=== PATIENT | male | born 1970 | race Caucasian/White ===

== ENCOUNTER 2018-03-06 18:11 | Inpatient (IN) ==
[2018-03-06 19:30] LABS: Basophils % 0.3 %; Eosinophils # 0.1 K/mcL (0.0-0.6); Eosinophils % 1.9 %; Hematocrit 37.8 % (37.5-50.1); Hemoglobin 12.9 g/dL (12.9-16.9); Immature Granulocytes % 0.3 % (0-4); Lymphocytes # 1.7 K/mcL (0.6-4.6); Lymphocytes % 29.1 %; Mean Corpuscular HGB Conc 34.1 g/dL (31.6-35.5); Mean Corpuscular Hemoglobin 28.8 pg (28.0-33.3); Mean Corpuscular Volume 84.4 fL (83.0-100.0); Mean Platelet Volume 11.9 fL (9.4-12.4); Monocytes # 0.4 K/mcL (0.0-1.3); Monocytes % 6.3 %; Neutrophils # 3.7 K/mcL (1.6-8.9); Platelet Count 202 K/mcL (140-400); Red Blood Count 4.48 M/mcL (4.19-5.50); Red Cell Distribution Width 12.4 % (11.5-14.5); Segmented Neutrophils % 62.1 %
[2018-03-06 19:44] LABS: BUN/Creatinine Ratio 24 (6-26); Blood Urea Nitrogen 33 mg/dL (6-20); Calcium 9.4 mg/dL (8.6-10.3); Carbon Dioxide 29 mEq/L (23-29); Chloride 104 mEq/L (98-107); Glucose 194 mg/dL (70-105); Osmolality,Calculated 301 (280-300); Potassium 4.6 mEq/L (3.5-5.1); Sodium 139 mEq/L (136-145); eGFR For African Americans > 60 (> 60); eGFR For Non-African Americans 55 (> 60)
[2018-03-06 19:47] LABS: Troponin I < 0.03 ng/mL (< 0.04)
[2018-03-06 20:01] LABS: Thyroid Stimulating Hormone 1.021 mcIU/mL (0.340-5.600)
[2018-03-06] MEDS ORDERED: 0.9 % Sodium Chloride 1,000 ML IVC ONE (20:05)
--- NOTE | 2018-03-06 20:10 | Emergency Department Note ---
Disposition Clinical Impression: Syncope and collapse Disposition: Admitted As Inpatient Condition: Fair General Adult HPI - General Chief complaint: ED Head Injury Stated complaint: fall w/head injury/+LOC Time Seen by Provider: 03/06/18 18:17 Source: patient Limitations: no limitations Nursing Notes Reviewed: Yes Vital Signs Reviewed: Yes - History of Present Illness HPI Narrative: 48-year-old male is emergency department with chief complaint of syncopal episode. Patient was mowing the lawn outside and went into the garage. He states that he bent over and passed out. Does not remember what happened afterwards. Patient denies any lightheadedness, vertigo. Patient states that he was not having any chest pain, pressure tightness, palpitations. Patient reporting neck pain. Patient states that he is up-to-date on tetanus. Patient having had pain. Pain Scale: 5 - Related Data Allergies Allergy/AdvReac Type Severity Reaction Status Date / Time No Known Allergies Allergy Verified 03/06/18 18:34 All systems ED: reviewed and negative except as stated. Review of Systems: As Per HPI Constitutional: Denies: fever Cardiovascular: Reports: syncope. Denies: chest pain, palpitations Respiratory: Denies: cough, dyspnea, sputum production Gastrointestinal: Denies: abdominal pain, nausea, vomiting Genitourinary: Denies: urgency, dysuria, frequency Musculoskeletal: Reports: neck pain. Denies: back pain Integumentary: Reports: abrasion (On forehead and the right lateral ankle) Neurological: Reports: paresthesias (Consistent with baseline). Denies: weakness, numbness Past Medical History - Past Medical History Medical history: Reports: coronary artery disease, CVA, diabetes, hyperlipidemia , hypertension, myocardial infarction, syncope, other Psychiatric history: Reports: depression, PTSD - Social History Smoking Status: Current some day smoker Smokeless Tobacco Status: No Alcohol use: Reports: none Drug use: Reports: none Physical Exam - General Limitations: no limitations General appearance: alert, in no apparent distress - Head Head exam: other (Mild abrasion on the forehead) - Eye Eye exam: Present: PERRL, EOMI. Absent: scleral icterus, miosis - ENT ENT exam: normal exam, normal oropharynx - Neck Neck exam: Present: trachea midline, tenderness (Of the posterior cervical spine ) - Chest Chest inspection: Present: normal inspection, symmetric chest wall rise - Respiratory Respiratory exam: Present: normal lung sounds bilaterally. Absent: respiratory distress, accessory muscle use - Cardiovascular Cardiovascular exam: Present: normal rhythm, tachycardia - Abdominal Exam Abdominal exam: Present: soft, Non-Tender. Absent: distention, guarding, rebound, rigidity - Extremities Exam Extremities exam: Present: other (The abrasion on the right lateral malleolus, neurovascular intact) - Expanded Upper Extremity Exam Hand exam: Present: normal inspection, other (Neurovascular intact, pain on gripping). Absent: tenderness, swelling Course Vital Signs Temperature 97.7 F 03/06/18 18:13 Pulse Rate 104 03/06/18 18:13 Respiratory Rate 20 03/06/18 18:13 O2 Sat by Pulse Oximetry 96 03/06/18 18:13 Temperature 97.7 F 03/06/18 18:23 Pulse Rate 102 03/06/18 21:00 Respiratory Rate 19 03/06/18 21:00 Blood Pressure 109/81 03/06/18 21:00 O2 Sat by Pulse Oximetry 96 03/06/18 21:00 Oxygen Delivery Oxygen Delivery Room Air Medical Decision Making - [facility] Narrative Medical decision making narrative: 48-year-old male presents to the emergency department with concern for syncopal episode as well as head trauma. Electrocardiogram did not reveal any evidence of ischemia, wolg parkinson white, Brugada syndrome, hypertrophic cardiomyopathy , prolonged QT syndrome. CT scan of the head and neck does not reveal any abnormality. Chest x-ray was normal as well. Patient had a syncopal episode on the way to the CT scanner. A repeat electrocardiogram was obtained and this did not reveal any changes. Creatinine was mildly elevated at 1.37. We do not have a baseline creatinine for the patient. This is addressed with a liter of normal saline. After patient was admitted to the hospitalist, he began complaining of right hand pain as well as right ankle pain that he had not complained of before. We have obtained plain films of this. Upper lotions or neurovascular intact. Patient is up-to-date on tetanus shot. Patient and are at bedside with discussion of all lab values as well as imaging. They agreed with plan for admission. Patient was given Tylenol for pain here in the emergency department. Cervical Spine CT 03/06/18 18:34 IMPRESSION: No acute abnormality of the cervical spine. D/ / Zheng Bansal MD / Zheng Bansal MD Interpreting Provider: Zheng Bansal MD Chest X-Ray 03/06/18 18:34 IMPRESSION: No acute abnormality. D/ / Jose Odell MD / Jose Odell MD Interpreting Provider: Jose Odell MD Head CT 03/06/18 18:34 IMPRESSION: No acute intracranial abnormality. D/ / Allen Odell MD / Allen Odell MD Interpreting Provider: Allen Odell MD Ankle X-Ray 03/06/18 20:28 IMPRESSION: No radiographic evidence of fracture or dislocation identified. D/ / Lyndon Rahman MD / Lyndon Rahman MD Interpreting Provider: Lyndon Rahman MD Hand X-Ray 03/06/18 20:28 IMPRESSION: No acute osseous abnormality. D/ / Marquez Morrow MD / Marquez Morrow MD Interpreting Provider: Marquez Morrow MD - Lab Data Result diagrams: 03/06/18 19:11 03/06/18 19:11 Lab Results 03/06/18 03/06/18 03/06/18 Range/Units 19:11 19:11 19:11 WBC 5.9 (4.3-11.1) K/mcL RBC 4.48 (4.19-5.50) M/mcL Hgb 12.9 (12.9-16.9) g/dL Hct 37.8 (37.5-50.1) % MCV 84.4 (83.0-100.0) fL MCH 28.8 (28.0-33.3) pg MCHC 34.1 (31.6-35.5) g/dL RDW 12.4 (11.5-14.5) % Plt Count 202 (140-400) K/mcL MPV 11.9 (9.4-12.4) fL Immature Gran % 0.3 (0-4) % Seg Neutrophils % 62.1 % Lymphocytes % 29.1 % Monocytes % 6.3 % Eosinophils % 1.9 % Basophils % 0.3 % Neutrophils # 3.7 (1.6-8.9) K/mcL Lymphocytes # 1.7 (0.6-4.6) K/mcL Monocytes # 0.4 (0.0-1.3) K/mcL Eosinophils # 0.1 (0.0-0.6) K/mcL Basophils # 0.0 (0.0-0.2) K/mcL PT (9.4-12.1) Seconds INR APTT (26.0-36.0) Seconds Sodium 139 (136-145) mEq/L Potassium 4.6 (3.5-5.1) mEq/L Chloride 104 (98-107) mEq/L Carbon Dioxide 29 (23-29) mEq/L BUN 33 H (6-20) mg/dL Creatinine 1.37 H (0.70-1.30) mg/dL Est GFR ( Amer) > 60 (> 60) Est GFR (Non-Af Amer) 55 L (> 60) BUN/Creatinine Ratio 24 (6-26) Glucose 194 H (70-105) mg/dL Calculated Osmolality 301 H (280-300) Calcium 9.4 (8.6-10.3) mg/dL Troponin I < 0.03 (< 0.04) ng/mL TSH 1.021 (0.340-5.600) mcIU/mL 03/06/18 Range/Units 19:45 WBC (4.3-11.1) K/mcL RBC (4.19-5.50) M/mcL Hgb (12.9-16.9) g/dL Hct (37.5-50.1) % MCV (83.0-100.0) fL MCH (28.0-33.3) pg MCHC (31.6-35.5) g/dL RDW (11.5-14.5) % Plt Count (140-400) K/mcL MPV (9.4-12.4) fL Immature Gran % (0-4) % Seg Neutrophils % % Lymphocytes % % Monocytes % % Eosinophils % % Basophils % % Neutrophils # (1.6-8.9) K/mcL Lymphocytes # (0.6-4.6) K/mcL Monocytes # (0.0-1.3) K/mcL Eosinophils # (0.0-0.6) K/mcL Basophils # (0.0-0.2) K/mcL PT 10.4 (9.4-12.1) Seconds INR 1.0 APTT 31.1 (26.0-36.0) Seconds Sodium (136-145) mEq/L Potassium (3.5-5.1) mEq/L Chloride (98-107) mEq/L Carbon Dioxide (23-29) mEq/L BUN (6-20) mg/dL Creatinine (0.70-1.30) mg/dL Est GFR ( Amer) (> 60) Est GFR (Non-Af Amer) (> 60) BUN/Creatinine Ratio (6-26) Glucose (70-105) mg/dL Calculated Osmolality (280-300) Calcium (8.6-10.3) mg/dL Troponin I (< 0.04) ng/mL TSH (0.340-5.600) mcIU/mL - EKG Data EKG #1 EKG attestation: Yes I reviewed and interpreted this EKG. EKG results narrative: 18:44 EKG #1 Ventricular rate 96 bpm,. 158 ms, QRS duration 92 ms, QT 332 ms, QTC 386, left axis deviation. Sinus rhythm with a ventricular rate of 96 bpm. There is no evidence of any ST segment changes concerning for ischemia. There is no evidence of Naya- Parkinson-White syndrome, Brugada syndrome, hypertrophic cardiomyopathy, QT prolongation EKG #2 18:44 No changes from previous EKG. Specifically, no evidence of hypertrophic cardiomyopathy, with Parkinson White syndrome, Brugada syndrome, QT prolongation
[2018-03-06 20:13] LABS: Prothrombin Time 10.4 Seconds (9.4-12.1)
[2018-03-06 20:16] LABS: Activated Partial Thrombo Time 31.1 Seconds (26.0-36.0)
[2018-03-06] MEDS ORDERED: Naloxone 0.4 MG/ML INJ IVP PRN (21:33)
--- NOTE | 2018-03-06 21:40 | Internal Med History&Physical ---
Date of Encounter: 03/06/18 Time of Encounter: 21:38 Internal Medicine - H&P: HPI Chief complaint: Syncope Admitted From: Emergency Dept Plans for Post Hospital Care: Home History of present illness: Mr. Fernandes is a 48 year old male patient with a history of prior CVA, orthostatic hypotension, diabetes, hypertension, hyperlipidemia, coronary artery disease who was brought to the ER after experiencing a bout of syncope while he was working in his garage. He had previously been mowing his lawn and then had been working in his garbage and was lifting something when he had blank spots in his visual chun and felt dizzy and the next thing he remembers is waking up on the ground. Nobody witnessed this event. Patient reports that his been having syncopal episodes for several months now and has been worked up at the [facility] and diagnosed with orthostatic hypotension. He was recommended to wear compression stockings which she has not been wearing them. His reports that his blood pressure is always very high. He denies any focal weakness or numbness. No nausea or vomiting. No chest pain or palpitations at this time. He had another episode of syncope/ passing out while he was getting into the CT scanner. His states that he tends to have dizziness and lightheadedness every time he stands up and starts to walk. He has been advised to take his time but he almost always moves quickly. He reports that he has had extensive workup including heart monitoring and MRI of the brain and multiple CT scans. Past Med Surg Social Fam HX - Past Medical History Medical history: coronary artery disease, CVA, diabetes, hyperlipidemia, hypertension, myocardial infarction, syncope, other Additional medical history: neuropathy, enlarged prostate, tremors Psychiatric history: depression, PTSD - Social History Smoking Status: Current some day smoker Smokeless Tobacco Status: No Alcohol use: none Drug use: none - Additional Family History Additional family history: Reviewed and found to be noncontributory at this time Internal Medicine - H&P: Meds 3 Allergy/AdvReac Type Severity Reaction Status Date / Time No Known Allergies Allergy Verified 03/06/18 18:34 All Systems PM: A 10-system review of systems was performed and is negative for pertinent findings except as documented above in the HPI. - Constitutional Constitutional: no chills, no fever(s), no night sweats - EENT Eyes: no change in vision, no discharge, no pain, no photophobia Ears: no ear discharge, no ear pain, no tinnitus Nose, mouth and throat: no dysphagia, no nasal discharge, no neck pain, no sore throat - Cardiovascular Cardiovascular ROS IM: no chest pain, no diaphoresis, no dyspnea, no lightheadedness, no palpitations, no syncope - Respiratory Respiratory: no cough, no dyspnea, no wheezing, no excessive phlegm production - Gastrointestinal Gastrointestinal: no abdominal pain, no diarrhea, no hematemesis, no hematochezia, no melena, no nausea, no vomiting - Musculoskeletal Musculoskeletal ROS IM: no numbness, no tingling - Integumentary Integumentary IM: no rash, no unusual bruising - Neurological Neurological ROS: weakness (Residual mild right-sided weakness from prior CVA), no confusion, no convulsions, no focal weakness, no numbness, no tingling, no tremor(s) - Hematologic/Lymphatic Hematologic/Lymphatic: no easy bruising - Constitutional Vitals: Temp Pulse Resp BP Pulse Ox 97.7 F 102 19 109/81 96 03/06/18 18:23 03/06/18 21:00 03/06/18 21:00 03/06/18 21:00 03/06/18 21:00 General appearance: Present: cooperative, A&O X 3, pleasant, answers questions appropriately - Neck Neck exam general surgery: Present: supple, trachea midline. Absent: lymphadenopathy - Respiratory Respiratory exam: Present: CTAB. Absent: accessory muscle use, rales, rhonchi, wheezes - Cardiovascular Cardiovascular exam: Present: RRR, +S1, +S2. Absent: diastolic murmur, gallop, rubs, systolic murmur - GI/Abdominal GI/Abdominal exam: Present: normal bowel sounds, soft, no peritoneal signs. Absent: distended, tenderness - Extremities Exam Extremities exam: Present: warm, radial pulses palpable and symmetrical. Absent : calf tenderness, cyanotic, pedal edema - Neurological Exam Neurological exam: Present: alert, CN II-XII intact, oriented X3. Absent: facial droop, speech deficit Additional comments: Strength in right lower extremity 4+ /5. Normal in all other extremities - Skin Skin exam: Present: dry, intact Internal Med - H&P Results - Labs CBC & Chem 7: 03/06/18 19:11 03/06/18 19:11 - EKG Data -: EKG Interpreted by Myself EKG shows normal: sinus rhythm - Impressions Impressions Cervical Spine CT 03/06/18 18:34 IMPRESSION: No acute abnormality of the cervical spine. D/ / Zheng Bansal MD / Zheng Bansal MD Interpreting Provider: Zheng Bansal MD Chest X-Ray 03/06/18 18:34 IMPRESSION: No acute abnormality. D/ / Jose Odell MD / Jose Odell MD Interpreting Provider: Jose Odell MD Head CT 03/06/18 18:34 IMPRESSION: No acute intracranial abnormality. D/ / Allen Odell MD / Allen Odell MD Interpreting Provider: Allen Odell MD Ankle X-Ray 03/06/18 20:28 IMPRESSION: No radiographic evidence of fracture or dislocation identified. D/ / Lyndon Rahman MD / Lyndon Rahman MD Interpreting Provider: Lyndon Rahman MD Hand X-Ray 03/06/18 20:28 IMPRESSION: No acute osseous abnormality. D/ / Marquez Morrow MD / Marquez Morrow MD Interpreting Provider: Marquez Morrow MD - Assessment and plan (1) Syncope and collapse Current Visit: Yes Status: Acute Assessment and plan: Most likely Orthostatic syncope. Patient with a history of orthostatic hypotension. He experienced syncope while he was standing. Will monitor blood pressure. Check orthostatic blood pressure. Give IV fluids. Given that he is already had extensive workup for this, will hold off on any further workup and obtain records [facility]. Consider tilt table test as patient reports that this has not been done. (2) Diabetes mellitus, type 2 Current Visit: Yes Status: Chronic Assessment and plan: Monitor blood sugars. Place patient on sliding scale insulin and diabetic diet. Qualifiers: Diabetes mellitus half-way insulin use: unspecified half-way insulin use status Diabetes mellitus complication status: with hyperglycemia Qualified Code(s): E11.65 - Type 2 diabetes mellitus with hyperglycemia (3) Essential hypertension Current Visit: Yes Status: Chronic Assessment and plan: Currently well controlled. We will monitor blood pressure and resume home medications if persistently elevated. (4) History of CVA (cerebrovascular accident) Current Visit: Yes Status: Chronic Assessment and plan: With mild residual right-sided weakness. Continue home medications. Fall precautions. - Time Spent With Patient Total time spent is greater than 50% in coordination of care (as documented) at patient's floor/unit and/or counseling patient:
[2018-03-07] MEDS ORDERED: Dextrose Gel 15 GM/37.5 ML TUBE PO PRN ×2 (00:08)
[2018-03-07] MEDS ORDERED: *HR* Dextrose 50 % in Water (Syg) 50 ML SYRINGE IVP PRN (00:08)
[2018-03-07] MEDS ORDERED: D5% in Water 1,000 ML IVC PRN (00:08)
--- NOTE | 2018-03-07 00:13 | Emergency Department Note ---
Disposition Clinical Impression: Syncope and collapse Disposition: Admitted As Inpatient Condition: Fair Referrals: Jarek Perez MD [Family Provider] - [facility] [Primary Care Provider] - General Adult HPI - General Chief complaint: ED Head Injury Stated complaint: fall w/head injury/+LOC Time Seen by Provider: 03/06/18 18:17 Source: patient Limitations: no limitations Nursing Notes Reviewed: Yes Vital Signs Reviewed: Yes - History of Present Illness Pain Scale: 5 - Related Data Home Medications Medication Instructions Recorded Confirmed Adult Aspirin 325 mg PO DAILY 03/06/18 03/06/18 Hydrochlorothiazide 25 mg PO QAM 03/06/18 03/06/18 Hytrin 0.4 mg PO DAILY 03/06/18 03/06/18 Lantus 88 units SQ BID 03/06/18 03/06/18 Losartan 75 mg PO DAILY 03/06/18 03/06/18 Lyrica 200 mg PO TID 03/06/18 03/06/18 Melatonin 3 mg PO HS 03/06/18 03/06/18 Novolog 0 units SQ ACHS 03/06/18 Oxycodone HCl/Acetaminophen mg PO Q6HR PRN 03/06/18 TraZODone 50 mg PO HS 03/06/18 03/06/18 Wellbutrin 150 mg PO LILY 03/06/18 03/06/18 Allergies Allergy/AdvReac Type Severity Reaction Status Date / Time No Known Allergies Allergy Verified 03/06/18 18:34 Constitutional: Denies: fever Cardiovascular: Reports: syncope. Denies: chest pain, palpitations Respiratory: Denies: cough, dyspnea, sputum production Gastrointestinal: Denies: abdominal pain, nausea, vomiting Genitourinary: Denies: urgency, dysuria, frequency Musculoskeletal: Reports: neck pain. Denies: back pain Integumentary: Reports: abrasion (On forehead and the right lateral ankle) Neurological: Reports: paresthesias (Consistent with baseline). Denies: weakness, numbness Past Medical History - Past Medical History Medical history: Reports: coronary artery disease, CVA, diabetes, hyperlipidemia , hypertension, myocardial infarction, syncope, other Surgical history: Reports: tonsilectomy Psychiatric history: Reports: depression, PTSD - Social History Smoking Status: Current some day smoker Smokeless Tobacco Status: No Alcohol use: Reports: none Drug use: Reports: none Physical Exam - General Limitations: no limitations General appearance: alert, in no apparent distress Course Vital Signs Temperature 97.7 F 03/06/18 18:13 Pulse Rate 104 03/06/18 18:13 Respiratory Rate 20 03/06/18 18:13 O2 Sat by Pulse Oximetry 96 03/06/18 18:13 Temperature 97.6 F 03/06/18 23:28 Pulse Rate 92 03/06/18 23:28 Respiratory Rate 19 03/06/18 23:28 Blood Pressure 149/86 03/06/18 23:28 O2 Sat by Pulse Oximetry 95 03/06/18 23:28 Oxygen Delivery Oxygen Delivery Room Air Medical Decision Making - Lab Data Result diagrams: 03/06/18 19:11 03/06/18 19:11 Lab Results 03/06/18 03/06/18 03/06/18 Range/Units 19:11 19:11 19:11 WBC 5.9 (4.3-11.1) K/mcL RBC 4.48 (4.19-5.50) M/mcL Hgb 12.9 (12.9-16.9) g/dL Hct 37.8 (37.5-50.1) % MCV 84.4 (83.0-100.0) fL MCH 28.8 (28.0-33.3) pg MCHC 34.1 (31.6-35.5) g/dL RDW 12.4 (11.5-14.5) % Plt Count 202 (140-400) K/mcL MPV 11.9 (9.4-12.4) fL Immature Gran % 0.3 (0-4) % Seg Neutrophils % 62.1 % Lymphocytes % 29.1 % Monocytes % 6.3 % Eosinophils % 1.9 % Basophils % 0.3 % Neutrophils # 3.7 (1.6-8.9) K/mcL Lymphocytes # 1.7 (0.6-4.6) K/mcL Monocytes # 0.4 (0.0-1.3) K/mcL Eosinophils # 0.1 (0.0-0.6) K/mcL Basophils # 0.0 (0.0-0.2) K/mcL PT (9.4-12.1) Seconds INR APTT (26.0-36.0) Seconds Sodium 139 (136-145) mEq/L Potassium 4.6 (3.5-5.1) mEq/L Chloride 104 (98-107) mEq/L Carbon Dioxide 29 (23-29) mEq/L BUN 33 H (6-20) mg/dL Creatinine 1.37 H (0.70-1.30) mg/dL Est GFR ( Amer) > 60 (> 60) Est GFR (Non-Af Amer) 55 L (> 60) BUN/Creatinine Ratio 24 (6-26) Glucose 194 H (70-105) mg/dL Calculated Osmolality 301 H (280-300) Calcium 9.4 (8.6-10.3) mg/dL Troponin I < 0.03 (< 0.04) ng/mL TSH 1.021 (0.340-5.600) mcIU/mL 03/06/18 Range/Units 19:45 WBC (4.3-11.1) K/mcL RBC (4.19-5.50) M/mcL Hgb (12.9-16.9) g/dL Hct (37.5-50.1) % MCV (83.0-100.0) fL MCH (28.0-33.3) pg MCHC (31.6-35.5) g/dL RDW (11.5-14.5) % Plt Count (140-400) K/mcL MPV (9.4-12.4) fL Immature Gran % (0-4) % Seg Neutrophils % % Lymphocytes % % Monocytes % % Eosinophils % % Basophils % % Neutrophils # (1.6-8.9) K/mcL Lymphocytes # (0.6-4.6) K/mcL Monocytes # (0.0-1.3) K/mcL Eosinophils # (0.0-0.6) K/mcL Basophils # (0.0-0.2) K/mcL PT 10.4 (9.4-12.1) Seconds INR 1.0 APTT 31.1 (26.0-36.0) Seconds Sodium (136-145) mEq/L Potassium (3.5-5.1) mEq/L Chloride (98-107) mEq/L Carbon Dioxide (23-29) mEq/L BUN (6-20) mg/dL Creatinine (0.70-1.30) mg/dL Est GFR ( Amer) (> 60) Est GFR (Non-Af Amer) (> 60) BUN/Creatinine Ratio (6-26) Glucose (70-105) mg/dL Calculated Osmolality (280-300) Calcium (8.6-10.3) mg/dL Troponin I (< 0.04) ng/mL TSH (0.340-5.600) mcIU/mL Attestation Statement - Attestation Attestation: I, Maxim Cunningham, examined this patient and my medical decision-making was reviewed with the MELLOWING MACHINE OPERATOR/PA/Advanced Practice Nurse/Resident Physician. I agree with the documented findings, disposition and treatment plan as described except to the extent set forth below. 48-year-old male presents emergency Department after a syncopal episode. Patient states he was picking things up in his garage when he suddenly felt lightheaded and fell to the ground. He denied associated chest pain or shortness of breath. This has occurred to the patient in the past. He denied recent nausea, vomiting, diarrhea. Patient has a small laceration to the superior right parietal area however this will not require suturing. During the evaluation the patient syncopized in the CT scan area. Laboratory evaluation largely within normal limits. CT of the head and neck negative for acute fracture or intracranial hemorrhage. EKG did not show evidence of STEMI or other dysrhythmia. Patient will be admitted to the hospital for further care and evaluation.
[2018-03-07] MEDS ORDERED: 0.9 % Sodium Chloride 1,000 ML IVC SCH (00:15)
[2018-03-07] MEDS: *HR* HYDROcodone/Acet 5/325 mg TABLET PO PRN ×3 (00:47→15:43)
[2018-03-07] MEDS ORDERED: traZODone 50 MG TABLET PO STA (00:58)
[2018-03-07] MEDS: Insulin LISPRO 300 UNITS/3 ML VIAL SQ SCH ×5 (01:16→21:02)
--- NOTE | 2018-03-07 03:19 | Event Note ---
Date of Encounter: 03/07/18 Time of Encounter: 03:18 Rapid response called as patient fell on the floor after getting up from the toilet after he had a bowel movement. Witnessed. He did hit his head. He is now being put back in bed. He is able to answer questions but he seems to be repeating himself and somewhat confused. Will get CT scan of the head. Fall precautions. Continue IV fluids. Will place patient on bedrest only.
[2018-03-07] MEDS: *HR* Heparin 5,000 UNIT/ML VIAL SQ SCH ×2 (05:36→18:17)
[2018-03-07 06:01] LABS: Basophils % 0.2 %; Eosinophils # 0.1 K/mcL (0.0-0.6); Eosinophils % 2.2 %; Hematocrit 33.5 % (37.5-50.1); Immature Granulocytes % 0.2 % (0-4); Lymphocytes # 2.6 K/mcL (0.6-4.6); Lymphocytes % 55.3 %; Mean Corpuscular HGB Conc 33.4 g/dL (31.6-35.5); Mean Corpuscular Hemoglobin 28.7 pg (28.0-33.3); Mean Corpuscular Volume 85.9 fL (83.0-100.0); Mean Platelet Volume 12.1 fL (9.4-12.4); Monocytes # 0.3 K/mcL (0.0-1.3); Monocytes % 6.7 %; Neutrophils # 1.6 K/mcL (1.6-8.9); Platelet Count 176 K/mcL (140-400); Red Cell Distribution Width 12.6 % (11.5-14.5); Segmented Neutrophils % 35.4 %
[2018-03-07 06:03] LABS: Hemoglobin 11.2 g/dL (12.9-16.9)
[2018-03-07 06:21] LABS: BUN/Creatinine Ratio 27 (6-26); Blood Urea Nitrogen 38 mg/dL (6-20); Calcium 8.5 mg/dL (8.6-10.3); Carbon Dioxide 28 mEq/L (23-29); Chloride 107 mEq/L (98-107); Glucose 141 mg/dL (70-105); Osmolality,Calculated 301 (280-300); Potassium 4.2 mEq/L (3.5-5.1); Sodium 140 mEq/L (136-145); eGFR For African Americans > 60 (> 60); eGFR For Non-African Americans 53 (> 60)
[2018-03-07] MEDS: BuPROPion XL (24 HR) 150 MG TABLET PO SCH (08:09)
[2018-03-07] MEDS: Pregabalin 50 MG CAPSULE PO SCH ×3 (08:09→20:59)
[2018-03-07] MEDS: Aspirin 325 MG TABLET PO SCH (08:09)
--- NOTE | 2018-03-07 13:48 | Internal Med Progress Note ---
Date of Encounter: 03/07/18 Time of Encounter: 13:43 - Assessment and plan (1) Syncope and collapse Current Visit: Yes Status: Acute Assessment and plan: recurrent. Patient reported being hospitalized at the [facility] for the last 5 months for same symptom with no cause found. BP consistent with orthostatic hypotension however it sounds like recent work-up may be neurally-mediated reflex syncope per patient re[port. Details unknown at this time as [facility]. Continue IV fluids, monitor blood pressure. Fall precautions. Patient is only up out of bed with assistance. Request outside [facility] records (2) Diabetes mellitus, type 2 Current Visit: Yes Status: Chronic Assessment and plan: per hx. Cont home lantus at reduced dose as diet is likely more restricted. SSI. Monitor blood sugars and titrate PRN Qualifiers: Diabetes mellitus medical terminologist insulin use: unspecified longterm insulin use status Diabetes mellitus complication status: with hyperglycemia Qualified Code(s): E11.65 - Type 2 diabetes mellitus with hyperglycemia (3) Essential hypertension Current Visit: Yes Status: Chronic Assessment and plan: per hx. BP variable. Holding home BP medication with orthotic hypotension and syncope. Add PRN hydralazine (4) History of CVA (cerebrovascular accident) Current Visit: Yes Status: Chronic Assessment and plan: With mild residual right-sided weakness. Continue home medications. Fall precautions. (5) ALESSANDRO (acute kidney injury) Current Visit: Yes Status: Acute Assessment and plan: Cr 1.4; baseline unknown but no known history of kidney disease. Previous creatinine 1.3. Continue IV fluids. Avoid nephrotoxic agents as possible. Monitor repeat renal function. (6) DVT prophylaxis Current Visit: Yes Status: Acute Assessment and plan: heparin - Time Spent With Patient Total time spent is greater than 50% in coordination of care (as documented) at patient's floor/unit and/or counseling patient: - Subjective Interval history: Seen and examined at bedside. Patient is new to me, information obtained from chart review and patient report. Says he feels okay, still having some lightheaded and dizziness with activity and movement of head. Says he has a slight headache from fall overnight. He tells me he has been hospitalized at the [facility] for last 5 months for same symptoms and because has not been found. He says he supposed to have a tilt table test at some point. He tells me he was receiving discharge home from the [facility] and was advised to symptoms recurred that he should be evaluated at [facility]. He is quite preoccupied with his diabetic diet and is difficult to keep focused on exam. - Constitutional Vitals: Temp Pulse Resp BP Pulse Ox 98.6 F 95 16 182/75 96 03/07/18 11:17 03/07/18 11:17 03/07/18 11:17 03/07/18 11:17 03/07/18 11:17 General appearance: Present: cooperative, A&O X 3, pleasant, answers questions appropriately - Head Head exam: Present: atraumatic, normocephalic - Eye Eye exam: Present: PERRL, conjuntiva pink, sclera anicteric Pupils: Present: PERRL - Neck Neck exam general surgery: Present: supple, trachea midline. Absent: lymphadenopathy - Respiratory Respiratory exam: Present: CTAB. Absent: accessory muscle use, rales, rhonchi, wheezes - Cardiovascular Cardiovascular exam: Present: RRR, +S1, +S2. Absent: diastolic murmur, gallop, rubs, systolic murmur - GI/Abdominal GI/Abdominal exam: Present: normal bowel sounds, soft, no peritoneal signs. Absent: distended, tenderness - Extremities Exam Extremities exam: Present: warm, radial pulses palpable and symmetrical. Absent : calf tenderness, cyanotic, pedal edema - Neurological Exam Neurological exam: Present: CN II-XII intact, oriented X3, no focal deficits. Absent: pronater drift, facial droop, speech deficit - Skin Skin exam: Present: dry, intact Internal Medicine: Result - Labs CBC & Chem 7: 03/07/18 05:18 03/07/18 05:18 Labs: Short CBC 03/07/18 Range/Units 05:18 WBC 4.6 (4.3-11.1) K/mcL Hgb 11.2 L D (12.9-16.9) g/dL Hct 33.5 L (37.5-50.1) % Plt Count 176 (140-400) K/mcL Neutrophils # 1.6 (1.6-8.9) K/mcL BMP 03/07/18 05:18 Sodium 140 Potassium 4.2 Chloride 107 Carbon Dioxide 28 BUN 38 H Creatinine 1.42 H Glucose 141 H Calcium 8.5 L - ABG Interpretation ABG results: PT/INR, D-dimer PT 10.4 Seconds (9.4-12.1) 03/06/18 19:45 - Impressions Impressions Head CT 03/07/18 03:15 IMPRESSION: No acute intracranial abnormality. D/ / Eleazar Saba MD / Eleazar Saba MD Interpreting Provider: Eleazar Saba MD Consult Discharge Plan - Plan Referrals: Jarek Perez MD [Family Provider] - [facility] Care Provider[facility] -
[2018-03-07] MEDS: 0.9 % Sodium Chloride 1,000 ML IVC SCH (15:43)
[2018-03-07] MEDS: Melatonin 3 MG TABLET PO SCH (20:59)
[2018-03-07] MEDS: traZODone 50 MG TABLET PO SCH (20:59)
[2018-03-07] MEDS: Insulin DETEMIR 100 UNIT/ML X5UNITS SQ SCH (21:00)
[2018-03-07] MEDS ORDERED: Insulin LISPRO 300 UNITS/3 ML VIAL SQ SCH (21:00)
[2018-03-08] MEDS: *HR* HYDROcodone/Acet 5/325 mg TABLET PO PRN ×3 (03:54→23:56)
[2018-03-08] MEDS: *HR* Heparin 5,000 UNIT/ML VIAL SQ SCH ×2 (03:55→18:02)
[2018-03-08] MEDS: 0.9 % Sodium Chloride 1,000 ML IVC SCH ×2 (05:16→20:27)
[2018-03-08 05:54] LABS: Hematocrit 33.7 % (37.5-50.1); Hemoglobin 11.3 g/dL (12.9-16.9); Mean Corpuscular HGB Conc 33.5 g/dL (31.6-35.5); Mean Corpuscular Hemoglobin 28.1 pg (28.0-33.3); Mean Corpuscular Volume 83.8 fL (83.0-100.0); Mean Platelet Volume 11.5 fL (9.4-12.4); Platelet Count 171 K/mcL (140-400); Red Blood Count 4.02 M/mcL (4.19-5.50); Red Cell Distribution Width 12.3 % (11.5-14.5)
[2018-03-08 06:03] LABS: BUN/Creatinine Ratio 30 (6-26); Blood Urea Nitrogen 30 mg/dL (6-20); Calcium 8.7 mg/dL (8.6-10.3); Carbon Dioxide 27 mEq/L (23-29); Chloride 106 mEq/L (98-107); Glucose 219 mg/dL (70-105); Osmolality,Calculated 299 (280-300); Potassium 4.3 mEq/L (3.5-5.1); Sodium 138 mEq/L (136-145); eGFR For African Americans > 60 (> 60); eGFR For Non-African Americans > 60 (> 60)
[2018-03-08] MEDS: Pregabalin 50 MG CAPSULE PO SCH ×3 (08:43→20:30)
[2018-03-08] MEDS: BuPROPion XL (24 HR) 150 MG TABLET PO SCH (08:43)
[2018-03-08] MEDS: Insulin DETEMIR 100 UNIT/ML X5UNITS SQ SCH ×2 (08:43→20:32)
[2018-03-08] MEDS: Aspirin 325 MG TABLET PO SCH (08:43)
[2018-03-08] MEDS: Insulin LISPRO 300 UNITS/3 ML VIAL SQ SCH ×4 (08:44→20:33)
--- NOTE | 2018-03-08 15:36 | Internal Med Progress Note ---
Date of Encounter: 03/08/18 Time of Encounter: 15:36 - Assessment and plan (1) Syncope and collapse Current Visit: Yes Status: Acute Assessment and plan: recurrent. Patient reported being hospitalized at the [facility] for the last 5 months for same symptom with no cause found. BP consistent with orthostatic hypotension however it sounds like recent work-up may be neurally-mediated reflex syncope per patient re[port. Details unknown at this time as unable to access [facility] records. Continue IV fluids, monitor blood pressure. Fall precautions. Patient is only up out of bed with assistance. Possible transfer to [place] 03/09 (2) Diabetes mellitus, type 2 Current Visit: Yes Status: Chronic Assessment and plan: per hx. Cont home lantus at reduced dose as diet is likely more restricted. SSI. Monitor blood sugars and titrate PRN Qualifiers: Diabetes mellitus fdc insulin use: unspecified fdc insulin use status Diabetes mellitus complication status: with hyperglycemia Qualified Code(s): E11.65 - Type 2 diabetes mellitus with hyperglycemia (3) Essential hypertension Current Visit: Yes Status: Chronic Assessment and plan: per hx. BP variable. Holding home BP medication with orthotic hypotension and syncope. Add PRN hydralazine (4) History of CVA (cerebrovascular accident) Current Visit: Yes Status: Chronic Assessment and plan: With mild residual right-sided weakness. Continue home medications. Fall precautions. (5) ALESSANDRO (acute kidney injury) Current Visit: Yes Status: Acute Assessment and plan: Cr 1.4; baseline unknown but no known history of kidney disease. Previous creatinine 1.3. Continue IV fluids. Avoid nephrotoxic agents as possible. Monitor repeat renal function. (6) DVT prophylaxis Current Visit: Yes Status: Acute Assessment and plan: heparin - Time Spent With Patient Total time spent is greater than 50% in coordination of care (as documented) at patient's floor/unit and/or counseling patient: - Subjective Interval history: Seen and examined at bedside. Sitting up in chair. Says he had an uneventful night, still having lightheadedness/dizziness that is worse with activity. He is still wanting transferred to [facility] - Constitutional Vitals: Temp Pulse Resp BP Pulse Ox 98.3 F 87 14 133/86 97 03/08/18 11:53 03/08/18 11:53 03/08/18 11:53 03/08/18 11:53 03/08/18 11:53 General appearance: Present: cooperative, A&O X 3, pleasant, answers questions appropriately - Head Head exam: Present: atraumatic, normocephalic - Eye Eye exam: Present: PERRL, conjuntiva pink, sclera anicteric Pupils: Present: PERRL - Neck Neck exam general surgery: Present: supple, trachea midline. Absent: lymphadenopathy - Respiratory Respiratory exam: Present: CTAB. Absent: accessory muscle use, rales, rhonchi, wheezes - Cardiovascular Cardiovascular exam: Present: RRR, +S1, +S2. Absent: diastolic murmur, gallop, rubs, systolic murmur - GI/Abdominal GI/Abdominal exam: Present: normal bowel sounds, soft, no peritoneal signs. Absent: distended, tenderness - Extremities Exam Extremities exam: Present: warm, radial pulses palpable and symmetrical. Absent : calf tenderness, cyanotic, pedal edema - Neurological Exam Neurological exam: Present: CN II-XII intact, oriented X3, no focal deficits. Absent: pronater drift, facial droop, speech deficit - Skin Skin exam: Present: dry, intact Internal Medicine: Result - Labs CBC & Chem 7: 03/08/18 05:14 03/08/18 05:14 Labs: Short CBC 03/08/18 Range/Units 05:14 WBC 4.2 L (4.3-11.1) K/mcL Hgb 11.3 L (12.9-16.9) g/dL Hct 33.7 L (37.5-50.1) % Plt Count 171 (140-400) K/mcL BMP 03/08/18 05:14 Sodium 138 Potassium 4.3 Chloride 106 Carbon Dioxide 27 BUN 30 H Creatinine 1.00 Glucose 219 H Calcium 8.7 - ABG Interpretation ABG results: PT/INR, D-dimer PT 10.4 Seconds (9.4-12.1) 03/06/18 19:45 Consult Discharge Plan - Plan Referrals: Jarek Perez MD [Family Provider] - [facility] Care Provider[facility] -
[2018-03-08] MEDS: Melatonin 3 MG TABLET PO SCH (20:32)
[2018-03-08] MEDS: traZODone 50 MG TABLET PO SCH (20:32)
[2018-03-09] MEDS ORDERED: Nitroglycerin 0.4 MG TAB.SUBL SL ONE (02:26)
[2018-03-09] MEDS ORDERED: Nitroglycerin 0.4 MG TAB.SUBL SL PRN (02:35)
[2018-03-09 05:03] LABS: Hematocrit 33.6 % (37.5-50.1); Hemoglobin 11.1 g/dL (12.9-16.9); Mean Corpuscular Hemoglobin 27.8 pg (28.0-33.3); Mean Corpuscular Volume 84.2 fL (83.0-100.0); Mean Platelet Volume 11.6 fL (9.4-12.4); Platelet Count 170 K/mcL (140-400); Red Blood Count 3.99 M/mcL (4.19-5.50); Red Cell Distribution Width 12.3 % (11.5-14.5)
[2018-03-09 05:24] LABS: BUN/Creatinine Ratio 25 (6-26); Blood Urea Nitrogen 28 mg/dL (6-20); Calcium 8.7 mg/dL (8.6-10.3); Carbon Dioxide 26 mEq/L (23-29); Chloride 107 mEq/L (98-107); Glucose 220 mg/dL (70-105); Osmolality,Calculated 298 (280-300); Potassium 4.3 mEq/L (3.5-5.1); Sodium 138 mEq/L (136-145); eGFR For African Americans > 60 (> 60); eGFR For Non-African Americans > 60 (> 60)
[2018-03-09] MEDS: *HR* Heparin 5,000 UNIT/ML VIAL SQ SCH ×2 (05:56→19:08)
[2018-03-09] MEDS: BuPROPion XL (24 HR) 150 MG TABLET PO SCH (08:33)
[2018-03-09] MEDS: Pregabalin 50 MG CAPSULE PO SCH ×3 (08:33→22:01)
[2018-03-09] MEDS: Aspirin 325 MG TABLET PO SCH (08:33)
[2018-03-09] MEDS: Insulin LISPRO 300 UNITS/3 ML VIAL SQ SCH ×4 (08:33→21:42)
[2018-03-09] MEDS: Insulin DETEMIR 100 UNIT/ML X5UNITS SQ SCH ×2 (08:38→22:02)
[2018-03-09] MEDS: 0.9 % Sodium Chloride 1,000 ML IVC SCH ×2 (10:35→22:17)
[2018-03-09] MEDS: *HR* HYDROcodone/Acet 5/325 mg TABLET PO PRN (14:37)
--- NOTE | 2018-03-09 16:30 | Internal Med Progress Note ---
Date of Encounter: 03/09/18 Time of Encounter: 16:30 - Assessment and plan (1) Syncope and collapse Current Visit: Yes Status: Acute Assessment and plan: recurrent. Patient reported being hospitalized at the [facility] for the last 5 months for same symptom with no cause found. BP consistent with orthostatic hypotension however it sounds like recent work-up may be neurally-mediated reflex syncope per patient re[port. Details unknown at this time as unable to access [facility] records. Continue IV fluids, monitor blood pressure. Fall precautions. Patient is only up out of bed with assistance. PT/OT recommending SNF at discharge. Patient does not want to go to [facility]. Waiting to hear from the [facility] as to whether or not patient will be accepted to [facility] (2) Diabetes mellitus, type 2 Current Visit: Yes Status: Chronic Assessment and plan: per hx. Cont home lantus at reduced dose as diet is likely more restricted. SSI. Monitor blood sugars and titrate PRN. Blood sugars elevated on 03/09 review. Increase home long-acting insulin to 60 units twice a day Qualifiers: Diabetes mellitus nursing home insulin use: unspecified nursing home insulin use status Diabetes mellitus complication status: with hyperglycemia Qualified Code(s): E11.65 - Type 2 diabetes mellitus with hyperglycemia (3) Essential hypertension Current Visit: Yes Status: Chronic Assessment and plan: per hx. BP variable. Holding home BP medication with orthotic hypotension and syncope. Add PRN hydralazine (4) History of CVA (cerebrovascular accident) Current Visit: Yes Status: Chronic Assessment and plan: With mild residual right-sided weakness. Continue home medications. Fall precautions. (5) ALESSANDRO (acute kidney injury) Current Visit: Yes Status: Acute Assessment and plan: Cr 1.4; baseline unknown but no known history of kidney disease. Previous creatinine 1.3. Continue IV fluids. Avoid nephrotoxic agents as possible. Monitor repeat renal function. (6) DVT prophylaxis Current Visit: Yes Status: Acute Assessment and plan: heparin - Time Spent With Patient Total time spent is greater than 50% in coordination of care (as documented) at patient's floor/unit and/or counseling patient: - Subjective Interval history: Seen and examined at bedside. Laying in bed. Appears comfortable. Denies lightheadedness or dizziness. He is still requesting to be transferred to the [facility] - Constitutional Vitals: Temp Pulse Resp BP Pulse Ox 97.8 F 91 15 157/90 95 03/09/18 15:47 03/09/18 15:47 03/09/18 15:47 03/09/18 15:47 03/09/18 15:47 General appearance: Present: cooperative, A&O X 3, pleasant, answers questions appropriately - Head Head exam: Present: atraumatic, normocephalic - Eye Eye exam: Present: PERRL, conjuntiva pink, sclera anicteric Pupils: Present: PERRL - Neck Neck exam general surgery: Present: supple, trachea midline. Absent: lymphadenopathy - Respiratory Respiratory exam: Present: CTAB. Absent: accessory muscle use, rales, rhonchi, wheezes - Cardiovascular Cardiovascular exam: Present: RRR, +S1, +S2. Absent: diastolic murmur, gallop, rubs, systolic murmur - GI/Abdominal GI/Abdominal exam: Present: normal bowel sounds, soft, no peritoneal signs. Absent: distended, tenderness - Extremities Exam Extremities exam: Present: warm, radial pulses palpable and symmetrical. Absent : calf tenderness, cyanotic, pedal edema - Neurological Exam Neurological exam: Present: CN II-XII intact, oriented X3, no focal deficits. Absent: pronater drift, facial droop, speech deficit - Skin Skin exam: Present: dry, intact Internal Medicine: Result - Labs CBC & Chem 7: 03/09/18 04:21 03/09/18 04:21 Labs: Short CBC 03/09/18 Range/Units 04:21 WBC 5.4 (4.3-11.1) K/mcL Hgb 11.1 L (12.9-16.9) g/dL Hct 33.6 L (37.5-50.1) % Plt Count 170 (140-400) K/mcL BMP 03/09/18 04:21 Sodium 138 Potassium 4.3 Chloride 107 Carbon Dioxide 26 BUN 28 H Creatinine 1.11 Glucose 220 H Calcium 8.7 - ABG Interpretation ABG results: PT/INR, D-dimer PT 10.4 Seconds (9.4-12.1) 03/06/18 19:45 Consult Discharge Plan - Plan Referrals: Jarek Perez MD [Family Provider] - [facility] Care Provider[facility] -
--- NOTE | 2018-03-09 16:46 | Electrocardiograph Report ---
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
--- NOTE | 2018-03-09 16:47 | Electrocardiograph Report ---
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
[2018-03-09] MEDS ORDERED: Acetaminophen 325 MG TABLET PO PRN (17:35)
[2018-03-09] MEDS ORDERED: Prochlorperazine 10 MG/2 ML VIAL IVP PRN (18:41)
[2018-03-09] MEDS ORDERED: Ketorolac 30 MG/ML VIAL IVP ONE (18:44)
[2018-03-09] MEDS: traZODone 50 MG TABLET PO SCH (22:02)
[2018-03-09] MEDS: Melatonin 3 MG TABLET PO SCH (22:02)
[2018-03-10] MEDS: *HR* Heparin 5,000 UNIT/ML VIAL SQ SCH ×2 (05:54→16:52)
[2018-03-10 07:26] LABS: Hematocrit 32.1 % (37.5-50.1); Hemoglobin 10.7 g/dL (12.9-16.9); Mean Corpuscular HGB Conc 33.3 g/dL (31.6-35.5); Mean Corpuscular Hemoglobin 27.9 pg (28.0-33.3); Mean Corpuscular Volume 83.8 fL (83.0-100.0); Mean Platelet Volume 11.9 fL (9.4-12.4); Platelet Count 189 K/mcL (140-400); Red Blood Count 3.83 M/mcL (4.19-5.50); Red Cell Distribution Width 12.7 % (11.5-14.5)
[2018-03-10 07:48] LABS: BUN/Creatinine Ratio 33 (6-26); Blood Urea Nitrogen 34 mg/dL (6-20); Calcium 8.6 mg/dL (8.6-10.3); Carbon Dioxide 24 mEq/L (23-29); Chloride 111 mEq/L (98-107); Glucose 156 mg/dL (70-105); Osmolality,Calculated 305 (280-300); Potassium 4.1 mEq/L (3.5-5.1); Sodium 142 mEq/L (136-145); eGFR For African Americans > 60 (> 60); eGFR For Non-African Americans > 60 (> 60)
[2018-03-10] MEDS: Pregabalin 50 MG CAPSULE PO SCH ×3 (08:53→21:55)
[2018-03-10] MEDS: Insulin DETEMIR 100 UNIT/ML X5UNITS SQ SCH ×2 (08:53→21:55)
[2018-03-10] MEDS: Aspirin 325 MG TABLET PO SCH (08:53)
[2018-03-10] MEDS: Insulin LISPRO 300 UNITS/3 ML VIAL SQ SCH ×4 (08:53→22:02)
[2018-03-10] MEDS: BuPROPion XL (24 HR) 150 MG TABLET PO SCH (08:54)
[2018-03-10] MEDS: *HR* HYDROcodone/Acet 5/325 mg TABLET PO PRN (08:57)
--- NOTE | 2018-03-10 16:07 | Internal Med Progress Note ---
Date of Encounter: 03/10/18 Time of Encounter: 16:09 - Assessment and plan (1) Syncope and collapse Current Visit: Yes Status: Acute Assessment and plan: recurrent. Patient reported being hospitalized at the [facility] for the last 5 months for same symptom with no cause found. BP consistent with orthostatic hypotension however it sounds like recent work-up may be neurally-mediated reflex syncope per patient report. Symptoms improved with IV fluids, supportive care. Fall precautions. Patient is only up out of bed with assistance. PT/OT recommending SNF at discharge. Patient was evaluated by the [facility] and he has been accepted to [facility]. Waiting on bed availability. (2) Diabetes mellitus, type 2 Current Visit: Yes Status: Chronic Assessment and plan: per hx. Cont home lantus at reduced dose as diet is likely more restricted. SSI. Monitor blood sugars and titrate PRN. Blood sugars controlled on 03/10 review Qualifiers: Diabetes mellitus retirement insulin use: unspecified retirement insulin use status Diabetes mellitus complication status: with hyperglycemia Qualified Code(s): E11.65 - Type 2 diabetes mellitus with hyperglycemia (3) Essential hypertension Current Visit: Yes Status: Chronic Assessment and plan: per hx. BP variable. Holding home BP medication with orthotic hypotension and syncope. Add PRN hydralazine (4) History of CVA (cerebrovascular accident) Current Visit: Yes Status: Chronic Assessment and plan: With mild residual right-sided weakness. Continue home medications. Fall precautions. (5) ALESSANDRO (acute kidney injury) Current Visit: Yes Status: Acute Assessment and plan: Cr 1.4; baseline unknown but no known history of kidney disease. Previous creatinine 1.3. Continue IV fluids. Avoid nephrotoxic agents as possible. Monitor repeat renal function. (6) DVT prophylaxis Current Visit: Yes Status: Acute Assessment and plan: heparin - Time Spent With Patient Total time spent is greater than 50% in coordination of care (as documented) at patient's floor/unit and/or counseling patient: - Subjective Interval history: Seen and examined at bedside. Sitting up in chair eating lunch. Says he feels better, slept well last night. No nightmares. Denies lightheadedness or dizziness. - Constitutional Vitals: Temp Pulse Resp BP Pulse Ox 98.0 F 90 14 171/98 98 03/10/18 11:24 03/10/18 11:24 03/10/18 11:24 03/10/18 11:24 03/10/18 11:24 General appearance: Present: cooperative, A&O X 3, pleasant, answers questions appropriately - Head Head exam: Present: atraumatic, normocephalic - Eye Eye exam: Present: PERRL, conjuntiva pink, sclera anicteric Pupils: Present: PERRL - Neck Neck exam general surgery: Present: supple, trachea midline. Absent: lymphadenopathy - Respiratory Respiratory exam: Present: CTAB. Absent: accessory muscle use, rales, rhonchi, wheezes - Cardiovascular Cardiovascular exam: Present: RRR, +S1, +S2. Absent: diastolic murmur, gallop, rubs, systolic murmur - GI/Abdominal GI/Abdominal exam: Present: normal bowel sounds, soft, no peritoneal signs. Absent: distended, tenderness - Extremities Exam Extremities exam: Present: warm, radial pulses palpable and symmetrical. Absent : calf tenderness, cyanotic, pedal edema - Neurological Exam Neurological exam: Present: CN II-XII intact, oriented X3, no focal deficits. Absent: pronater drift, facial droop, speech deficit - Skin Skin exam: Present: dry, intact Internal Medicine: Result - Labs CBC & Chem 7: 03/10/18 06:02 03/10/18 06:02 Labs: Short CBC 03/10/18 Range/Units 06:02 WBC 5.2 (4.3-11.1) K/mcL Hgb 10.7 L (12.9-16.9) g/dL Hct 32.1 L (37.5-50.1) % Plt Count 189 (140-400) K/mcL BMP 03/10/18 06:02 Sodium 142 Potassium 4.1 Chloride 111 H Carbon Dioxide 24 BUN 34 H Creatinine 1.04 Glucose 156 H Calcium 8.6 - ABG Interpretation ABG results: PT/INR, D-dimer PT 10.4 Seconds (9.4-12.1) 03/06/18 19:45 - VTE Documentation of Mechanical Device: Graduated compression elastic hosiery Consult Discharge Plan - Plan Referrals: Jarek Perez MD [Family Provider] - 03/17/18 1:15 pm [facility] Care Provider[facility] -
[2018-03-10] MEDS: traZODone 50 MG TABLET PO SCH (21:55)
[2018-03-10] MEDS: Melatonin 3 MG TABLET PO SCH (21:55)
[2018-03-10] MEDS: 0.9 % Sodium Chloride 1,000 ML IVC SCH (22:32)
[2018-03-11] MEDS: *HR* HYDROcodone/Acet 5/325 mg TABLET PO PRN ×3 (00:36→17:12)
[2018-03-11 05:25] LABS: Hematocrit 31.8 % (37.5-50.1); Hemoglobin 10.5 g/dL (12.9-16.9); Mean Corpuscular Hemoglobin 27.6 pg (28.0-33.3); Mean Corpuscular Volume 83.7 fL (83.0-100.0); Mean Platelet Volume 11.3 fL (9.4-12.4); Platelet Count 184 K/mcL (140-400); Red Cell Distribution Width 12.7 % (11.5-14.5)
[2018-03-11 05:37] LABS: BUN/Creatinine Ratio 29 (6-26); Blood Urea Nitrogen 29 mg/dL (6-20); Calcium 8.7 mg/dL (8.6-10.3); Carbon Dioxide 26 mEq/L (23-29); Chloride 110 mEq/L (98-107); Glucose 152 mg/dL (70-105); Osmolality,Calculated 303 (280-300); Potassium 4.1 mEq/L (3.5-5.1); Sodium 142 mEq/L (136-145); eGFR For African Americans > 60 (> 60); eGFR For Non-African Americans > 60 (> 60)
[2018-03-11] MEDS: *HR* Heparin 5,000 UNIT/ML VIAL SQ SCH ×2 (06:34→17:12)
[2018-03-11] MEDS: hydroCHLOROthiazide 25 MG TABLET PO SCH (08:36)
[2018-03-11] MEDS: Pregabalin 50 MG CAPSULE PO SCH ×3 (08:37→20:28)
[2018-03-11] MEDS: Aspirin 325 MG TABLET PO SCH (08:37)
[2018-03-11] MEDS: BuPROPion XL (24 HR) 150 MG TABLET PO SCH (08:37)
[2018-03-11] MEDS: Insulin DETEMIR 100 UNIT/ML X5UNITS SQ SCH ×2 (08:38→20:28)
[2018-03-11] MEDS: Insulin LISPRO 300 UNITS/3 ML VIAL SQ SCH ×4 (08:43→21:12)
--- NOTE | 2018-03-11 09:52 | Event Note ---
Date of Encounter: 03/11/18 Time of Encounter: 09:47 Called to patient's room, per nursing staff after patient sustained a witnessed fall. According to staff patient was ambulating back to bed after shower, and then suddenly collasped. He was assisted to floor. He did have LOC for a ew seconds. He is arousable at this time however he states that he wants to sleep. No loss of B/B. No seizure activity noted. BP elevated >200 systolic, 100 diastolic- given 5 of hydralazine. Glucose [address] ordered. Neuro exam, patient atouses to tactile stimuli, oriented x3 has difficulty follow ing commands and falls asleep during assessment. He was off the monitor dt shower so no cardiac event recorded. Ordered EKG denies any CP or any other pain at this time .
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
--- NOTE | 2018-03-11 19:03 | Internal Med Progress Note ---
Date of Encounter: 03/11/18 Time of Encounter: 12:00 - Assessment and plan (1) Syncope and collapse Current Visit: Yes Status: Acute Assessment and plan: Patient was seen by neurology after experiencing another syncopal episode today. CT of head was negative he does have a history of stroke in the past. Carotid Dopplers have been ordered because he is unable to undergo a CTA of head and neck. MRI will be ordered and a tilt table test will be completed per neurology's recommendations. Patient is requesting to go to the [facility] for workup as well. However no beds are available at this time we will continue with fall precautions PT OT recommending significant discharge Unable to find echo results will order an echo (2) Diabetes mellitus, type 2 Current Visit: Yes Status: Chronic Assessment and plan: per hx. Cont home lantus at reduced dose as diet is likely more restricted. SSI. Monitor blood sugars and titrate PRN. 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 BP variable. Patient's blood pressure elevated continue with losartan and hydrochlorothiazide. Hydralazine as needed (4) History of CVA (cerebrovascular accident) Current Visit: Yes Status: Chronic Assessment and plan: With mild residual right-sided weakness. Continue home medications. Fall precautions. (5) DVT prophylaxis Current Visit: Yes Status: Acute Assessment and plan: heparin (6) ALESSANDRO (acute kidney injury) Current Visit: Yes Status: Acute Assessment and plan: Creatinine 0.99 today baseline unknown but no known history of kidney disease. Previous creatinine 1.3. Continue IV fluids. Avoid nephrotoxic agents as possible. Monitor repeat renal function. - Time Spent With Patient Total time spent is greater than 50% in coordination of care (as documented) at patient's floor/unit and/or counseling patient: - Subjective Interval history: Patient was seen and examined at bedside. He did have an episode of syncope this morning as he was going to the shower to his bed. He did have a few seconds of LOC. He appears to be back to baseline he is alert and appropriate following simple commands however he states he feels tired. Neurology has been consulted and appreciate the recommendations - Constitutional Vitals: Temp Pulse Resp BP Pulse Ox 97.7 F 100 19 154/75 98 03/11/18 16:00 03/11/18 16:00 03/11/18 16:00 03/11/18 16:00 03/11/18 16:00 General appearance: Present: cooperative, A&O X 3, pleasant, answers questions appropriately - Head Head exam: Present: atraumatic, normocephalic - Eye Eye exam: Present: PERRL, conjuntiva pink, sclera anicteric Pupils: Present: PERRL - Neck Neck exam general surgery: Present: supple, trachea midline. Absent: lymphadenopathy - Respiratory Respiratory exam: Present: CTAB. Absent: accessory muscle use, rales, rhonchi, wheezes - Cardiovascular Cardiovascular exam: Present: RRR, +S1, +S2. Absent: diastolic murmur, gallop, rubs, systolic murmur - GI/Abdominal GI/Abdominal exam: Present: normal bowel sounds, soft, no peritoneal signs. Absent: distended, tenderness - Extremities Exam Extremities exam: Present: warm, radial pulses palpable and symmetrical. Absent : calf tenderness, cyanotic, pedal edema Additional comments: Weakness to right upper and lower extremity which is old - Neurological Exam Neurological exam: Present: CN II-XII intact, oriented X3, no focal deficits. Absent: pronater drift, facial droop, speech deficit - Skin Skin exam: Present: dry, intact Internal Medicine: Result - Labs CBC & Chem 7: 03/11/18 04:59 03/11/18 04:59 Labs: Short CBC 03/11/18 Range/Units 04:59 WBC 4.9 (4.3-11.1) K/mcL Hgb 10.5 L (12.9-16.9) g/dL Hct 31.8 L (37.5-50.1) % Plt Count 184 (140-400) K/mcL BMP 03/11/18 04:59 Sodium 142 Potassium 4.1 Chloride 110 H Carbon Dioxide 26 BUN 29 H Creatinine 0.99 Glucose 152 H Calcium 8.7 - ABG Interpretation ABG results: PT/INR, D-dimer PT 10.4 Seconds (9.4-12.1) 03/06/18 19:45 - Impressions Impressions Head CT 03/11/18 09:33 IMPRESSION: No acute intracranial abnormality. D/ / 03/11/2018 10:42:52 Kimberly Henderson MD / Paige Sepulveda Interpreting Provider: Kimberly Henderson MD - VTE Documentation of Mechanical Device: Graduated compression elastic hosiery Consult Discharge Plan - Plan Referrals: Jarek Perez MD [Family Provider] - 03/17/18 1:15 pm [facility]PC[facility] [Primary Care Provider] -
[2018-03-11] MEDS: *HR* OxyCODONE Immed Rel 5 MG TABLET PO PRN (20:27)
[2018-03-11] MEDS: Melatonin 3 MG TABLET PO SCH (20:27)
[2018-03-11] MEDS: traZODone 50 MG TABLET PO SCH (20:27)
[2018-03-12 06:20] LABS: Basophils % 0.4 %; Eosinophils # 0.1 K/mcL (0.0-0.6); Eosinophils % 2.5 %; Immature Granulocytes % 0.4 % (0-4); Lymphocytes # 2.3 K/mcL (0.6-4.6); Lymphocytes % 44.2 %; Mean Corpuscular HGB Conc 33.3 g/dL (31.6-35.5); Mean Corpuscular Hemoglobin 28.1 pg (28.0-33.3); Mean Corpuscular Volume 84.4 fL (83.0-100.0); Mean Platelet Volume 11.4 fL (9.4-12.4); Monocytes # 0.3 K/mcL (0.0-1.3); Neutrophils # 2.4 K/mcL (1.6-8.9); Platelet Count 208 K/mcL (140-400); Red Blood Count 3.91 M/mcL (4.19-5.50); Segmented Neutrophils % 46.5 %
[2018-03-12] MEDS: *HR* Heparin 5,000 UNIT/ML VIAL SQ SCH ×2 (06:20→16:56)
[2018-03-12 06:44] LABS: BUN/Creatinine Ratio 26 (6-26); Blood Urea Nitrogen 24 mg/dL (6-20); Carbon Dioxide 28 mEq/L (23-29); Chloride 107 mEq/L (98-107); Glucose 118 mg/dL (70-105); Osmolality,Calculated 297 (280-300); Potassium 3.8 mEq/L (3.5-5.1); Sodium 141 mEq/L (136-145); eGFR For African Americans > 60 (> 60); eGFR For Non-African Americans > 60 (> 60)
[2018-03-12 07:36] LABS: Bilirubin,Urine Negative (Negative); Blood,Urine Negative (Negative); Clarity,Urine Clear (Clear); Color,Urine Yellow (Yellow); Glucose,Urine (UA) Normal (Normal); Ketones,Urine Negative (Negative); Leukocyte Esterase,Urine Negative (Negative); Nitrite,Urine Negative (Negative); Protein,Urine Negative (Neg-Trace); Specific Gravity,Urine 1.019 (1.010-1.025); Urobilinogen,Urine Normal (Normal)
[2018-03-12] MEDS: Insulin LISPRO 300 UNITS/3 ML VIAL SQ SCH ×4 (08:11→21:05)
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
[2018-03-12] MEDS: Aspirin 325 MG TABLET PO SCH (08:57)
[2018-03-12] MEDS: Pregabalin 50 MG CAPSULE PO SCH ×3 (08:57→21:15)
[2018-03-12] MEDS: hydroCHLOROthiazide 25 MG TABLET PO SCH (08:57)
[2018-03-12] MEDS: BuPROPion XL (24 HR) 150 MG TABLET PO SCH (08:57)
[2018-03-12] MEDS: Insulin DETEMIR 100 UNIT/ML X5UNITS SQ SCH ×2 (08:58→21:15)
[2018-03-12] MEDS: *HR* OxyCODONE Immed Rel 5 MG TABLET PO PRN ×2 (11:26→17:44)
--- NOTE | 2018-03-12 11:31 | Internal Med Progress Note ---
Date of Encounter: 03/12/18 Time of Encounter: 11:29 - Assessment and plan (1) Syncope and collapse Current Visit: Yes Status: Acute Assessment and plan: MRI scan with no acute abnormality Carotid duplex with minimal plaque bilaterally Echocardiogram with EF of 60-65% Normal LV chamber size, wall thickness and function. Normal left ventricular diastolic function. Normal right ventricular structure and function. Borderline mild pulmonary hypertension. No evidence of a PFO with agitated saline contrast. No significant valvular dysfunction. Tilt table test still pending Patient was seen by neurology who is doubtful that these episodes are seizure activities-possible orthostasis-neurology feels most likely autonomic neuropathy vasovagal syncope as possible. Neurology also suspect there may be a functional component to this because he does have PTSD. Patient is requesting to go to the [facility] for further workup as well still waiting on the bed (2) Diabetes mellitus, type 2 Current Visit: Yes Status: Chronic Assessment and plan: Cont home lantus at reduced dose as diet is likely more restricted. SSI. Monitor blood sugars and titrate PRN. 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 Patient's blood pressure elevated continue with losartan and hydrochlorothiazide. Hydralazine as needed (4) History of CVA (cerebrovascular accident) Current Visit: Yes Status: Chronic Assessment and plan: With mild residual right-sided weakness. Continue home medications. Fall precautions. (5) DVT prophylaxis Current Visit: Yes Status: Acute Assessment and plan: heparin (6) ALESSANDRO (acute kidney injury) Current Visit: Yes Status: Resolved Assessment and plan: This has resolved Creatinine 0.94 today baseline unknown but no known history of kidney disease. Previous creatinine 1.3. Continue IV fluids. Avoid nephrotoxic agents as possible. Monitor repeat renal function. - Time Spent With Patient Total time spent is greater than 50% in coordination of care (as documented) at patient's floor/unit and/or counseling patient: - Subjective Interval history: Patient was seen and examined at bedside. Patient has returned from testing he has repeatedly asked when he came go home. Explained that he is going to the [place] in [place] available at this time. Continued workup with neurology awaiting the recommendations did explain this to the patient to verbalized understanding. - Constitutional Vitals: Temp Pulse Resp BP Pulse Ox 97.7 F 86 18 175/104 97 03/12/18 11:25 03/12/18 11:25 03/12/18 06:48 03/12/18 11:25 03/12/18 11:25 General appearance: Present: cooperative, A&O X 3, pleasant, answers questions appropriately - Head Head exam: Present: atraumatic, normocephalic - Eye Eye exam: Present: PERRL, conjuntiva pink, sclera anicteric Pupils: Present: PERRL - Neck Neck exam general surgery: Present: supple, trachea midline. Absent: lymphadenopathy - Respiratory Respiratory exam: Present: CTAB. Absent: accessory muscle use, rales, rhonchi, wheezes - Cardiovascular Cardiovascular exam: Present: RRR, +S1, +S2. Absent: diastolic murmur, gallop, rubs, systolic murmur - GI/Abdominal GI/Abdominal exam: Present: normal bowel sounds, soft, no peritoneal signs. Absent: distended, tenderness - Extremities Exam Extremities exam: Present: warm, radial pulses palpable and symmetrical. Absent : calf tenderness, cyanotic, pedal edema - Neurological Exam Neurological exam: Present: CN II-XII intact, oriented X3, no focal deficits. Absent: pronater drift, facial droop, speech deficit - Skin Skin exam: Present: dry, intact Internal Medicine: Result - Labs CBC & Chem 7: 03/12/18 05:19 03/12/18 05:19 Labs: Short CBC 03/12/18 Range/Units 05:19 WBC 5.1 (4.3-11.1) K/mcL Hgb 11.0 L (12.9-16.9) g/dL Hct 33.0 L (37.5-50.1) % Plt Count 208 (140-400) K/mcL Neutrophils # 2.4 (1.6-8.9) K/mcL BMP 03/12/18 05:19 Sodium 141 Potassium 3.8 Chloride 107 Carbon Dioxide 28 BUN 24 H Creatinine 0.94 Glucose 118 H Calcium 9.0 Urine 03/12/18 Range/Units 06:25 Urine Color Yellow (Yellow) Urine Clarity Clear (Clear) Urine pH 6.0 (5.0-8.0) pH Units Ur Specific [place] 1.019 (1.010-1.025) Urine Protein Negative (Neg-Trace) mg/dL Urine Glucose (UA) Normal (Normal) mg/dL - ABG Interpretation ABG results: PT/INR, D-dimer PT 10.4 Seconds (9.4-12.1) 03/06/18 19:45 - Impressions Impressions Head CT 03/11/18 09:33 IMPRESSION: No acute intracranial abnormality. D/ / 03/11/2018 10:42:52 Kimberly Henderson MD / Paige Sepulveda Interpreting Provider: Kimberly Henderson MD Brain MRI 03/12/18 08:48 IMPRESSION: No acute brain parenchymal abnormality. D/ / 03/12/2018 10:58:27 Kimberly Henderson MD / [facility] Interpreting Provider: Kimberly Henderson MD - VTE Documentation of Mechanical Device: Graduated compression elastic hosiery Consult Discharge Plan - Plan Referrals: Jarek Perez MD [Family Provider] - 03/17/18 1:15 pm [facility] [Primary Care Provider] -
--- NOTE | 2018-03-12 15:07 | Neurology Progress Note ---
Date of Encounter: 03/12/18 Time of Encounter: 08:40 Assessment and Plan (1) Syncope and collapse Current Visit: Yes Status: Acute Subjective Interval history: The chart was reviewed, the patient was seen and examined. He had an uneventful night. This morning he is easily aroused to voice. He is immediately alert and oriented. He has no new complaints. No further episodes of loss of consciousness have been reported. His workup at this time however still pending. Objective - Constitutional Vitals: Temp Pulse Resp BP Pulse Ox 97.6 F 96 17 162/91 95 03/12/18 14:56 03/12/18 14:56 03/12/18 14:56 03/12/18 14:56 03/12/18 14:56 - Neurological Exam Motor Examination: Present: grossly full strength in all extremities (His normal strength bulk and tone of the left upper and left lower extremities. He has global weakness of the right upper and right lower extremities however he has normal bulk and tone of the left upper and left lower extremities. There are no involuntary movements or atrophy Are identified.) Sensation intact: Present: other (He does have some element of a distal sensory gradient however he does feel some general hypoesthesia of the right lower extremity. Sensation of both upper extremities is normal.) Reflex and gait examination: other (Deep tendon reflexes are diminished of the upper extremities and absent at the patellar and Achilles. No Esau Tromner or Babinski signs are present.) Mental Status Examination: Present: awake, alert, oriented to person, oriented to place, oriented to time, follows commands appropriately, answers questions appropriately Cranial nerve examination: Present: PERRL, EOMI, visual chun intact, corneal reflexes brisk symmetrically, sensory to face intact, mastication intact, no facial asymmetry is present, no dysarthria, hearing is intact symmetrically, soft palate elevates bilaterally upon phonation, gag reflex intact, flexes SCM and trapezius muscles symmetrically with full power, tongue protrudes midline, no atrophy or facial fasiculations present Cerebellar examination: Present: no dysmetria, no truncal ataxia - VTE Documentation of Mechanical Device: Graduated compression elastic hosiery Results - Laboratory Findings CBC and BMP: 03/12/18 05:19 03/12/18 05:19 Abnormal lab findings: Abnormal lab results RBC 3.91 M/mcL (4.19-5.50) L 03/12/18 05:19 Hgb 11.0 g/dL (12.9-16.9) L 03/12/18 05:19 Hct 33.0 % (37.5-50.1) L 03/12/18 05:19 BUN 24 mg/dL (6-20) H 03/12/18 05:19 Glucose 118 mg/dL (70-105) H 03/12/18 05:19 POC Glucose 122 mg/dL (70-99) H 03/11/18 20:40 Consult Discharge Plan - Plan Referrals: Jarek Perez MD [Family Provider] - 03/17/18 1:15 pm [facility]PCP [Primary Care Provider] -
--- NOTE | 2018-03-12 17:17 | Electrocardiograph Report ---
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
[2018-03-12] MEDS: Melatonin 3 MG TABLET PO SCH (21:15)
[2018-03-12] MEDS: traZODone 50 MG TABLET PO SCH (21:15)
[2018-03-12] MEDS: *HR* HYDROcodone/Acet 5/325 mg TABLET PO PRN (23:32)
[2018-03-13] MEDS: *HR* Heparin 5,000 UNIT/ML VIAL SQ SCH (05:41)
[2018-03-13 07:07] VITALS: BP 152/86
[2018-03-13] MEDS: Insulin LISPRO 300 UNITS/3 ML VIAL SQ SCH (07:38)
[2018-03-13] MEDS: hydroCHLOROthiazide 25 MG TABLET PO SCH (09:28)
[2018-03-13] MEDS: Aspirin 325 MG TABLET PO SCH (09:29)
[2018-03-13] MEDS: Pregabalin 50 MG CAPSULE PO SCH (09:29)
[2018-03-13] MEDS: Insulin DETEMIR 100 UNIT/ML X5UNITS SQ SCH (09:29)
[2018-03-13] MEDS: BuPROPion XL (24 HR) 150 MG TABLET PO SCH (09:29)
--- NOTE | 2018-03-13 11:47 | Discharge Summary ---
- NOTES TO OUTPATIENT PROVIDER Notes to Outpatient Provider: Patient had been experiencing syncopal episodes was admitted to the [facility] he did have continued syncopal episodes during this admission. He was seen by neurology and was undergoing neurological workup including MRI echo carotid Dopplers awaiting tilt table test. 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 Fernandes is a 48 year old male past medical history of prior CVA orthostatic hypertension diabetes hypertension hyperlipidemia coronary disease patient to be after expense bowel syncope while working in his garage. This has been ongoing for several months and [facility] had [facility] with orthostatic hypotension. He was recommended for compression stocking however he was not wearing them. Patient's blood pressure was very high on presentation. HEENT experienced a syncopal episode throughout hospital admission. He underwent CT of head which was negative for any acute intracranial abnormalities. Patient was waiting to be transferred to the [facility] for further neurological testing. During this admission he continued to have syncopal episodes I did have our neurology Department see the patient to did order MRI echo carotid Dopplers and tilt table test. Awaiting results of the test however the patient requesting to leave. Patient's blood pressure has been very labile during this admission at high times very high and then would drop. Advised patient to stay and continue workup and possibly [facility]. Patient insisting on leaving. I informed the patient's of the risk of leaving including possible if he were to fall and strike his head. Patient verbalized understanding and requesting to leave states she will [facility] up with [facility] from [facility]. Patient is signing out AGAINST MEDICAL ADVICE - Time Spent with Patient Total time spent providing and/or coordinating discharge services: - Discharge Medications Home Medications: Aspirin [Ecotrin] 325 mg PO DAILY 03/08/18 [History] Atorvastatin Calcium [Lipitor] 20 mg PO HS 03/08/18 [History] BuPROPion SR (12 HR) [Wellbutrin SR] 150 mg PO DAILY 03/08/18 [History] Cholecalciferol (D-3) [Vitamin D] 4,000 unit PO DAILY 03/08/18 [History] HYDROcodone/Acet 5/325 mg [[place] 5-325 mg] 1 tab PO Q6H PRN 03/08/18 [History] Insulin ASPART [NovoLOG] 4 - 14 unit SQ TIDWM 03/08/18 [History] Insulin Glargine,Hum.rec.anlog [Lantus Solostar] 88 unit SQ BID 03/08/18 [ History] Losartan [Cozaar] 75 mg PO DAILY 03/08/18 [History] Melatonin [Melatin] 3 mg PO HS 03/08/18 [History] PARoxetine HCl [Paroxetine HCl] 20 mg PO DAILY 03/08/18 [History] Polyethylene Glycol 3350 [MiraLAX] 17 gm PO MOWEFR 03/08/18 [History] Pregabalin [Lyrica] 200 mg PO TID 03/08/18 [History] Tamsulosin [Flomax] 0.4 mg PO DAILY 03/08/18 [History] Testosterone [Androgel] 2 appl TD DAILY 03/08/18 [History] hydroCHLOROthiazide [Hydrochlorothiazide] 25 mg PO DAILY 03/08/18 [History] traZODone [TraZODone] 25 - 50 mg PO HS 03/08/18 [History] Allergies/Adverse Reactions: 3 Allergy/AdvReac Type Severity Reaction Status Date / Time No Known Allergies Allergy Verified 03/08/18 18:07 Date of admission: 03/09/18 13:56 Primary care physician: [facility]CP [facility] Consults: 03/11/18 11:50 Consult to Neurology [CONS] Routine Consulting Provider: Neu[facility] Reason for Consult: syncope Time Notified: 11:51 Call Completed: Yes Discharging clinician: Pilar Fairbanks - Constitutional Vitals: Temp Pulse Resp BP Pulse Ox 97.7 F 82 18 152/86 98 03/13/18 07:06 03/13/18 07:06 03/13/18 07:06 03/13/18 07:06 03/13/18 07:06 General appearance: Present: cooperative, A&O X 3, pleasant, answers questions appropriately - Head Head exam: Present: atraumatic, normocephalic - Eye Eye exam: Present: PERRL, conjuntiva pink, sclera anicteric Pupils: Present: PERRL - Neck Neck exam general surgery: Present: supple, trachea midline. Absent: lymphadenopathy - Respiratory Respiratory exam: Present: CTAB. Absent: accessory muscle use, rales, rhonchi, wheezes - Cardiovascular Cardiovascular exam: Present: RRR, +S1, +S2. Absent: diastolic murmur, gallop, rubs, systolic murmur - GI/Abdominal GI/Abdominal exam: Present: normal bowel sounds, soft, no peritoneal signs. Absent: distended, tenderness - Extremities Exam Extremities exam: Present: warm, radial pulses palpable and symmetrical. Absent : calf tenderness, cyanotic, pedal edema - Neurological Exam Neurological exam: Present: CN II-XII intact, oriented X3, no focal deficits. Absent: pronater drift, facial droop, speech deficit - Skin Skin exam: Present: dry, intact - Patient Status Disposition: Left Against Medical Advice Condition: Fair - Discharge Instructions Follow Up With: Jarek Perez MD [Family Provider] - 03/17/18 1:15 pm [facility],PCP [Primary Care Provider] - - VTE Documentation of Mechanical Device: Graduated compression elastic hosiery
== END 2018-03-13 10:15 | disposition left against medical advice (07) | DRG 312 ==
LOC: EMEROO 18:11 → 3BNU 18:11
PROVIDERS: ADMIT Internal Medicine; ATTEND Internal Medicine

== ENCOUNTER 2018-08-07 18:02 | Inpatient (IN) ==
[2018-08-07] MEDS ORDERED: 0.9 % Sodium Chloride 1,000 ML IVC ONE ×2 (18:11→19:50)
--- NOTE | 2018-08-07 18:19 | Emergency Department Note ---
Disposition Clinical Impression: Pneumonia, Dehydration, Altered mental status Disposition: Admitted As Inpatient Condition: Fair Referrals: [facility],PCP [Non-Partnered Physician] - Time of Disposition: 22:12 General Adult HPI - General Time Seen by Provider: 08/07/18 18:11 - Related Data Home Medications Medication Instructions Recorded Confirmed Aspirin [Ecotrin] 325 mg PO DAILY 03/08/18 03/08/18 Atorvastatin Calcium [Lipitor] 20 mg PO HS 03/08/18 03/08/18 BuPROPion SR (12 HR) [Wellbutrin 150 mg PO DAILY 03/08/18 03/08/18 SR] Cholecalciferol (D-3) [Vitamin D] 4,000 unit PO DAILY 03/08/18 03/08/18 HYDROcodone/Acet 5/325 mg [[place] 1 tab PO Q6H PRN 03/08/18 03/08/18 5-325 mg] Insulin ASPART [NovoLOG] 4 - 14 unit SQ TIDWM 03/08/18 03/08/18 Insulin Glargine,Hum.rec.anlog 88 unit SQ BID 03/08/18 03/08/18 [Lantus Solostar] Losartan [Cozaar] 75 mg PO DAILY 03/08/18 03/08/18 Melatonin [Melatin] 3 mg PO HS 03/08/18 03/08/18 PARoxetine HCl [Paroxetine HCl] 20 mg PO DAILY 03/08/18 03/08/18 Polyethylene Glycol 3350 [MiraLAX] 17 gm PO MOWEFR 03/08/18 03/08/18 Pregabalin [Lyrica] 200 mg PO TID 03/08/18 03/08/18 Tamsulosin [Flomax] 0.4 mg PO DAILY 03/08/18 03/08/18 Testosterone [Androgel] 2 appl TD DAILY 03/08/18 03/08/18 hydroCHLOROthiazide 25 mg PO DAILY 03/08/18 03/08/18 [Hydrochlorothiazide] traZODone [TraZODone] 25 - 50 mg PO HS 03/08/18 03/08/18 Allergies Allergy/AdvReac Type Severity Reaction Status Date / Time No Known Allergies Allergy Verified 03/08/18 18:07 Past Medical History - Past Medical History Medical history: Reports: coronary artery disease, CVA, diabetes, hyperl ipidemia, hypertension, myocardial infarction, syncope, other Surgical history: Reports: tonsilectomy Psychiatric history: Reports: depression, PTSD - Social History Smoking Status: Current some day smoker Smokeless Tobacco Status: No Alcohol use: Reports: none Drug use: Reports: none Course Vital Signs Temperature 98.0 F 08/07/18 18:14 Pulse Rate 69 08/07/18 18:14 Respiratory Rate 18 08/07/18 18:14 Blood Pressure 97/75 08/07/18 18:14 O2 Sat by Pulse Oximetry 99 08/07/18 18:14 Temperature 98.0 F 08/07/18 18:14 Pulse Rate 71 08/07/18 19:25 Respiratory Rate 18 08/07/18 19:25 Blood Pressure 109/79 08/07/18 19:25 O2 Sat by Pulse Oximetry 95 08/07/18 19:25 Oxygen Delivery Oxygen Delivery Room Air Medical Decision Making - Lab Data Result diagrams: 08/07/18 18:11 08/07/18 18:11 Lab Results 08/07/18 08/07/18 08/07/18 Range/Units 18:11 18:11 18:11 WBC 9.5 (4.3-11.1) K/mcL RBC 4.19 (4.19-5.50) M/mcL Hgb 11.9 L (12.9-16.9) g/dL Hct 37.6 (37.5-50.1) % MCV 89.7 (83.0-100.0) fL MCH 28.4 (28.0-33.3) pg MCHC 31.6 (31.6-35.5) g/dL RDW 13.0 (11.5-14.5) % Plt Count 223 (140-400) K/mcL MPV 11.0 (9.4-12.4) fL Immature Gran % 0.4 (0-4) % Seg Neutrophils % 73.3 % Lymphocytes % 20.0 % Monocytes % 5.4 % Eosinophils % 0.7 % Basophils % 0.2 % Neutrophils # 6.9 (1.6-8.9) K/mcL Lymphocytes # 1.9 (0.6-4.6) K/mcL Monocytes # 0.5 (0.0-1.3) K/mcL Eosinophils # 0.1 (0.0-0.6) K/mcL Basophils # 0.0 (0.0-0.2) K/mcL PT 11.6 (9.4-12.1) Seconds INR 1.0 APTT 30.3 (26.0-36.0) Seconds Carboxyhemoglobin (0-5) % Sodium 136 (136-145) mEq/L Potassium 4.4 (3.5-5.1) mEq/L Chloride 100 (98-107) mEq/L Carbon Dioxide 29 (23-29) mEq/L BUN 18 (6-20) mg/dL Creatinine 1.30 (0.70-1.30) mg/dL Est GFR ( Amer) > 60 (> 60) Est GFR (Non-Af Amer) 59 L (> 60) BUN/Creatinine Ratio 14 (6-26) Glucose 252 H (70-105) mg/dL Calculated Osmolality 292 (280-300) Lactic Acid (0.5-2.2) mmol/L Calcium 8.4 L (8.6-10.3) mg/dL Total Bilirubin 0.5 (0.3-1.0) mg/dL Direct Bilirubin 0.1 (0.0-0.2) mg/dL Indirect Bilirubin 0.4 (0.0-1.2) mg/dL AST 34 (13-39) Units/L ALT 67 H (7-52) Units/L Alkaline Phosphatase 113 H (34-104) Units/L Ammonia (16-53) mcmol/L Creatine Kinase 344 H (30-223) Units/L Troponin I < 0.03 (< 0.04) ng/mL B-Natriuretic Peptide (Less than 100) pg/mL Serum Total Protein 6.0 L (6.4-8.9) g/dL Albumin 3.4 L (3.5-5.7) g/dL Globulin 2.6 (2.4-3.5) g/dL Albumin/Globulin Ratio 1.3 (1.1-2.2) TSH 0.855 (0.340-5.600) mcIU/mL Urine Color (Yellow) Urine Clarity (Clear) Urine pH (5.0-8.0) pH Units Ur Specific [place] (1.010-1.025) Urine Protein (Neg-Trace) mg/dL Urine Glucose (UA) (Normal) mg/dL Urine Ketones (Negative) mg/dL Urine Blood (Negative) Urine Nitrite (Negative) Urine Bilirubin (Negative) Urine Urobilinogen (Normal) mg/dL Ur Leukocyte Esterase (Negative) Urine Microscopic RBC (0-3) per hpf Urine Microscopic WBC (0-3) per hpf Ur Squamous Epith Cells (None-Few) per lpf Urine Bacteria (None-Few) per hpf Hyaline Casts (None-Few) per lpf Ur Culture Indicated? (NO) Stl C. diff Tox B Gene (Negative) Salicylates (15.0-30.0) mg/dL Urine Opiates Screen (Rsmchy=130) ng/mL Acetaminophen (10-20) mcg/mL Ur Barbiturates Screen (Fllmhi=821) ng/mL Ur Phencyclidine Scrn (Cutoff=25) ng/mL Ur Amphetamines Screen (Zncbci=4947) ng/mL U Benzodiazepines Scrn (Efbpti=479) ng/mL Urine Cocaine Screen (Cutoff= 300) ng/mL U Marijuana (THC) Screen (Cutoff = 50) ng/mL Ur Drug Screen Interp Ethyl Alcohol < 10 (Less than 10) mg/dL 08/07/18 08/07/18 08/07/18 Range/Units 18:12 18:42 18:42 WBC (4.3-11.1) K/mcL RBC (4.19-5.50) M/mcL Hgb (12.9-16.9) g/dL Hct (37.5-50.1) % MCV (83.0-100.0) fL MCH (28.0-33.3) pg MCHC (31.6-35.5) g/dL RDW (11.5-14.5) % Plt Count (140-400) K/mcL MPV (9.4-12.4) fL Immature Gran % (0-4) % Seg Neutrophils % % Lymphocytes % % Monocytes % % Eosinophils % % Basophils % % Neutrophils # (1.6-8.9) K/mcL Lymphocytes # (0.6-4.6) K/mcL Monocytes # (0.0-1.3) K/mcL Eosinophils # (0.0-0.6) K/mcL Basophils # (0.0-0.2) K/mcL PT (9.4-12.1) Seconds INR APTT (26.0-36.0) Seconds Carboxyhemoglobin 3.0 (0-5) % Sodium (136-145) mEq/L Potassium (3.5-5.1) mEq/L Chloride (98-107) mEq/L Carbon Dioxide (23-29) mEq/L BUN (6-20) mg/dL Creatinine (0.70-1.30) mg/dL Est GFR ( Amer) (> 60) Est GFR (Non-Af Amer) (> 60) BUN/Creatinine Ratio (6-26) Glucose (70-105) mg/dL Calculated Osmolality (280-300) Lactic Acid (0.5-2.2) mmol/L Calcium (8.6-10.3) mg/dL Total Bilirubin (0.3-1.0) mg/dL Direct Bilirubin (0.0-0.2) mg/dL Indirect Bilirubin (0.0-1.2) mg/dL AST (13-39) Units/L ALT (7-52) Units/L Alkaline Phosphatase (34-104) Units/L Ammonia 36 (16-53) mcmol/L Creatine Kinase (30-223) Units/L Troponin I (< 0.04) ng/mL B-Natriuretic Peptide (Less than 100) pg/mL Serum Total Protein (6.4-8.9) g/dL Albumin (3.5-5.7) g/dL Globulin (2.4-3.5) g/dL Albumin/Globulin Ratio (1.1-2.2) TSH (0.340-5.600) mcIU/mL Urine Color (Yellow) Urine Clarity (Clear) Urine pH (5.0-8.0) pH Units Ur Specific [place] (1.010-1.025) Urine Protein (Neg-Trace) mg/dL Urine Glucose (UA) (Normal) mg/dL Urine Ketones (Negative) mg/dL Urine Blood (Negative) Urine Nitrite (Negative) Urine Bilirubin (Negative) Urine Urobilinogen (Normal) mg/dL Ur Leukocyte Esterase (Negative) Urine Microscopic RBC (0-3) per hpf Urine Microscopic WBC (0-3) per hpf Ur Squamous Epith Cells (None-Few) per lpf Urine Bacteria (None-Few) per hpf Hyaline Casts (None-Few) per lpf Ur Culture Indicated? (NO) Stl C. diff Tox B Gene (Negative) Salicylates < 2.5 L (15.0-30.0) mg/dL Urine Opiates Screen (Zvzoqi=084) ng/mL Acetaminophen < 10 L (10-20) mcg/mL Ur Barbiturates Screen (Zcuhwo=684) ng/mL Ur Phencyclidine Scrn (Cutoff=25) ng/mL Ur Amphetamines Screen (Pmnvzu=0305) ng/mL U Benzodiazepines Scrn (Nitiik=659) ng/mL Urine Cocaine Screen (Cutoff= 300) ng/mL U Marijuana (THC) Screen (Cutoff = 50) ng/mL Ur Drug Screen Interp Ethyl Alcohol (Less than 10) mg/dL 08/07/18 08/07/18 08/07/18 Range/Units 18:42 18:42 19:00 WBC (4.3-11.1) K/mcL RBC (4.19-5.50) M/mcL Hgb (12.9-16.9) g/dL Hct (37.5-50.1) % MCV (83.0-100.0) fL MCH (28.0-33.3) pg MCHC (31.6-35.5) g/dL RDW (11.5-14.5) % Plt Count (140-400) K/mcL MPV (9.4-12.4) fL Immature Gran % (0-4) % Seg Neutrophils % % Lymphocytes % % Monocytes % % Eosinophils % % Basophils % % Neutrophils # (1.6-8.9) K/mcL Lymphocytes # (0.6-4.6) K/mcL Monocytes # (0.0-1.3) K/mcL Eosinophils # (0.0-0.6) K/mcL Basophils # (0.0-0.2) K/mcL PT (9.4-12.1) Seconds INR APTT (26.0-36.0) Seconds Carboxyhemoglobin (0-5) % Sodium (136-145) mEq/L Potassium (3.5-5.1) mEq/L Chloride (98-107) mEq/L Carbon Dioxide (23-29) mEq/L BUN (6-20) mg/dL Creatinine (0.70-1.30) mg/dL Est GFR ( Amer) (> 60) Est GFR (Non-Af Amer) (> 60) BUN/Creatinine Ratio (6-26) Glucose (70-105) mg/dL Calculated Osmolality (280-300) Lactic Acid 1.3 (0.5-2.2) mmol/L Calcium (8.6-10.3) mg/dL Total Bilirubin (0.3-1.0) mg/dL Direct Bilirubin (0.0-0.2) mg/dL Indirect Bilirubin (0.0-1.2) mg/dL AST (13-39) Units/L ALT (7-52) Units/L Alkaline Phosphatase (34-104) Units/L Ammonia (16-53) mcmol/L Creatine Kinase (30-223) Units/L Troponin I (< 0.04) ng/mL B-Natriuretic Peptide 38 (Less than 100) pg/mL Serum Total Protein (6.4-8.9) g/dL Albumin (3.5-5.7) g/dL Globulin (2.4-3.5) g/dL Albumin/Globulin Ratio (1.1-2.2) TSH (0.340-5.600) mcIU/mL Urine Color Yellow (Yellow) Urine Clarity Clear (Clear) Urine pH 6.5 (5.0-8.0) pH Units Ur Specific [place] 1.011 (1.010-1.025) Urine Protein Trace (Neg-Trace) mg/dL Urine Glucose (UA) 500 H (Normal) mg/dL Urine Ketones Negative (Negative) mg/dL Urine Blood Negative (Negative) Urine Nitrite Negative (Negative) Urine Bilirubin Negative (Negative) Urine Urobilinogen Normal (Normal) mg/dL Ur Leukocyte Esterase Negative (Negative) Urine Microscopic RBC 0-3 (0-3) per hpf Urine Microscopic WBC 0-3 (0-3) per hpf Ur Squamous Epith Cells Moderate H (None-Few) per lpf Urine Bacteria None Seen (None-Few) per hpf Hyaline Casts None Seen (None-Few) per lpf Ur Culture Indicated? NO (NO) Stl C. diff Tox B Gene (Negative) Salicylates (15.0-30.0) mg/dL Urine Opiates Screen (Syjlmw=875) ng/mL Acetaminophen (10-20) mcg/mL Ur Barbiturates Screen (Lkvgrr=116) ng/mL Ur Phencyclidine Scrn (Cutoff=25) ng/mL Ur Amphetamines Screen (Udbcqh=0346) ng/mL U Benzodiazepines Scrn (Nlgnhp=634) ng/mL Urine Cocaine Screen (Cutoff= 300) ng/mL U Marijuana (THC) Screen (Cutoff = 50) ng/mL Ur Drug Screen Interp Ethyl Alcohol (Less than 10) mg/dL 08/07/18 08/07/18 Range/Units 19:00 Unknown WBC (4.3-11.1) K/mcL RBC (4.19-5.50) M/mcL Hgb (12.9-16.9) g/dL Hct (37.5-50.1) % MCV (83.0-100.0) fL MCH (28.0-33.3) pg MCHC (31.6-35.5) g/dL RDW (11.5-14.5) % Plt Count (140-400) K/mcL MPV (9.4-12.4) fL Immature Gran % (0-4) % Seg Neutrophils % % Lymphocytes % % Monocytes % % Eosinophils % % Basophils % % Neutrophils # (1.6-8.9) K/mcL Lymphocytes # (0.6-4.6) K/mcL Monocytes # (0.0-1.3) K/mcL Eosinophils # (0.0-0.6) K/mcL Basophils # (0.0-0.2) K/mcL PT (9.4-12.1) Seconds INR APTT (26.0-36.0) Seconds Carboxyhemoglobin (0-5) % Sodium (136-145) mEq/L Potassium (3.5-5.1) mEq/L Chloride (98-107) mEq/L Carbon Dioxide (23-29) mEq/L BUN (6-20) mg/dL Creatinine (0.70-1.30) mg/dL Est GFR ( Amer) (> 60) Est GFR (Non-Af Amer) (> 60) BUN/Creatinine Ratio (6-26) Glucose (70-105) mg/dL Calculated Osmolality (280-300) Lactic Acid (0.5-2.2) mmol/L Calcium (8.6-10.3) mg/dL Total Bilirubin (0.3-1.0) mg/dL Direct Bilirubin (0.0-0.2) mg/dL Indirect Bilirubin (0.0-1.2) mg/dL AST (13-39) Units/L ALT (7-52) Units/L Alkaline Phosphatase (34-104) Units/L Ammonia (16-53) mcmol/L Creatine Kinase (30-223) Units/L Troponin I (< 0.04) ng/mL B-Natriuretic Peptide (Less than 100) pg/mL Serum Total Protein (6.4-8.9) g/dL Albumin (3.5-5.7) g/dL Globulin (2.4-3.5) g/dL Albumin/Globulin Ratio (1.1-2.2) TSH (0.340-5.600) mcIU/mL Urine Color (Yellow) Urine Clarity (Clear) Urine pH (5.0-8.0) pH Units Ur Specific [place] (1.010-1.025) Urine Protein (Neg-Trace) mg/dL Urine Glucose (UA) (Normal) mg/dL Urine Ketones (Negative) mg/dL Urine Blood (Negative) Urine Nitrite (Negative) Urine Bilirubin (Negative) Urine Urobilinogen (Normal) mg/dL Ur Leukocyte Esterase (Negative) Urine Microscopic RBC (0-3) per hpf Urine Microscopic WBC (0-3) per hpf Ur Squamous Epith Cells (None-Few) per lpf Urine Bacteria (None-Few) per hpf Hyaline Casts (None-Few) per lpf Ur Culture Indicated? (NO) Stl C. diff Tox B Gene Negative (Negative) Salicylates (15.0-30.0) mg/dL Urine Opiates Screen Positive H (Pgkrdk=954) ng/mL Acetaminophen (10-20) mcg/mL Ur Barbiturates Screen Negative (Yrfkwu=373) ng/mL Ur Phencyclidine Scrn Negative (Cutoff=25) ng/mL Ur Amphetamines Screen Negative (Lvystw=3212) ng/mL U Benzodiazepines Scrn Negative (Aygdjb=820) ng/mL Urine Cocaine Screen Negative (Cutoff= 300) ng/mL U Marijuana (THC) Screen Negative (Cutoff = 50) ng/mL Ur Drug Screen Interp See Below Ethyl Alcohol (Less than 10) mg/dL Attestation Statement - Attestation Attestation: I, Smooth Acuña DO, examined this patient [id number] and my medical decision-making was reviewed with Dr. Mauricio Mistry, Resident Physician. I agree with the documented findings, disposition and treatment plan as described except to the extent set forth below. Please see my progress notes for details. 48-year-old male presents to the emergency room for evaluation of altered mentation and a fall. Patient is been altered for approximately 2-3 days. Family presented with him. EMS transported the patient to the emergency room for evaluation. Vital signs and transit were stable. Accu-Chek was unavailable. No other acute issues noted during transport. The rhythm strip that was collected showed alterations in electrical conduction but no consistent findings that warranted intervention. On arrival here the patient is alert and intermittently answers questions 100% correctly. Patient knows that the [facility] urgent care is closed at this time but does not have the ability to tell us his birthday. Currently, the patient is denying chest pain, shortness of breath, headache, vision changes, nausea vomiting or diarrhea. No fevers no chills. Patient did have c-collar stabilization applied with adhesive tape. Padded dressings. C-collar will be placed here. Head is visible atraumatic. Pupils are equal round reactive extraocular muscles are intact. Oropharynx is patent trachea is midline. No signs of facial asymmetry or neurologic deficits at this time. Cranial nerves III through XII appear to be grossly intact. Motor function is symmetrical and appropriate in the upper and lower extremities. Patient will follow commands appropriately but subjectively attempts to inappropriately falls or [place] the evaluation. He answers questions appropriately at times and then appears to purposely decided not to answer questions at different points. Patient does not have any active signs of a stroke in the symptoms of been present for greater than 48 hours. Metabolic, chemical or traumatic related etiology of most concerning at this point. CT imaging the head and cervical spine along with chest x-ray EKG CBC chemistry drug screening panels acetaminophen and salicylates were this time. Urinalysis will also be collected. Troponin will be utilized as well. Disposition to be determined once full workup treatment course are completed. is here in the emergency room and does not have any acute concerns with the description of the patient's presentation but did allow for EMS to transport him up to the emergency room for evaluation. Disposition pending the treatment. See detailed documentation of the physical exam, medical intervention, medical decision- making and disposition in the resident physician's note. 1935 Patient does have an elevated CPK of greater than 300. Patient also has positive opiates on drug screen. He is prescribed Lorcet according to [place] automated prescription reporting system review. This could be confounding the patient's presentation as well as somnolence at this time. We will provide fluid resuscitation here 2 L of fluid and then discuss admission for continuation and observation. Patient does have history of TIAs which is concerning based on the presentation the falls and the presenting symptoms at this time. Disposition to be determined. 2200 Patient was discussed with the hospitals. No other recommendations or concerns noted at this time. She will be admitted for continuation of care. Patient will be observed here in the emergency room until admission process is completed
--- NOTE | 2018-08-07 18:46 | Emergency Department Note ---
Disposition Clinical Impression: Dehydration Pneumonia Qualifiers: Pneumonia type: due to unspecified organism Laterality: unspecified laterality Lung location: unspecified part of lung Qualified Code(s): J18.9 - Pneumonia, unspecified organism Altered mental status Qualifiers: Altered mental status type: unspecified Qualified Code(s): R41.82 - Altered mental status, unspecified Disposition: Admitted As Inpatient Condition: Fair Time of Disposition: 21:39 General Adult HPI - General Time Seen by Provider: 08/07/18 18:11 Source: patient, family, EMS Mode of arrival: EMS Limitations: altered mental status Nursing Notes Reviewed: Yes Vital Signs Reviewed: Yes - History of Present Illness HPI Narrative: Patient is a 48-year-old male with a past medical history of diabetes, CVA, syncope, and tremors presents to the emergency Department by squad for evaluation of altered mental status. According to the squad over the past 2 days the patient has been having increasing confusion unable to state how old he is or what year it is. Granted patient's she states that the patient was fine 3 days ago she was seen by his PCP 2 days ago and diagnosed with a sinusitis infection and started on azithromycin. The patient had a collapse last night in which she was walking through his home and his states that he became weak and fell down to the ground but was able to catch himself see did not have any traumatic injury. She states that she was able to help him up from the ground and he was able to continue walking. She states that the patient has been in bed more often than usual and has not been hydrating well. States he has also had a cough in which it sounds like he is congested. - Related Data Home Medications Medication Instructions Recorded Confirmed Aspirin [Ecotrin] 325 mg PO DAILY 03/08/18 03/08/18 Atorvastatin Calcium [Lipitor] 20 mg PO HS 03/08/18 03/08/18 BuPROPion SR (12 HR) [Wellbutrin 150 mg PO DAILY 03/08/18 03/08/18 SR] Cholecalciferol (D-3) [Vitamin D] 4,000 unit PO DAILY 03/08/18 03/08/18 HYDROcodone/Acet 5/325 mg [[place] 1 tab PO Q6H PRN 03/08/18 03/08/18 5-325 mg] Insulin ASPART [NovoLOG] 4 - 14 unit SQ TIDWM 03/08/18 03/08/18 Insulin Glargine,Hum.rec.anlog 88 unit SQ BID 03/08/18 03/08/18 [Lantus Solostar] Losartan [Cozaar] 75 mg PO DAILY 03/08/18 03/08/18 Melatonin [Melatin] 3 mg PO HS 03/08/18 03/08/18 PARoxetine HCl [Paroxetine HCl] 20 mg PO DAILY 03/08/18 03/08/18 Polyethylene Glycol 3350 [MiraLAX] 17 gm PO MOWEFR 03/08/18 03/08/18 Pregabalin [Lyrica] 200 mg PO TID 03/08/18 03/08/18 Tamsulosin [Flomax] 0.4 mg PO DAILY 03/08/18 03/08/18 Testosterone [Androgel] 2 appl TD DAILY 03/08/18 03/08/18 hydroCHLOROthiazide 25 mg PO DAILY 03/08/18 03/08/18 [Hydrochlorothiazide] traZODone [TraZODone] 25 - 50 mg PO HS 03/08/18 03/08/18 Allergies Allergy/AdvReac Type Severity Reaction Status Date / Time No Known Allergies Allergy Verified 03/08/18 18:07 Limitations: ROS unobtainable due to patients medical condition Constitutional: Denies: fever, chills Cardiovascular: Denies: chest pain, palpitations Respiratory: Reports: cough. Denies: dyspnea, wheezes Gastrointestinal: Denies: abdominal pain, nausea, vomiting Genitourinary: Denies: urgency, dysuria Musculoskeletal: Denies: back pain Integumentary: Denies: rash Past Medical History - Past Medical History Attestation: Yes The following information was validated with the patient. Medical history: Reports: coronary artery disease, CVA, diabetes, hyperlipidemia, hypertension, myocardial infarction, syncope, other Surgical history: Reports: tonsilectomy Psychiatric history: Reports: depression, PTSD - Social History Smoking Status: Current some day smoker Smokeless Tobacco Status: No Alcohol use: Reports: none Drug use: Reports: none Physical Exam - General Limitations: altered mental status General appearance: alert, in no apparent distress - Head Head exam: atraumatic, normocephalic, normal inspection - Eye Eye exam: Present: normal appearance, PERRL, miosis - ENT ENT exam: mucous membranes dry - Neck Neck exam: Present: normal inspection, full ROM, trachea midline. Absent: tenderness - Chest Chest inspection: Present: normal inspection, symmetric chest wall rise. Absent: tenderness - Respiratory Respiratory exam: Present: other (Rhonchi in the bases.). Absent: respiratory distress, wheezes, stridor - Cardiovascular Cardiovascular exam: Present: regular rate, normal rhythm, normal heart sounds, +S1, +S2 - Abdominal Exam Abdominal exam: Present: soft, Non-Tender, normal bowel sounds - Extremities Exam Extremities exam: Present: normal inspection, full ROM, normal capillary refill. Absent: tenderness - Back Exam Back exam: Present: normal inspection, full ROM. Absent: tenderness - Neurological Exam Neurological exam: Present: alert, oriented X3, CN II-XII intact. Absent: motor sensory deficit - Expanded Neurological Exam Patient oriented to: Present: person. Absent: place, time Speech: Present: fluid speech Cranial nerves: EOM function (II, III, IV, ): Normal, facial sensation (V): Normal, facial palsy (VII): Normal, gag reflex (IX): Normal, spinal accessory function (XI): Normal, tongue deviation (XII): Normal Cerebellar function: finger to nose: Normal, heel to [place]: Normal Cerebellar function: normal gait Motor strength - LUE: 5/5 Motor strength - RUE: 5/5 Motor strength - LLE: 5/5 Motor strength - RLE: 5/5 Sensory exam upper extremity: light touch: Normal Sensory exam lower extremity: light touch: Normal DTR: bicep (L): 2+, bicep (R): 2+, patellar (L): 2+, patellar (R): 2+ Coma Scale Eye Opening: Spontaneous Coma Scale Motor Response: Obeys Commands Coma Scale Verbal Response: Confused Coma Scale Total: 14 - Psychiatric Psychiatric exam: Present: normal mood, flat affect - Skin Skin exam: Present: warm, dry, intact, normal color Course Course Narrative: Plans times about the patient for his altered mental status to undergo a CT of his head to evaluate for bleed, CT of his C-spine given his altered and had a fall to rule out a cervical fracture. Patient also undergo evaluation for potential source of infection causing his altered mental status as well as dehydration. He received basic labs, chest x-ray as well as urinalysis. According to the patient's records she does have a history of syncope which is been worked up by neurologist at [facility] according to patient's family is also been worked up at the [facility] for his tremors and they do not have a diagnosis at this time. states his tremors are normal. States she is mainly concerned about his confusion states that he is usually able to take care of himself and typically driving a car. States that the patient was treated in the past 2 days with azithromycin for sinusitis infection that he has been having a cough just concerned that he may be dehydrated and possibly have pneumonia. She states it is just recently discharged from alf after being admitted for workup for his strokelike symptoms. - Reevaluation(s) Reevaluation #1: Patient's lab C did give her an elevated CK in the 300s, he did receive 2 L bolus of normal saline. His symptoms have remarkably improved with the normal saline infusion is no longer confused is able to answer my questions appropriately. Given his chest x-ray which was concerning for pulmonary edema versus pneumonia BNP was ordered and that was negative and the patient has no history of heart failure or being on a diuretic medication. Given his recent alf admission and recent symptoms of cough with mucus present patient will be treated empirically for hospital associated pneumonia. He will come in the hospital for further management of his pneumonia and altered mental status. Time: 21:41 Vital Signs Temperature 98.0 F 08/07/18 18:14 Pulse Rate 69 08/07/18 18:14 Respiratory Rate 18 08/07/18 18:14 Blood Pressure 97/75 08/07/18 18:14 O2 Sat by Pulse Oximetry 99 08/07/18 18:14 Temperature 98.0 F 08/07/18 18:14 Pulse Rate 71 08/07/18 19:25 Respiratory Rate 18 08/07/18 19:25 Blood Pressure 109/79 08/07/18 19:25 O2 Sat by Pulse Oximetry 95 08/07/18 19:25 Oxygen Delivery Oxygen Delivery Room Air Medical Decision Making - Medical Records Medical records reviewed: Yes I reviewed the patient's medical records. - Lab Data Lab results reviewed: Yes I reviewed the patient's lab results. Result diagrams: 08/07/18 18:11 08/07/18 18:11 Lab Results 1108/07/18 08/07/18 Range/Units 18:11 18:11 18:11 WBC 9.5 (4.3-11.1) K/mcL RBC 4.19 (4.19-5.50) M/mcL Hgb 11.9 L (12.9-16.9) g/dL Hct 37.6 (37.5-50.1) % MCV 89.7 (83.0-100.0) fL MCH 28.4 (28.0-33.3) pg MCHC 31.6 (31.6-35.5) g/dL RDW 13.0 (11.5-14.5) % Plt Count 223 (140-400) K/mcL MPV 11.0 (9.4-12.4) fL Immature Gran % 0.4 (0-4) % Seg Neutrophils % 73.3 % Lymphocytes % 20.0 % Monocytes % 5.4 % Eosinophils % 0.7 % Basophils % 0.2 % Neutrophils # 6.9 (1.6-8.9) K/mcL Lymphocytes # 1.9 (0.6-4.6) K/mcL Monocytes # 0.5 (0.0-1.3) K/mcL Eosinophils # 0.1 (0.0-0.6) K/mcL Basophils # 0.0 (0.0-0.2) K/mcL PT 11.6 (9.4-12.1) Seconds INR 1.0 APTT 30.3 (26.0-36.0) Seconds Carboxyhemoglobin (0-5) % Sodium 136 (136-145) mEq/L Potassium 4.4 (3.5-5.1) mEq/L Chloride 100 (98-107) mEq/L Carbon Dioxide 29 (23-29) mEq/L BUN 18 (6-20) mg/dL Creatinine 1.30 (0.70-1.30) mg/dL Est GFR ( Amer) > 60 (> 60) Est GFR (Non-Af Amer) 59 L (> 60) BUN/Creatinine Ratio 14 (6-26) Glucose 252 H (70-105) mg/dL Calculated Osmolality 292 (280-300) Lactic Acid (0.5-2.2) mmol/L Calcium 8.4 L (8.6-10.3) mg/dL Total Bilirubin 0.5 (0.3-1.0) mg/dL Direct Bilirubin 0.1 (0.0-0.2) mg/dL Indirect Bilirubin 0.4 (0.0-1.2) mg/dL AST 34 (13-39) Units/L ALT 67 H (7-52) Units/L Alkaline Phosphatase 113 H (34-104) Units/L Ammonia (16-53) mcmol/L Creatine Kinase 344 H (30-223) Units/L Troponin I < 0.03 (< 0.04) ng/mL B-Natriuretic Peptide (Less than 100) pg/mL Serum Total Protein 6.0 L (6.4-8.9) g/dL Albumin 3.4 L (3.5-5.7) g/dL Globulin 2.6 (2.4-3.5) g/dL Albumin/Globulin Ratio 1.3 (1.1-2.2) TSH 0.855 (0.340-5.600) mcIU/mL Urine Color (Yellow) Urine Clarity (Clear) Urine pH (5.0-8.0) pH Units Ur Specific [place] (1.010-1.025) Urine Protein (Neg-Trace) mg/dL Urine Glucose (UA) (Normal) mg/dL Urine Ketones (Negative) mg/dL Urine Blood (Negative) Urine Nitrite (Negative) Urine Bilirubin (Negative) Urine Urobilinogen (Normal) mg/dL Ur Leukocyte Esterase (Negative) Urine Microscopic RBC (0-3) per hpf Urine Microscopic WBC (0-3) per hpf Ur Squamous Epith Cells (None-Few) per lpf Urine Bacteria (None-Few) per hpf Hyaline Casts (None-Few) per lpf Ur Culture Indicated? (NO) Stl C. diff Tox B Gene (Negative) Salicylates (15.0-30.0) mg/dL Urine Opiates Screen (Bciqab=236) ng/mL Acetaminophen (10-20) mcg/mL Ur Barbiturates Screen (Rnhwul=472) ng/mL Ur Phencyclidine Scrn (Cutoff=25) ng/mL Ur Amphetamines Screen (Xqlitu=7817) ng/mL U Benzodiazepines Scrn (Bwrmct=977) ng/mL Urine Cocaine Screen (Cutoff= 300) ng/mL U Marijuana (THC) Screen (Cutoff = 50) ng/mL Ur Drug Screen Interp Ethyl Alcohol < 10 (Less than 10) mg/dL 08/07/18 08/07/18 08/07/18 Range/Units 18:12 18:42 18:42 WBC (4.3-11.1) K/mcL RBC (4.19-5.50) M/mcL Hgb (12.9-16.9) g/dL Hct (37.5-50.1) % MCV (83.0-100.0) fL MCH (28.0-33.3) pg MCHC (31.6-35.5) g/dL RDW (11.5-14.5) % Plt Count (140-400) K/mcL MPV (9.4-12.4) fL Immature Gran % (0-4) % Seg Neutrophils % % Lymphocytes % % Monocytes % % Eosinophils % % Basophils % % Neutrophils # (1.6-8.9) K/mcL Lymphocytes # (0.6-4.6) K/mcL Monocytes # (0.0-1.3) K/mcL Eosinophils # (0.0-0.6) K/mcL Basophils # (0.0-0.2) K/mcL PT (9.4-12.1) Seconds INR APTT (26.0-36.0) Seconds Carboxyhemoglobin 3.0 (0-5) % Sodium (136-145) mEq/L Potassium (3.5-5.1) mEq/L Chloride (98-107) mEq/L Carbon Dioxide (23-29) mEq/L BUN (6-20) mg/dL Creatinine (0.70-1.30) mg/dL Est GFR ( Amer) (> 60) Est GFR (Non-Af Amer) (> 60) BUN/Creatinine Ratio (6-26) Glucose (70-105) mg/dL Calculated Osmolality (280-300) Lactic Acid (0.5-2.2) mmol/L Calcium (8.6-10.3) mg/dL Total Bilirubin (0.3-1.0) mg/dL Direct Bilirubin (0.0-0.2) mg/dL Indirect Bilirubin (0.0-1.2) mg/dL AST (13-39) Units/L ALT (7-52) Units/L Alkaline Phosphatase (34-104) Units/L Ammonia 36 (16-53) mcmol/L Creatine Kinase (30-223) Units/L Troponin I (< 0.04) ng/mL B-Natriuretic Peptide (Less than 100) pg/mL Serum Total Protein (6.4-8.9) g/dL Albumin (3.5-5.7) g/dL Globulin (2.4-3.5) g/dL Albumin/Globulin Ratio (1.1-2.2) TSH (0.340-5.600) mcIU/mL Urine Color (Yellow) Urine Clarity (Clear) Urine pH (5.0-8.0) pH Units Ur Specific [place] (1.010-1.025) Urine Protein (Neg-Trace) mg/dL Urine Glucose (UA) (Normal) mg/dL Urine Ketones (Negative) mg/dL Urine Blood (Negative) Urine Nitrite (Negative) Urine Bilirubin (Negative) Urine Urobilinogen (Normal) mg/dL Ur Leukocyte Esterase (Negative) Urine Microscopic RBC (0-3) per hpf Urine Microscopic WBC (0-3) per hpf Ur Squamous Epith Cells (None-Few) per lpf Urine Bacteria (None-Few) per hpf Hyaline Casts (None-Few) per lpf Ur Culture Indicated? (NO) Stl C. diff Tox B Gene (Negative) Salicylates < 2.5 L (15.0-30.0) mg/dL Urine Opiates Screen (Pvlgaa=905) ng/mL Acetaminophen < 10 L (10-20) mcg/mL Ur Barbiturates Screen (Poneup=275) ng/mL Ur Phencyclidine Scrn (Cutoff=25) ng/mL Ur Amphetamines Screen (Zlngjo=2385) ng/mL U Benzodiazepines Scrn (Lkgyth=227) ng/mL Urine Cocaine Screen (Cutoff= 300) ng/mL U Marijuana (THC) Screen (Cutoff = 50) ng/mL Ur Drug Screen Interp Ethyl Alcohol (Less than 10) mg/dL 08/07/18 08/07/18 08/07/18 Range/Units 18:42 18:42 19:00 WBC (4.3-11.1) K/mcL RBC (4.19-5.50) M/mcL Hgb (12.9-16.9) g/dL Hct (37.5-50.1) % MCV (83.0-100.0) fL MCH (28.0-33.3) pg MCHC (31.6-35.5) g/dL RDW (11.5-14.5) % Plt Count (140-400) K/mcL MPV (9.4-12.4) fL Immature Gran % (0-4) % Seg Neutrophils % % Lymphocytes % % Monocytes % % Eosinophils % % Basophils % % Neutrophils # (1.6-8.9) K/mcL Lymphocytes # (0.6-4.6) K/mcL Monocytes # (0.0-1.3) K/mcL Eosinophils # (0.0-0.6) K/mcL Basophils # (0.0-0.2) K/mcL PT (9.4-12.1) Seconds INR APTT (26.0-36.0) Seconds Carboxyhemoglobin (0-5) % Sodium (136-145) mEq/L Potassium (3.5-5.1) mEq/L Chloride (98-107) mEq/L Carbon Dioxide (23-29) mEq/L BUN (6-20) mg/dL Creatinine (0.70-1.30) mg/dL Est GFR ( Amer) (> 60) Est GFR (Non-Af Amer) (> 60) BUN/Creatinine Ratio (6-26) Glucose (70-105) mg/dL Calculated Osmolality (280-300) Lactic Acid 1.3 (0.5-2.2) mmol/L Calcium (8.6-10.3) mg/dL Total Bilirubin (0.3-1.0) mg/dL Direct Bilirubin (0.0-0.2) mg/dL Indirect Bilirubin (0.0-1.2) mg/dL AST (13-39) Units/L ALT (7-52) Units/L Alkaline Phosphatase (34-104) Units/L Ammonia (16-53) mcmol/L Creatine Kinase (30-223) Units/L Troponin I (< 0.04) ng/mL B-Natriuretic Peptide 38 (Less than 100) pg/mL Serum Total Protein (6.4-8.9) g/dL Albumin (3.5-5.7) g/dL Globulin (2.4-3.5) g/dL Albumin/Globulin Ratio (1.1-2.2) TSH (0.340-5.600) mcIU/mL Urine Color Yellow (Yellow) Urine Clarity Clear (Clear) Urine pH 6.5 (5.0-8.0) pH Units Ur Specific [place] 1.011 (1.010-1.025) Urine Protein Trace (Neg-Trace) mg/dL Urine Glucose (UA) 500 H (Normal) mg/dL Urine Ketones Negative (Negative) mg/dL Urine Blood Negative (Negative) Urine Nitrite Negative (Negative) Urine Bilirubin Negative (Negative) Urine Urobilinogen Normal (Normal) mg/dL Ur Leukocyte Esterase Negative (Negative) Urine Microscopic RBC 0-3 (0-3) per hpf Urine Microscopic WBC 0-3 (0-3) per hpf Ur Squamous Epith Cells Moderate H (None-Few) per lpf Urine Bacteria None Seen (None-Few) per hpf Hyaline Casts None Seen (None-Few) per lpf Ur Culture Indicated? NO (NO) Stl C. diff Tox B Gene (Negative) Salicylates (15.0-30.0) mg/dL Urine Opiates Screen (Ewslbf=828) ng/mL Acetaminophen (10-20) mcg/mL Ur Barbiturates Screen (Ouvrfy=790) ng/mL Ur Phencyclidine Scrn (Cutoff=25) ng/mL Ur Amphetamines Screen (Svhfuu=1971) ng/mL U Benzodiazepines Scrn (Ryayuj=815) ng/mL Urine Cocaine Screen (Cutoff= 300) ng/mL U Marijuana (THC) Screen (Cutoff = 50) ng/mL Ur Drug Screen Interp Ethyl Alcohol (Less than 10) mg/dL 08/07/18 08/07/18 Range/Units 19:00 Unknown WBC (4.3-11.1) K/mcL RBC (4.19-5.50) M/mcL Hgb (12.9-16.9) g/dL Hct (37.5-50.1) % MCV (83.0-100.0) fL MCH (28.0-33.3) pg MCHC (31.6-35.5) g/dL RDW (11.5-14.5) % Plt Count (140-400) K/mcL MPV (9.4-12.4) fL Immature Gran % (0-4) % Seg Neutrophils % % Lymphocytes % % Monocytes % % Eosinophils % % Basophils % % Neutrophils # (1.6-8.9) K/mcL Lymphocytes # (0.6-4.6) K/mcL Monocytes # (0.0-1.3) K/mcL Eosinophils # (0.0-0.6) K/mcL Basophils # (0.0-0.2) K/mcL PT (9.4-12.1) Seconds INR APTT (26.0-36.0) Seconds Carboxyhemoglobin (0-5) % Sodium (136-145) mEq/L Potassium (3.5-5.1) mEq/L Chloride (98-107) mEq/L Carbon Dioxide (23-29) mEq/L BUN (6-20) mg/dL Creatinine (0.70-1.30) mg/dL Est GFR ( Amer) (> 60) Est GFR (Non-Af Amer) (> 60) BUN/Creatinine Ratio (6-26) Glucose (70-105) mg/dL Calculated Osmolality (280-300) Lactic Acid (0.5-2.2) mmol/L Calcium (8.6-10.3) mg/dL Total Bilirubin (0.3-1.0) mg/dL Direct Bilirubin (0.0-0.2) mg/dL Indirect Bilirubin (0.0-1.2) mg/dL AST (13-39) Units/L ALT (7-52) Units/L Alkaline Phosphatase (34-104) Units/L Ammonia (16-53) mcmol/L Creatine Kinase (30-223) Units/L Troponin I (< 0.04) ng/mL B-Natriuretic Peptide (Less than 100) pg/mL Serum Total Protein (6.4-8.9) g/dL Albumin (3.5-5.7) g/dL Globulin (2.4-3.5) g/dL Albumin/Globulin Ratio (1.1-2.2) TSH (0.340-5.600) mcIU/mL Urine Color (Yellow) Urine Clarity (Clear) Urine pH (5.0-8.0) pH Units Ur Specific [place] (1.010-1.025) Urine Protein (Neg-Trace) mg/dL Urine Glucose (UA) (Normal) mg/dL Urine Ketones (Negative) mg/dL Urine Blood (Negative) Urine Nitrite (Negative) Urine Bilirubin (Negative) Urine Urobilinogen (Normal) mg/dL Ur Leukocyte Esterase (Negative) Urine Microscopic RBC (0-3) per hpf Urine Microscopic WBC (0-3) per hpf Ur Squamous Epith Cells (None-Few) per lpf Urine Bacteria (None-Few) per hpf Hyaline Casts (None-Few) per lpf Ur Culture Indicated? (NO) Stl C. diff Tox B Gene Negative (Negative) Salicylates (15.0-30.0) mg/dL Urine Opiates Screen Positive H (Lwvhzj=145) ng/mL Acetaminophen (10-20) mcg/mL Ur Barbiturates Screen Negative (Bujhqd=822) ng/mL Ur Phencyclidine Scrn Negative (Cutoff=25) ng/mL Ur Amphetamines Screen Negative (Dbnqfj=8355) ng/mL U Benzodiazepines Scrn Negative (Ztpsas=531) ng/mL Urine Cocaine Screen Negative (Cutoff= 300) ng/mL U Marijuana (THC) Screen Negative (Cutoff = 50) ng/mL Ur Drug Screen Interp See Below Ethyl Alcohol (Less than 10) mg/dL - Radiology Data Radiology results reviewed: Yes I reviewed the patient's radiology results. Chest X-Ray 08/07/18 18:11 IMPRESSION: Bilateral airspace opacification could represent pulmonary edema or pneumonia D/ / Tylor Gaona MD / Tylor Gaona MD Interpreting Provider: Tylor Gaona MD Head CT 08/07/18 18:11 IMPRESSION: No acute intracranial abnormality. D/ / Tylor Gaona MD / Tylor Gaona MD Interpreting Provider: Tylor Gaona MD Cervical Spine CT 08/07/18 18:21 IMPRESSION: No acute abnormality of the cervical spine. Airspace disease seen in the visualized portion of the right upper lobe. Correlation with a chest radiograph may be helpful. A pulmonary contusion or pneumonia could give this appearance. D/ / Tylor Gaona MD / Tylor Gaona MD Interpreting Provider: Tylor Gaona MD - EKG Data EKG #1 EKG attestation: Yes I reviewed and interpreted this EKG. EKG results narrative: EKG done at 18:16 shows sinus rhythm at a rate of 76 bpm. Normal axis. Intervals within normal limits. No signs of ST elevation, ST depression or Q waves present. Attestation Statement - Attestation Attestation: I, Smooth Acuña DO, examined this patient [id number] and my medical decision-making was reviewed with Dr. Mauricio Mistry, Resident Physician. I agree with the documented findings, disposition and treatment plan as described except to the extent set forth below. Please see my progress notes for details.
[2018-08-07 18:52] LABS: Basophils % 0.2 %; Eosinophils # 0.1 K/mcL (0.0-0.6); Eosinophils % 0.7 %; Hematocrit 37.6 % (37.5-50.1); Hemoglobin 11.9 g/dL (12.9-16.9); Immature Granulocytes % 0.4 % (0-4); Lymphocytes # 1.9 K/mcL (0.6-4.6); Mean Corpuscular HGB Conc 31.6 g/dL (31.6-35.5); Mean Corpuscular Hemoglobin 28.4 pg (28.0-33.3); Mean Corpuscular Volume 89.7 fL (83.0-100.0); Monocytes # 0.5 K/mcL (0.0-1.3); Monocytes % 5.4 %; Neutrophils # 6.9 K/mcL (1.6-8.9); Platelet Count 223 K/mcL (140-400); Red Blood Count 4.19 M/mcL (4.19-5.50); Segmented Neutrophils % 73.3 %
[2018-08-07 19:00] LABS: Prothrombin Time 11.6 Seconds (9.4-12.1)
[2018-08-07 19:03] LABS: Activated Partial Thrombo Time 30.3 Seconds (26.0-36.0)
[2018-08-07 19:11] LABS: Acetaminophen < 10 mcg/mL (10-20); Salicylate < 2.5 mg/dL (15.0-30.0)
[2018-08-07 19:14] LABS: Troponin I < 0.03 ng/mL (< 0.04)
[2018-08-07 19:15] LABS: Alanine Aminotransferase 67 Units/L (7-52); Albumin 3.4 g/dL (3.5-5.7); Albumin/Globulin Ratio 1.3 (1.1-2.2); Alkaline Phosphatase 113 Units/L (34-104); Aspartate Amino Transferase 34 Units/L (13-39); BUN/Creatinine Ratio 14 (6-26); Bilirubin,Direct 0.1 mg/dL (0.0-0.2); Bilirubin,Indirect 0.4 mg/dL (0.0-1.2); Bilirubin,Total 0.5 mg/dL (0.3-1.0); Blood Urea Nitrogen 18 mg/dL (6-20); Calcium 8.4 mg/dL (8.6-10.3); Carbon Dioxide 29 mEq/L (23-29); Chloride 100 mEq/L (98-107); Creatine Kinase 344 Units/L (30-223); Ethanol < 10 mg/dL (Less than 10); Globulin 2.6 g/dL (2.4-3.5); Glucose 252 mg/dL (70-105); Osmolality,Calculated 292 (280-300); Potassium 4.4 mEq/L (3.5-5.1); Sodium 136 mEq/L (136-145); eGFR For Non-African Americans 59 (> 60)
[2018-08-07 19:28] LABS: Thyroid Stimulating Hormone 0.855 mcIU/mL (0.340-5.600)
[2018-08-07 19:33] LABS: Bilirubin,Urine Negative (Negative); Blood,Urine Negative (Negative); Clarity,Urine Clear (Clear); Color,Urine Yellow (Yellow); Glucose,Urine (UA) 500 mg/dL (Normal); Ketones,Urine Negative (Negative); Leukocyte Esterase,Urine Negative (Negative); Nitrite,Urine Negative (Negative); PH,Urine 6.5 pH Units (5.0-8.0); Protein,Urine Trace mg/dL (Neg-Trace); Specific Gravity,Urine 1.011 (1.010-1.025); Urobilinogen,Urine Normal (Normal)
[2018-08-07 19:36] LABS: Bacteria,Urine None Seen per hpf (None-Few); Hyaline Casts,Urine None Seen per lpf (None-Few); RBC,Urine 0-3 per hpf (0-3); Squamous Epithelial Cell,Urine Moderate per lpf (None-Few); WBC,Urine 0-3 per hpf (0-3)
[2018-08-07 19:44] LABS: Amphetamine Screen,Urine Negative ng/mL (Cutoff=1000); Barbiturate Screen,Urine Negative ng/mL (Cutoff=200); Benzodiazepines Screen,Urine Negative ng/mL (Cutoff=200); Cannabinoid Screen,Urine Negative ng/mL (Cutoff = 50); Cocaine Screen,Urine Negative ng/mL (Cutoff= 300); Opiate Screen,Urine Positive ng/mL (Cutoff=300); Phencyclidine Screen,Urine Negative ng/mL (Cutoff=25)
[2018-08-07] MEDS ORDERED: Levofloxacin 750 MG/150 ML 750 MG/150 ML BAG IVPB ONE (20:58)
[2018-08-07] MEDS ORDERED: Piperacillin/Tazobactam 3.375 GM in 0.9 % Sodium Chloride Mini Bag 100 ML IVPB ONE (20:58)
[2018-08-08] MEDS ORDERED: Naloxone 0.4 MG/ML INJ IVP PRN (01:16)
[2018-08-08] MEDS ORDERED: 0.9 % Sodium Chloride 1,000 ML IVC ONE (01:21)
[2018-08-08] MEDS ORDERED: Gadolinium Contrast Agent (WT Based) IV PRN (01:31)
[2018-08-08] MEDS ORDERED: *HR* LORazepam 2 MG/ML VIAL IVP ONE (01:58)
[2018-08-08] MEDS ORDERED: Acetaminophen 325 MG TABLET PO PRN (03:43)
[2018-08-08 04:25] LABS: Hematocrit 31.6 % (37.5-50.1); Hemoglobin 10.3 g/dL (12.9-16.9); Mean Corpuscular HGB Conc 32.6 g/dL (31.6-35.5); Mean Corpuscular Hemoglobin 28.5 pg (28.0-33.3); Mean Corpuscular Volume 87.5 fL (83.0-100.0); Platelet Count 180 K/mcL (140-400); Red Blood Count 3.61 M/mcL (4.19-5.50); Red Cell Distribution Width 13.1 % (11.5-14.5)
[2018-08-08] MEDS ORDERED: Dextrose Gel 15 GM/37.5 ML TUBE PO PRN ×2 (04:40)
[2018-08-08] MEDS ORDERED: *HR* Dextrose 50 % in Water (Syg) 50 ML SYRINGE IVP PRN (04:40)
[2018-08-08] MEDS ORDERED: D5% in Water 1,000 ML IVC PRN (04:40)
[2018-08-08 04:45] LABS: BUN/Creatinine Ratio 15 (6-26); Blood Urea Nitrogen 17 mg/dL (6-20); Calcium 7.7 mg/dL (8.6-10.3); Carbon Dioxide 26 mEq/L (23-29); Chloride 107 mEq/L (98-107); Glucose 185 mg/dL (70-105); Osmolality,Calculated 290 (280-300); Potassium 4.4 mEq/L (3.5-5.1); Sodium 137 mEq/L (136-145); eGFR For Non-African Americans > 60 (> 60)
--- NOTE | 2018-08-08 05:18 | Internal Med History&Physical ---
Date of Encounter: 08/08/18 Time of Encounter: 00:40 Internal Medicine - H&P: HPI Chief complaint: Acute encephalopathy, pneumonia Admitted From: Emergency Dept History of present illness: Mr. Fernandes is a 48 year old male Patient presented to the emergency room for increased altered mental status for 2-3 days. According to the EMS that brought him to the emergency room he had increased confusion and was unable to state his name or what year it was. Patient's who is at bedside in the emergency room stated that he had been at baseline up until about 3 days ago than his primary care provider diagnosed him with sinusitis about 2 days ago and he was started on a Z-Joshua. The night previous to his admission he had a fall at home while he was walking, and he has been feeling more weak lately. Due to concerns for confusion and falls she brought him to the emergency room for further evaluation. In the emergency room patient's CBC was within normal limits, patient's BMP significant for a glucose of 252. Patient's troponin was less than 0.03, urinalysis was negative for infection urine tox screen was positive for opiates and bilateral airspace opacification. Vital signs were stable, did not meet sepsis or SIRS criteria. Neurological exam performed in the emergency room initially was difficult as patient was not very alert, however after receiving a dose of IV fluids patient's mental status improved and he was able to answer questions and was more oriented. Patient was started on Levaquin and Zosyn, blood cultures were drawn and he was admitted to the hospital for further evaluation. Upon my assessment, patient was very altered, he was unable to tell me his name, his location, his birthdate and he did not know if he was or not. He stated that the year was 1915, the month was January and he thought that he was at his home or at the nurses home. He did state "I keep falling, something is wrong with my muscles." During my physical examination I noted that patient had full body tremors, was not able to hold himself up and also was unable to feel his legs below the knee, which after discussing with the emergency room resident was different than what was found there. I ordered stat MRI cervical spine, thoracic spine and lumbar spine as well as head and brain MRI to assess this. While patient was at MRI I called the patient's power of managing attorney who is his cousin Alen, who helped shed light on patient's neurological history. 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 Lately over the last few years he has developed neuropathy, particularly in his legs and starting off in his arms as well. He had an episode last January where he fell, [facility], and improved. He started to get worse again the last few weeks, was actually admitted to a intermediate where he was receiving physical therapy in [place] but he was discharged last Thursday. Last April he had an episode where he could not feel his legs similar to his presentation today, and according to the power of managing attorney multiple specialists have been unable to confirm exactly what is going on with him neurologically. Patient's DPOAE did confirm however that he is a FULL CODE. After patient returned from the MRI I reassessed the patient and he has seemingly made complete recovery of his confusion and altered mental status. He was oriented to self, place and time. He confirmed to me that not being able to feel his lower extremities is not a new finding, he has not been able to walk for some time. He has had this tremor for many years and has been seen by neurology specialists at [place] as well as [facility]. He also stated that he was scheduled to see a neurologist at [facility] sometime in the next few days. He denied nausea, vomiting, diarrhea and constipation. He said that he has had some chest pain but his real concerns were his chronic pain in his legs. Past Med Surg Social Fam HX - Past Medical History Medical history: coronary artery disease, CVA, diabetes, hyperlipidemia, hypertension, myocardial infarction, syncope, other Additional medical history: neuropathy Psychiatric history: depression, PTSD - Past Surgical History Surgical History: tonsilectomy Additional surgical history: left hand surgery, left knee - Social History Smoking Status: Current some day smoker Smokeless Tobacco Status: No Alcohol use: none Drug use: none - Family History Mother Hx Family Cancer: Yes Father Hx Family Cardiac Disorders: Yes (2 heart attacks) Hx Family Neurologic Disorders: Yes (stroke) Internal Medicine - H&P: Meds Aspirin [Ecotrin] 325 mg PO DAILY 03/08/18 [History] Atorvastatin Calcium [Lipitor] 20 mg PO HS 03/08/18 [History] BuPROPion SR (12 HR) [Wellbutrin SR] 150 mg PO DAILY 03/08/18 [History] Cholecalciferol (D-3) [Vitamin D] 4,000 unit PO DAILY 03/08/18 [History] HYDROcodone/Acet 5/325 mg [[place] 5-325 mg] 1 tab PO Q6H PRN 03/08/18 [History] Insulin ASPART [NovoLOG] 4 - 14 unit SQ TIDWM 03/08/18 [History] Insulin Glargine,Hum.rec.anlog [Lantus Solostar] 88 unit SQ BID 03/08/18 [History] Losartan [Cozaar] 75 mg PO DAILY 03/08/18 [History] Melatonin [Melatin] 3 mg PO HS 03/08/18 [History] PARoxetine HCl [Paroxetine HCl] 20 mg PO DAILY 03/08/18 [History] Polyethylene Glycol 3350 [MiraLAX] 17 gm PO MOWEFR 03/08/18 [History] Pregabalin [Lyrica] 200 mg PO TID 03/08/18 [History] Tamsulosin [Flomax] 0.4 mg PO DAILY 03/08/18 [History] Testosterone [Androgel] 2 appl TD DAILY 03/08/18 [History] hydroCHLOROthiazide [Hydrochlorothiazide] 25 mg PO DAILY 03/08/18 [History] traZODone [TraZODone] 25 - 50 mg PO HS 03/08/18 [History] Allergy/AdvReac Type Severity Reaction Status Date / Time No Known Allergies Allergy Verified 03/08/18 18:07 All Systems PM: A 10-system review of systems was performed and is negative for pertinent findings except as documented above in the HPI. - Constitutional Vitals: Temp Pulse Resp BP Pulse Ox 98.2 F 85 16 144/93 94 08/08/18 03:08 08/08/18 03:08 08/08/18 03:08 08/08/18 03:08 08/08/18 03:08 General appearance: Present: cooperative, pleasant Exam: Patient initially awake and alert 0 but after completing stat MRI patient awake alert 3. Patient follows commands, and is in no acute distress. - Head Head exam: Present: normal inspection - Eye Eye exam: Present: EOMI, normal appearance Pupils: Present: miosis, PERRL. Absent: fixed - Neck Neck exam general surgery: Present: full ROM - Respiratory Respiratory exam: Present: CTAB. Absent: decreased breath sounds, respiratory distress, wheezes - Cardiovascular Cardiovascular exam: Present: RRR. Absent: diastolic murmur, systolic murmur - GI/Abdominal GI/Abdominal exam: Present: normal bowel sounds, soft. Absent: tenderness - Extremities Exam Extremities exam: Present: warm, radial pulses palpable and symmetrical. Absent: calf tenderness, pedal edema, tenderness - Neurological Exam Neurological exam: Present: motor sensory deficit, strengths equal and symetr throughout. Absent: facial droop, speech deficit Additional comments: As indicated in history of present illness patient initially altered and neuro exam difficult to perform however patient improved after returning from imaging studies. Patient can move his legs, but he has no sensation below the knee. Bilateral upper extremity weakness, symmetrical. Extraocular muscles intact, pupils reactive to light and accommodation. - Skin Skin exam: Present: dry, normal color, warm Internal Med - H&P Results - Labs CBC & Chem 7: 08/08/18 03:53 08/08/18 03:53 Labs: Short CBC 08/07/18 08/08/18 Range/Units 18:11 03:53 WBC 9.5 5.5 (4.3-11.1) K/mcL Hgb 11.9 L 10.3 L D (12.9-16.9) g/dL Hct 37.6 31.6 L (37.5-50.1) % Plt Count 223 180 (140-400) K/mcL Neutrophils # 6.9 (1.6-8.9) K/mcL BMP 08/07/18 08/08/18 18:11 03:53 Sodium 136 137 Potassium 4.4 4.4 Chloride 100 107 Carbon Dioxide 29 26 BUN 18 17 Creatinine 1.30 1.16 Glucose 252 H 185 H Calcium 8.4 L 7.7 L Cardiac Enzymes 08/07/18 08/08/18 Range/Units 18:11 03:53 Troponin I < 0.03 < 0.03 (< 0.04) ng/mL Liver Function 08/07/18 Range/Units 18:11 Total Bilirubin 0.5 (0.3-1.0) mg/dL Direct Bilirubin 0.1 (0.0-0.2) mg/dL AST 34 (13-39) Units/L ALT 67 H (7-52) Units/L Alkaline Phosphatase 113 H (34-104) Units/L Albumin 3.4 L (3.5-5.7) g/dL Urine 08/07/18 Range/Units 19:00 Urine Color Yellow (Yellow) Urine Clarity Clear (Clear) Urine pH 6.5 (5.0-8.0) pH Units Ur Specific Mcclellan 1.011 (1.010-1.025) Urine Protein Trace (Neg-Trace) mg/dL Urine Glucose (UA) 500 H (Normal) mg/dL - Impressions ITS Impressions Chest X-Ray 08/07/18 18:11 IMPRESSION: Bilateral airspace opacification could represent pulmonary edema or pneumonia D/ / Tylor Gaona MD / Tylor Gaona MD Interpreting Provider: Tylor Gaona MD Head CT 08/07/18 18:11 IMPRESSION: No acute intracranial abnormality. D/ / Tylor Gaona MD / Tylor Gaona MD Interpreting Provider: Tylor Gaona MD Cervical Spine CT 08/07/18 18:21 IMPRESSION: No acute abnormality of the cervical spine. Airspace disease seen in the visualized portion of the right upper lobe. Correlation with a chest radiograph may be helpful. A pulmonary contusion or pneumonia could give this appearance. D/ / Tylor Gaona MD / Tylor Gaona MD Interpreting Provider: Tylor Gaona MD Cervical Spine MRI 08/08/18 01:31 EST IMPRESSION: No acute neural impingement. No acute osseous abnormality. Mild cervical and lumbar spondylosis. D/ / Bar Chand / Bar Chand Interpreting Provider: Bar Chand Lumbar Spine MRI 08/08/18 01:31 EST IMPRESSION: No acute neural impingement. No acute osseous abnormality. Mild cervical and lumbar spondylosis. D/ / Bar Chand / Bar Chand Interpreting Provider: Bar Chand Thoracic Spine MRI 08/08/18 01:31 EST IMPRESSION: No acute neural impingement. No acute osseous abnormality. Mild cervical and lumbar spondylosis. D/ / Bar Chand / Bar Chand Interpreting Provider: Bar Chand Brain MRI 08/08/18 01:33 EST IMPRESSION: No acute intracranial abnormality. Motion degraded exam. D/ / Bar Chand / Bar Chand Interpreting Provider: Bar Chand - Assessment and plan (1) Acute encephalopathy Current Visit: Yes Status: Acute Assessment and plan: Patient initially not oriented at all, but did improve after MRI was performed. CT scan showed no acute abnormalities as did the cervical CT scan. Stat Brain MRI showed no acute intracranial abnormality, spine MRI of the cervical, thoracic and lumbar showed no acute neural impingement, no acute osseous abnormality but did have mild cervical lumbar spondylosis. The cauda equina was unremarkable. There were no paraspinal masses identified. Patient had a similar presentation in the ER, where he was initially altered but then after receiving IV fluids he improved. He has been found to have a pneumonia which may contribute to his encephalopathy. Antibiotics were started in the ER and blood cultures were obtained. Patient's vital signs are within normal limits. Continue to monitor for worsening confusion and encephalopathy Continue antibiotics Follow-up blood cultures when available Hold medications that may contribute to his encephalopathy. Neurology consult in the morning, appreciate recommendations (2) Syncope and collapse Current Visit: No Status: Acute Assessment and plan: Patient has had falls at home, and he has baseline neurological deficits that likely contribute. Patient has apparently had extensive workup for this with no definitive cause identified. Physical therapy, occupational therapy consult Neurology consult in the morning (3) Diabetes mellitus, type 2 Current Visit: No Status: Chronic Assessment and plan: Patient has history of diabetes, is insulin-dependent. Continue to monitor sugars with meals and at night. Low-dose sliding scale insulin as needed Diabetic diet Qualifiers: Diabetes mellitus termination clerk insulin use: unspecified long-term insulin use status Diabetes mellitus complication status: with hyperglycemia Qualified Code(s): E11.65 - Type 2 diabetes mellitus with hyperglycemia (4) Pneumonia Current Visit: Yes Status: Acute Assessment and plan: As evidenced by patient's chest x-ray as well as seen on cervical spine CT, patient has airspace disease in the bilateral lobes. Possibly contributing to patient's encephalopathy. Continue Zosyn and Levaquin Follow-up blood cultures Continue to monitor Qualifiers: Pneumonia type: due to unspecified organism Laterality: unspecified laterality Lung location: unspecified part of lung Qualified Code(s): J18.9 - Pneumonia, unspecified organism (5) DVT prophylaxis Current Visit: No Status: Acute Assessment and plan: SCDs - Time Spent With Patient Total time spent is greater than 50% in coordination of care (as documented) at patient's floor/unit and/or counseling patient: Greater than 35 minutes
[2018-08-08 06:06] LABS: Creatine Kinase 213 Units/L (30-223)
[2018-08-08] MEDS ORDERED: Piperacillin/Tazobactam 3.375 GM in 0.9 % Sodium Chloride Mini Bag 100 ML IVPB SCH (08:00)
[2018-08-08] MEDS: Pregabalin 50 MG CAPSULE PO SCH ×3 (09:14→21:01)
[2018-08-08] MEDS: Insulin LISPRO 300 UNITS/3 ML VIAL SQ SCH ×5 (09:15→21:11)
[2018-08-08] MEDS: Cholecalciferol (D-3) 1,000 UNIT TABLET PO SCH (09:15)
[2018-08-08] MEDS: Aspirin Enteric Coated 325 MG Tablet PO SCH (09:15)
--- NOTE | 2018-08-08 10:32 | Event Note ---
Date of Encounter: 08/08/18 Time of Encounter: 09:00 H&P reviewed. 48-year-old male with history of unknown neurological disorder since childhood is admitted for delirium and was found to have pneumonia. Her was a question about his new neurological deficits overnight for which prompted MRI of the spine and brain which were negative and it was later confirmed that his tremors and leg numbness are chronic. On my exam, he is fully alert and oriented 3, no focal deficits appreciated, but he had scattered rhonchi on pulmonary exam. Continue Levaquin and await for neurology input.
--- NOTE | 2018-08-08 11:52 | Neurology - Consult Note ---
Date of Encounter: 08/08/18 Time of Encounter: 11:51 Assessment and Plan (1) Altered mental status Current Visit: Yes Status: Acute Upon my examination i do not see significant evidence of altered mental status. As mentioned above he is able to provide rather detailed story regarding is recent illness including detailed encounters with the physicians and rather detailed reiteration of the chronicalogically and spatially, in addition his MRI of brain is normal and medically no obvious causes can be identified to account for his mental status change, except the hyperglycemia which is improving. The body jerking movements however, may indicate presence of metabolic encephalopathy but he is no longer having them. Patient has chronic tremors in his hands and his liver function enzymes are slightly elevated and also he may be already evaluated in the past since we do not have the medical records i would check his ceruloplasmin and copper level to assess possible Mitchell disease. I do not see K-F deposit. Qualifiers: Altered mental status type: unspecified Qualified Code(s): R41.82 - Altered mental status, unspecified (2) Leg weakness, bilateral Current Visit: Yes Status: Acute Besides the mental status changes which would be related to encephalopathy his major complaints are leg weakness right more than the left, since the last 6-7 weeks gradual onset but progressively worsening to a point that he could no longer walk. The weakness in more on the right side with difficulty with hip flexor. No reflexes seen. Therefore this would be peripheral lower motor neuron pathology. Since the weakness has been going on more than 4 weeks, he no longer has GUillain Phelps syndrome. 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 Next step from neurology perspective would be LP and EMG/NCV. This would certainly be best evaluated at [facility] where inpatient EMG can be performed. Patient also expressed his desire to go [facility] for further evaluation and treatment. Total time spent on this care is approximately 70 minutes and more than 50% were directed at coordination of care for this patient History of Present Illness Chief complaint: leg weakness and unable to walk HPI: Mr. Fernandes is a 48 year old male with PMH significant for chronic tremors in his hands, DM, diabetic neuropathy, CAD, history of CVA, who presented to [facility] due to onset of mental status changes, weakness in his legs and difficulty walking. Patient is interviewed alone and he is able to provide rather detailed history of his medical illness and it is noted that he has no significant confusion at the time of this interview. Essentially, he has rather complicated neurological complaints and has been evaluated lately at different hospitals and certainly seen recently by a neurologist who suggested that he needs to be evaluated more throughly at [facility], [place] or [facility]. He was last seen few days ago and yesterday it was reported that he developed acute mental status changes and [facility] so he was directed to come to [place] with intention to transfer him to [facility] or other places. In short, his major complaint are few: major one is that he has been experiencing worsening weakness to his legs over the last 6-7 weeks. Keep getting worse to a point that he could not walk. Then he admits some intensive whole body jerking activity on top of a chronic bilateral hand tremors. He has numbness to his feet up to the lower legs bilaterally but this is considered chronic in nature with changes recently. He says that his right leg however is weaker than the left due to him having a stroke in the past. However, MRI of brain, showed no evidence of previous infarct. MRI of cervical, thoracic and lumbar spine showed no significant spinal cord pathology to explain his symptom s. He has tremors to his hands bilaterally, this has been present for many years. The confusion part of the story is unclear and certainly he is not confused at this time and is able to give a rather detailed history of his current illness. Past Med Surg Social Fam HX - Past Medical History Medical history: coronary artery disease, CVA, diabetes, hyperlipidemia, hypertension, myocardial infarction, syncope, other Additional medical history: neuropathy Psychiatric history: depression, PTSD - Past Surgical History Surgical History: tonsilectomy Additional surgical history: left hand surgery, left knee - Social History Smoking Status: Current some day smoker Smokeless Tobacco Status: No Alcohol use: none Drug use: none - Family History Mother Hx Family Cancer: Yes Father Hx Family Cardiac Disorders: Yes (2 heart attacks) Hx Family Neurologic Disorders: Yes (stroke) Medications and Allergies Aspirin [Ecotrin] 325 mg PO DAILY 03/08/18 [History] Atorvastatin Calcium [Lipitor] 20 mg PO HS 03/08/18 [History] BuPROPion SR (12 HR) [Wellbutrin SR] 150 mg PO DAILY 03/08/18 [History] Cholecalciferol (D-3) [Vitamin D] 4,000 unit PO DAILY 03/08/18 [History] HYDROcodone/Acet 5/325 mg [[place] 5-325 mg] 1 tab PO Q6H PRN 03/08/18 [History] Insulin ASPART [NovoLOG] 4 - 14 unit SQ TIDWM 03/08/18 [History] Insulin Glargine,Hum.rec.anlog [Lantus Solostar] 88 unit SQ BID 03/08/18 [History] Losartan [Cozaar] 75 mg PO DAILY 03/08/18 [History] Melatonin [Melatin] 3 mg PO HS 03/08/18 [History] PARoxetine HCl [Paroxetine HCl] 20 mg PO DAILY 03/08/18 [History] Polyethylene Glycol 3350 [MiraLAX] 17 gm PO MOWEFR 03/08/18 [History] Pregabalin [Lyrica] 200 mg PO TID 03/08/18 [History] Tamsulosin [Flomax] 0.4 mg PO DAILY 03/08/18 [History] Testosterone [Androgel] 2 appl TD DAILY 03/08/18 [History] hydroCHLOROthiazide [Hydrochlorothiazide] 25 mg PO DAILY 03/08/18 [History] traZODone [TraZODone] 25 - 50 mg PO HS 03/08/18 [History] Allergy/AdvReac Type Severity Reaction Status Date / Time No Known Allergies Allergy Verified 03/08/18 18:07 All Systems: The remainder of the systems were reviewed and are negative Physical Examination - Vital Signs Vital Signs: Initial Vital Signs Temp Pulse Resp BP Pulse Ox 98.0 F 69 18 97/75 99 08/07/18 18:14 08/07/18 18:14 08/07/18 18:14 08/07/18 18:14 08/07/18 18:14 - Constitutional General appearance: comfortable (Chronically ill but comfortable), chronically ill - Neurologic Sensorimotor examination: other (stockiing pattern of sensory reduction bilaterally) Detailed motor examination: other (in his lower extremities, right leg flexion is weaker and there appears to be atrophy of hip flexor on the right side) Motor examination - right side: 3/5: hip flexors, tibialis Anterior, 4/5: quadriceps, toe extension (EHL), plantarflexion, 5/5: deltoids, biceps, triceps, wrist flexion, wrist extension, 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 ), no gait ataxia (Gait not assessed due to leg weakness) Results - Laboratory Findings CBC and BMP: 08/08/18 03:53 08/08/18 03:53 Abnormal lab findings: Abnormal lab results RBC 3.61 M/mcL (4.19-5.50) L 08/08/18 03:53 Hgb 10.3 g/dL (12.9-16.9) L D 08/08/18 03:53 Hct 31.6 % (37.5-50.1) L 08/08/18 03:53 Glucose 185 mg/dL (70-105) H 08/08/18 03:53 Calcium 7.7 mg/dL (8.6-10.3) L 08/08/18 03:53 ALT 67 Units/L (7-52) H 08/07/18 18:11 Alkaline Phosphatase 113 Units/L (34-104) H 08/07/18 18:11 Serum Total Protein 6.0 g/dL (6.4-8.9) L 08/07/18 18:11 Albumin 3.4 g/dL (3.5-5.7) L 08/07/18 18:11 Urine Glucose (UA) 500 mg/dL (Normal) H 08/07/18 19:00 Ur Squamous Epith Cells Moderate per lpf (None-Few) H 08/07/18 19:00 Salicylates < 2.5 mg/dL (15.0-30.0) L 08/07/18 18:12 Urine Opiates Screen Positive ng/mL (Osdbab=404) H 08/07/18 19:00 Acetaminophen < 10 mcg/mL (10-20) L 08/07/18 18:12 - Diagnostic Findings Additional findings: CT OF THE HEAD WITHOUT CONTRAST 08/07/2018 7:10 pm TECHNIQUE: CT of the head was performed without the administration of intravenous contrast. Dose modulation, iterative reconstruction, and/or weight based adjustment of the mA/kV was utilized to reduce the radiation dose to as low as reasonably achievable. COMPARISON: 03/11/2018 HISTORY: ORDERING SYSTEM PROVIDED HISTORY: altered mental status FINDINGS: BRAIN/VENTRICLES: There is no acute intracranial hemorrhage, mass effect or midline shift. No abnormal extra-axial fluid collection. The sanderson-white differentiation is maintained without evidence of an acute infarct. There is no evidence of hydrocephalus. ORBITS: The visualized portion of the orbits demonstrate no acute abnormality. SINUSES: The visualized paranasal sinuses and mastoid air cells demonstrate no acute abnormality. SOFT TISSUES/SKULL: No acute abnormality of the visualized skull or soft tissues. CT/CT head/brain wo con IMPRESSION: No acute intracranial abnormality. D/ / Tylor Gaona MD / Tylor Gaona MD Interpreting Provider: Tylor Gaona MD OF THE CERVICAL SPINE WITHOUT CONTRAST; MRI OF THE THORACIC SPINE WITHOUT CONTRAST; MRI OF THE LUMBAR SPINE WITHOUT CONTRAST 08/08/2018 2:41 am TECHNIQUE: Multiplanar multisequence MRI of the cervical spine was performed without the administration of intravenous contrast.; Multiplanar multisequence MRI of the thoracic spine was performed without the administration of intravenous contrast.; Multiplanar multisequence MRI of the lumbar spine was performed without the administration of intravenous contrast. COMPARISON: None. HISTORY: ORDERING SYSTEM PROVIDED HISTORY: Cant feel legs below knees, acute encephalopathy FINDINGS: Motion degraded examination. BONES/ALIGNMENT: There straightening of the cervical lordosis. Thoracic and lumbar spine alignment is normal. Vertebral bodies maintain normal height. Marrow signal is benign. Intervertebral disc spaces are preserved. SPINAL CORD: No abnormal cord signal is seen. The cauda equina is unremarkable. SOFT TISSUES: No paraspinal mass identified. DEGENERATIVE CHANGES: Small disc osteophyte complexes at C3-4 and C4-5 with mild central spinal canal stenosis without significant neural foraminal stenosis. No significant disc bulge, central spinal canal or neural foraminal stenosis of the thoracic spine. L4-5 small annular disc bulge with mild left neural foraminal stenosis and patent central spinal canal and right neural foramen. L5-S1 slight annular bulge without significant central spinal canal or neural foraminal stenosis. MR/MR cervical spine wo con IMPRESSION: No acute neural impingement. No acute osseous abnormality. Mild cervical and lumbar spondylosis. D/ / Bar Chand / Bar Chand Interpreting Provider: Bar Chand OF THE BRAIN WITHOUT CONTRAST 08/08/2018 2:41 am TECHNIQUE: Multiplanar multisequence MRI of the brain was performed without the administration of intravenous contrast. COMPARISON: None HISTORY: ORDERING SYSTEM PROVIDED HISTORY: acute encephalopathy, cant feel legs below knees FINDINGS: Motion degraded examination. INTRACRANIAL STRUCTURES/VENTRICLES: There is no acute infarct. No mass effect or midline shift. No evidence of an acute intracranial hemorrhage. The ventricles and sulci are normal in size and configuration. The sellar/suprasellar regions appear unremarkable. The normal signal voids within the major intracranial vessels appear maintained. ORBITS: The visualized portion of the orbits demonstrate no acute abnormality. SINUSES: Trace paranasal sinus mucosal thickening. BONES/SOFT TISSUES: The bone marrow signal intensity appears normal. The soft tissues demonstrate no acute abnormality. MR/MR head/brain wo con IMPRESSION: No acute intracranial abnormality. Motion degraded exam. D/ / 08/08/2018 08:02:15 Bar Chand / garrett Interpreting Provider: Bar Chand EXAMINATION: MRI OF THE CERVICAL SPINE WITHOUT CONTRAST; MRI OF THE THORACIC SPINE WITHOUT CONTRAST; MRI OF THE LUMBAR SPINE WITHOUT CONTRAST 08/08/2018 2:41 am TECHNIQUE: Multiplanar multisequence MRI of the cervical spine was performed without the administration of intravenous contrast.; Multiplanar multisequence MRI of the thoracic spine was performed without the administration of intravenous contrast.; Multiplanar multisequence MRI of the lumbar spine was performed without the administration of intravenous contrast. COMPARISON: None. HISTORY: ORDERING SYSTEM PROVIDED HISTORY: Cant feel legs below knees, acute encephalopathy FINDINGS: Motion degraded examination. BONES/ALIGNMENT: There straightening of the cervical lordosis. Thoracic and lumbar spine alignment is normal. Vertebral bodies maintain normal height. Marrow signal is benign. Intervertebral disc spaces are preserved. SPINAL CORD: No abnormal cord signal is seen. The cauda equina is unremarkable. SOFT TISSUES: No paraspinal mass identified. DEGENERATIVE CHANGES: Small disc osteophyte complexes at C3-4 and C4-5 with mild central spinal canal stenosis without significant neural foraminal stenosis. No significant disc bulge, central spinal canal or neural foraminal stenosis of the thoracic spine. L4-5 small annular disc bulge with mild left neural foraminal stenosis and patent central spinal canal and right neural foramen. L5-S1 slight annular bulge without significant central spinal canal or neural foraminal stenosis. MR/MR thoracic spine wo con IMPRESSION: No acute neural impingement. No acute osseous abnormality. Mild cervical and lumbar spondylosis. D/ / Bar Chand / Bar Chand Interpreting Provider: Bar Chand Consult Discharge Plan - Plan [facility]: [facility] [Primary Care Provider] -
[2018-08-08] MEDS ORDERED: Sennosides/Docusate Sodium TABLET PO PRN (17:32)
[2018-08-08] MEDS ORDERED: traZODone 50 MG TABLET PO PRN (17:32)
[2018-08-08] MEDS: Acetaminophen 325 MG TABLET PO SCH ×2 (18:48→23:36)
[2018-08-08] MEDS ORDERED: Insulin LISPRO 300 UNITS/3 ML VIAL SQ SCH (21:00)
[2018-08-08] MEDS: *HR* HYDROcodone/Acet 5/325 mg TABLET PO PRN (21:00)
[2018-08-08] MEDS: cloNIDine HCl 0.1 MG TABLET PO SCH (21:01)
[2018-08-08] MEDS: Insulin DETEMIR 100 UNIT/ML X5UNITS SQ SCH (21:01)
[2018-08-08] MEDS: Levofloxacin 750 MG/150 ML 750 MG/150 ML BAG IVPB SCH (21:01)
[2018-08-08] MEDS: Melatonin 3 MG TABLET PO SCH (21:01)
[2018-08-08] MEDS: Pyridostigmine Br 60 MG TABLET PO SCH (21:02)
[2018-08-09 05:09] LABS: Basophils % 0.2 %; Eosinophils # 0.1 K/mcL (0.0-0.6); Hematocrit 32.5 % (37.5-50.1); Hemoglobin 10.6 g/dL (12.9-16.9); Immature Granulocytes % 0.2 % (0-4); Lymphocytes # 1.7 K/mcL (0.6-4.6); Lymphocytes % 37.8 %; Mean Corpuscular HGB Conc 32.6 g/dL (31.6-35.5); Mean Corpuscular Hemoglobin 28.6 pg (28.0-33.3); Mean Corpuscular Volume 87.6 fL (83.0-100.0); Mean Platelet Volume 10.9 fL (9.4-12.4); Monocytes # 0.3 K/mcL (0.0-1.3); Monocytes % 6.9 %; Neutrophils # 2.4 K/mcL (1.6-8.9); Platelet Count 212 K/mcL (140-400); Red Blood Count 3.71 M/mcL (4.19-5.50); Red Cell Distribution Width 12.9 % (11.5-14.5); Segmented Neutrophils % 52.9 %
[2018-08-09 05:26] LABS: BUN/Creatinine Ratio 14 (6-26); Blood Urea Nitrogen 18 mg/dL (6-20); Calcium 8.9 mg/dL (8.6-10.3); Carbon Dioxide 30 mEq/L (23-29); Chloride 105 mEq/L (98-107); Glucose 120 mg/dL (70-105); Osmolality,Calculated 293 (280-300); Potassium 4.1 mEq/L (3.5-5.1); Sodium 140 mEq/L (136-145); eGFR For Non-African Americans 59 (> 60)
[2018-08-09] MEDS: Acetaminophen 325 MG TABLET PO SCH ×3 (06:35→16:47)
[2018-08-09] MEDS: Aspirin Enteric Coated 325 MG Tablet PO SCH (07:29)
[2018-08-09] MEDS: Pregabalin 50 MG CAPSULE PO SCH ×3 (07:30→21:04)
[2018-08-09] MEDS: Cholecalciferol (D-3) 1,000 UNIT TABLET PO SCH (07:30)
[2018-08-09] MEDS: Insulin LISPRO 300 UNITS/3 ML VIAL SQ SCH ×4 (07:30→21:03)
[2018-08-09] MEDS: Pyridostigmine Br 60 MG TABLET PO SCH ×3 (07:30→21:05)
--- NOTE | 2018-08-09 08:40 | Neurology Progress Note ---
Addendum entered and electronically signed by Swati Nuñez MD 08/09/18 13:08: Patient seen and examined. Today his tremors are little better but leg weakness still is profound and more severe to the right side. As mentioned and planned earlier, will recommend the patient to be transferred to [facility] for further evaluation and treatment. I agree with Dr. Welch's physical examination, assessment and plan outlined below Original Note: Date of Encounter: 08/09/18 Time of Encounter: 11:01 Assessment and Plan (1) Leg weakness, bilateral Current Visit: Yes Status: Acute patient will need to be transfered to [facility] for further evaluation of b/l LE weakness by EMG and LP. 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 Patient does not have any LE reflexes which is very concerning, as well as right thigh atrophy. Subjective Principal diagnosis: LE weakness, b/l Interval history: Patient did not have any acute overnight events. He continues to have fine b/l upper extremity tremors, and LE weakness although worse on the right. Plan is to transfer to [facility] for further testing with in patient EMG/NCV and LP. Objective - Constitutional Vitals: Temp Pulse Resp BP Pulse Ox 98.1 F 74 16 166/83 96 08/09/18 07:16 08/09/18 07:16 08/09/18 07:16 08/09/18 07:16 08/09/18 07:16 - Neurological Exam Sensorimotor examination: Present: other (stockiing pattern of sensory reduction bilaterally) Motor Examination: Present: other (in his lower extremities, right leg flexion is weaker and there appears to be atrophy of hip flexor on the right side) Motor examination - right side: 1/5: toe extension (EHL), plantarflexion, 3/5: hip flexors, tibialis Anterior, quadriceps, 4/5: deltoids, biceps, triceps, wrist flexion, wrist extension, floor specialist Motor examination - left side: 4/5: hip flexors, floor specialist, quadriceps, tibialis Anterior, toe extension (EHL), plantarflexion, 5/5: deltoids, biceps, triceps, wrist flexion, wrist extension Sensation intact: Present: intact (stocking pattern of sensory reduction bilaterally) Posture: Present: other (None) Reflex and gait examination: other (Reflexes were absent bilaterally. 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 ), no gait ataxia (Gait not assessed due to leg weakness) Results - Laboratory Findings CBC and BMP: 08/09/18 03:50 08/09/18 03:50 Abnormal lab findings: Abnormal lab results RBC 3.71 M/mcL (4.19-5.50) L 08/09/18 03:50 Hgb 10.6 g/dL (12.9-16.9) L 08/09/18 03:50 Hct 32.5 % (37.5-50.1) L 08/09/18 03:50 Carbon Dioxide 30 mEq/L (23-29) H 08/09/18 03:50 Est GFR (Non-Af Amer) 59 (> 60) L 08/09/18 03:50 Glucose 120 mg/dL (70-105) H 08/09/18 03:50 POC Glucose 230 mg/dL (70-99) H 08/08/18 15:18 ALT 67 Units/L (7-52) H 08/07/18 18:11 Alkaline Phosphatase 113 Units/L (34-104) H 08/07/18 18:11 Serum Total Protein 6.0 g/dL (6.4-8.9) L 08/07/18 18:11 Albumin 3.4 g/dL (3.5-5.7) L 08/07/18 18:11 Urine Glucose (UA) 500 mg/dL (Normal) H 08/07/18 19:00 Ur Squamous Epith Cells Moderate per lpf (None-Few) H 08/07/18 19:00 Salicylates < 2.5 mg/dL (15.0-30.0) L 08/07/18 18:12 Urine Opiates Screen Positive ng/mL (Akbifj=813) H 08/07/18 19:00 Acetaminophen < 10 mcg/mL (10-20) L 08/07/18 18:12 Consult Discharge Plan - Plan [facility]errals: [facility] [Primary Care Provider] -
[2018-08-09] MEDS ORDERED: BuPROPion XL (24 HR) 150 MG TABLET PO SCH (09:00)
[2018-08-09] MEDS ORDERED: *HR* Enoxaparin 40 MG/0.4 ML SYRINGE SQ SCH (13:20)
--- NOTE | 2018-08-09 14:24 | Discharge Summary ---
- NOTES TO OUTPATIENT PROVIDER Notes to Outpatient Provider: f/u with PCP in one week Orders not resulted at time of discharge: Pending orders 08/07/18 21:19 Culture,Blood [BC] Stat Date of Encounter: 08/09/18 Time of Encounter: 14:20 - Discharge Diagnosis (1) Leg weakness, bilateral Priority: Primary Status: Acute (2) Acute metabolic encephalopathy Priority: Primary Status: Acute (3) Altered mental status Priority: Primary Status: Acute Qualifiers: Altered mental status type: unspecified Qualified Code(s): R41.82 - Altered mental status, unspecified (4) Dehydration Priority: Secondary Status: Acute (5) Diabetes mellitus, type 2 Priority: Secondary Status: Chronic Qualifiers: Diabetes mellitus oysterman insulin use: unspecified oysterman insulin use status Diabetes mellitus complication status: with hyperglycemia Qualified Code(s): E11.65 - Type 2 diabetes mellitus with hyperglycemia (6) Essential hypertension Priority: Secondary Status: Chronic (7) History of CVA (cerebrovascular accident) Priority: Secondary Status: Chronic Hospital course: Mr. Fernandes is a 48 year old male with PMH significant for chronic tremors in his hands, DM, diabetic neuropathy, CAD, history of CVA, who was sent to our ER from [facility] due to mental status changes, worsening weakness in his legs and difficulty ambulating. He does have chronic and complicated neurological symptoms with worsening bilateral lower extremity weakness. He was evaluated by neurologist a [facility] and was in the process of refereeing the patient to [facility] for further care. Pt was admitted here for altered mental status and worsening weakness and bilateral lower extremity more significant on the right side. Today he is more alert, awake and oriented X3. Patient does not look confused anymore . His neurological workup - MRI of brain, showed no evidence of infarct. MRI of cervical, thoracic and lumbar spine showed no significant spinal cord pathology to explain his symptoms. He has tremors to his hands bilaterally, this has been present for many years. Patient was evaluated by neurologist here who is concerned for chronic inflammatory demyelinating polyneuropathy disease, also wanted to r/o GBS. So he recommend to transfer the pt to [facility] ( tertiary care center ) for further higher level of care - LP and In pt EMG. So talked to [facility] transfer center who gracefully accepted the pt for further transfer. So will d/c the pt to [facility] when they have bed available today. - Time Spent with Patient Total time spent providing and/or coordinating discharge services: - Discharge Medications Home Medications: Aspirin [Ecotrin] 325 mg PO DAILY 03/08/18 [History] Cholecalciferol (D-3) [Vitamin D] 2,000 unit PO DAILY 03/08/18 [History] HYDROcodone/Acet 5/325 mg [[place] 5-325 mg] 1 tab PO Q6H PRN 03/08/18 [History] Insulin ASPART [NovoLOG] 0 - 14 unit SQ TIDWM 03/08/18 [History] Insulin Glargine,Hum.rec.anlog [Lantus Solostar] 88 unit SQ BID 03/08/18 [History] Melatonin [Melatin] 3 mg PO HS 03/08/18 [History] Pregabalin [Lyrica] 200 mg PO TID 03/08/18 [History] Tamsulosin [Flomax] 0.4 mg PO DAILY 03/08/18 [History] Testosterone [Androgel] 2 appl TD DAILY 03/08/18 [History] traZODone [TraZODone] 75 mg PO HS PRN 03/08/18 [History] Acetaminophen [Tylenol] 325 mg PO Q6HR 08/08/18 [History] Ammonium Lactate [[place]-Hydrolac] 1 applic TP DAILY 08/08/18 [History] Bupropion HCl [Wellbutrin Xl] 300 mg PO DAILY 08/08/18 [History] HYDROcodone/Acet 5/325 mg [[place] 5-325 mg] 1 tab PO Q6H PRN 08/08/18 [History] Pyridostigmine Br [Mestinon] 60 mg PO TID 08/08/18 [History] Rosuvastatin [Crestor] 40 mg PO HS 08/08/18 [History] Sennosides/Docusate Sodium [Docusate Sodium-Senna Tablet] 1 each PO BID PRN 08/08/18 [History] cloNIDine HCl [Clonidine HCl] 0.4 mg PO HS 08/08/18 [History] Allergies/Adverse Reactions: Allergy/AdvReac Type Severity Reaction Status Date / Time No Known Allergies Allergy Verified 03/08/18 18:07 Date of admission: 08/07/18 22:12 [facility] care physician: [facility] Consults: 08/08/18 05:41 Consult to Neurology [CONS] Routine Consulting Provider: [facility] Reason for Consult: Lifelong neurological issues including tremors, lower extremity loss of sensation. Presented with encephalopathy and history of falls. Call Completed: No 08/08/18 05:42 Consult to Occupational Therapy [CONS] Routine Comment: Evaluate, develop and implement POC Reason for Consult: Lifelong neurological issues including tremors, lower extremity loss of sensation. Presented with encephalopathy and history of falls. Does patient have active BEDREST order?: No Is patient medically & hemodynamically stable?: Yes Consult to Physical Therapy [CONS] Routine Comment: Evaluate, develop and implement POC Reason for Consult: Lifelong neurological issues including tremors, lower extremity loss of sensation. Presented with encephalopathy and history of falls. Does patient have active BEDREST order?: No Is patient medically & hemodynamically stable?: Yes - Constitutional Vitals: Temp Pulse Resp BP Pulse Ox 98.2 F 73 16 176/91 96 08/09/18 11:50 08/09/18 11:50 08/09/18 11:50 08/09/18 11:50 08/09/18 11:50 General appearance: Present: cooperative, A&O X 3, pleasant, answers questions appropriately Exam: See below - Head Head exam: Present: atraumatic, normal inspection - Neck Neck exam general surgery: Present: supple - Respiratory Respiratory exam: Present: decreased breath sounds. Absent: rales, respiratory distress, rhonchi, wheezes - Cardiovascular Cardiovascular exam: Present: RRR, +S1, +S2. Absent: tachycardia - GI/Abdominal GI/Abdominal exam: Present: normal bowel sounds, soft. Absent: rebound, rigid, tenderness - Extremities Exam Extremities exam: Present: pedal edema (Right leg). Absent: calf tenderness, tenderness - Neurological Exam Neurological exam: Present: alert, CN II-XII intact, motor sensory deficit (Bilateral lower extremities. more significant in the right lower extremity), oriented X3. Absent: reflexes normal, strengths equal and symetr throughout, facial droop, speech deficit - Psychiatric Psychiatric exam: Present: normal affect, normal mood - Patient Status Disposition: Transfer Other Condition: Fair - Discharge Instructions Follow Up With: [facility] [Primary Care Provider] - Forms: ED Satisfaction Letter - Diet and Activity Activity: as per physical therapy Diet: low salt diet
--- NOTE | 2018-08-09 14:48 | Electrocardiograph Report ---
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
--- NOTE | 2018-08-09 14:55 | Electrocardiograph Report ---
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
[2018-08-09] MEDS: *HR* HYDROcodone/Acet 5/325 mg TABLET PO PRN ×2 (15:02→21:05)
[2018-08-09 19:02] VITALS: BP 160/90
[2018-08-09] MEDS: cloNIDine HCl 0.1 MG TABLET PO SCH (21:02)
[2018-08-09] MEDS: Levofloxacin 750 MG/150 ML 750 MG/150 ML BAG IVPB SCH (21:03)
[2018-08-09] MEDS: Insulin DETEMIR 100 UNIT/ML X5UNITS SQ SCH (21:04)
[2018-08-09] MEDS: Melatonin 3 MG TABLET PO SCH (21:05)
== END 2018-08-09 21:38 | disposition short-term general hospital (02) | DRG 193 ==
LOC: 3BNU 18:02 → EMEROOARM 18:02 → SUATTDRO 22:12 → 3BNU 23:02
PROVIDERS: ADMIT Family Medicine; ATTEND Internal Medicine

== ENCOUNTER 2018-09-15 09:34 | Inpatient (IN) ==
[2018-09-15] MEDS ORDERED: 0.9 % Sodium Chloride 1,000 ML IVC ONE (09:40)
--- NOTE | 2018-09-15 09:44 | Emergency Department Note ---
Disposition Clinical Impression: Unresponsive, Elevated lactic acid level Syncope Qualifiers: Encounter type: initial encounter Disposition: Admitted As Inpatient Condition: Fair [facility]errals: [facility],PC[facility] [Primary Care Provider] - Forms: ED Satisfaction Letter Time of Disposition: 12:15 Syncope HPI - General Chief Complaint: ED Syncope Stated Complaint: unresponsive Time Seen by Provider: 09/15/18 09:39 Nursing Notes Reviewed: Yes Vital Signs Reviewed: Yes - History of Present Illness HPI Narrative: 48yo male presents from [place] via EMS for evaluation for syncope with subsequent unresponsiveness. Patient had a cardiac stress test this morning. He was in recovery and syncopized and was unresponsive. This occurred in 25 minutes prior to arrival. When the syncopized, he fell backwards, struck the back of his head, has tremors. Per EMS, patient does have a remote history of CVA with unknown deficits. He is also on methadone. Past medical history and current medications otherwise currently unknown. Anticoagulant: None Antiplatelet: Daily aspirin 81 mg. Review of systems unobtainable secondary to patient's medical condition. - Related Data Home Medications Medication Instructions Recorded Confirmed Aspirin [Ecotrin] 325 mg PO DAILY 03/08/18 08/08/18 Cholecalciferol (D-3) [Vitamin D] 2,000 unit PO DAILY 03/08/18 08/08/18 HYDROcodone/Acet 5/325 mg [[place] 1 tab PO Q6H PRN 03/08/18 08/08/18 5-325 mg] Insulin ASPART [NovoLOG] 0 - 14 unit SQ TIDWM 03/08/18 08/08/18 Insulin Glargine,Hum.rec.anlog 88 unit SQ BID 03/08/18 08/08/18 [Lantus Solostar] Melatonin [Melatin] 3 mg PO HS 03/08/18 08/08/18 Pregabalin [Lyrica] 200 mg PO TID 03/08/18 08/08/18 Tamsulosin [Flomax] 0.4 mg PO DAILY 03/08/18 08/08/18 Testosterone [Androgel] 2 appl TD DAILY 03/08/18 08/08/18 traZODone [TraZODone] 75 mg PO HS PRN 03/08/18 08/08/18 Acetaminophen [Tylenol] 325 mg PO Q6HR 08/08/18 08/08/18 Ammonium Lactate [[place]-Hydrolac] 1 applic TP DAILY 08/08/18 08/08/18 Bupropion HCl [Wellbutrin Xl] 300 mg PO DAILY 08/08/18 08/08/18 HYDROcodone/Acet 5/325 mg [[place] 1 tab PO Q6H PRN 08/08/18 08/08/18 5-325 mg] Pyridostigmine Br [Mestinon] 60 mg PO TID 08/08/18 08/08/18 Rosuvastatin [Crestor] 40 mg PO HS 08/08/18 08/08/18 Sennosides/Docusate Sodium 1 each PO BID PRN 08/08/18 08/08/18 [Docusate Sodium-Senna Tablet] cloNIDine HCl [Clonidine HCl] 0.4 mg PO HS 08/08/18 08/08/18 Allergies Allergy/AdvReac Type Severity Reaction Status Date / Time No Known Allergies Allergy Verified 09/15/18 09:42 All systems ED: reviewed and negative except as stated. Review of Systems: As Per HPI Past Medical History - Past Medical History Medical history: Reports: coronary artery disease, CVA, diabetes, hyperlipidemia, hypertension, myocardial infarction, syncope, other Surgical history: Reports: tonsilectomy Psychiatric history: Reports: depression, PTSD - Social History Smoking Status: Current some day smoker Smokeless Tobacco Status: No Alcohol use: Reports: none Drug use: Reports: none Physical Exam Primary survey: Airway: Intact; patient is spontaneously breathing, maintaining secretions. Breathing: No chest wall tenderness. Bilateral breath sounds equal. Circulation: Bilateral radial, femoral, posterior tibial, pulses 2/4. No hemorr haging. Disability: GCS 15. Exposure: No abrasions, lacerations, ecchymosis, or hematomas on the patient's scalp or face, trunk, extremities. Back without visible lesion; no spinous process step-offs or deformities. Secondary survey Vital Signs Reviewed General: Patient's eyes closed HEENT: No facial asymmetry. Head is normocephalic and atraumatic. pinpoint and equal bilterally. No scleral icteris or hemorrhage. Nasal turbinates moist and pink without epistaxis. Oral mucosa moist. Dentition intact. Tongue not bitten. Cardiovascular: Heart regular rate and rhythm without clicks, rubs, gallops, or murmurs. No JVD. PMI nondisplaced. Respiratory: Symmetric chest rise with good respiratory effort. Bilateral breath sounds are clear without wheezing, crackles, or rhonchi. Abdomen: Bowel sounds present normoactive. Abdomen is soft, nondistended, and nontender. No organomegaly noted. Musculoskeletal: unable to follow commands. No obvious deformities. Neuro: unable to respond to answer sensations. Withdraws to pain. Rectal sphincter tone appropriate, no blood on gloved finger. Psych: Patient's affect is appropriate for situation. Course Course Narrative: On arrival, patient is on backboard with c-collar. Eyes closed. Not following commands. Pupils equal pinpoint. Physical exam is grossly unremarkable with exception of patient's level of consciousness. When patient was rolled in backboard removed, rectal exam performed. After this, patient became arousable. He was initially aware of only his first name. He did not know his last name. He told me that he gets the [place] for an appointment. He was able to remember his first and last name. He did not know the year of his or his location. Accucheck on ED arrival 350's. Staff to contact [facility] for more complete records. 10:23 Reviewed imaging studies. All negative for acute process per radiology read. EKG dated 09/15/2018 at 10:25 interpreted as atrial fibrillation with a rate of 98. QRS 96, QTC 451. Borderline left axis. Nonspecific ST-T changes. Compared to previous dated 08/08/2018 showing no acute ischemic changes comparison. Serum hematology is unremarkable. Serum chemistry shows mild elevation in lactic acid. This could be from his tremors. Will provide IV fluids. Renal function within normal limits. Concern for patient's presentation, single episode, prolonged unresponsiveness. Recommend overnight observation. I discussed the above with the admitting hospitalist, Dr. Shen, agrees to accept the patient were continued evaluation monitoring. Cervical Spine CT 09/15/18 09:39 IMPRESSION: Negative CT examination with no acute abnormality of the cervical spine. D/ / Dina Salgado MD / Dina Salgado MD Interpreting Provider: Dina Salgado MD Head CT 09/15/18 09:39 IMPRESSION: No acute intracranial abnormality. D/ / Curtis Stephenson MD / Curtis Stephenson MD Interpreting Provider: Curtis Stephenson MD Chest X-Ray 09/15/18 09:40 IMPRESSION: Low lung volumes. No acute cardiopulmonary findings. D/ / Annette Leavitt MD / Annette Leavitt MD Interpreting Provider: Annette Leavitt MD Vital Signs Temperature 97.1 F L 09/15/18 09:35 Pulse Rate 104 09/15/18 09:35 Respiratory Rate 20 09/15/18 09:35 Blood Pressure 164/121 09/15/18 09:35 O2 Sat by Pulse Oximetry 100 09/15/18 09:35 Temperature 98.6 F 09/15/18 10:18 Pulse Rate 105 09/15/18 11:29 Respiratory Rate 15 09/15/18 11:29 Blood Pressure 175/100 09/15/18 11:29 O2 Sat by Pulse Oximetry 97 09/15/18 11:29 Oxygen Delivery Oxygen Delivery Room Air Syncope - Lab Data Result diagrams: 09/15/18 09:36 09/15/18 09:36 Lab Results 09/15/18 09/15/18 09/15/18 Range/Units 09:36 09:36 09:36 WBC 5.8 (4.3-11.1) K/mcL RBC 4.75 (4.19-5.50) M/mcL Hgb 13.4 (12.9-16.9) g/dL Hct 40.0 (37.5-50.1) % MCV 84.2 (83.0-100.0) fL MCH 28.2 (28.0-33.3) pg MCHC 33.5 (31.6-35.5) g/dL RDW 12.6 (11.5-14.5) % Plt Count 181 (140-400) K/mcL MPV 11.4 (9.4-12.4) fL Immature Gran % 0.3 (0-4) % Seg Neutrophils % 52.8 % Lymphocytes % 39.4 % Monocytes % 6.0 % Eosinophils % 1.2 % Basophils % 0.3 % Neutrophils # 3.1 (1.6-8.9) K/mcL Lymphocytes # 2.3 (0.6-4.6) K/mcL Monocytes # 0.4 (0.0-1.3) K/mcL Eosinophils # 0.1 (0.0-0.6) K/mcL Basophils # 0.0 (0.0-0.2) K/mcL PT 10.4 (9.4-12.1) Seconds INR 0.9 APTT 29.1 (26.0-36.0) Seconds Sodium 133 L (136-145) mEq/L Potassium 4.2 (3.5-5.1) mEq/L Chloride 99 (98-107) mEq/L Carbon Dioxide 26 (23-29) mEq/L BUN 31 H (6-20) mg/dL Creatinine 1.19 (0.70-1.30) mg/dL Est GFR ( Amer) > 60 (> 60) Est GFR (Non-Af Amer) > 60 (> 60) BUN/Creatinine Ratio 26 (6-26) Glucose 376 H (70-105) mg/dL Calculated Osmolality 298 (280-300) Lactic Acid (0.5-2.2) mmol/L Calcium 8.9 (8.6-10.3) mg/dL Troponin I < 0.03 (< 0.04) ng/mL Urine Color (Yellow) Urine Clarity (Clear) Urine pH (5.0-8.0) pH Units Ur Specific [place] (1.010-1.025) Urine Protein (Neg-Trace) mg/dL Urine Glucose (UA) (Normal) mg/dL Urine Ketones (Negative) mg/dL Urine Blood (Negative) Urine Nitrite (Negative) Urine Bilirubin (Negative) Urine Urobilinogen (Normal) mg/dL Ur Leukocyte Esterase (Negative) 09/15/18 09/15/18 Range/Units 09:36 10:41 WBC (4.3-11.1) K/mcL RBC (4.19-5.50) M/mcL Hgb (12.9-16.9) g/dL Hct (37.5-50.1) % MCV (83.0-100.0) fL MCH (28.0-33.3) pg MCHC (31.6-35.5) g/dL RDW (11.5-14.5) % Plt Count (140-400) K/mcL MPV (9.4-12.4) fL Immature Gran % (0-4) % Seg Neutrophils % % Lymphocytes % % Monocytes % % Eosinophils % % Basophils % % Neutrophils # (1.6-8.9) K/mcL Lymphocytes # (0.6-4.6) K/mcL Monocytes # (0.0-1.3) K/mcL Eosinophils # (0.0-0.6) K/mcL Basophils # (0.0-0.2) K/mcL PT (9.4-12.1) Seconds INR APTT (26.0-36.0) Seconds Sodium (136-145) mEq/L Potassium (3.5-5.1) mEq/L Chloride (98-107) mEq/L Carbon Dioxide (23-29) mEq/L BUN (6-20) mg/dL Creatinine (0.70-1.30) mg/dL Est GFR ( Amer) (> 60) Est GFR (Non-Af Amer) (> 60) BUN/Creatinine Ratio (6-26) Glucose (70-105) mg/dL Calculated Osmolality (280-300) Lactic Acid 2.8 H (0.5-2.2) mmol/L Calcium (8.6-10.3) mg/dL Troponin I (< 0.04) ng/mL Urine Color Yellow (Yellow) Urine Clarity Clear (Clear) Urine pH 5.5 (5.0-8.0) pH Units Ur Specific [place] 1.029 H (1.010-1.025) Urine Protein Negative (Neg-Trace) mg/dL Urine Glucose (UA) >=1000 H (Normal) mg/dL Urine Ketones Negative (Negative) mg/dL Urine Blood Negative (Negative) Urine Nitrite Negative (Negative) Urine Bilirubin Negative (Negative) Urine Urobilinogen Normal (Normal) mg/dL Ur Leukocyte Esterase Negative (Negative)
[2018-09-15 09:46] LABS: Basophils % 0.3 %; Eosinophils # 0.1 K/mcL (0.0-0.6); Eosinophils % 1.2 %; Hemoglobin 13.4 g/dL (12.9-16.9); Immature Granulocytes % 0.3 % (0-4); Lymphocytes # 2.3 K/mcL (0.6-4.6); Lymphocytes % 39.4 %; Mean Corpuscular HGB Conc 33.5 g/dL (31.6-35.5); Mean Corpuscular Hemoglobin 28.2 pg (28.0-33.3); Mean Corpuscular Volume 84.2 fL (83.0-100.0); Mean Platelet Volume 11.4 fL (9.4-12.4); Monocytes # 0.4 K/mcL (0.0-1.3); Neutrophils # 3.1 K/mcL (1.6-8.9); Platelet Count 181 K/mcL (140-400); Red Blood Count 4.75 M/mcL (4.19-5.50); Red Cell Distribution Width 12.6 % (11.5-14.5); Segmented Neutrophils % 52.8 %
--- NOTE | 2018-09-15 09:52 | Emergency Department Note ---
Disposition Clinical Impression: Unresponsive Disposition: Admitted As Inpatient Forms: ED Satisfaction Letter General Adult HPI - General Chief complaint: ED Syncope Stated complaint: unresponsive Time Seen by Provider: 09/15/18 09:39 Source: EMS Limitations: other Nursing Notes Reviewed: Yes Vital Signs Reviewed: Yes - History of Present Illness HPI Narrative: Attestation note: Patient was seen with the emergency medicine resident/nurse practitioner/physician assistant professor surgical technology/transitional resident/medical student: Dr. Ranjit Guo I have personally performed a face to face evaluation on this patient. I have reviewed and agree with history and physical examination patient management and disposition. Briefly the salient points of the case are as follows: 48-year-old male that oriented brought in by EMS from the [facility] for "unresponsive". EMS stated that they were unable to get almost any history from the providers at the [facility]. What is known as the patient was having a cardiac stress test treadmill he was in the other room during the recovery phase shortly thereafter the test patient was witnessed to have a syncopal episode striking his head on the floor. And remained unconscious. Review of records available to us by the pharmacy stock clerk at [place] patient is on aspirin but no known blood thinners. Patient became arousable after digital rectal examination to check for rectal tone. I secondary surveys were otherwise unremarkable for external trauma. Patient is on methadone among other narcotics in agents for chronic pain his pupils are myotic. Patient was able to answer some questions but not necessarily follow commands. Prior history of CVA. We are contacting the [facility] so we can get faxed over a copy of his medical records to get more complete picture of the patient's medical history. Patient went for emergent CT scan of the head and cervical spine. Patient with an EKG and screening labs. His Accu-Chek on site at the [place] was 450 in the emergency department about 350. Patient will continue to be worked up. Providing 45 minutes critical care service this patient. Admission disposition pending results evaluation. Pain Scale: 0 - Related Data Home Medications Medication Instructions Recorded Confirmed Aspirin [Ecotrin] 325 mg PO DAILY 03/08/18 08/08/18 Cholecalciferol (D-3) [Vitamin D] 2,000 unit PO DAILY 03/08/18 08/08/18 HYDROcodone/Acet 5/325 mg [[place] 1 tab PO Q6H PRN 03/08/18 08/08/18 5-325 mg] Insulin ASPART [NovoLOG] 0 - 14 unit SQ TIDWM 03/08/18 08/08/18 Insulin Glargine,Hum.rec.anlog 88 unit SQ BID 03/08/18 08/08/18 [Lantus Solostar] Melatonin [Melatin] 3 mg PO HS 03/08/18 08/08/18 Pregabalin [Lyrica] 200 mg PO TID 03/08/18 08/08/18 Tamsulosin [Flomax] 0.4 mg PO DAILY 03/08/18 08/08/18 Testosterone [Androgel] 2 appl TD DAILY 03/08/18 08/08/18 traZODone [TraZODone] 75 mg PO HS PRN 03/08/18 08/08/18 Acetaminophen [Tylenol] 325 mg PO Q6HR 08/08/18 08/08/18 Ammonium Lactate [[place]-Hydrolac] 1 applic TP DAILY 08/08/18 08/08/18 Bupropion HCl [Wellbutrin Xl] 300 mg PO DAILY 08/08/18 08/08/18 HYDROcodone/Acet 5/325 mg [[place] 1 tab PO Q6H PRN 08/08/18 08/08/18 5-325 mg] Pyridostigmine Br [Mestinon] 60 mg PO TID 08/08/18 08/08/18 Rosuvastatin [Crestor] 40 mg PO HS 08/08/18 08/08/18 Sennosides/Docusate Sodium 1 each PO BID PRN 08/08/18 08/08/18 [Docusate Sodium-Senna Tablet] cloNIDine HCl [Clonidine HCl] 0.4 mg PO HS 08/08/18 08/08/18 Allergies Allergy/AdvReac Type Severity Reaction Status Date / Time No Known Allergies Allergy Verified 09/15/18 09:42 Past Medical History - Past Medical History Medical history: Reports: coronary artery disease, CVA, diabetes, hyper lipidemia, hypertension, myocardial infarction, syncope, other Surgical history: Reports: tonsilectomy Psychiatric history: Reports: depression, PTSD - Social History Smoking Status: Current some day smoker Smokeless Tobacco Status: No Alcohol use: Reports: none Drug use: Reports: none Physical Exam - General Limitations: other General appearance: other Course Vital Signs Temperature 97.1 F L 09/15/18 09:35 Pulse Rate 104 09/15/18 09:35 Respiratory Rate 20 09/15/18 09:35 Blood Pressure 164/121 09/15/18 09:35 O2 Sat by Pulse Oximetry 100 09/15/18 09:35 Temperature 97.1 F L 09/15/18 09:35 Pulse Rate 104 09/15/18 09:35 Respiratory Rate 20 09/15/18 09:35 Blood Pressure 164/121 09/15/18 09:35 O2 Sat by Pulse Oximetry 100 09/15/18 09:35 Oxygen Delivery Oxygen Delivery Nasal Cannula Medical Decision Making - Lab Data Result diagrams: 09/15/18 09:36 Lab Results 09/15/18 Range/Units 09:36 WBC 5.8 (4.3-11.1) K/mcL RBC 4.75 (4.19-5.50) M/mcL Hgb 13.4 (12.9-16.9) g/dL Hct 40.0 (37.5-50.1) % MCV 84.2 (83.0-100.0) fL MCH 28.2 (28.0-33.3) pg MCHC 33.5 (31.6-35.5) g/dL RDW 12.6 (11.5-14.5) % Plt Count 181 (140-400) K/mcL MPV 11.4 (9.4-12.4) fL Immature Gran % 0.3 (0-4) % Seg Neutrophils % 52.8 % Lymphocytes % 39.4 % Monocytes % 6.0 % Eosinophils % 1.2 % Basophils % 0.3 % Neutrophils # 3.1 (1.6-8.9) K/mcL Lymphocytes # 2.3 (0.6-4.6) K/mcL Monocytes # 0.4 (0.0-1.3) K/mcL Eosinophils # 0.1 (0.0-0.6) K/mcL Basophils # 0.0 (0.0-0.2) K/mcL
[2018-09-15 09:55] LABS: INR 0.9; Prothrombin Time 10.4 Seconds (9.4-12.1)
[2018-09-15 09:57] LABS: Activated Partial Thrombo Time 29.1 Seconds (26.0-36.0)
[2018-09-15] MEDS ORDERED: 0.9 % Sodium Chloride 1,000 ML ONE (09:58)
[2018-09-15 10:04] LABS: BUN/Creatinine Ratio 26 (6-26); Blood Urea Nitrogen 31 mg/dL (6-20); Calcium 8.9 mg/dL (8.6-10.3); Carbon Dioxide 26 mEq/L (23-29); Chloride 99 mEq/L (98-107); Glucose 376 mg/dL (70-105); Osmolality,Calculated 298 (280-300); Potassium 4.2 mEq/L (3.5-5.1); Sodium 133 mEq/L (136-145); Troponin I < 0.03 ng/mL (< 0.04); eGFR For Non-African Americans > 60 (> 60)
[2018-09-15] MEDS ORDERED: *HR* Metoprolol 5 MG/5 ML VIAL IVP ONE ×2 (10:08→10:18)
[2018-09-15 11:01] LABS: Bilirubin,Urine Negative (Negative); Blood,Urine Negative (Negative); Clarity,Urine Clear (Clear); Color,Urine Yellow (Yellow); Glucose,Urine (UA) >=1000 mg/dL (Normal); Ketones,Urine Negative (Negative); Leukocyte Esterase,Urine Negative (Negative); Nitrite,Urine Negative (Negative); PH,Urine 5.5 pH Units (5.0-8.0); Protein,Urine Negative (Neg-Trace); Specific Gravity,Urine 1.029 (1.010-1.025); Urobilinogen,Urine Normal (Normal)
[2018-09-15] MEDS ORDERED: Naloxone 0.4 MG/ML INJ IVP PRN (14:16)
[2018-09-15] MEDS ORDERED: Acetaminophen 325 MG TABLET PO PRN (14:16)
[2018-09-15] MEDS ORDERED: Ondansetron 4 MG/2 ML VIAL IVP PRN (14:16)
[2018-09-15] MEDS ORDERED: Nitroglycerin 0.4 MG TAB.SUBL SL PRN (15:25)
--- NOTE | 2018-09-15 16:31 | Internal Med History&Physical ---
Date of Encounter: 09/15/18 Time of Encounter: 15:30 Internal Medicine - H&P: HPI Chief complaint: Syncope Admitted From: Emergency Dept Plans for Post Hospital Care: Home History of present illness: Mr. Fernandes is a 48 year old male with PMH significant for chronic tremors in his hands, DM, diabetic neuropathy, CAD, history of CVA, recurrent syncopal episodes, who does have chronic and complicated neurological symptoms with worsening bilateral lower extremity weakness, following with neurology as an out pt who refereed him to [facility] for further work up, also who was recently admitted here for worsening bilateral lower extremity weakness and sent to [facility] for further care on 08/08/18, now he was sent to our ER from [facility] when patient had a syncopal episode this morning at the [facility] while he was getting cardiac stress test. As per the patient he finished 1st part of stress test and he was having coffee and some crackers suddenly he felt dizzy and passed out. Patient was told by the [facility] staff that there was a questionable seizure episode too. Patient was unresponsive for almost 25 minutes until he reached to our ER. Here his head CT did not show any acute intracranial abnormality. He had MRI of Brain 08/08/18 which did not show any acute intracranial abnormality. Now patient is alert, awake and oriented x 3. Patient is requesting transferred to [facility] since his neurologist from [place] already made the referral to go there for further workup. Pt claims he has been dealing with this recurrent syncopal episodes and weakness in the legs for quite a while, had been worked up t [facility], [facility] and [facility] had several tests all of the recommend him to go to [facility] Past Med Surg Social Fam HX - Past Medical History Medical history: coronary artery disease, CVA, diabetes, hyperlipidemia, hypertension, myocardial infarction, syncope, other Additional medical history: neuropathy Psychiatric history: depression, PTSD - Past Surgical History Surgical History: tonsilectomy Additional surgical history: left hand surgery, left knee - Social History Smoking Status: Current some day smoker Smokeless Tobacco Status: No Alcohol use: none Drug use: none - Family History Mother Hx Family Cancer: Yes Father Hx Family Cardiac Disorders: Yes (2 heart attacks) Hx Family Neurologic Disorders: Yes (stroke) Internal Medicine - H&P: Meds Aspirin [Ecotrin] 325 mg PO DAILY 03/08/18 [History] Cholecalciferol (D-3) [Vitamin D] 2,000 unit PO DAILY 03/08/18 [History] HYDROcodone/Acet 5/325 mg [[place] 5-325 mg] 1 tab PO Q6H PRN 03/08/18 [History] Insulin ASPART [NovoLOG] 0 - 14 unit SQ TIDWM 03/08/18 [History] Insulin Glargine,Hum.rec.anlog [Lantus Solostar] 88 unit SQ BID 03/08/18 [History] Melatonin [Melatin] 3 mg PO HS 03/08/18 [History] Pregabalin [Lyrica] 200 mg PO TID 03/08/18 [History] Tamsulosin [Flomax] 0.4 mg PO DAILY 03/08/18 [History] Testosterone [Androgel] 2 appl TD DAILY 03/08/18 [History] traZODone [TraZODone] 75 mg PO HS PRN 03/08/18 [History] Acetaminophen [Tylenol] 325 mg PO Q6HR 08/08/18 [History] Ammonium Lactate [[place]-Hydrolac] 1 applic TP DAILY 08/08/18 [History] Bupropion HCl [Wellbutrin Xl] 300 mg PO DAILY 08/08/18 [History] HYDROcodone/Acet 5/325 mg [[place] 5-325 mg] 1 tab PO Q6H PRN 08/08/18 [History] Pyridostigmine Br [Mestinon] 60 mg PO TID 08/08/18 [History] Rosuvastatin [Crestor] 40 mg PO HS 08/08/18 [History] Sennosides/Docusate Sodium [Docusate Sodium-Senna Tablet] 1 each PO BID PRN 08/08/18 [History] cloNIDine HCl [Clonidine HCl] 0.4 mg PO HS 08/08/18 [History] Allergy/AdvReac Type Severity Reaction Status Date / Time No Known Allergies Allergy Verified 09/15/18 09:42 All Systems PM: A 10-system review of systems was performed and is negative for pertinent findings except as documented above in the HPI. Review of systems: All the systems are reviewed everything is benign except the systems and symptoms I mentioned in the history of present illness - Constitutional Vitals: Temp Pulse Resp BP Pulse Ox 98.6 F 97 18 154/101 97 09/15/18 10:18 09/15/18 14:05 09/15/18 15:35 09/15/18 15:35 09/15/18 14:05 General appearance: Present: cooperative, A&O X 3, no acute distress, answers questions appropriately Exam: Looks weak and lethargic - Head Head exam: Present: atraumatic, normal inspection - Neck Neck exam general surgery: Present: supple - Respiratory Respiratory exam: Present: decreased breath sounds. Absent: rales, respiratory distress, rhonchi, wheezes - Cardiovascular Cardiovascular exam: Present: RRR, +S1, +S2. Absent: tachycardia - GI/Abdominal GI/Abdominal exam: Present: normal bowel sounds, soft. Absent: rebound, rigid, tenderness - Extremities Exam Extremities exam: Present: pedal edema (trace). Absent: calf tenderness, tenderness - Back Exam Back exam: Absent: CVA tenderness (L), CVA tenderness (R) - Neurological Exam Neurological exam: Present: alert, oriented X3. Absent: facial droop, speech de ficit Additional comments: Chronic lower extremity weakness - Psychiatric Psychiatric exam: Present: normal affect, normal mood - Skin Skin exam: Absent: rash Internal Med - H&P Results - Labs CBC & Chem 7: 09/15/18 09:36 09/15/18 09:36 Labs: Short CBC 09/15/18 Range/Units 09:36 WBC 5.8 (4.3-11.1) K/mcL Hgb 13.4 (12.9-16.9) g/dL Hct 40.0 (37.5-50.1) % Plt Count 181 (140-400) K/mcL Neutrophils # 3.1 (1.6-8.9) K/mcL BMP 09/15/18 09:36 Sodium 133 L Potassium 4.2 Chloride 99 Carbon Dioxide 26 BUN 31 H Creatinine 1.19 Glucose 376 H Calcium 8.9 Cardiac Enzymes 09/15/18 Range/Units 09:36 Troponin I < 0.03 (< 0.04) ng/mL Urine 09/15/18 Range/Units 10:41 Urine Color Yellow (Yellow) Urine Clarity Clear (Clear) Urine pH 5.5 (5.0-8.0) pH Units Ur Specific [place] 1.029 H (1.010-1.025) Urine Protein Negative (Neg-Trace) mg/dL Urine Glucose (UA) >=1000 H (Normal) mg/dL - Impressions ITS Impressions Cervical Spine CT 09/15/18 09:39 IMPRESSION: Negative CT examination with no acute abnormality of the cervical spine. D/ / Dina Salgado MD / Dina Salgado MD Interpreting Provider: Dina Salgado MD Head CT 09/15/18 09:39 IMPRESSION: No acute intracranial abnormality. D/ / Curtis Stephenson MD / Curtis Stephenson MD Interpreting Provider: Curtis Stephenson MD Chest X-Ray 09/15/18 09:40 IMPRESSION: Low lung volumes. No acute cardiopulmonary findings. D/ / Annette Leavitt MD / Annette Leavitt MD Interpreting Provider: Annette Leavitt MD - Assessment and plan (1) Syncope Current Visit: Yes Status: Acute Assessment and plan: Admit the patient into Tele check serial troponin concerning for seizure episode to with his presentation will check EEG in AM neuro checks Q4hr He already had an extensive work up several times for his recurrent syncopal episodes at this will cont neuro checks Will obtain medical records from [place] [facility] Nerurologist and [facility] about recent transfer Depending on that work up and assessment will decide about further work up most likely will transfer the pt to [facility] Qualifiers: Syncope type: unspecified Qualified Code(s): R55 - Syncope and collapse (2) Elevated lactic acid level Current Visit: Yes Status: Acute Assessment and plan: Due to dehydration continue IV hydration will monitor labs (3) Acute encephalopathy Current Visit: No Status: Acute Assessment and plan: Unclear etiology concerning for seizure will check EEG (4) Dehydration Current Visit: No Status: Acute Assessment and plan: on IVF (5) Diabetes mellitus, type 2 Current Visit: No Status: Chronic Assessment and plan: ADA diet ISS + Levemir Qualifiers: Diabetes mellitus senior living insulin use: unspecified senior living insulin use status Diabetes mellitus complication status: with hyperglycemia Qualified Code(s): E11.65 - Type 2 diabetes mellitus with hyperglycemia (6) Essential hypertension Current Visit: No Status: Chronic Assessment and plan: resumed all home meds (7) History of CVA (cerebrovascular accident) Current Visit: No Status: Chronic - Time Spent With Patient Total time spent is greater than 50% in coordination of care (as documented) at patient's floor/unit and/or counseling patient:
[2018-09-15] MEDS: 0.9 % Sodium Chloride 1,000 ML IVC SCH (18:22)
[2018-09-15] MEDS: Melatonin 3 MG TABLET PO SCH (20:17)
[2018-09-15] MEDS: Pregabalin 50 MG CAPSULE PO SCH (20:17)
[2018-09-15] MEDS: Pyridostigmine Br 60 MG TABLET PO SCH (20:18)
[2018-09-15] MEDS ORDERED: *HR* Dextrose 50 % in Water (Syg) 50 ML SYRINGE IVP PRN (20:39)
[2018-09-15] MEDS ORDERED: Dextrose Gel 15 GM/37.5 ML TUBE PO PRN ×2 (20:39)
[2018-09-15] MEDS ORDERED: D5% in Water 1,000 ML IVC PRN (20:39)
[2018-09-15 20:45] LABS: Amphetamine Screen,Urine Negative ng/mL (Cutoff=1000); Barbiturate Screen,Urine Negative ng/mL (Cutoff=200); Benzodiazepines Screen,Urine Negative ng/mL (Cutoff=200); Cannabinoid Screen,Urine Negative ng/mL (Cutoff = 50); Cocaine Screen,Urine Negative ng/mL (Cutoff= 300); Opiate Screen,Urine Positive ng/mL (Cutoff=300); Phencyclidine Screen,Urine Negative ng/mL (Cutoff=25)
[2018-09-15] MEDS ORDERED: Insulin LISPRO 300 UNITS/3 ML VIAL SQ SCH (21:00)
[2018-09-16] MEDS: 0.9 % Sodium Chloride 1,000 ML IVC SCH (01:27)
[2018-09-16] MEDS: *HR* Enoxaparin 40 MG/0.4 ML SYRINGE SQ SCH (04:33)
[2018-09-16] MEDS: *HR* HYDROcodone/Acet 5/325 mg TABLET PO PRN ×2 (04:33→21:53)
[2018-09-16] MEDS ORDERED: cloNIDine HCl 0.1 MG TABLET PO ONE (05:52)
--- NOTE | 2018-09-16 06:31 | Electrocardiograph Report ---
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
[2018-09-16 06:42] LABS: BUN/Creatinine Ratio 23 (6-26); Blood Urea Nitrogen 23 mg/dL (6-20); Calcium 8.4 mg/dL (8.6-10.3); Carbon Dioxide 25 mEq/L (23-29); Chloride 105 mEq/L (98-107); Chol/HDL Ratio 7.4 (0-4.9); Cholesterol 208 mg/dL (< 200); Glucose 255 mg/dL (70-105); HDL Cholesterol 28 mg/dL (40-59); Magnesium 1.8 mg/dL (1.6-2.6); Osmolality,Calculated 294 (280-300); Potassium 4.2 mEq/L (3.5-5.1); Sodium 136 mEq/L (136-145); Triglycerides 663 mg/dL (< 150); eGFR For Non-African Americans > 60 (> 60)
[2018-09-16] MEDS ORDERED: Insulin LISPRO 300 UNITS/3 ML VIAL SQ SCH (07:30)
[2018-09-16] MEDS: Aspirin Enteric Coated 81 MG Tablet PO SCH (10:21)
[2018-09-16] MEDS: Pregabalin 50 MG CAPSULE PO SCH ×3 (10:21→21:47)
[2018-09-16] MEDS: BuPROPion XL (24 HR) 150 MG TABLET PO SCH (10:22)
[2018-09-16] MEDS: Pyridostigmine Br 60 MG TABLET PO SCH ×3 (10:22→21:48)
[2018-09-16] MEDS: Insulin DETEMIR 100 UNIT/ML X5UNITS SQ SCH ×2 (11:23→21:53)
[2018-09-16] MEDS: Insulin LISPRO 300 UNITS/3 ML VIAL SQ SCH ×3 (11:53→21:49)
--- NOTE | 2018-09-16 13:19 | Electrocardiograph Report ---
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
--- NOTE | 2018-09-16 13:28 | Internal Med Progress Note ---
Hospitalist Progress Note - Encounter Date of Encounter: 09/16/18 Time of Encounter: 09:30 - Subjective Interval History: Mr. Fernandes is a 48 year old male with PMH significant for chronic tremors in his hands, DM, diabetic neuropathy, CAD, history of CVA, recurrent syncopal episodes, who does have chronic and complicated neurological symptoms with worsening bilateral lower extremity weakness, following with neurology as an out pt who refereed him to [facility] for further work up, also who was recently admitted here for worsening bilateral lower extremity weakness and sent to [facility] for further care on 08/08/18, now he was sent to our ER from [facility] when patient had a syncopal episode this morning at the [facility] while he was getting cardiac stress test. As per the patient he finished 1st part of stress test and he was having coffee and some crackers suddenly he felt dizzy and passed out. Patient was told by the [facility] staff that there was a questionable seizure episode too. Patient was unresponsive for almost 25 minutes until he reached to our ER. Here his head CT did not show any acute intracranial abnormality. He had MRI of Brain 08/08/18 which did not show any acute intracranial abnormality. Now patient is alert, awake and oriented x 3. Denied any CP / SOB. He still c/o weakness in b/l LE.. No more syncopal episodes. - Exam Vitals: Temp Pulse Resp BP Pulse Ox 98.3 F 78 16 165/90 97 09/16/18 11:41 09/16/18 11:41 09/16/18 11:41 09/16/18 11:41 09/16/18 11:41 Exam: Gen: Alert, awake, Oriented to time,place and person Chest: Diminished breath sounds B/L, No wheezing, No crackles, No rales Heart: S1S2+ RRR No murmurs Abd: Soft, NT, BS +, No organomegaly Ext: No edema, pulses are palpable, No calf tenderness, no sensory deficit, mild weakness in both legs Neuro : Benign findings Skin: No rash. - Assessment and Plan (1) Syncope Current Visit: Yes Status: Acute Assessment and Plan: So far negative serial troponin x 3 EKG showed normal sinus rhythm no acute ischemic changes noticed concerning for seizure episode to with his presentation-- EEG pending Cont neuro checks Q4hr He already had an extensive work up several times for his recurrent syncopal episodes Will obtain medical records from [facility] about recent transfer there for b/l LE weakness I [facility] Moct[place]uma, who suggested he was planning on doing cardiac eval for ortho static hypotension for possible tilt test. Also he was planning on referring to a facility where they can to 24 Hr video EEG monitoring consulted cardiology for further workup regarding his recurrent Syncope (2) Elevated lactic acid level Current Visit: Yes Status: Acute Assessment and Plan: Due to dehydration resolved (3) Acute encephalopathy Current Visit: No Status: Acute Assessment and Plan: Unclear etiology Improved concerning for seizure will check EEG (4) Dehydration Current Visit: No Status: Acute Assessment and Plan: resolved (5) Diabetes mellitus, type 2 Current Visit: No Status: Chronic Assessment and Plan: ADA diet ISS + Levemir (6) Essential hypertension Current Visit: No Status: Chronic Assessment and Plan: resumed all home meds (7) History of CVA (cerebrovascular accident) Current Visit: No Status: Chronic - Time Spent with Patient Total time spent is greater than 50% in coordination of care (as documented) at patient's floor/unit and/or counseling patient: Internal Medicine: Result - Labs CBC & Chem 7: 09/15/18 09:36 09/16/18 06:14 Labs: BMP 09/16/18 06:14 Sodium 136 Potassium 4.2 Chloride 105 Carbon Dioxide 25 BUN 23 H Creatinine 0.99 Glucose 255 H Calcium 8.4 L Cardiac Enzymes 09/15/18 09/15/18 Range/Units 16:52 22:29 Troponin I < 0.03 < 0.03 (< 0.04) ng/mL - ABG Interpretation ABG results: PT/INR, D-dimer PT 10.4 Seconds (9.4-12.1) 09/15/18 09:36 Consult Discharge Plan - Plan [facility]errals: [facility]Primary Care Provider] - (1) Syncope Qualifiers: Syncope type: unspecified Qualified Code(s): R55 - Syncope and collapse (5) Diabetes mellitus, type 2 Qualifiers: Diabetes mellitus emt intermediate insulin use: unspecified emt intermediate insulin use status Diabetes mellitus complication status: with hyperglycemia Qualified Code(s): E11.65 - Type 2 diabetes mellitus with hyperglycemia
--- NOTE | 2018-09-16 14:05 | Cardiology Consult Note ---
<Froy Montgomery - Last Filed: 09/16/18 14:39> Date of Encounter: 09/16/18 Time of Encounter: 14:00 Assessment and Plan (1) Syncope Current Visit: Yes Status: Acute Per Cardiology: Previous history of recurrent syncope with multiple outpatient evaluations at multiple facilities-- has had workup at [facility], the [facility], [facility], and pending at [facility]. Echo from March 2018 showed: Impressions: LVEF 60-65%. Normal LV chamber size, wall thickness and function. Normal left ventricular diastolic function. Normal right ventricular structure and function. Borderline mild pulmonary hypertension. No evidence of a PFO with agitated saline contrast. No significant valvular dysfunction. Left Ventricular Wall Motion: Rest Echo Findings All wall segments showed normal motion. Carotid duplex March 2018 showed mild bilateral plaque. Orthostatics appear pending, no results noted. EEG: Impressions: This EEG recording is within normal limits. There is no evidence of epileptiform activity identified during the study. Telemetry reviewed with average heart rate 84 the past 24 hours, sinus rhythm, no significant events noted. ECG shows sinus rhythm in the 90s. Patient apparently experienced a syncopal event after a repeat nonexercise nuclear stress test. Additionally, [facility] 2018 showed syncope "presumed because by severe orthostatic hypotension likely due to his severe peripheral and autonomic neuropathy causing dysauto nomia". Will discuss and review with Dr. Maxim Chaudhary, anticipate recommendations to [facility] as [facility]. Can evaluate potential loop recorder insertion. Regarding stress testing, appears to have negative stress test about 4 months ago, however reportedly lost by the [facility]. Appears completed nonexercise nuclear stress test with exercise pictures remaining-- chest pain-free, troponins negative 3. Recommend follow-up at the [facility] to complete a stress test as outpatient. Qualifiers: Syncope type: unspecified Qualified Code(s): R55 - Syncope and collapse Discussion w patient/family: The assessment and plan as outlined above was discussed with the patient who expressed understanding and agreement. All questions were answered. Thank you for involving us in the care of your patient. Please call with any questions. History of Present Illness Consult date: 09/16/18 Requesting physician: Zulay Joseph Consult reason: Recurrent Syncope Chief complaint: Passed out after stress test History of present illness: Previous medical records reviewed: "Mr. Fernandes is a 48 year old male with PMH significant for chronic tremors in his hands, DM, diabetic neuropathy, CAD, history of CVA, recurrent syncopal episodes, who does have chronic and complicated neurological symptoms with worsening bilateral lower extremity weakness, following with neurology as an out pt who refereed him to [facility] for further work up, also who was recently admitted here for worsening bilateral lower extremity weakness and sent to [facility] for further care on 08/08/18, now he was sent to our ER from [facility] when patient had a syncopal episode this morning at the [facility] while he was getting cardiac stress test. As per the patient he finished 1st part of stress test and he was having coffee and some crackers suddenly he felt dizzy and passed out. Patient was told by the [facility] staff that there was a questionable seizure episode too. Patient was unresponsive for almost 25 minutes until he reached to our ER. Here his head CT did not show any acute intracranial abnormality. He had MRI of Brain 08/08/18 which did not show any acute intracranial abnormality. Now patient is alert, awake and oriented x 3. Patient is requesting transferred to [facility] since his neurologist from [facility] already made the referral to go there for further workup. Pt claims he has been dealing with this recurrent syncopal episodes and weakness in the legs for quite a while, had been worked up t [facility], [facility] and [facility] had several tests all of the recommend him to go to [facility]". Cardiology consult for recurrent syncope. Medical records reviewed from [facility] and patient also noted to have PTSD, major depressive disorder, hypertension, AMIRA, DM 2, hyperlipidemia, peripheral neuropathy, chronic pain, and tremor. Patient reports pending evaluation at the [facility] for recurrent sy ncope. He [facility], however apparently report lost was undergoing repeat nonexercise nuclear stress test yesterday. He reports he completed resting images and underwent chemical stress test with no concerns or problems. Reports walking to complete second set of pictures and had apparent syncopal event. Patient denies any awareness to any precipitating factors or symptoms. He denied any chest pain, short of breath, or palpitations. Currently denies any chest pain, short of breath, palpitations, dizziness. Denies any recent infectious process. Past Med Surg Social Fam HX - Past Medical History Attestation: Yes The following information was validated with the patient. Source: patient, old records reviewed Medical history: coronary artery disease, CVA, diabetes, hyperlipidemia, hypertension, myocardial infarction, syncope, other Additional medical history: neuropathy Psychiatric history: depression, PTSD - Past Surgical History Surgical History: tonsilectomy Additional surgical history: left hand surgery, left knee - Social History Smoking Status: Current some day smoker Smokeless Tobacco Status: No Alcohol use: none Drug use: none - Family History Mother Hx Family Cancer: Yes Father Hx Family Cardiac Disorders: Yes (2 heart attacks) Hx Family Neurologic Disorders: Yes (stroke) Medications and Allergies Cholecalciferol (D-3) [Vitamin D] 2,000 unit PO DAILY 03/08/18 [History] HYDROcodone/Acet 5/325 mg [Francis 5-325 mg] 1 tab PO Q6H PRN 03/08/18 [History] Insulin ASPART [NovoLOG] 0 - 14 unit SQ TIDWM 03/08/18 [History] Insulin Glargine,Hum.rec.anlog [Lantus Solostar] 88 unit SQ BID 03/08/18 [History] Melatonin [Melatin] 3 mg PO HS 03/08/18 [History] Pregabalin [Lyrica] 200 mg PO TID 03/08/18 [History] Tamsulosin [Flomax] 0.4 mg PO DAILY 03/08/18 [History] Testosterone [Androgel] 2 appl TD DAILY 03/08/18 [History] traZODone [TraZODone] 75 mg PO HS PRN 03/08/18 [History] Acetaminophen [Tylenol] 325 mg PO Q6HR 08/08/18 [History] Ammonium Lactate [Salina-Hydrolac] 1 applic TP DAILY 08/08/18 [History] Bupropion HCl [Wellbutrin Xl] 300 mg PO DAILY 08/08/18 [History] Pyridostigmine Br [Mestinon] 60 mg PO TID 08/08/18 [History] Rosuvastatin [Crestor] 40 mg PO HS 08/08/18 [History] Sennosides/Docusate Sodium [Docusate Sodium-Senna Tablet] 1 each PO BID PRN 08/08/18 [History] cloNIDine HCl [Clonidine HCl] 0.4 mg PO HS 08/08/18 [History] Aspirin [Adult Aspirin] 81 mg PO DAILY 09/15/18 [History] Nitroglycerin [Nitrostat] 0.4 mg SL Q5M PRN 09/15/18 [History] Allergy/AdvReac Type Severity Reaction Status Date / Time No Known Allergies Allergy Verified 09/15/18 09:42 All Systems Review: The remainder of the systems were reviewed and are negative - Cardiovascular Cardiovascular: as per HPI, syncope Physical Examination Vital Signs, Last 4 Hours Temp Pulse Resp BP Pulse Ox 09/16/18 11:41 98.3 F 78 16 165/90 97 General: Conversant, No Apparent Distress HEENT: Atraumatic, Normocephaly, Mucus Membranes Moist Neck: No JVD, Normal carotid pulses Cardiac: Reg Rate and Rhythm, Normal S1 and S2, No Murmur Lungs: Normal Breath Sounds, No Wheeze, Rales, Rhonchi Neuro: Alert and responsive, No focal deficits noted Abdomen: Soft, Non-Tender Skin: No rashes noted on visualized skin Musculoskeletal: No Chest Wall Tenderness Extremities: No Clubbing, No Cyanosis, No Edema, Normal Pulses Results 09/15/18 09:36 09/16/18 06:14 Lab Results Laboratory Tests 09/15/18 09/15/18 09/15/18 09:36 09:36 09:36 Hgb 13.4 Hct 40.0 Plt Count 181 INR 0.9 Creatinine Est GFR (Non-Af Amer) Magnesium Troponin I < 0.03 Triglycerides Urine Opiates Screen 09/15/18 09/15/18 09/15/18 16:52 19:45 22:29 Hgb Hct Plt Count INR Creatinine Est GFR (Non-Af Amer) Magnesium Troponin I < 0.03 < 0.03 Triglycerides Urine Opiates Screen Positive H 09/16/18 06:14 Hgb Hct Plt Count INR Creatinine 0.99 Est GFR (Non-Af Amer) > 60 Magnesium 1.8 Troponin I Triglycerides 663 H Urine Opiates Screen ITS Impressions Cervical Spine CT 09/15/18 09:39 IMPRESSION: Negative CT examination with no acute abnormality of the cervical spine. D/ / Dina Salgado MD / Dina Salgado MD Interpreting Provider: Dina Salgado MD Head CT 09/15/18 09:39 IMPRESSION: No acute intracranial abnormality. D/ / Curtis Stephenson MD / Curtis Stephenson MD Interpreting Provider: Curtis Stephenson MD Chest X-Ray 09/15/18 09:40 IMPRESSION: Low lung volumes. No acute cardiopulmonary findings. D/ / Annette Leavitt MD / Annette Leavitt MD Interpreting Provider: Annette Leavitt MD Active Medications Acetaminophen (Tylenol) 650 mg PO Q6HR PRN PRN Reason: Mild Pain/Fever Stop: 03/17/19 14:17 Hydrocodone Bitart/Acetaminophen (Francis 5-325 Mg) 1 tab PO Q6HR PRN PRN Reason: Moderate Pain Stop: 03/17/19 14:17 Last Admin: 09/16/18 04:33 Dose: 1 tab Aspirin (Aspirin Ec) 81 mg PO DAILY KIERAN Stop: 03/18/19 09:01 Last Admin: 09/16/18 10:21 Dose: 81 mg Bupropion HCl (Wellbutrin Xl) 300 mg PO DAILY KIERAN Stop: 03/18/19 09:01 Last Admin: 09/16/18 10:22 Dose: 300 mg Dextrose/Water (Dextrose 50% (Syg)) 25 ml IVP AD PRN PRN Reason: Hypoglycemia Stop: 03/17/19 20:40 Enoxaparin Sodium (Lovenox) 40 mg SQ 0600 [facility]; Protocol Stop: 03/18/19 06:01 Last Admin: 09/16/18 04:33 Dose: 40 mg Glucagon (Glucagen) 1 mg IM ONCE PRN PRN Reason: Hypoglycemia Stop: 03/17/19 20:40 Glucose (Gluctose) 15 gm PO ONCE PRN PRN Reason: Hypoglycemia Stop: 03/17/19 20:40 Glucose (Gluctose) 30 gm PO ONCE PRN PRN Reason: Hypoglycemia Stop: 03/17/19 20:40 Dextrose (Dextrose 5%) 1,000 mls @ 100 mls/hr IVC .Q10H PRN PRN Reason: HYPOGLYCEMIA Stop: 03/17/19 20:40 Insulin Detemir (Levemir) 50 unit SQ BID [facility] Stop: 03/18/19 10:44 Last Admin: 09/16/18 11:23 Dose: 50 unit Insulin Human Lispro (Humalog) 0 units SQ TIDAC [facility]; Protocol Stop: 03/18/19 07:31 Last Admin: 09/16/18 11:53 Dose: 12 units Insulin Human Lispro (Humalog) 0 units SQ HS [facility]; Protocol Stop: 03/17/19 21:01 Melatonin (Melatonin) 3 mg PO HS [facility] Stop: 03/17/19 21:01 Last Admin: 09/15/18 20:17 Dose: 3 mg Naloxone HCl (Narcan) 0.4 mg IVP Q2MIN PRN PRN Reason: SEE COMMENTS Stop: 03/17/19 14:17 Nitroglycerin (Nitroglycerin) 0.4 mg SL Q5MIN PRN PRN Reason: Chest Pain Stop: 03/17/19 15:26 Ondansetron HCl (Zofran) 4 mg IVP Q8HR PRN PRN Reason: Nausea And Vomiting Stop: 03/17/19 14:17 Pregabalin (Lyrica) 200 mg PO TID [facility] Stop: 03/17/19 21:01 Last Admin: 09/16/18 13:57 Dose: 200 mg Pyridostigmine Jenera (Mestinon) 60 mg PO TID [facility] Stop: 03/17/19 21:01 Last Admin: 09/16/18 13:57 Dose: 60 mg Rosuvastatin Calcium (Crestor) 40 mg PO HS KIERAN Stop: 03/17/19 21:01 Last Admin: 09/15/18 20:18 Dose: 40 mg Tamsulosin HCl (Flomax) 0.4 mg PO DAILY KIERAN; Protocol Stop: 03/18/19 09:01 Last Admin: 09/16/18 10:22 Dose: 0.4 mg Trazodone HCl (Trazodone) 75 mg PO HS PRN PRN Reason: Sleep Stop: 03/17/19 16:20 - Imaging and Cardiology Echo: report reviewed - EKG Interpretation EKG results cardiology: personally reviewed (Sinus rhythm in the 90s), normal ECG, sinus rhythm, other Consult Discharge Plan - Plan [facility] Provider[facility] - 09/24/18 11:15 am <Maxim Chaudhary - Last Filed: 09/17/18 10:22> Date of Encounter: 09/17/18 - Attending Attestation I have personally performed a face to face evaluation on this patient. I have reviewed and agree with the care plan. History and Exam by me shows: Recurrent syncope. Is currently undergoing w/u for possible automonic dysfunction at [facility]. Current cardiac w/u is negative. Can be discharged and fu to complete outpt. w/u at [facility]. Assessment and Plan Discussion w patient/family: The assessment and plan as outlined above was discussed with the patient and/or family members who expressed understanding and agreement. All questions were answered. Thank you for involving us in the care of your patient. Please call with any questions. History of Present Illness History of present illness: Mr. Fernandes is a 48 year old male All Systems Review: The remainder of the systems were reviewed and are negative Physical Examination Vital Signs, Last 4 Hours Temp Pulse Resp BP Pulse Ox 09/17/18 07:40 164/93 09/17/18 07:36 97.9 F 84 18 119/113 96 Results 09/15/18 09:36 09/16/18 06:14
--- NOTE | 2018-09-16 14:34 | EEG/EMG/Oth Biometrics Report ---
EEG Procedure Report Date of procedure: 09/16/18 EEG Procedure: Routine EEG Procedure Note: This is a report of a 21 channel bipolar and referential montage EEG. A posterior dominant rhythm of 8 Hz moderate voltage alpha frequencies identified symmetrically in the posterior head regions. This rhythm attenuates symmetrically with eye opening. Hyperventilation is not performed during the recording. Periods of drowsiness and stage II sleep identified as reference by dropout of the posterior dominant rhythm and emergence of vertex activity K complexes and sleep spindles. Photic stimulations performed and produces a symmetric driving response. The EKG rhythm strip reveals normal sinus rhythm at 72 bpm. Impressions: This EEG recording is within normal limits. There is no evidence of epileptiform activity identified during the study. Comment: A normal EEG does not preclude a diagnosis of seizure or epilepsy. If the clinical suspicion for seizure activity is high, serial EEGs or perhaps a prolonged recording may increase the yield. Please correlate clinically.
[2018-09-16] MEDS: Melatonin 3 MG TABLET PO SCH (21:48)
[2018-09-17] MEDS: *HR* Enoxaparin 40 MG/0.4 ML SYRINGE SQ SCH (05:59)
[2018-09-17] MEDS: Insulin LISPRO 300 UNITS/3 ML VIAL SQ SCH ×4 (07:58→20:24)
[2018-09-17] MEDS: BuPROPion XL (24 HR) 150 MG TABLET PO SCH (07:58)
[2018-09-17] MEDS: Pregabalin 50 MG CAPSULE PO SCH ×3 (07:58→20:22)
[2018-09-17] MEDS: Pyridostigmine Br 60 MG TABLET PO SCH ×3 (07:58→20:22)
[2018-09-17] MEDS: Aspirin Enteric Coated 81 MG Tablet PO SCH (07:58)
[2018-09-17] MEDS: Insulin DETEMIR 100 UNIT/ML X5UNITS SQ SCH ×2 (08:00→20:23)
[2018-09-17] MEDS ORDERED: Isosorbide MONOnitrate (24 HR) 30 MG TAB.ER.24H PO SCH (11:45)
--- NOTE | 2018-09-17 15:15 | Internal Med Progress Note ---
Hospitalist Progress Note - Encounter Date of Encounter: 09/17/18 Time of Encounter: 13:00 - Subjective Interval History: Mr. Fernandes is a 48 year old male with PMH significant for chronic tremors in his hands, DM, diabetic neuropathy, CAD, history of CVA, recurrent syncopal episodes, who does have chronic and complicated neurological symptoms with worsening bilateral lower extremity weakness, following with neurology as an out pt who refereed him to [facility] for further work up, also who was recently admitted here for worsening bilateral lower extremity weakness and sent to [facility] for further care on 08/08/18, now he was sent to our ER from [facility] when patient had a syncopal episode this morning at the [facility] while he was getting cardiac stress test. As per the patient he finished 1st part of stress test and he was having coffee and some crackers suddenly he felt dizzy and passed out. Patient was told by the [facility] staff that there was a questionable seizure episode too. Patient was unresponsive for almost 25 minutes until he reached to our ER. Here his head CT did not show any acute intracranial abnormality. He had MRI of Brain 08/08/18 which did not show any acute intracranial abnormality. Now patient is alert, awake and oriented x 3. Denied any CP / SOB. No more syncopal episodes. Feels better. Still has b/l LE weakness - Exam Vitals: Temp Pulse Resp BP Pulse Ox 97.6 F 85 18 175/94 99 09/17/18 11:31 09/17/18 11:31 09/17/18 11:31 09/17/18 11:31 09/17/18 11:31 Exam: Gen: Alert, awake, Oriented to time,place and person Chest: Diminished breath sounds B/L, No wheezing, No crackles, No rales Heart: S1S2+ RRR No murmurs Abd: Soft, NT, BS +, No organomegaly Ext: No edema, pulses are palpable, No calf tenderness, no sensory deficit, mild weakness in both legs Neuro : Benign findings Skin: No rash. - Assessment and Plan (1) Syncope Current Visit: Yes Status: Acute Assessment and Plan: So far negative serial troponin x 3 EKG showed normal sinus rhythm no acute ischemic changes noticed concerning for seizure episode with his presentation -- His EEG showed no epileptiform activity Cont neuro checks Q4hr He already had an extensive work up several times for his recurrent syncopal ep isomaria a Reviewed his medical records from [facility] about recent transfer for b/l LE weakness I did talk to his [facility] Neurologist Dr. Moctezuma, who suggested he was planning on doing cardiac eval for ortho static hypotension for possible tilt test. Also he was planning on referring to [facility] where they can do 24 Hr video EEG monitoring Patient was evaluated by cyber security manager who recommend further workup for possible autonomic dysfunction, probably at tertiary care center [facility]. I did talk to [facility] Transfer center @ [phone] Ext: [phone], they do not have any medical floor beds now, however recommend to talk to Zarina @ [phone] Ext: [phone] to keep the pt on tracker for possible transfer to [facility] when they have bed available. I did talk to Zarina and place this pt on tracker for transfer. (2) Elevated lactic acid level Current Visit: Yes Status: Acute Assessment and Plan: Due to dehydration resolved (3) Acute encephalopathy Current Visit: No Status: Acute Assessment and Plan: Unclear etiology Improved EEG=- negative (4) Dehydration Current Visit: No Status: Acute Assessment and Plan: resolved (5) Diabetes mellitus, type 2 Current Visit: No Status: Chronic Assessment and Plan: ADA diet ISS + Levemir (6) Essential hypertension Current Visit: No Status: Chronic Assessment and Plan: started him on Metoprolol resumed home med Clonidine (7) History of CVA (cerebrovascular accident) Current Visit: No Status: Chronic - Time Spent with Patient Total time spent is greater than 50% in coordination of care (as documented) at patient's floor/unit and/or counseling patient: Internal Medicine: Result - Labs CBC & Chem 7: 09/15/18 09:36 09/16/18 06:14 - ABG Interpretation ABG results: PT/INR, D-dimer PT 10.4 Seconds (9.4-12.1) 09/15/18 09:36 Consult Discharge Plan - Plan [facility] Provider[facility] - 09/24/18 11:15 am (1) Syncope Qualifiers: Syncope type: unspecified Qualified Code(s): R55 - Syncope and collapse (5) Diabetes mellitus, type 2 Qualifiers: 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
--- NOTE | 2018-09-17 15:40 | Electrocardiograph Report ---
[address] [address] Test Date: 2018-09-17 Pat Name: Garett Fernandes Department: 113 Room: 3B63 Gender: M Cigar Head Holer: : 1970 Requested By: Zulay Joseph Order Number: [id number] Reading MD: Malvin Juarez Measurements Intervals [place] Rate: 83 P: 6 ME: 172 QRS: 91 QRSD: 101 T: 42 QT: 346 QTc: 385 Interpretive Statements SINUS RHYTHM BORDERLINE RIGHT AXIS DEVIATION Electronically Signed On 09-17-2018 15:39:10 EST by Malvin Juarez
[2018-09-17] MEDS: *HR* HYDROcodone/Acet 5/325 mg TABLET PO PRN (17:10)
[2018-09-17] MEDS: cloNIDine HCl 0.1 MG TABLET PO SCH (20:22)
[2018-09-17] MEDS: Melatonin 3 MG TABLET PO SCH (20:23)
[2018-09-17] MEDS: Artificial Tears SOLN 15 ML BOTTLE BOTH EYES ONE (23:07)
[2018-09-18] MEDS: *HR* HYDROcodone/Acet 5/325 mg TABLET PO PRN ×2 (04:34→12:41)
[2018-09-18] MEDS: *HR* Enoxaparin 40 MG/0.4 ML SYRINGE SQ SCH (04:34)
--- NOTE | 2018-09-18 08:01 | Internal Med Progress Note ---
<TrentLouise Haywood - Last Filed: 09/18/18 11:52> Hospitalist Progress Note - Encounter Date of Encounter: 09/18/18 - Exam Vitals: Temp Pulse Resp BP Pulse Ox 97.3 F L 64 16 117/74 98 09/18/18 07:30 09/18/18 07:30 09/18/18 07:30 09/18/18 07:30 09/18/18 07:30 - Assessment and Plan (1) Diabetes mellitus, type 2 Current Visit: No Status: Chronic (2) Essential hypertension Current Visit: No Status: Chronic (3) History of CVA (cerebrovascular accident) Current Visit: No Status: Chronic (4) Dehydration Current Visit: No Status: Acute (5) Acute encephalopathy Current Visit: No Status: Acute (6) Syncope Current Visit: Yes Status: Acute (7) Elevated lactic acid level Current Visit: Yes Status: Acute - Time Spent with Patient Total time spent is greater than 50% in coordination of care (as documented) at patient's floor/unit and/or counseling patient: Internal Medicine: Result - Labs CBC & Chem 7: 09/15/18 09:36 09/16/18 06:14 - ABG Interpretation ABG results: PT/INR, D-dimer PT 10.4 Seconds (9.4-12.1) 09/15/18 09:36 - Impressions Impressions Head CT 09/17/18 15:39 IMPRESSION: No acute intracranial abnormality. D/ / Vern Rosales MD / Vern Rosales MD Interpreting Provider: Vern Rosales MD Hip X-Ray 09/17/18 15:39 IMPRESSION: No acute osseous abnormality. D/ / Leandro Guerin MD / Leandro Guerin MD Interpreting Provider: Leandro Guerin MD Consult Discharge Plan - Plan [facility]errals: [facility] Care Provider[facility] - 09/24/18 11:15 am - Attending Attestation I examined this patient and my medical decision-making was reviewed with the Resident Physician Dr Lopez. I agree with the documented findings, disposition and treatment plan as described except to the extent set forth below. Mr Fernandes was placed on the observation unit and has been followed by that team since 09/15 for syncoep work up. He has a chronic history of neurolgic symptoms, worsening, followed by neurology with referal to [facility]. He is awaiting transfer to the [facility] for recurrent syncope and other neurologic work up which will likely occur Thursday and has remained stable awake, pleasant, slept well last night, generalized weakness he feels is improved today. no costa today. notes constipation since admission but denies abd pain, n/v, and is eating and drinking without difficulty. gen- alert, awake,appears stated age eyes- pupils equal round cv- reg rate and rhythm, normal s1,s2, no murmurs appreciated lungs- ctabl, no wheezing, rhonchi or crackles, normal resp effort abd- soft, non tender, non distended, + bs neuro- AAOx3, CN grossly intact, no focal deficits syncope- Dr Joseph has discussed with his outpt proviiders and cardiology and plan is for transfer to [facility] for cardiac eval, tilt test and autonomic dysfunction work up. This transfer is in process and he is awaiting bed. DM- ADA diet, SSI + levemir HTN-bp at goal -clonidine metoprolol constipation without ther gi sxs- bowel regimen further diagnoses and treatment a noted by resident <Marvin Lopez - Last Filed: 09/18/18 13:26> Hospitalist Progress Note - Encounter Date of Encounter: 09/18/18 Time of Encounter: 08:01 - Subjective Interval History: Patient doing well this morning. Apparently he fell last night, Head CT and Hip XR were negative and patient is now on bed alarm. He states he slept well last night and has no complaints. On reviewing documentation the patient is on a tracker list for a bed at [facility]. I will inquire more into the status of that today. Labs and vitals without acute changes today. - Exam Vitals: Temp Pulse Resp BP Pulse Ox 97.3 F L 64 16 117/74 98 09/18/18 07:30 09/18/18 07:30 09/18/18 07:30 09/18/18 07:30 09/18/18 07:30 Exam: Gen: Alert, awake, Oriented to time,place and person Chest: Diminished breath sounds B/L, No wheezing, No crackles, No rales Heart: S1S2+ RRR No murmurs Abd: Soft, NT, BS +, No organomegaly Ext: No edema, pulses are palpable, No calf tenderness, no sensory deficit, mild weakness in all 4 extremities Neuro : Diffuse weakness, diminished sensation in bilateral lower extremities, no focal deficits noted Skin: No rash. - Assessment and Plan (1) Syncope Current Visit: Yes Status: Acute Assessment and Plan: So far negative serial troponin x 3 EKG showed normal sinus rhythm no acute ischemic changes noticed concerning for seizure episode with his presentation -- His EEG showed no epileptiform activity Cont neuro checks Q4hr He already had an extensive work up several times for his recurrent syncopal episodes Reviewed his medical records from [facility] about recent transfer for b/l LE weakness His [place] Neurologist Dr. Moctezuma suggested he was planning on doing cardiac eval for ortho static hypotension for possible tilt test. Also he was planning on referring to [facility] where they can do 24 Hr video EEG monitoring Patient fell last night, imaging negative, placed on bed alarm Patient stable today with no acute changes in neuro status or new complaints Patient was evaluated by ed transporter who recommend further workup for possible autonomic dysfunction, probably at tertiary care center [facility]. Hospitalist talked to [facility] Transfer center @ [phone] Ext: [phone], they do not have any medical floor beds now, however recommend to talk to Zarina @ [phone] Ext: [phone] to keep the pt on tracker for possible transfer to [facility] when they have bed available. pt on tracker for transfer. Likely to be Thursday. (2) Diabetes mellitus, type 2 Current Visit: No Status: Chronic Assessment and Plan: ADA diet ISS + Levemir (3) Essential hypertension Current Visit: No Status: Chronic Assessment and Plan: started him on Metoprolol resumed home med Clonidine (4) History of CVA (cerebrovascular accident) Current Visit: No Status: Chronic (5) Elevated lactic acid level Current Visit: Yes Status: Resolved Assessment and Plan: Due to dehydration resolved (6) Constipation Current Visit: Yes Status: Acute Assessment and Plan: Patient complained of constipation Started on Senna Will continue to monitor - Time Spent with Patient Total time spent is greater than 50% in coordination of care (as documented) at patient's floor/unit and/or counseling patient: Internal Medicine: Result - Labs CBC & Chem 7: 09/15/18 09:36 09/16/18 06:14 - ABG Interpretation ABG results: PT/INR, D-dimer PT 10.4 Seconds (9.4-12.1) 09/15/18 09:36 - Impressions Impressions Head CT 09/17/18 15:39 IMPRESSION: No acute intracranial abnormality. D/ / Vern Rosales MD / Vern Rosales MD Interpreting Provider: Vern Rosales MD Hip X-Ray 09/17/18 15:39 IMPRESSION: No acute osseous abnormality. D/ / Leandro Guerin MD / Leandro Guerin MD Interpreting Provider: Leandro Guerin MD <Louise Newman - Last Filed: 09/18/18 11:52> (1) Diabetes mellitus, type 2 Qualifiers: Diabetes mellitus combatant swimmer insulin use: unspecified senior care insulin use status Diabetes mellitus complication status: with hyperglycemia Qualified Code(s): E11.65 - Type 2 diabetes mellitus with hyperglycemia (6) Syncope Qualifiers: Syncope type: unspecified Qualified Code(s): R55 - Syncope and collapse <Marvin Lopez - Last Filed: 09/18/18 13:26> (1) Syncope Qualifiers: Syncope type: unspecified Qualified Code(s): R55 - Syncope and collapse (2) Diabetes mellitus, type 2 Qualifiers: Diabetes mellitus combatant swimmer insulin use: unspecified senior care insulin use status Diabetes mellitus complication status: with hyperglycemia Qualified Code(s): E11.65 - Type 2 diabetes mellitus with hyperglycemia (6) Constipation Qualifiers: Constipation type: unspecified constipation type Qualified Code(s): K59.00 - Constipation, unspecified
[2018-09-18] MEDS: Pregabalin 50 MG CAPSULE PO SCH ×3 (09:40→20:37)
[2018-09-18] MEDS: Insulin DETEMIR 100 UNIT/ML X5UNITS SQ SCH ×2 (09:40→21:17)
[2018-09-18] MEDS: Pyridostigmine Br 60 MG TABLET PO SCH ×3 (09:40→20:37)
[2018-09-18] MEDS: Aspirin Enteric Coated 81 MG Tablet PO SCH (09:40)
[2018-09-18] MEDS: BuPROPion XL (24 HR) 150 MG TABLET PO SCH (09:40)
[2018-09-18] MEDS: Insulin LISPRO 300 UNITS/3 ML VIAL SQ SCH ×4 (09:41→21:13)
[2018-09-18] MEDS: Sennosides 8.6 MG TABLET PO SCH (12:41)
[2018-09-18] MEDS: cloNIDine HCl 0.1 MG TABLET PO SCH (20:37)
[2018-09-18] MEDS: Melatonin 3 MG TABLET PO SCH (20:37)
[2018-09-18] MEDS: Artificial Tears SOLN 15 ML BOTTLE BOTH EYES ONE (20:38)
[2018-09-19] MEDS: *HR* Enoxaparin 40 MG/0.4 ML SYRINGE SQ SCH (05:25)
--- NOTE | 2018-09-19 08:10 | Internal Med Progress Note ---
<Marvin Lopez - Last Filed: 09/19/18 12:46> Hospitalist Progress Note - Encounter Date of Encounter: 09/19/18 Time of Encounter: 08:09 - Subjective Interval History: Patient doing well this morning. He states he slept well last night and has no complaints. On reviewing documentation the patient is on a tracker list for a b ed at [facility]. Current plan is to transfer tomorrow. Labs and vitals without acute changes today. - Exam Vitals: Temp Pulse Resp BP Pulse Ox 97.5 F L 64 16 162/83 99 09/19/18 07:33 09/19/18 07:33 09/19/18 07:33 09/19/18 07:33 09/19/18 07:33 Exam: Gen: Alert, awake, Oriented to time,place and person Chest: Diminished breath sounds B/L, No wheezing, No crackles, No rales Heart: S1S2+ RRR No murmurs Abd: Soft, NT, BS +, No organomegaly Ext: No edema, pulses are palpable, No calf tenderness, no sensory deficit, mild weakness in all 4 extremities Neuro : Diffuse weakness, diminished sensation in bilateral lower extremities, no focal deficits noted Skin: No rash. - Assessment and Plan (1) Syncope Current Visit: Yes Status: Acute Assessment and Plan: So far negative serial troponin x 3 EKG showed normal sinus rhythm no acute ischemic changes noticed concerning for seizure episode with his presentation -- His EEG showed no epileptiform activity Cont neuro checks Q4hr He already had an extensive work up several times for his recurrent syncopal episodes Reviewed his medical records from [facility] about recent transfer for b/l LE weakness His [place] Neurologist Dr. Moctezuma suggested he was planning on doing cardiac eval for ortho static hypotension for possible tilt test. Also he was planning on referring to [facility] where they can do 24 Hr video EEG monitoring Patient stable today with no acute changes in neuro status or new complaints Patient was evaluated by production clerks supervisor who recommend further workup for possible autonomic dysfunction, probably at tertiary care center [facility]. Hospitalist talked to [facility] @ [phone] Ext: [phone], they do not have any medical floor beds now, however recommend to talk to Zarina @ [phone] Ext: [phone] to keep the pt on tracker for possible transfer to [facility] when they have bed available. pt on tracker for transfer. Likely to be tomorrow. (2) Diabetes mellitus, type 2 Current Visit: No Status: Chronic Assessment and Plan: ADA diet ISS + Levemir glucose stable (3) Essential hypertension Current Visit: No Status: Chronic Assessment and Plan: started on Metoprolol resumed home med Clonidine BP stable, has had some spikes but they resolve independently, possibly due to dysautonomia Will monitor BP, if continually high will try 0.1 clonidine tomorrow AM (4) History of CVA (cerebrovascular accident) Current Visit: No Status: Chronic (5) Elevated lactic acid level Current Visit: Yes Status: Resolved Assessment and Plan: Due to dehydration resolved DVT Prophylaxis: lovenox sq - Time Spent with Patient Total time spent is greater than 50% in coordination of care (as documented) at patient's floor/unit and/or counseling patient: Internal Medicine: Result - Labs CBC & Chem 7: 09/15/18 09:36 09/16/18 06:14 - ABG Interpretation ABG results: PT/INR, D-dimer PT 10.4 Seconds (9.4-12.1) 09/15/18 09:36 Consult Discharge Plan - Plan Referrals: [place],PCP [Primary Care Provider] - 09/24/18 11:15 am <Louise Newman - Last Filed: 09/19/18 13:50> Hospitalist Progress Note - Encounter Date of Encounter: 09/19/18 - Exam Vitals: Temp Pulse Resp BP Pulse Ox 97.3 F L 71 16 160/92 100 09/19/18 11:46 09/19/18 11:46 09/19/18 11:46 09/19/18 11:46 09/19/18 11:46 - Assessment and Plan (1) Diabetes mellitus, type 2 Current Visit: No Status: Chronic (2) Essential hypertension Current Visit: No Status: Chronic (3) History of CVA (cerebrovascular accident) Current Visit: No Status: Chronic (4) Syncope Current Visit: Yes Status: Acute (5) Elevated lactic acid level Current Visit: Yes Status: Resolved - Time Spent with Patient Total time spent is greater than 50% in coordination of care (as documented) at patient's floor/unit and/or counseling patient: Internal Medicine: Result - Labs CBC & Chem 7: 09/15/18 09:36 09/16/18 06:14 - ABG Interpretation ABG results: PT/INR, D-dimer PT 10.4 Seconds (9.4-12.1) 09/15/18 09:36 - Attending Attestation I examined this patient and my medical decision-making was reviewed with the Resident Physician Dr Lopez. I agree with the documented findings, disposition and treatment plan as described except to the extent set forth bel ow. Mr Fernandes was placed on the observation unit and has been followed by that team since 09/15 for syncoep work up. He has a chronic history of neurolgic symptoms, worsening, followed by neurology with referal to [facility]. He is awaiting transfer to the [facility] for recurrent syncope and other neurologic work up which will likely occur Thursday and has remained stable awake, pleasant, cont to feel daily improvements in generalized weakness gen- alert, awake,appears stated age eyes- pupils equal round cv- reg rate and rhythm, normal s1,s2, no murmurs appreciated lungs- ctabl, no wheezing, rhonchi or crackles, normal resp effort neuro- AAOx3, CN grossly intact syncope- Dr Joseph has discussed with his outpt providers and cardiology and plan is for transfer to [facility] for cardiac eval, tilt test and autonomic dysfunction work up. This transfer is in process and he is awaiting bed. DM- ADA diet, SSI + levemir HTN-bp intermittently elevated this admit, concern for autonomic dysfunciton as noted above -clonidine metoprolol and if cont to remain above goal may benefit from am dosing of clonidine as well constipation without other gi sxs- bowel regimen further diagnoses and treatment a noted by resident awaiting transfer to [facility] ___ <Marvin Lopez - Last Filed: 09/19/18 12:46> (1) Syncope Qualifiers: Syncope type: unspecified Qualified Code(s): R55 - Syncope and collapse (2) Diabetes mellitus, type 2 Qualifiers: Diabetes mellitus terminologist insulin use: unspecified terminologist insulin use status Diabetes mellitus complication status: with hyperglycemia Qualified Code(s): E11.65 - Type 2 diabetes mellitus with hyperglycemia <Louise Newman - Last Filed: 09/19/18 13:50> (1) Diabetes mellitus, type 2 Qualifiers: Diabetes mellitus terminologist insulin use: unspecified fpc insulin use status Diabetes mellitus complication status: with hyperglycemia Qualified Code(s): E11.65 - Type 2 diabetes mellitus with hyperglycemia (4) Syncope Qualifiers: Syncope type: unspecified Qualified Code(s): R55 - Syncope and collapse
[2018-09-19] MEDS: Aspirin Enteric Coated 81 MG Tablet PO SCH (10:01)
[2018-09-19] MEDS: Pregabalin 50 MG CAPSULE PO SCH ×3 (10:01→21:51)
[2018-09-19] MEDS: Pyridostigmine Br 60 MG TABLET PO SCH ×3 (10:01→21:51)
[2018-09-19] MEDS: BuPROPion XL (24 HR) 150 MG TABLET PO SCH (10:01)
[2018-09-19] MEDS: Sennosides 8.6 MG TABLET PO SCH (10:01)
[2018-09-19] MEDS: Insulin DETEMIR 100 UNIT/ML X5UNITS SQ SCH ×2 (10:02→21:53)
[2018-09-19] MEDS: Insulin LISPRO 300 UNITS/3 ML VIAL SQ SCH ×4 (10:02→21:54)
[2018-09-19] MEDS: *HR* HYDROcodone/Acet 5/325 mg TABLET PO PRN ×2 (12:59→21:51)
[2018-09-19] MEDS: traZODone 50 MG TABLET PO PRN (21:50)
[2018-09-19] MEDS: cloNIDine HCl 0.1 MG TABLET PO SCH (21:51)
[2018-09-19] MEDS: Melatonin 3 MG TABLET PO SCH (21:53)
[2018-09-20] MEDS: *HR* Enoxaparin 40 MG/0.4 ML SYRINGE SQ SCH (05:34)
[2018-09-20] MEDS: Pyridostigmine Br 60 MG TABLET PO SCH ×3 (09:13→21:16)
[2018-09-20] MEDS: Aspirin Enteric Coated 81 MG Tablet PO SCH (09:13)
[2018-09-20] MEDS: BuPROPion XL (24 HR) 150 MG TABLET PO SCH (09:13)
[2018-09-20] MEDS: Pregabalin 50 MG CAPSULE PO SCH ×3 (09:14→21:16)
[2018-09-20] MEDS: Insulin DETEMIR 100 UNIT/ML X5UNITS SQ SCH ×2 (09:14→21:17)
[2018-09-20] MEDS: Sennosides 8.6 MG TABLET PO SCH (09:14)
[2018-09-20] MEDS: Insulin LISPRO 300 UNITS/3 ML VIAL SQ SCH ×4 (09:15→21:16)
--- NOTE | 2018-09-20 11:04 | Internal Med Progress Note ---
<Janeth Erickson Jesika - Last Filed: 09/20/18 11:02> Hospitalist Progress Note - Encounter Date of Encounter: 09/20/18 Time of Encounter: 11:02 - Subjective Interval History: Patient doing well, states he is better than yesterday. He is on the tracker for a bed at the [facility], hoping to transfer today pending bed availability. - Exam Vitals: Temp Pulse Resp BP Pulse Ox 98.2 F 68 16 123/81 96 09/20/18 07:25 09/20/18 07:25 09/20/18 07:25 09/20/18 07:25 09/20/18 07:25 Exam: Gen: Alert, awake, Oriented to time,place and person Chest: Diminished breath sounds B/L, No wheezing, No crackles, No rales Heart: S1S2+ RRR No murmurs Abd: Soft, NT, BS +, No organomegaly Skin: No rash. - Assessment and Plan (1) Syncope Current Visit: Yes Status: Acute Assessment and Plan: serial troponin x 3 negative EKG showed normal sinus rhythm no acute ischemic changes noticed concerning for seizure episode with his presentation -- His EEG showed no epileptiform activity Cont neuro checks Q4hr He already had an extensive work up several times for his recurrent syncopal episodes His [place] Neurologist Dr. Moctezuma suggested he was planning on doing cardiac eval for ortho static hypotension for possible tilt test. Also he was planning on referring to [facility] where they can do 24 Hr video EEG monitoring Patient was evaluated by car sweeper who recommend further workup for possible autonomic dysfunction, probably at tertiary care center [facility]. Hospitalist talked to [facility] Transfer center @ [phone] Ext: [phone], they do not have any medical floor beds now, however recommend to talk to Zarina @ [phone] Ext: [phone] to keep the pt on tracker for possible transfer to [facility] when they have bed available. pt on tracker for transfer. Likely today. (2) Diabetes mellitus, type 2 Current Visit: No Status: Chronic Assessment and Plan: ADA diet SSI + Levemir glucose stable (3) Essential hypertension Current Visit: No Status: Chronic Assessment and Plan: on Metoprolol and home Clonidine stable, but elevated more often than not (4) History of CVA (cerebrovascular accident) Current Visit: No Status: Chronic (5) Elevated lactic acid level Current Visit: Yes Status: Resolved DVT Prophylaxis: lovenox sq - Time Spent with Patient Total time spent is greater than 50% in coordination of care (as documented) at patient's floor/unit and/or counseling patient: Internal Medicine: Result - Labs CBC & Chem 7: 09/15/18 09:36 09/16/18 06:14 - ABG Interpretation ABG results: PT/INR, D-dimer PT 10.4 Seconds (9.4-12.1) 09/15/18 09:36 Consult Discharge Plan - Plan [facility]errals: [facility] [Primary Care Provider] - 09/24/18 11:15 am <Zulay Joseph - Last Filed: 09/20/18 15:38> Hospitalist Progress Note - Encounter Date of Encounter: 09/20/18 - Exam Vitals: Temp Pulse Resp BP Pulse Ox 97.7 F 67 18 120/77 98 09/20/18 11:50 09/20/18 11:50 09/20/18 11:50 09/20/18 11:50 09/20/18 11:50 - Assessment and Plan (1) Diabetes mellitus, type 2 Current Visit: No Status: Chronic (2) Essential hypertension Current Visit: No Status: Chronic (3) History of CVA (cerebrovascular accident) Current Visit: No Status: Chronic (4) Syncope Current Visit: Yes Status: Acute (5) Elevated lactic acid level Current Visit: Yes Status: Resolved - Time Spent with Patient Total time spent is greater than 50% in coordination of care (as documented) at patient's floor/unit and/or counseling patient: Internal Medicine: Result - Labs CBC & Chem 7: 09/15/18 09:36 09/16/18 06:14 - ABG Interpretation ABG results: PT/INR, D-dimer PT 10.4 Seconds (9.4-12.1) 09/15/18 09:36 - Attending Attestation I examined this patient and my medical decision-making was reviewed with the Resident Physician Dr. Erickson. I agree with the documented findings, disposition and treatment plan as described except to the extent set forth below. Mr. Fernandes is a 48 year old male with PMH significant for chronic tremors in his hands, DM, diabetic neuropathy, CAD, history of CVA, recurrent syncopal episodes, who does have chronic and complicated neurological symptoms with worsening bilateral lower extremity weakness, following with neurology as an out pt who refereed him to [facility] for further work up, also who was recently admitted here for worsening bilateral lower extremity weakness and sent to [facility] for further care on 08/08/18, now he was sent to our ER from [facility] when patient had a syncopal episode this morning at the [facility] while he was getting cardiac stress test. As per the patient he finished 1st part of stress test and he was having coffee and some crackers suddenly he felt dizzy and passed out. Patient was told by the [place] staff that there was a questionable seizure episode too. Patient was unresponsive for almost 25 minutes until he reached to our ER. Here his head CT did not show any acute intracranial abnormality. He had MRI of Brain 08/08/18 which did not show any acute intracranial abnormality. Now patient is alert, awake and oriented x 3. Denied any CP / SOB. No more syncopal episodes. Feels better. Still has b/l LE weakness. Gen: A, A, O x 3 Chest: CTA Heart: S1S2+ RRR Neuro: b/l LE weakness. No sensory deficit a.p 1. Acute and recurrent syncope 2. B/L LE weakness need further cardiac work up for autonomic dysfunction Need 24 hr video monitoring EEG Waiting for bed availability to transfer to [facility] <Janeth Erickson - Last Filed: 09/20/18 11:02> (1) Syncope Qualifiers: Syncope type: unspecified Qualified Code(s): R55 - Syncope and collapse (2) Diabetes mellitus, type 2 Qualifiers: Diabetes mellitus custodial insulin use: unspecified custodial insulin use status Diabetes mellitus complication status: with hyperglycemia Qualified Code(s): E11.65 - Type 2 diabetes mellitus with hyperglycemia <Zulay Joseph - Last Filed: 09/20/18 15:38> (1) Diabetes mellitus, type 2 Qualifiers: Diabetes mellitus custodial insulin use: unspecified custodial insulin use status Diabetes mellitus complication status: with hyperglycemia Qualified Code(s): E11.65 - Type 2 diabetes mellitus with hyperglycemia (4) Syncope Qualifiers: Syncope type: unspecified Qualified Code(s): R55 - Syncope and collapse
[2018-09-20] MEDS: *HR* HYDROcodone/Acet 5/325 mg TABLET PO PRN ×2 (12:20→21:35)
[2018-09-20] MEDS: cloNIDine HCl 0.1 MG TABLET PO SCH (21:15)
[2018-09-20] MEDS: Melatonin 3 MG TABLET PO SCH (21:16)
[2018-09-20] MEDS: traZODone 50 MG TABLET PO PRN (21:36)
[2018-09-21] MEDS: *HR* Enoxaparin 40 MG/0.4 ML SYRINGE SQ SCH (05:16)
[2018-09-21] MEDS: Pregabalin 50 MG CAPSULE PO SCH ×3 (10:21→21:12)
[2018-09-21] MEDS: *HR* HYDROcodone/Acet 5/325 mg TABLET PO PRN ×2 (10:21→21:14)
[2018-09-21] MEDS: Aspirin Enteric Coated 81 MG Tablet PO SCH (10:21)
[2018-09-21] MEDS: BuPROPion XL (24 HR) 150 MG TABLET PO SCH (10:21)
[2018-09-21] MEDS: Sennosides 8.6 MG TABLET PO SCH (10:22)
[2018-09-21] MEDS: Insulin LISPRO 300 UNITS/3 ML VIAL SQ SCH ×4 (10:22→21:05)
[2018-09-21] MEDS: Insulin DETEMIR 100 UNIT/ML X5UNITS SQ SCH ×2 (10:22→21:12)
[2018-09-21] MEDS: Pyridostigmine Br 60 MG TABLET PO SCH ×3 (10:22→21:13)
--- NOTE | 2018-09-21 14:55 | Discharge Summary ---
- NOTES TO OUTPATIENT PROVIDER Notes to Outpatient Provider: Follow-up with your regular neurologist as scheduled. 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 Fernandes is a 48 year old male with PMH significant for chronic tremors in his hands, DM, diabetic neuropathy, CAD, history of CVA, recurrent syncopal episodes, who does have chronic and complicated neurological symptoms with worsening bilateral lower extremity weakness, following with neurology as an out pt who refereed him to [facility] for further work up, also who was recently admitted here for worsening bilateral lower extremity weakness and sent to [facility] for further care on 08/08/18, now he was sent to our ER from [facility] when patient had a syncopal episode this morning at the [facility] while he was getting cardiac stress test. As per the patient he finished 1st part of stress test and he was having coffee and some crackers suddenly he felt dizzy and passed out. Patient was told by the [place] staff that there was a questionable seizure episode too. Patient was unresponsive for almost 25 minutes until he reached to our ER. Here his head CT did not show any acute intracranial abnormality. He had MRI of Brain 08/08/18 which did not show any acute intracranial abnormality. Patient was admitted in the hospital and placed him on gambling monitor. His serial troponin were negative. His EKG showed normal sinus rhythm no acute ischemic changes noticed. His presentation concerning for seizure episode so did an EEG showed no epileptiform activity. I did talk to his [place] Neurologist Dr. Moctezuma, who suggested he was planning on doing cardiac eval for ortho static hypotension for possible tilt test. Also he was planning on referring to [facility] where they can do 24 Hr video EEG monitoringPatient was evaluated by pier worker who recommend further workup for possible autonomic dysfunction, probably at tertiary care center [facility]. I did talk to [facility] @ [phone] Ext: [phone]. They did accept him to transfer to [facility] for further care. So will transfer him to [facility] today in stable condition. - Time Spent with Patient Total time spent providing and/or coordinating discharge services: - Discharge Medications Home Medications: Cholecalciferol (D-3) [Vitamin D] 2,000 unit PO DAILY 03/08/18 [History] HYDROcodone/Acet 5/325 mg [Blandford 5-325 mg] 1 tab PO Q6H PRN 03/08/18 [History] Insulin ASPART [NovoLOG] 0 - 14 unit SQ TIDWM 03/08/18 [History] Insulin Glargine,Hum.rec.anlog [Lantus Solostar] 88 unit SQ BID 03/08/18 [History] Melatonin [Melatin] 3 mg PO HS 03/08/18 [History] Pregabalin [Lyrica] 200 mg PO TID 03/08/18 [History] Tamsulosin [Flomax] 0.4 mg PO DAILY 03/08/18 [History] Testosterone [Androgel] 2 appl TD DAILY 03/08/18 [History] traZODone [TraZODone] 75 mg PO HS PRN 03/08/18 [History] Acetaminophen [Tylenol] 325 mg PO Q6HR 08/08/18 [History] Ammonium Lactate [Salina-Hydrolac] 1 applic TP DAILY 08/08/18 [History] Bupropion HCl [Wellbutrin Xl] 300 mg PO DAILY 08/08/18 [History] Pyridostigmine Br [Mestinon] 60 mg PO TID 08/08/18 [History] Rosuvastatin [Crestor] 40 mg PO HS 08/08/18 [History] Sennosides/Docusate Sodium [Docusate Sodium-Senna Tablet] 1 each PO BID PRN 08/08/18 [History] cloNIDine HCl [Clonidine HCl] 0.4 mg PO HS 08/08/18 [History] Aspirin [Adult Aspirin] 81 mg PO DAILY 09/15/18 [History] Nitroglycerin [Nitrostat] 0.4 mg SL Q5M PRN 09/15/18 [History] Allergies/Adverse Reactions: Allergy/AdvReac Type Severity Reaction Status Date / Time No Known Allergies Allergy Verified 09/15/18 09:42 Date of admission: 09/15/18 14:22 Primary care physician: PCP STEVE Consults: 09/16/18 10:28 Consult to Interpret Exam [CONS] Routine Consulting Provider: Tylor Hamilton Consult to Interpret Exam: Interpret EEG 09/16/18 10:59 Consult to Physical Therapy [CONS] Routine Comment: Evaluate, develop and implement POC Reason for Consult: Syncope Does patient have active BEDREST order?: No Is patient medically & hemodynamically stable?: Yes Patient assessed for mobility or mobilized this visit?: Yes OT [Consult to Occupational Therapy] [CONS] Routine Comment: Evaluate, develop and implement POC Reason for Consult: syncope Does patient have active BEDREST order?: No Is patient medically & hemodynamically stable?: Yes Patient assessed for mobility or mobilized this visit?: Yes 09/16/18 11:00 Consult to Cardiology [CONS] Routine Comment: Consulting Provider: Cardiology Tamra Reason for Consult: Recurrent syncope Time Notified: 11:00 Call Completed: Yes - Constitutional Vitals: Temp Pulse Resp BP Pulse Ox 97.7 F 74 18 126/88 99 09/21/18 11:24 09/21/18 11:24 09/21/18 11:24 09/21/18 11:24 09/21/18 11:24 General appearance: Present: cooperative, A&O X 3, no acute distress, answers questions appropriately Exam: Gen: Alert, awake, Oriented to time,place and person Chest: Diminished breath sounds B/L, No wheezing, No crackles, No rales Heart: S1S2+ RRR No murmurs Abd: Soft, NT, BS +, No organomegaly Ext: No edema, pulses are palpable, No calf tenderness, no sensory deficit, mild weakness in both legs Neuro : chronic weakness in both legs.. No sensory deficit Skin: No rash. - Patient Status Disposition: Transfer Other Condition: Fair Overall status at discharge: patient is progressing back to baseline - Discharge Instructions Follow Up With: [facility] [Primary Care Provider] - 09/24/18 11:15 am - Diet and Activity Activity: as per physical therapy, increase activity as tolerated Diet: low salt diet
[2018-09-21] MEDS: cloNIDine HCl 0.1 MG TABLET PO SCH (21:13)
[2018-09-21] MEDS: Melatonin 3 MG TABLET PO SCH (21:14)
[2018-09-21] MEDS: traZODone 50 MG TABLET PO PRN (21:14)
[2018-09-22] MEDS: *HR* Enoxaparin 40 MG/0.4 ML SYRINGE SQ SCH (06:12)
[2018-09-22] MEDS: Insulin LISPRO 300 UNITS/3 ML VIAL SQ SCH ×3 (08:54→17:19)
[2018-09-22] MEDS: Aspirin Enteric Coated 81 MG Tablet PO SCH (09:01)
[2018-09-22] MEDS: *HR* HYDROcodone/Acet 5/325 mg TABLET PO PRN ×2 (09:01→17:23)
[2018-09-22] MEDS: Pregabalin 50 MG CAPSULE PO SCH ×2 (09:01→15:23)
[2018-09-22] MEDS: Pyridostigmine Br 60 MG TABLET PO SCH ×2 (09:01→15:23)
[2018-09-22] MEDS: BuPROPion XL (24 HR) 150 MG TABLET PO SCH (09:01)
[2018-09-22] MEDS: Sennosides 8.6 MG TABLET PO SCH (09:01)
[2018-09-22] MEDS: Insulin DETEMIR 100 UNIT/ML X5UNITS SQ SCH (09:02)
[2018-09-22 15:12] VITALS: BP 136/89
--- NOTE | 2018-09-22 15:29 | Internal Med Progress Note ---
Hospitalist Progress Note - Encounter Date of Encounter: 09/22/18 Time of Encounter: 15:25 - Subjective Interval History: Mr. Fernandes is a 48 year old male with PMH significant for chronic tremors in his hands, DM, diabetic neuropathy, CAD, history of CVA, recurrent syncopal episodes, who does have chronic and complicated neurological symptoms with worsening bilateral lower extremity weakness, following with neurology as an out pt who refereed him to [facility] for further work up, also who was recently admitted here for worsening bilateral lower extremity weakness and sent to [facility] for further care on 08/08/18, now he was sent to our ER from [facility] when patient had a syncopal episode this morning at the [facility] while he was getting cardiac stress test. As per the patient he finished 1st part of stress test and he was having coffee and some crackers suddenly he felt dizzy and passed out. Patient was told by the [place] staff that there was a questionable seizure episode too. Patient was unresponsive for almost 25 minutes until he reached to our ER. Here his head CT did not show any acute intracranial abnormality. He had MRI of Brain 08/08/18 which did not show any acute intracranial abnormality. Now patient is alert, awake and oriented x 3. Denied any CP / SOB. No more syncopal episodes. Feels better. Still has b/l LE weakness - Exam Vitals: Temp Pulse Resp BP Pulse Ox 98.5 F 79 18 136/89 95 09/22/18 15:10 09/22/18 15:10 09/22/18 15:10 09/22/18 15:10 09/22/18 15:10 Exam: Gen: Alert, awake, Oriented to time,place and person Chest: Diminished breath sounds B/L, No wheezing, No crackles, No rales Heart: S1S2+ RRR No murmurs Abd: Soft, NT, BS +, No organomegaly Ext: No edema, pulses are palpable, No calf tenderness, no sensory deficit, mild weakness in both legs Neuro : chronic weakness in both legs.. No sensory deficit Skin: No rash. - Assessment and Plan (1) Syncope Current Visit: Yes Status: Acute Assessment and Plan: So far negative serial troponin x 3 EKG showed normal sinus rhythm no acute ischemic changes noticed concerning for seizure episode with his presentation -- His EEG showed no epileptiform activity Cont neuro checks Q4hr He already had an extensive work up several times for his recurrent syncopal episodes Reviewed his medical records from [facility] about recent transfer for b/l LE weakness His [place] Neurologist Dr. Moctezuma suggested he was planning on doing cardiac eval for ortho static hypotension for possible tilt test. Also he was planning on referring to [facility] where they can do 24 Hr video EEG monitoring Patient stable today with no acute changes in neuro status or new complaints Patient was evaluated by care assistant who recommend further workup for possible autonomic dysfunction, probably at tertiary care center [facility]. As of y/d [facility] accepted him, however last night they recommend to transfer him to [facility] since they do not have 24hr Video EEG monitoring. our CM/ SW working closely with [place] transfer center to arrange for a transfer to [facility] [place] now. (2) Acute encephalopathy Current Visit: No Status: Resolved Assessment and Plan: Unclear etiology EEG=- negative Resolved (3) Diabetes mellitus, type 2 Current Visit: No Status: Chronic Assessment and Plan: ADA diet ISS + Levemir glucose stable (4) Essential hypertension Current Visit: No Status: Chronic Assessment and Plan: started on Metoprolol resumed home med Clonidine (5) History of CVA (cerebrovascular accident) Current Visit: No Status: Chronic (6) Elevated lactic acid level Current Visit: Yes Status: Resolved Assessment and Plan: Due to dehydration resolved - Time Spent with Patient Total time spent is greater than 50% in coordination of care (as documented) at patient's floor/unit and/or counseling patient: Internal Medicine: Result - Labs CBC & Chem 7: 09/15/18 09:36 09/16/18 06:14 - ABG Interpretation ABG results: PT/INR, D-dimer PT 10.4 Seconds (9.4-12.1) 09/15/18 09:36 Consult Discharge Plan - Plan [facility]errals: [facility] [Primary Care Provider] - 09/24/18 11:15 am (1) Syncope Qualifiers: Syncope type: unspecified Qualified Code(s): R55 - Syncope and collapse (3) Diabetes mellitus, type 2 Qualifiers: Diabetes mellitus 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
== END 2018-09-22 19:30 | disposition other institution (70) | DRG 72 ==
LOC: 2NENU 09:34 → EMEROOARM 09:34 → 3BNU 14:21 → SUATTDRO 14:22 → 3BNU 16:25
PROVIDERS: ADMIT Internal Medicine; ATTEND Family Medicine

== ENCOUNTER 2019-01-30 20:41 | Inpatient (IN) ==
[~2019-01-30 20:41] MED LIST: *HR* Etomidate 40 MG/20 ML VIAL IVP ONE; *HR* LORazepam 2 MG/ML VIAL IVP ONE; *HR* Rocuronium Bromide 100 MG/10 ML VIAL IVC ONE
[2019-01-30] MEDS ORDERED: 0.9 % Sodium Chloride 1,000 ML ONE (20:48)
[2019-01-30] MEDS ORDERED: Isovue-370 500 ML BOTTLE IVP ONE (20:48)
[2019-01-30] MEDS ORDERED: *HR* LORazepam 2 MG/ML VIAL IVP ONE ×2 (20:50→20:55)
[2019-01-30 21:07] LABS: Basophils % 0.1 %; Eosinophils % 0.3 %; Hematocrit 33.6 % (37.5-50.1); Hemoglobin 11.1 g/dL (12.9-16.9); Immature Granulocytes % 0.3 % (0-4); Lymphocytes # 1.5 K/mcL (0.6-4.6); Lymphocytes % 16.3 %; Mean Corpuscular Hemoglobin 28.7 pg (28.0-33.3); Mean Corpuscular Volume 86.8 fL (83.0-100.0); Mean Platelet Volume 11.3 fL (9.4-12.4); Monocytes # 0.6 K/mcL (0.0-1.3); Monocytes % 6.4 %; Neutrophils # 7.2 K/mcL (1.6-8.9); Platelet Count 236 K/mcL (140-400); Red Blood Count 3.87 M/mcL (4.19-5.50); Segmented Neutrophils % 76.6 %
--- NOTE | 2019-01-30 21:08 | Emergency Department Note ---
Disposition Clinical Impression: Lactic acidosis, Multifocal pneumonia, Elevated troponin, Frequent falls Acute kidney failure Qualifiers: Acute renal failure type: unspecified Qualified Code(s): N17.9 - Acute kidney failure, unspecified Altered mental status Qualifiers: Altered mental status type: coma Coma depth: [place] coma 3-8 Coma timing: at arrival to emergency department Qualified Code(s): R40.2432 - [place] coma scale score 3-8, at arrival to emergency department CAD (coronary artery disease) Qualifiers: Coronary Disease-Associated Artery/Lesion type: unspecified vessel or lesion type [place] vs. transplanted heart: [place] heart Associated angina: with unspecified angina Qualified Code(s): I25.119 - Atherosclerotic heart disease of [place] coronary artery with unspecified angina pectoris Disposition: Admitted As Inpatient Condition: Critical Altered Mental Status HPI - General Chief Complaint: ED General Medical Stated Complaint: UNCONSCIOUS Time Seen by Provider: 01/30/19 21:02 Source: EMS Limitations: altered mental status Nursing Notes Reviewed: Yes Vital Signs Reviewed: Yes - History of Present Illness HPI Narrative: 49-year-old male with history of chronic tremors in his hands, DM, diabetic neuropathy, CAD, history of CVA, recurrent syncopal episodes who presents the emergency department via EMS for unresponsiveness. Per report the patient had a fall 2 days ago with complaints of lower back pain with a repeat fall today without loss of consciousness. Afterwards he complained of chest pain and family gave him nitroglycerin. At some point he became unresponsive though EMS states he was talking to them but intermittently unresponsive. Per EMS he has baseline twitching per the family but on their assessment he had right upper extremity and right chest wall twitching which is not normal for him. Otherwise history is limited given the patient's unresponsiveness and altered mental status. Upon further discussion with the patient's family he was reportedly released from the [facility] approximately 3 weeks ago reportedly after a stroke. He has had several episodes of syncope over the past 2 days with falls which reportedly is similar to his previous episodes of requiring recatheterization of his cardiac stents. - Related Data Home Medications Medication Instructions Recorded Confirmed HYDROcodone/Acet 5/325 mg [[place]idor 1 tab PO Q4H PRN 03/08/18 01/30/19 5-325 mg] Insulin ASPART [NovoLOG] 7 unit SQ TIDWM 03/08/18 01/30/19 Insulin Glargine,Hum.rec.anlog 60 unit SQ HS 03/08/18 01/30/19 [Lantus Solostar] Melatonin [Melatin] 3 mg PO HS 03/08/18 01/30/19 Tamsulosin [Flomax] 0.4 mg PO DAILY 03/08/18 01/30/19 Ammonium Lactate [[place]-Hydrolac] 1 applic TP BID 08/08/18 01/30/19 Bupropion HCl [Wellbutrin Xl] 300 mg PO DAILY 08/08/18 01/30/19 Pyridostigmine Br [Mestinon] 60 mg PO TID 08/08/18 01/30/19 Sennosides/Docusate Sodium 1 each PO BID PRN 08/08/18 01/30/19 [Docusate Sodium-Senna Tablet] Aspirin [Adult Aspirin] 81 mg PO DAILY 09/15/18 01/30/19 Nitroglycerin [Nitrostat] 0.4 mg SL Q5M PRN 09/15/18 01/30/19 Bacitracin OINT [Ak-Tracin] 1 appl TP DAILY 01/30/19 01/30/19 Carboxymethylcellulose Sodium 1 drop OP QID 01/30/19 01/30/19 [Refresh Liquigel] Clopidogrel [Plavix] 75 mg PO DAILY 01/30/19 01/30/19 Gemfibrozil [Lopid] 600 mg PO QPM 01/30/19 01/30/19 Lisinopril [Zestril] 10 mg PO DAILY 01/30/19 01/30/19 Magnesium Hydroxide [Milk of 30 ml PO TID PRN 01/30/19 01/30/19 Magnesia] Mirtazapine [Remeron] 7.5 mg PO HS 01/30/19 01/30/19 Mupirocin [Bactroban Oint] 1 appl TP BID 01/30/19 01/30/19 Pantoprazole Sodium [Protonix] 40 mg PO DAILY 01/30/19 01/30/19 Pregabalin [Lyrica] 300 mg PO BID 01/30/19 01/30/19 Topiramate [Topamax] 50 mg PO BID 01/30/19 01/30/19 Allergies Allergy/AdvReac Type Severity Reaction Status Date / Time No Known Allergies Allergy Verified 09/15/18 09:42 All systems ED: reviewed and negative except as stated. Review of Systems: As Per HPI Limitations: ROS unobtainable due to patients medical condition Past Medical History - Past Medical History Medical history: Reports: coronary artery disease, CVA, diabetes, hyperlipidemia, hypertension, myocardial infarction, syncope, other Surgical history: Reports: tonsilectomy Psychiatric history: Reports: depression, PTSD - Social History Smoking Status: Current some day smoker Smokeless Tobacco Status: No Alcohol use: Reports: none Drug use: Reports: none Physical Exam Patient intermittently opens his eyes spontaneously but does not respond to commands or move his eyes. Pupils are myotic but reactive bilaterally. He does intermittently make spontaneous movement of all 4 extremities. Intermittent twitching of bilateral upper arms into chest. - General Limitations: altered mental status General appearance: lethargic - Head Head exam: atraumatic, normocephalic - Eye Eye exam: Present: miosis (bilaterally) - ENT ENT exam: normal exam (edentulous), mucous membranes moist - Neck Neck exam: Present: normal inspection, trachea midline - Chest Chest inspection: Present: normal inspection, symmetric chest wall rise - Respiratory Respiratory exam: Present: normal lung sounds bilaterally. Absent: respiratory distress, wheezes, stridor - Cardiovascular Cardiovascular exam: Present: regular rate, normal rhythm - Abdominal Exam Abdominal exam: Present: soft. Absent: distention, rigidity - Male exam: Present: normal inspection - Extremities Exam Extremities exam: Present: normal inspection, normal capillary refill. Absent: pedal edema Course Vital Signs Temperature 0 F L 01/30/19 20:44 Pulse Rate 102 01/30/19 20:44 Respiratory Rate 16 01/30/19 20:44 Blood Pressure 86/70 01/30/19 20:44 O2 Sat by Pulse Oximetry 100 01/30/19 20:44 Temperature 98.5 F 01/30/19 22:36 Pulse Rate 77 01/31/19 00:04 Respiratory Rate 14 01/31/19 00:04 Blood Pressure 88/56 01/31/19 00:04 O2 Sat by Pulse Oximetry 98 01/31/19 00:04 Oxygen Delivery Oxygen Delivery Ventilator Procedures - Intubation Time out performed: Yes sedative: Etomidate Mg Given: 30 paralytic: Rocuronium Mg Given: 100 Laryngoscope: Khoi (4) ET Tube Size: 7.5 ET Tube Uncuffed: No Tube Secured Depth (cm): 23 Tube Secured Location: lips Tube Placement Confirmation: visualized tube passing through cords, equal breath sounds bilaterally, no breath sounds over epigastrium, confirmation by capnometry Patient Tolerated Procedure: well, no complications Intubation Complications: none Altered Mental Status - MDM Narrative Medical decision making narrative: 49-year-old male who presents emergency department via EMS for unresponsiveness. Upon arrival the patient is saturating well on facemask, blood pressure is normotensive and he is not tachycardic or febrile. His blood sugar in route was greater than 100. Upon arrival he was unresponsive to pain and would not open his eyes to stimulation. He did intermittently open his eyes spontaneously and had incoherent words but the majority of time was unresponsive with a GCS of 3. Bedside ultrasound showed no evidence of cardiac wall motion abnormality of aortic enlargement. The patient was given Narcan due to meiosis in route with no significant improvement. He was given a repeat dosing here and did have an intermittent response and actually fully flexed his right arm and open his eyes spontaneously. He then continued to have bilateral upper extremity twitching and given questionable seizure-like activity he was given 4 mg Ativan with no significant changes. Due to his fluctuating GCS we did intubate the patient using etomidate and rocuronium. EKG shows no ischemic changes or dysrhythmia. Laboratory evaluation was obtained which showed evidence of anemia of 11.1, not significantly low his baseline. He does have acute renal injury with creatinine of 2.59 and he does not have baseline CKD. He does have elevation in his troponin of 0.04 and lactic acidosis of 2.8. He does have evidence of opiates in his urine drug screen which is appropriate given his outpatient prescribed opiate otherwise urine tox screen was negative including alcohol, salicylates and acetaminophen. Given the patient's multiple syncopal episodes and complete of chest and back pain we did obtain CT dissection as well as CT head, cervical, thoracic and lumbar spine. It showed no evidence of acute fracture, dissection or intracranial pathology. This did show evidence of multifocal pneumonia bilaterally. Patient was given approximately 4 L of fluid and placed on a propofol drip for sedation. He was initiated on vancomycin and Zosyn for coverage of multifocal pneumonia. Discussed case with on-call hospitalist Dr. Vergara who agrees with plan for admission and accepts the patient to the intensive care unit. Patients family agree with and understand course of treatment plan including plan for admission. All questions answered. - Medical Records Medical records reviewed: Yes I reviewed the patient's medical records. - Lab Data Lab results reviewed: Yes I reviewed the patient's lab results. Result diagrams: 01/31/19 03:24 01/31/19 03:24 Lab Results 01/30/19 01/30/19 01/30/19 Range/Units 20:55 20:55 20:55 WBC 9.5 (4.3-11.1) K/mcL RBC 3.87 L (4.19-5.50) M/mcL Hgb 11.1 L (12.9-16.9) g/dL Hct 33.6 L (37.5-50.1) % MCV 86.8 (83.0-100.0) fL MCH 28.7 (28.0-33.3) pg MCHC 33.0 (31.6-35.5) g/dL RDW 13.0 (11.5-14.5) % Plt Count 236 (140-400) K/mcL MPV 11.3 (9.4-12.4) fL Immature Gran % 0.3 (0-4) % Seg Neutrophils % 76.6 % Lymphocytes % 16.3 % Monocytes % 6.4 % Eosinophils % 0.3 % Basophils % 0.1 % Neutrophils # 7.2 (1.6-8.9) K/mcL Lymphocytes # 1.5 (0.6-4.6) K/mcL Monocytes # 0.6 (0.0-1.3) K/mcL Eosinophils # 0.0 (0.0-0.6) K/mcL Basophils # 0.0 (0.0-0.2) K/mcL Sodium (136-145) mEq/L Potassium (3.5-5.1) mEq/L Chloride (98-107) mEq/L Carbon Dioxide (23-29) mEq/L BUN (6-20) mg/dL Creatinine (0.70-1.30) mg/dL Est GFR ( Amer) (> 60) Est GFR (Non-Af Amer) (> 60) BUN/Creatinine Ratio (6-26) Glucose (70-105) mg/dL Calculated Osmolality (280-300) Lactic Acid 2.8 H (0.5-2.2) mmol/L Calcium (8.6-10.3) mg/dL Magnesium (1.6-2.6) mg/dL Total Bilirubin (0.3-1.0) mg/dL AST (13-39) Units/L ALT (7-52) Units/L Alkaline Phosphatase (34-104) Units/L Creatine Kinase (30-223) Units/L Troponin I (< 0.04) ng/mL Serum Total Protein (6.4-8.9) g/dL Albumin (3.5-5.7) g/dL Globulin (2.4-3.5) g/dL Albumin/Globulin Ratio (1.1-2.2) Urine Color (Yellow) Urine Clarity (Clear) Urine pH (5.0-8.0) pH Units Ur Specific [place] (1.010-1.025) Urine Protein (Neg-Trace) mg/dL Urine Glucose (UA) (Normal) mg/dL Urine Ketones (Negative) mg/dL Urine Blood (Negative) Urine Nitrite (Negative) Urine Bilirubin (Negative) Urine Urobilinogen (Normal) mg/dL Ur Leukocyte Esterase (Negative) Ur Culture Indicated? (NO) Salicylates < 2.5 L (15.0-30.0) mg/dL Urine Opiates Screen (Nlfbxc=672) ng/mL Acetaminophen < 10 L (10-20) mcg/mL Ur Barbiturates Screen (Qksfxg=028) ng/mL Ur Phencyclidine Scrn (Cutoff=25) ng/mL Ur Amphetamines Screen (Mluwge=9410) ng/mL U Benzodiazepines Scrn (Ordmxp=211) ng/mL Urine Cocaine Screen (Cutoff= 300) ng/mL U Marijuana (THC) Screen (Cutoff = 50) ng/mL Ur Drug Screen Interp Ethyl Alcohol < 10 (Less than 10) mg/dL 01/30/19 01/30/19 01/30/19 Range/Units 20:55 21:38 21:38 WBC (4.3-11.1) K/mcL RBC (4.19-5.50) M/mcL Hgb (12.9-16.9) g/dL Hct (37.5-50.1) % MCV (83.0-100.0) fL MCH (28.0-33.3) pg MCHC (31.6-35.5) g/dL RDW (11.5-14.5) % Plt Count (140-400) K/mcL MPV (9.4-12.4) fL Immature Gran % (0-4) % Seg Neutrophils % % Lymphocytes % % Monocytes % % Eosinophils % % Basophils % % Neutrophils # (1.6-8.9) K/mcL Lymphocytes # (0.6-4.6) K/mcL Monocytes # (0.0-1.3) K/mcL Eosinophils # (0.0-0.6) K/mcL Basophils # (0.0-0.2) K/mcL Sodium 138 (136-145) mEq/L Potassium 4.0 (3.5-5.1) mEq/L Chloride 107 (98-107) mEq/L Carbon Dioxide 23 (23-29) mEq/L BUN 40 H (6-20) mg/dL Creatinine 2.59 H (0.70-1.30) mg/dL Est GFR ( Amer) 32 L (> 60) Est GFR (Non-Af Amer) 26 L (> 60) BUN/Creatinine Ratio 15 (6-26) Glucose 119 H (70-105) mg/dL Calculated Osmolality 297 (280-300) Lactic Acid (0.5-2.2) mmol/L Calcium 8.7 (8.6-10.3) mg/dL Magnesium 2.2 (1.6-2.6) mg/dL Total Bilirubin 0.4 (0.3-1.0) mg/dL AST 10 L (13-39) Units/L ALT 17 (7-52) Units/L Alkaline Phosphatase 59 (34-104) Units/L Creatine Kinase 82 (30-223) Units/L Troponin I 0.04 H* (< 0.04) ng/mL Serum Total Protein 6.1 L (6.4-8.9) g/dL Albumin 3.8 (3.5-5.7) g/dL Globulin 2.3 L (2.4-3.5) g/dL Albumin/Globulin Ratio 1.7 (1.1-2.2) Urine Color Yellow (Yellow) Urine Clarity Clear (Clear) Urine pH 6.0 (5.0-8.0) pH Units Ur Specific [place] > 1.030 H (1.010-1.025) Urine Protein Negative (Neg-Trace) mg/dL Urine Glucose (UA) >=1000 H (Normal) mg/dL Urine Ketones Negative (Negative) mg/dL Urine Blood Negative (Negative) Urine Nitrite Negative (Negative) Urine Bilirubin Negative (Negative) Urine Urobilinogen Normal (Normal) mg/dL Ur Leukocyte Esterase Negative (Negative) Ur Culture Indicated? NO (NO) Salicylates (15.0-30.0) mg/dL Urine Opiates Screen Positive H (Sahllt=961) ng/mL Acetaminophen (10-20) mcg/mL Ur Barbiturates Screen Negative (Xwvqnw=376) ng/mL Ur Phencyclidine Scrn Negative (Cutoff=25) ng/mL Ur Amphetamines Screen Negative (Yzmceh=8704) ng/mL U Benzodiazepines Scrn Negative (Omynls=936) ng/mL Urine Cocaine Screen Negative (Cutoff= 300) ng/mL U Marijuana (THC) Screen Negative (Cutoff = 50) ng/mL Ur Drug Screen Interp See Below Ethyl Alcohol (Less than 10) mg/dL - Radiology Data Radiology results reviewed: Yes I reviewed the patient's radiology results. Cervical Spine CT 01/30/19 20:45 IMPRESSION: No acute abnormality of the cervical spine. D/ / 01/30/2019 22:31:36 Jose Roberto Veronica MD / kenny Interpreting Provider: Jose Roberto Veronica MD Head CT 01/30/19 20:45 IMPRESSION: No acute intracranial abnormality. D/ / Margie Hernandez MD / Margie Hernandez MD Interpreting Provider: Margie Hernandez MD Lumbar Spine CT 01/30/19 20:46 IMPRESSION: Unremarkable non-contrast CT of the lumbar spine. D/ / Steve Mckeon / Steve Mckeon Interpreting Provider: Steve Mckeon Thoracic Spine CT 01/30/19 20:46 IMPRESSION: Negative for acute fracture or traumatic malalignment involving thoracic spine. D/ / Yuan Mustafa / Yuan Mustafa Interpreting Provider: Yuan Mustafa Dissection 01/30/19 20:48 IMPRESSION: Within the chest there is multifocal consolidation seen throughout the lungs, suggestive of pneumonia. No dissection noted. Normal caliber abdominal aorta. No dissection noted. D/ / Azar Montes MD / Azar Montes MD Interpreting Provider: Azar Montes MD Chest X-Ray 01/30/19 21:00 IMPRESSION: Mild cardiomegaly and chronic pulmonary change. Endotracheal tube with the tip in the midtrachea. D/ / Steve Mckeon / Steve Mckeon Interpreting Provider: Steve Mckeon - EKG Data EKG attestation: Yes I reviewed and interpreted this EKG. EKG results narrative: Sinus tachycardia rate of 102. Slight left axis. Normal intervals. No ischemic ST or T-wave changes. No prior for comparison. TPA Checklist - LKW: 3-4.5 hrs Add. Warnings/Precautions Patient/family understanding: The patient/family members have been counseled and understood the risk, benefit, and alternatives of treatment. Attestation Statement - Attestation Attestation: I have seen this patient with the resident physician, I have personally evaluated this patient. I had reviewed the chart and document dictation by the resident physician and aM in agreement with the information documented by the resident physician. Please see documentation by the resident physician for complete chart including past medical history, family medical history, review of systems, current history and physical and laboratory and imaging studies. I was present for all procedures, provided direct supervision for all procedures, was present for the entirety of all procedures and provided direct guidance during the procedures. Please see documentation by the resident phys ician for any procedures performed.
[2019-01-30] MEDS ORDERED: *HR* Rocuronium Bromide 50 MG/5 ML VIAL IVP ONE (21:15)
[2019-01-30] MEDS ORDERED: *HR* Etomidate 20 MG/10 ML AMPUL IVP ONE (21:15)
[2019-01-30 21:26] LABS: Acetaminophen < 10 mcg/mL (10-20); Salicylate < 2.5 mg/dL (15.0-30.0)
[2019-01-30 21:28] LABS: Magnesium 2.2 mg/dL (1.6-2.6)
[2019-01-30 21:32] LABS: Troponin I 0.04 ng/mL (< 0.04)
[2019-01-30 21:52] LABS: Albumin 3.8 g/dL (3.5-5.7); Albumin/Globulin Ratio 1.7 (1.1-2.2); Bilirubin,Total 0.4 mg/dL (0.3-1.0); Calcium 8.7 mg/dL (8.6-10.3); Globulin 2.3 g/dL (2.4-3.5); Total Protein 6.1 g/dL (6.4-8.9)
[2019-01-30 22:12] LABS: Bilirubin,Urine Negative (Negative); Blood,Urine Negative (Negative); Clarity,Urine Clear (Clear); Color,Urine Yellow (Yellow); Glucose,Urine (UA) >=1000 mg/dL (Normal); Ketones,Urine Negative (Negative); Leukocyte Esterase,Urine Negative (Negative); Nitrite,Urine Negative (Negative); Protein,Urine Negative (Neg-Trace); Specific Gravity,Urine > 1.030 (1.010-1.025); Urobilinogen,Urine Normal (Normal)
[2019-01-30 22:28] LABS: Ethanol < 10 mg/dL (Less than 10)
[2019-01-30 22:29] LABS: Amphetamine Screen,Urine Negative ng/mL (Cutoff=1000); Barbiturate Screen,Urine Negative ng/mL (Cutoff=200); Benzodiazepines Screen,Urine Negative ng/mL (Cutoff=200); Cannabinoid Screen,Urine Negative ng/mL (Cutoff = 50); Cocaine Screen,Urine Negative ng/mL (Cutoff= 300); Opiate Screen,Urine Positive ng/mL (Cutoff=300); Phencyclidine Screen,Urine Negative ng/mL (Cutoff=25)
[2019-01-30] MEDS ORDERED: Piperacillin/Tazobactam 3.375 GM in 0.9 % Sodium Chloride Mini Bag 100 ML IVPB ONE (22:41)
[2019-01-30] MEDS ORDERED: 0.9 % Sodium Chloride 1,000 ML IVC STA (23:06)
--- NOTE | 2019-01-30 23:17 | Emergency Department Note ---
Disposition Clinical Impression: Lactic acidosis, Multifocal pneumonia, Elevated troponin Acute kidney failure Qualifiers: Acute renal failure type: unspecified Qualified Code(s): N17.9 - Acute kidney failure, unspecified Altered mental status Qualifiers: Altered mental status type: coma Coma depth: Kaycee coma 3-8 Coma timing: at arrival to emergency department Qualified Code(s): R40.2432 - Kaycee coma scale score 3-8, at arrival to emergency department Disposition: Admitted As Inpatient Condition: Critical [facility] Care Provider[facility] - Forms: ED Satisfaction Letter, Work/School Release General Adult HPI - General Chief complaint: ED General Medical Stated complaint: UNCONSCIOUS Time Seen by Provider: 01/30/19 21:02 Source: EMS Limitations: altered mental status - History of Present Illness Pain Scale: 0 - Related Data Home Medications Medication Instructions Recorded Confirmed HYDROcodone/Acet 5/325 mg [[place] 1 tab PO Q4H PRN 03/08/18 01/30/19 5-325 mg] Insulin ASPART [NovoLOG] 7 unit SQ TIDWM 03/08/18 01/30/19 Insulin Glargine,Hum.rec.anlog 60 unit SQ HS 03/08/18 01/30/19 [Lantus Solostar] Melatonin [Melatin] 3 mg PO HS 03/08/18 01/30/19 Tamsulosin [Flomax] 0.4 mg PO DAILY 03/08/18 01/30/19 Ammonium Lactate [[place]-Hydrolac] 1 applic TP BID 08/08/18 01/30/19 Bupropion HCl [Wellbutrin Xl] 300 mg PO DAILY 08/08/18 01/30/19 Pyridostigmine Br [Mestinon] 60 mg PO TID 08/08/18 01/30/19 Sennosides/Docusate Sodium 1 each PO BID PRN 08/08/18 01/30/19 [Docusate Sodium-Senna Tablet] Aspirin [Adult Aspirin] 81 mg PO DAILY 09/15/18 01/30/19 Nitroglycerin [Nitrostat] 0.4 mg SL Q5M PRN 09/15/18 01/30/19 Bacitracin OINT [Ak-Tracin] 1 appl TP DAILY 01/30/19 01/30/19 Carboxymethylcellulose Sodium 1 drop OP QID 01/30/19 01/30/19 [Refresh Liquigel] Clopidogrel [Plavix] 75 mg PO DAILY 01/30/19 01/30/19 Gemfibrozil [Lopid] 600 mg PO QPM 01/30/19 01/30/19 Lisinopril [Zestril] 10 mg PO DAILY 01/30/19 01/30/19 Magnesium Hydroxide [Milk of 30 ml PO TID PRN 01/30/19 01/30/19 Magnesia] Mirtazapine [Remeron] 7.5 mg PO HS 01/30/19 01/30/19 Mupirocin [Bactroban Oint] 1 appl TP BID 01/30/19 01/30/19 Pantoprazole Sodium [Protonix] 40 mg PO DAILY 01/30/19 01/30/19 Pregabalin [Lyrica] 300 mg PO BID 01/30/19 01/30/19 Topiramate [Topamax] 50 mg PO BID 01/30/19 01/30/19 Allergies Allergy/AdvReac Type Severity Reaction Status Date / Time No Known Allergies Allergy Verified 09/15/18 09:42 Past Medical History - Past Medical History Medical history: Reports: coronary artery disease, CVA, diabetes, hyperlipid emia, hypertension, myocardial infarction, syncope, other Surgical history: Reports: tonsilectomy Psychiatric history: Reports: depression, PTSD - Social History Smoking Status: Current some day smoker Smokeless Tobacco Status: No Alcohol use: Reports: none Drug use: Reports: none Physical Exam - General Limitations: altered mental status General appearance: lethargic Course Vital Signs Temperature 0 F L 01/30/19 20:44 Pulse Rate 102 01/30/19 20:44 Respiratory Rate 16 01/30/19 20:44 Blood Pressure 86/70 01/30/19 20:44 O2 Sat by Pulse Oximetry 100 01/30/19 20:44 Temperature 98.5 F 01/30/19 22:36 Pulse Rate 85 01/30/19 23:03 Respiratory Rate 17 01/30/19 23:03 Blood Pressure 97/58 01/30/19 23:03 O2 Sat by Pulse Oximetry 95 01/30/19 23:03 Oxygen Delivery Oxygen Delivery Ventilator Medical Decision Making - Lab Data Result diagrams: 01/30/19 20:55 01/30/19 20:55 Lab Results 01/30/19 01/30/19 01/30/19 Range/Units 20:55 20:55 20:55 WBC 9.5 (4.3-11.1) K/mcL RBC 3.87 L (4.19-5.50) M/mcL Hgb 11.1 L (12.9-16.9) g/dL Hct 33.6 L (37.5-50.1) % MCV 86.8 (83.0-100.0) fL MCH 28.7 (28.0-33.3) pg MCHC 33.0 (31.6-35.5) g/dL RDW 13.0 (11.5-14.5) % Plt Count 236 (140-400) K/mcL MPV 11.3 (9.4-12.4) fL Immature Gran % 0.3 (0-4) % Seg Neutrophils % 76.6 % Lymphocytes % 16.3 % Monocytes % 6.4 % Eosinophils % 0.3 % Basophils % 0.1 % Neutrophils # 7.2 (1.6-8.9) K/mcL Lymphocytes # 1.5 (0.6-4.6) K/mcL Monocytes # 0.6 (0.0-1.3) K/mcL Eosinophils # 0.0 (0.0-0.6) K/mcL Basophils # 0.0 (0.0-0.2) K/mcL Sodium (136-145) mEq/L Potassium (3.5-5.1) mEq/L Chloride (98-107) mEq/L Carbon Dioxide (23-29) mEq/L BUN (6-20) mg/dL Creatinine (0.70-1.30) mg/dL Est GFR ( Amer) (> 60) Est GFR (Non-Af Amer) (> 60) BUN/Creatinine Ratio (6-26) Glucose (70-105) mg/dL Calculated Osmolality (280-300) Lactic Acid 2.8 H (0.5-2.2) mmol/L Calcium (8.6-10.3) mg/dL Magnesium (1.6-2.6) mg/dL Total Bilirubin (0.3-1.0) mg/dL AST (13-39) Units/L ALT (7-52) Units/L Alkaline Phosphatase (34-104) Units/L Creatine Kinase (30-223) Units/L Troponin I (< 0.04) ng/mL Serum Total Protein (6.4-8.9) g/dL Albumin (3.5-5.7) g/dL Globulin (2.4-3.5) g/dL Albumin/Globulin Ratio (1.1-2.2) Urine Color (Yellow) Urine Clarity (Clear) Urine pH (5.0-8.0) pH Units Ur Specific [place] (1.010-1.025) Urine Protein (Neg-Trace) mg/dL Urine Glucose (UA) (Normal) mg/dL Urine Ketones (Negative) mg/dL Urine Blood (Negative) Urine Nitrite (Negative) Urine Bilirubin (Negative) Urine Urobilinogen (Normal) mg/dL Ur Leukocyte Esterase (Negative) Ur Culture Indicated? (NO) Salicylates < 2.5 L (15.0-30.0) mg/dL Urine Opiates Screen (Vzaxbe=596) ng/mL Acetaminophen < 10 L (10-20) mcg/mL Ur Barbiturates Screen (Vgbsuo=451) ng/mL Ur Phencyclidine Scrn (Cutoff=25) ng/mL Ur Amphetamines Screen (Evjnue=8054) ng/mL U Benzodiazepines Scrn (Rhgzsh=262) ng/mL Urine Cocaine Screen (Cutoff= 300) ng/mL U Marijuana (THC) Screen (Cutoff = 50) ng/mL Ur Drug Screen Interp Ethyl Alcohol < 10 (Less than 10) mg/dL 01/30/19 01/30/19 01/30/19 Range/Units 20:55 21:38 21:38 WBC (4.3-11.1) K/mcL RBC (4.19-5.50) M/mcL Hgb (12.9-16.9) g/dL Hct (37.5-50.1) % MCV (83.0-100.0) fL MCH (28.0-33.3) pg MCHC (31.6-35.5) g/dL RDW (11.5-14.5) % Plt Count (140-400) K/mcL MPV (9.4-12.4) fL Immature Gran % (0-4) % Seg Neutrophils % % Lymphocytes % % Monocytes % % Eosinophils % % Basophils % % Neutrophils # (1.6-8.9) K/mcL Lymphocytes # (0.6-4.6) K/mcL Monocytes # (0.0-1.3) K/mcL Eosinophils # (0.0-0.6) K/mcL Basophils # (0.0-0.2) K/mcL Sodium 138 (136-145) mEq/L Potassium 4.0 (3.5-5.1) mEq/L Chloride 107 (98-107) mEq/L Carbon Dioxide 23 (23-29) mEq/L BUN 40 H (6-20) mg/dL Creatinine 2.59 H (0.70-1.30) mg/dL Est GFR ( Amer) 32 L (> 60) Est GFR (Non-Af Amer) 26 L (> 60) BUN/Creatinine Ratio 15 (6-26) Glucose 119 H (70-105) mg/dL Calculated Osmolality 297 (280-300) Lactic Acid (0.5-2.2) mmol/L Calcium 8.7 (8.6-10.3) mg/dL Magnesium 2.2 (1.6-2.6) mg/dL Total Bilirubin 0.4 (0.3-1.0) mg/dL AST 10 L (13-39) Units/L ALT 17 (7-52) Units/L Alkaline Phosphatase 59 (34-104) Units/L Creatine Kinase 82 (30-223) Units/L Troponin I 0.04 H* (< 0.04) ng/mL Serum Total Protein 6.1 L (6.4-8.9) g/dL Albumin 3.8 (3.5-5.7) g/dL Globulin 2.3 L (2.4-3.5) g/dL Albumin/Globulin Ratio 1.7 (1.1-2.2) Urine Color Yellow (Yellow) Urine Clarity Clear (Clear) Urine pH 6.0 (5.0-8.0) pH Units Ur Specific [place] > 1.030 H (1.010-1.025) Urine Protein Negative (Neg-Trace) mg/dL Urine Glucose (UA) >=1000 H (Normal) mg/dL Urine Ketones Negative (Negative) mg/dL Urine Blood Negative (Negative) Urine Nitrite Negative (Negative) Urine Bilirubin Negative (Negative) Urine Urobilinogen Normal (Normal) mg/dL Ur Leukocyte Esterase Negative (Negative) Ur Culture Indicated? NO (NO) Salicylates (15.0-30.0) mg/dL Urine Opiates Screen Positive H (Gtvtwq=403) ng/mL Acetaminophen (10-20) mcg/mL Ur Barbiturates Screen Negative (Nguuhn=931) ng/mL Ur Phencyclidine Scrn Negative (Cutoff=25) ng/mL Ur Amphetamines Screen Negative (Nvlsap=2586) ng/mL U Benzodiazepines Scrn Negative (Yddupq=637) ng/mL Urine Cocaine Screen Negative (Cutoff= 300) ng/mL U Marijuana (THC) Screen Negative (Cutoff = 50) ng/mL Ur Drug Screen Interp See Below Ethyl Alcohol (Less than 10) mg/dL Attestation Statement - Attestation Attestation: I have seen this patient with the resident physician, I have personally evaluated this patient. I had reviewed the chart and document dictation by the resident physician and aM in agreement with the information documented by the resident physician. Please see documentation by the resident physician for complete chart including past medical history, family medical history, review of systems, current history and physical and laboratory and imaging studies. I was present for all procedures, provided direct supervision for all procedures, was present for the entirety of all procedures and provided direct guidance during the procedures. Please see documentation by the resident physician for any procedures performed. The patient was brought in via EMS, for altered mental status. Apparently the patient had had a fall about 2 days ago and had complained of some low back pain, he had another fall today it is unclear as to how he fell as he is unable to provide history the paramedics give this history they do not know if he hit his head but they do not think he hit his head, he did lay on his back according to the paramedics. He appears also is complaining of some chest pain and was given nitroglycerin by the family for chest pain it is unclear as to whether or not this was before the fall or after the fall. He had been complaining of back pain, apparently upon arrival to paramedics he was slightly lethargic but was answering questions and became more lethargic and with a completely decreased level of consciousness prior to arrival. Vital signs were all within acceptable limits prehospital EKG was a normal sinus rhythm with no evidence of acute ischemia or arrhythmia or hyperkalemia this was sent to myself and I reviewed this. Fingerstick prehospital was 170. No prior history of seizures. Upon arrival, the patient has a significantly waxing and waning GCS, primarily his GCS is roughly 3 with no response to any noxious stimuli, and he is not really moving anything spontaneously although seemed to have some twitching of his right anterior chest wall and a little bit of his right upper extremity he has no ocular deviation but has pinpoint pupils bilaterally Report they gave him 0.5 mg of Narcan which did not really change anything, they do not think he took any narcotics but they are not sure. He was given 2 mg of IV Narcan here in the ER and question almost immediately thereafter opened his eyes and raise both of his arms and started mumbling but this lasted for only about 5-10 seconds he would not respond directly to any questioning, and then return back to GCS of 3 he was given 2 more milligrams of Narcan which did not do anything, he then had what appeared to be more rhythmic movement of his right upper extremity as opposed to just twitching, and was given IV Ativan, as potential for seizure like activity along with his altered mental status, this did not change his mental status he did not wake up, but it did seem to decrease the twitching. He remained with a significant decrease GCS although with vital signs are all within acceptable limits, but secondary to significant mental status changes and decreased level of consciousness rapid sequence intubation was initiated please see documentation by the resident physician for this procedure he was maintained in in-line cervical spine precautions as there was concerns for a fall and he really was not moving appropriately and risk for cervical spine injury, successful intubation by the resident physician under my direct guidance. Please see documentation for the procedure note from the resident physician. Patient was placed back in a cervical collar but again maintained in-line cervical stabilization throughout the procedure. 1 attempt was needed, with successful tube placement, confirmed by end-tidal CO2, direct visualization and auscultation, and finally by chest x-ray. Patient was given boluses of IV fluids during this initial evaluation as well, with approximately 1500 mL on pressure bags. He had some low-grade tachycardia but no hypotension. He was started on a propofol drip for sedation as well as potential risk of seizure-like activity. Secondary to patient complaining of back pain chest pain altered mental status, it was felt that a CT dissection protocol was also warranted therefore head CT CT cervical spine thoracic spine and lumbar spine were ordered secondary to possible trauma and pain CT dissection protocol was ordered. Chest x-ray as interpreted by radiology showed successful tube placement with no other acute findings. CT head cervical thoracic and lumbar spine is interpreted by radiology showed no acute findings. Aortic dissection protocol showed no aortic pathology no intra-abdominal pathology did demonstrate bilateral urinary infiltrates consistent with pneumonia. Blood cultures were ordered IV antibiotics were initiated. He was continued on IV hydration. CBC within acceptable limits. Renal panel showed a elevated creatinine of 2.58, elevated lactate of 2.8. No other significant acute abnormality troponin was 0.04. EKG was a sinus rhythm no evidence of acute ischemia or dysrhythmia or hyperkalemia no evidence of Wellens syndrome or Brugada pattern no evidence of abnormal interval. This was interpreted by myself. Patient was admitted to the ICU for further evaluation and management. Total critical care time excluding any procedures performed as provided by myself was 70 minutes. Please see documentation by the resident physician for all procedures.
[2019-01-30] MEDS: 0.9 % Sodium Chloride 1,000 ML ONE (23:42)
[2019-01-31] MEDS: 0.9 % Sodium Chloride 1,000 ML ONE (00:01)
[2019-01-31] MEDS ORDERED: Naloxone 0.4 MG/ML INJ IVP PRN ×2 (00:46→15:01)
[2019-01-31] MEDS ORDERED: *HR* Dextrose 50 % in Water (Syg) 50 ML SYRINGE ONE (00:59)
--- NOTE | 2019-01-31 01:52 | Internal Med History&Physical ---
<Elvi Carvajal - Last Filed: 01/31/19 04:33> Date of Encounter: 01/31/19 Time of Encounter: 00:20 Internal Medicine - H&P: HPI Chief complaint: falls History of present illness: Mr. Fernandes is a 49 year old male with past medical history of CVA, hypertension, orthostatic hypotension, diabetes mellitus, CT with two stents, BPH who was presented to the ED via EMS after falls and loss of consciousness. Patient was intubated therefore history was obtained from the . Per on 01/29/19 he got up from bed and had a fall, he was not very responsive but she reports his consciousness returned and he went back to bed. He does have history of numerous falls in the past and has been evaluated at [facility] for the falls in the past, the is unsure of the workup but reports he is told to have orthostatic hypotension. He had another fall on on 01/29/19 and the reports she helped him back to bed and the patient did not want to go to the ED at that time. He did have loss of bowel function in bed. She reports during the day he was more awake and alert but later in he evening he had another fall and was not very arousable. He also complained of chest pain and asked for nitroglycerin which reports she gave him. Subsequently EMS was called and he was brought to the ED. Prior to these falls the reports he was not complaining of any symptoms but she also notes he tends to not complain much. He had returned home 27 days ago from [place] rehabilitation facility after a recent stroke in and was admitted to [facility] for that. In the ED he had CT of the head, neck and lumbar spine which did not show any acute abnormalities. His chest xray and CT of the thoracic spine showed multifocal airspace opacification involving the lungs. Past Med Surg Social Fam HX - Past Medical History Medical history: coronary artery disease, CVA, diabetes, hyperlipidemia, hypertension, myocardial infarction, syncope, other Additional medical history: neuropathy Psychiatric history: depression, PTSD - Past Surgical History Surgical History: tonsilectomy Additional surgical history: left hand surgery, left knee - Social History Smoking Status: Current some day smoker Smokeless Tobacco Status: No Alcohol use: none Drug use: none - Family History Mother Hx Family Cancer: Yes Hx Family Endocrine Disorder: Yes (Diabetes) Father Hx Family Cardiac Disorders: Yes (2 heart attacks) Hx Family Neurologic Disorders: Yes (stroke) Internal Medicine - H&P: Meds HYDROcodone/Acet 5/325 mg [Garretson 5-325 mg] 1 tab PO Q4H PRN 03/08/18 [History] Insulin ASPART [NovoLOG] 7 unit SQ TIDWM 03/08/18 [History] Insulin Glargine,Hum.rec.anlog [Lantus Solostar] 60 unit SQ HS 03/08/18 [History] Melatonin [Melatin] 3 mg PO HS 03/08/18 [History] Tamsulosin [Flomax] 0.4 mg PO DAILY 03/08/18 [History] Ammonium Lactate [[place]ina-Hydrolac] 1 applic TP BID 08/08/18 [History] Bupropion HCl [Wellbutrin Xl] 300 mg PO DAILY 08/08/18 [History] Pyridostigmine Br [Mestinon] 60 mg PO TID 08/08/18 [History] Sennosides/Docusate Sodium [Docusate Sodium-Senna Tablet] 1 each PO BID PRN 08/08/18 [History] Aspirin [Adult Aspirin] 81 mg PO DAILY 09/15/18 [History] Nitroglycerin [Nitrostat] 0.4 mg SL Q5M PRN 09/15/18 [History] Bacitracin OINT [Ak-Tracin] 1 appl TP DAILY 01/30/19 [History] Carboxymethylcellulose Sodium [Refresh Liquigel] 1 drop OP QID 01/30/19 [History] Clopidogrel [Plavix] 75 mg PO DAILY 01/30/19 [History] Gemfibrozil [Lopid] 600 mg PO QPM 01/30/19 [History] Lisinopril [Zestril] 10 mg PO DAILY 01/30/19 [History] Magnesium Hydroxide [Milk of Magnesia] 30 ml PO TID PRN 01/30/19 [History] Mirtazapine [Remeron] 7.5 mg PO HS 01/30/19 [History] Mupirocin [Bactroban Oint] 1 appl TP BID 01/30/19 [History] Pantoprazole Sodium [Protonix] 40 mg PO DAILY 01/30/19 [History] Pregabalin [Lyrica] 300 mg PO BID 01/30/19 [History] Topiramate [Topamax] 50 mg PO BID 01/30/19 [History] Allergy/AdvReac Type Severity Reaction Status Date / Time No Known Allergies Allergy Verified 09/15/18 09:42 ROS unobtainable: due to endotracheal tube All Systems PM: A 10-system review of systems was performed and is negative for pertinent findings except as documented above in the HPI. - Constitutional Vitals: Temp Pulse Resp BP Pulse Ox 96.8 F L 92 16 159/107 99 01/31/19 00:48 01/31/19 01:15 01/31/19 01:19 01/31/19 01:19 01/31/19 01:19 Exam: Gen: Vitals noted. Patient is intubated, appears comfortable Eyes: anicteric sclerae, moist conjunctivae; Pupils equal and reactive to light HENT: ET tube present, nasal cavity clear, no teeth intact Neck: Trachea midline; supple, no thyromegaly Cardiac: RRR, no murmur, +S1/S2. No JVD noted. Pulmonary: CTA bilaterally, no wheezes, rales or rhonchi, equal chest expansion Abdomen: soft, pertuberant, no waqas sign or masses palpated, bowel sounds active MSK: ROM intact, no joint swelling noted Extremities: no edema, nontender calf Skin: Normal temperature, turgor; no rash, ulcers or subcutaneous nodules Neuro: intubated on propofol drip, pupils pinpoint, responds to painful stimuli Internal Med - H&P Results - Labs CBC & Chem 7: 01/31/19 03:24 01/31/19 03:24 Labs: Short CBC 01/30/19 Range/Units 20:55 WBC 9.5 (4.3-11.1) K/mcL Hgb 11.1 L (12.9-16.9) g/dL Hct 33.6 L (37.5-50.1) % Plt Count 236 (140-400) K/mcL Neutrophils # 7.2 (1.6-8.9) K/mcL BMP 01/30/19 20:55 Sodium 138 Potassium 4.0 Chloride 107 Carbon Dioxide 23 BUN 40 H Creatinine 2.59 H Glucose 119 H Calcium 8.7 Cardiac Enzymes 01/30/19 Range/Units 20:55 Troponin I 0.04 H* (< 0.04) ng/mL Liver Function 01/30/19 Range/Units 20:55 Total Bilirubin 0.4 (0.3-1.0) mg/dL AST 10 L (13-39) Units/L ALT 17 (7-52) Units/L Alkaline Phosphatase 59 (34-104) Units/L Albumin 3.8 (3.5-5.7) g/dL Urine 01/30/19 Range/Units 21:38 Urine Color Yellow (Yellow) Urine Clarity Clear (Clear) Urine pH 6.0 (5.0-8.0) pH Units Ur Specific [employer] > 1.030 H (1.010-1.025) Urine Protein Negative (Neg-Trace) mg/dL Urine Glucose (UA) >=1000 H (Normal) mg/dL - Impressions ITS Impressions Cervical Spine CT 01/30/19 20:45 IMPRESSION: No acute abnormality of the cervical spine. D/ / 01/30/2019 22:31:36 Jose Roberto Veronica MD / kenny Interpreting Provider: Jose Roberto Veronica MD Head CT 01/30/19 20:45 IMPRESSION: No acute intracranial abnormality. D/ / Margie Hernandez MD / Margie Hernandez MD Interpreting Provider: Margie Hernandez MD Lumbar Spine CT 01/30/19 20:46 IMPRESSION: Unremarkable non-contrast CT of the lumbar spine. D/ / Steve Mckeon / Steve Mckeon Interpreting Provider: Steve Mckeon Thoracic Spine CT 01/30/19 20:46 IMPRESSION: Negative for acute fracture or traumatic malalignment involving thoracic spine. D/ / Yuan Mustafa / Yuan Mustafa Interpreting Provider: Yuan Mustafa Dissection 01/30/19 20:48 IMPRESSION: Within the chest there is multifocal consolidation seen throughout the lungs, suggestive of pneumonia. No dissection noted. Normal caliber abdominal aorta. No dissection noted. D/ / Azar Montes MD / Azar Montes MD Interpreting Provider: Azar Montes MD Chest X-Ray 01/30/19 21:00 IMPRESSION: Mild cardiomegaly and chronic pulmonary change. Endotracheal tube with the tip in the midtrachea. D/ / Steve Mckeon / Steve Mckeon Interpreting Provider: Steve Mckeon - Assessment and Plan (1) Sepsis Current Visit: Yes Status: Acute Assessment and plan: Was presented to the ED via EMS after a recent fall and loss of consciousness. Meets sepsis criteria due to tachycardia and hypothermia with elevated lactic acid. Sepsis could be secondary to multifocal pneumonia Was at a rehab facility 27 days ago and could have had exposure vs aspiration pneumonia given his syncopal history CT of thoracic spine shows multifocal opacification Lactic acid elevated at 2.8 -Treated with vanc and zosyn in the ED -Received 4 liters of IV fluids -Will continue vancomycin and zosyn -MRSA swab and urine legionella and urine streptococcus antigen pending -Repeat lactic acid is 1.2 -Blood cultures pending Qualifiers: Sepsis type: sepsis due to unspecified organism Qualified Code(s): A41.9 - Sepsis, unspecified organism (2) Acute encephalopathy Current Visit: No Status: Acute Assessment and plan: Presented to the ED after a recent fall at home with loss of consciousness CT of the head does not show any intracranial hemorrhage or acute abnormalities Could be secondary to his home medications such as norco, remeron and lyrica which can decrease mental alertness Brain MRI pending (3) Pneumonia Current Visit: Yes Status: Acute Assessment and plan: Aspiration vs community acquired pneumonia History of syncopal episodes which can increase his risk for aspiration pneumonia CT of the thoracic spine showed multifocal opacification of the lungs -Currently intubated due to loss of consciousness -MRSA swab pending -Urine legionella and urine streptococcus antigen pending -Continue vancomycin and zosyn Qualifiers: Pneumonia type: due to unspecified organism Laterality: unspecified laterality Lung location: unspecified part of lung Qualified Code(s): J18.9 - Pneumonia, unspecified organism (4) ALESSANDRO (acute kidney injury) Current Visit: No Status: Acute Assessment and plan: Was presented to the ED after a recent fall. Creatinine noted to be 2.59 and his baseline is 1.0, likely secondary to sepsis as the GFR is also decreased to 26. -Can also be due to the culmination of medications he is taking -Sepsis has resolved after receiving antibiotics and IV hydration -Repeat BMP pending for 4 am (5) Syncope and collapse Current Visit: No Status: Acute Assessment and plan: History of frequent falls recently fell on 01/29 Zosyn 19 and had underwent fall on 01/30/19 causing loss of consciousness. -Previous history of CVA in early December was treated at [facility] -CT of the head and neck as well as thoracic lumbar spine were done in the ED and shows no intracranial hemorrhage or bony defects -The fall could be related to his history of orthostatic hypotension -MRI of the brain pending -Consulted neurology due to frequent episodes of the fall (6) Elevated troponin Current Visit: Yes Status: Acute Assessment and plan: History of CT had 2 stents placed earlier this year at [facility]. reports he had chest pain received nitroglycerin at home His EKG shows sinus tachycardia with no ST elevation or depression At presentation of the ED his troponin was noted to be 0.04 which could be secondary to demand ischemia versus cardiac cause CTA of the chest does not show pulmonary embolism Repeat troponin pending Consult Cardiology due to recent history of stent thrombosis, chest pain with elevated troponin (7) History of CVA (cerebrovascular accident) Current Visit: No Status: Chronic Assessment and plan: History of CVA. Presented to the ED on 12/08/18 due to focal weakness and receive TPA. He was subsequently transferred to [facility] for further stroke management. 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 Diabetes mellitus complication status: with hyperglycemia Qualified Code(s): E11.65 - Type 2 diabetes mellitus with hyperglycemia (9) DVT prophylaxis Current Visit: No Status: Acute Assessment and plan: SubQ heparin (10) Hypertension Current Visit: Yes Status: Chronic Assessment and plan: History of hypertension Will hold home medication due to low to normal current BP Additionally due to ALESSANDRO will hold lisinopril Qualifiers: Hypertension type: essential hypertension Qualified Code(s): I10 - Essential (primary) hypertension - Time Spent With Patient Total time spent is greater than 50% in coordination of care (as documented) at patient's floor/unit and/or counseling patient: <Raghu Hdz A - Last Filed: 01/31/19 06:59> Date of Encounter: 01/31/19 Internal Medicine - H&P: HPI History of present illness: Mr. Fernandes is a 49 year old male All Systems PM: A 10-system review of systems was performed and is negative for pertinent findings except as documented above in the HPI. - Constitutional Vitals: Temp Pulse Resp BP Pulse Ox 97.6 F 70 14 107/76 99 01/31/19 04:15 01/31/19 06:00 01/31/19 06:00 01/31/19 06:00 01/31/19 06:00 Internal Med - H&P Results - Labs CBC & Chem 7: 01/31/19 03:24 01/31/19 03:24 Labs: Short CBC 01/30/19 01/31/19 Range/Units 20:55 03:24 WBC 9.5 6.2 (4.3-11.1) K/mcL Hgb 11.1 L 9.7 L (12.9-16.9) g/dL Hct 33.6 L 29.4 L (37.5-50.1) % Plt Count 236 181 (140-400) K/mcL Neutrophils # 7.2 4.1 (1.6-8.9) K/mcL BMP 01/30/19 01/31/19 20:55 03:24 Sodium 138 138 Potassium 4.0 4.1 Chloride 107 113 H Carbon Dioxide 23 21 L BUN 40 H 33 H Creatinine 2.59 H 1.90 H Glucose 119 H 114 H Calcium 8.7 7.2 L Cardiac Enzymes 01/30/19 01/31/19 Range/Units 20:55 03:24 Troponin I 0.04 H* 0.05 H* (< 0.04) ng/mL Liver Function 01/30/19 Range/Units 20:55 Total Bilirubin 0.4 (0.3-1.0) mg/dL AST 10 L (13-39) Units/L ALT 17 (7-52) Units/L Alkaline Phosphatase 59 (34-104) Units/L Albumin 3.8 (3.5-5.7) g/dL Urine 01/30/19 Range/Units 21:38 Urine Color Yellow (Yellow) Urine Clarity Clear (Clear) Urine pH 6.0 (5.0-8.0) pH Units Ur Specific [employer] > 1.030 H (1.010-1.025) Urine Protein Negative (Neg-Trace) mg/dL Urine Glucose (UA) >=1000 H (Normal) mg/dL - ABG Interpretation ABG results: 01/31/19 05:16 ABG pH 7.33 ABG pCO2 45 ABG pO2 131 H ABG HCO3 23 ABG Total CO2 25 ABG O2 Saturation 99 H ABG Base Excess -3 L - Impressions ITS Impressions Cervical Spine CT 01/30/19 20:45 IMPRESSION: No acute abnormality of the cervical spine. D/ / 01/30/2019 22:31:36 Jose Roberto Veronica MD / kenny Interpreting Provider: Jose Roberto Veronica MD Head CT 01/30/19 20:45 IMPRESSION: No acute intracranial abnormality. D/ / Margie Hernandez MD / Margie Hernandez MD Interpreting Provider: Margie Hernandez MD Lumbar Spine CT 01/30/19 20:46 IMPRESSION: Unremarkable non-contrast CT of the lumbar spine. D/ / Steve Mckeon / Steve Mckeon Interpreting Provider: Steve Mckeon Thoracic Spine CT 01/30/19 20:46 IMPRESSION: Negative for acute fracture or traumatic malalignment involving thoracic spine. D/ / Yuan Mustafa / Yuan Mustafa Interpreting Provider: Yuan Mustafa Dissection 01/30/19 20:48 IMPRESSION: Within the chest there is multifocal consolidation seen throughout the lungs, suggestive of pneumonia. No dissection noted. Normal caliber abdominal aorta. No dissection noted. D/ / Azar Montes MD / Azar Montes MD Interpreting Provider: Azar Montes MD Chest X-Ray 01/30/19 21:00 IMPRESSION: Mild cardiomegaly and chronic pulmonary change. Endotracheal tube with the tip in the midtrachea. 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 atus Diabetes mellitus complication status: with hyperglycemia Qualified Code(s): E11.65 - Type 2 diabetes mellitus with hyperglycemia (3) History of CVA (cerebrovascular accident) Current Visit: No Status: Chronic (4) DVT prophylaxis Current Visit: No Status: Acute (5) ALESSANDRO (acute kidney injury) Current Visit: No Status: Acute (6) Acute encephalopathy Current Visit: No Status: Acute (7) Sepsis Current Visit: Yes Status: Acute Qualifiers: Sepsis type: sepsis due to unspecified organism Qualified Code(s): A41.9 - Sepsis, unspecified organism (8) Pneumonia Current Visit: Yes Status: Acute Qualifiers: Pneumonia type: due to unspecified organism Laterality: unspecified laterality Lung location: unspecified part of lung Qualified Code(s): J18.9 - Pneumonia, unspecified organism (9) Elevated troponin Current Visit: Yes Status: Acute (10) Hypertension Current Visit: Yes Status: Chronic Qualifiers: Hypertension type: essential hypertension Qualified Code(s): I10 - Essential (primary) hypertension - Time Spent With Patient Total time spent is greater than 50% in coordination of care (as documented) at patient's floor/unit and/or counseling patient: - Attending Attestation I performed a history and physical examination of the patient and discussed his management with the resident. I reviewed the resident's note and agree with the assessment and plan. In short patient is a 49-year-old male with a past medical history of chronic tremors, multiple episodes of syncope, orthostatic hypotension, diabetic neuropathy recent history of CT status post stent placement and CVA who presented to the ED due altered mental status and unresponsiveness. Upon arrival patient was found to be unresponsive. Patient received Narcan en route with no significant improvement. Repeat dose was given here in the ED to which the patient responded briefly at one point opening his eyes and moving his right arm spontaneously. Patient was noted to have bilateral upper extremity twitching and given 4 mg of Ativan due to questionable seizure-like activity, however, no significant response was seen. Due to the patient's fluctuating and GCS, he was intubated in the ED. The to the history was obtained from the patient's at bedside who stated that the patient was recently released from the [facility] approximately 3 weeks ago after her stroke. Since then he has had several episodes of syncope over the last 2 days with falls. Laboratory workup was notable for acute renal injury with a creatinine of 2.59, elevated lactic acid of 2.8 and troponin of 0.04. Utox positive for opiates. CT of the head and dissection study was performed which was notable for evidence of multifocal pneumonia bilaterally. Patient was given 4 L of fluids and started on broad-spectrum antibiotic coverage for presumed pneumonia. EKG was reviewed which showed no ischemic changes. At this time differential includes CVA, CT, arrhythmia versus seizures. We will obtain echocardiogram, trend troponin, MRI of the brain in the morning, appreciate cardiology and neurology's input. Continue fluids and antibiotics for possible pneumonia.
[2019-01-31 03:38] LABS: Basophils % 0.2 %; Eosinophils % 0.5 %; Hematocrit 29.4 % (37.5-50.1); Hemoglobin 9.7 g/dL (12.9-16.9); Immature Granulocytes % 0.2 % (0-4); Lymphocytes # 1.5 K/mcL (0.6-4.6); Mean Corpuscular Hemoglobin 28.9 pg (28.0-33.3); Mean Corpuscular Volume 87.5 fL (83.0-100.0); Mean Platelet Volume 11.6 fL (9.4-12.4); Monocytes # 0.5 K/mcL (0.0-1.3); Monocytes % 7.3 %; Neutrophils # 4.1 K/mcL (1.6-8.9); Platelet Count 181 K/mcL (140-400); Red Blood Count 3.36 M/mcL (4.19-5.50); Red Cell Distribution Width 13.1 % (11.5-14.5); Segmented Neutrophils % 66.8 %
[2019-01-31 03:57] LABS: Calcium 7.2 mg/dL (8.6-10.3); Potassium 4.1 mEq/L (3.5-5.1)
[2019-01-31 05:25] LABS: ABG Base Excess -3 mEq/L (-2 to 3); ABG HCO3 23 mEq/L (21-27); ABG Oxygen Saturation 99 % (95-98); ABG PCO2 45 mmHg (35-45); ABG PH 7.33 pH Units (7.32-7.45); ABG PO2 131 mmHg (85-104); ABG TCO2 25 mEq/L (20-26); Blood Gas Modality ASSIST CONTROL; Blood Gas PEEP 5 cm H2O; Blood Gas Respiration Rate 14; Blood Gas VT 500 cc
[2019-01-31] MEDS ORDERED: Piperacillin/Tazobactam 3.375 GM in 0.9 % Sodium Chloride Mini Bag 100 ML IVPB SCH (06:00)
[2019-01-31] MEDS ORDERED: *HR* Heparin 5,000 UNIT/ML VIAL SQ SCH (06:00)
[2019-01-31] MEDS ORDERED: Insulin LISPRO 300 UNITS/3 ML VIAL SQ SCH ×3 (06:00→21:00)
[2019-01-31] MEDS ORDERED: Aminoglycoside Consult 1 EACH MC ONE (08:13)
--- NOTE | 2019-01-31 09:26 | Cardiology Consult Note ---
<Chip Estevez - Last Filed: 01/31/19 10:12> Date of Encounter: 01/31/19 Time of Encounter: 09:21 Assessment and Plan (1) Sepsis Current Visit: Yes Status: Acute Presents with findings concerning for sepsis and PNA. S/p recent hospital stay. Primary team following. Qualifiers: Sepsis type: sepsis due to unspecified organism Qualified Code(s): A41.9 - Sepsis, unspecified organism (2) Elevated troponin Current Visit: Yes Status: Acute Mild troponin elevation 0.04, 0.05 in the setting of ALESSANDRO and PNA. Suspect demand ischemia. TTE ordered. Patient reported to have chest pain. We will re-evaluate once extubated. Recommend ordering records from recent [facility] stay for any cardiac testing. (3) Syncope and collapse Current Visit: No Status: Acute Reported falls and syncopal events prior to unresponsiveness. Extensive history of syncope. Documented to have work-up at [facility] and [facility]. Diagnosed with orthostatic hypotension secondary to peripheral and autonomic neuropathy. Patient seen here 09/2018 for syncope. TTE 09/2018 showed EF 60-65%. No significant valvular disease. Carotid US 09/2018 with minimal plaque bilaterally. EKG this admission shows SR. No acute ST changes. CT head negative. Telemetry review shows NSR. Occasional PVC and couplet. No bradycardia or pauses. No VT. Noted to be hypotensive on admission. (4) CAD (coronary artery disease) Current Visit: Yes Status: Acute Reported to have history of CAD and cardiac stents. Continue asa, plavix, statin, bb. Qualifiers: Coronary Disease-Associated Artery/Lesion type: unspecified vessel or lesion type [place] vs. transplanted heart: [place] heart Associated angina: with unspecified angina Qualified Code(s): I25.119 - Atherosclerotic heart disease of [place] coronary artery with unspecified angina pectoris Discussion w patient/family: The assessment and plan as outlined above was discussed with the patient and/or family members who expressed understanding and agreement. All questions were answered. Thank you for involving us in the care of your patient. Please call with any questions. History of Present Illness Consult date: 01/31/19 Requesting physician: Raghu Hdz Consult reason: elevated troponin, h/o SC Chief complaint: unresponsive History of present illness: Mr. Fernandes is a 49 year old male with past medical history significant for CAD s/p stents, multiple syncopal episodes with extensive work-up in the past, orthostatic hypotension, peripheral and autonomic neuropathy, and recent CVA. He presented after falling and becoming unresponsive. He was reported to have chest pain after the event and took SL NTG. He subsequently developed recurrent syncopal events. He was noted to have fallen frequently over the past few days. ER documentation reviewed. Pt unresponsive despite being given narcan. He was noted to have seizure like twitching. He was intubated for airway protection. CT showed findings suggesting multifocal pneumonia. Labs revealed ALESSANDRO (SCr 2.59), mild troponin elevation (0.04). He was admitted with sepsis, PNA, and ALESSANDRO. Cardiology consulted for elevated troponin and chest pain. On my exam patient currently intubated and undergoing c-pap trial. Noted to be agitated and pulling at restraints. Currently shakes head no to pain. Cousin at bedside with little information. States patient frequently in hospital over last few months. He was seen at [facility] for acute CVA 3 weeks ago. We will order records. Past Med Surg Social Fam HX - Past Medical History Medical history: coronary artery disease, CVA, diabetes, hyperlipidemia, hypertension, myocardial infarction, syncope, other Additional medical history: neuropathy Psychiatric history: depression, PTSD - Past Surgical History Surgical History: tonsilectomy Additional surgical history: left hand surgery, left knee - Social History Smoking Status: Current some day smoker Smokeless Tobacco Status: No Alcohol use: none Drug use: none - Family History Mother Hx Family Cancer: Yes Hx Family Endocrine Disorder: Yes (Diabetes) Father Hx Family Cardiac Disorders: Yes (2 heart attacks) Hx Family Neurologic Disorders: Yes (stroke) Medications and Allergies HYDROcodone/Acet 5/325 mg [[place] 5-325 mg] 1 tab PO Q4H PRN 03/08/18 [History] Insulin ASPART [NovoLOG] 7 unit SQ TIDWM 03/08/18 [History] Insulin Glargine,Hum.rec.anlog [Lantus Solostar] 60 unit SQ HS 03/08/18 [History] Melatonin [Melatin] 3 mg PO HS 03/08/18 [History] Tamsulosin [Flomax] 0.4 mg PO DAILY 03/08/18 [History] Ammonium Lactate [[place]-Hydrolac] 1 applic TP BID 08/08/18 [History] Bupropion HCl [Wellbutrin Xl] 300 mg PO DAILY 08/08/18 [History] Pyridostigmine Br [Mestinon] 60 mg PO TID 08/08/18 [History] Sennosides/Docusate Sodium [Docusate Sodium-Senna Tablet] 1 each PO BID PRN 08/08/18 [History] Aspirin [Adult Aspirin] 81 mg PO DAILY 09/15/18 [History] Nitroglycerin [Nitrostat] 0.4 mg SL Q5M PRN 09/15/18 [History] Bacitracin OINT [Ak-Tracin] 1 appl TP DAILY 01/30/19 [History] Carboxymethylcellulose Sodium [Refresh Liquigel] 1 drop OP QID 01/30/19 [History] Clopidogrel [Plavix] 75 mg PO DAILY 01/30/19 [History] Gemfibrozil [Lopid] 600 mg PO QPM 01/30/19 [History] Lisinopril [Zestril] 10 mg PO DAILY 01/30/19 [History] Magnesium Hydroxide [Milk of Magnesia] 30 ml PO TID PRN 01/30/19 [History] Mirtazapine [Remeron] 7.5 mg PO HS 01/30/19 [History] Mupirocin [Bactroban Oint] 1 appl TP BID 01/30/19 [History] Pantoprazole Sodium [Protonix] 40 mg PO DAILY 01/30/19 [History] Pregabalin [Lyrica] 300 mg PO BID 01/30/19 [History] Topiramate [Topamax] 50 mg PO BID 01/30/19 [History] Allergy/AdvReac Type Severity Reaction Status Date / Time No Known Allergies Allergy Verified 09/15/18 09:42 All Systems Review: The remainder of the systems were reviewed and are negative Physical Examination Vital Signs, Last 4 Hours Temp Pulse Resp BP Pulse Ox 01/31/19 09:00 96 17 176/102 100 01/31/19 08:43 13 193/100 97 01/31/19 08:40 96.9 F L 01/31/19 08:00 97 14 200/97 100 01/31/19 07:37 15 188/97 99 01/31/19 07:00 74 14 133/83 99 01/31/19 06:00 70 14 107/76 99 General: Other (agitated on ventilator) HEENT: Atraumatic, Normocephaly, Mucus Membranes Moist, Other (ET tube intact) Neck: No JVD, Normal carotid pulses Cardiac: Reg Rate and Rhythm, Normal S1 and S2, No Murmur Lungs: Normal Breath Sounds, No Wheeze, Rales, Rhonchi Neuro: Alert and responsive, No focal deficits noted, Other (agitated and pulling at restraints. Movement appropriate. ) Abdomen: Soft, Non-Tender Skin: No rashes noted on visualized skin Musculoskeletal: No Chest Wall Tenderness Extremities: No Clubbing, No Cyanosis, No Edema, Normal Pulses Results 01/31/19 03:24 01/31/19 03:24 Lab Results 01/30/19 01/30/19 01/31/19 20:55 20:55 03:24 WBC 9.5 Hgb 11.1 L Hct 33.6 L Plt Count 236 Sodium 138 Potassium 4.0 Chloride 107 Carbon Dioxide 23 BUN 40 H Creatinine 2.59 H Glucose 119 H Calcium 8.7 Magnesium 2.2 Total Bilirubin 0.4 AST 10 L ALT 17 Alkaline Phosphatase 59 Troponin I 0.04 H* 0.05 H* 01/31/19 01/31/19 03:24 03:24 WBC 6.2 Hgb 9.7 L Hct 29.4 L Plt Count 181 Sodium 138 Potassium 4.1 Chloride 113 H Carbon Dioxide 21 L BUN 33 H Creatinine 1.90 H Glucose 114 H Calcium 7.2 L Magnesium Total Bilirubin AST ALT Alkaline Phosphatase Troponin I - Imaging and Cardiology Stress Test: report reviewed Echo: pending - EKG Interpretation EKG results cardiology: personally reviewed Consult Discharge Plan - Plan [facility] Care Provider[facility] - < A - Last Filed: 01/31/19 15:27> Date of Encounter: 01/31/19 - Attending Attestation I have personally performed a face to face evaluation on this patient. I have reviewed and agree with the documented findings and care plan as documented by the BOMB LOADER. History and Exam by me shows: 49-year-old gentleman with history of diabetes with microvascular and macrovas cular complications including autonomic neuropathy, erectile dysfunction and CAD, admitted for syncope in the setting of sepsis secondary to pneumonia. He has had recurrent syncope with multiple workup in the past including a tilt table test which showed vasodepressive response. He has history of orthostatic hypotension as well. He needs better diabetes control, and rehydration. He was educated on counter pressure maneuvers. He will need to follow up with rehabilitation clerk upon dismissal from the hospital. We will be happy to see him in the office for follow-up, as well. Thanks, Malvin Juarez MD [facility] Assessment and Plan Discussion w patient/family: The assessment and plan as outlined above was discussed with the patient and/or family members who expressed understanding and agreement. All questions were answered. Thank you for involving us in the care of your patient. Please call with any questions. History of Present Illness History of present illness: Mr. Fernandes is a 49 year old male All Systems Review: The remainder of the systems were reviewed and are negative Physical Examination Vital Signs, Last 4 Hours Temp Pulse Resp BP Pulse Ox 01/31/19 15:00 100 20 149/92 93 01/31/19 14:00 96 20 167/89 95 01/31/19 13:00 91 17 128/81 94 01/31/19 12:31 98.4 F 01/31/19 12:00 97 13 154/85 93 Results 01/31/19 03:24 01/31/19 03:24 Lab Results 01/30/19 01/30/19 01/31/19 20:55 20:55 03:24 WBC 9.5 Hgb 11.1 L Hct 33.6 L Plt Count 236 Sodium 138 Potassium 4.0 Chloride 107 Carbon Dioxide 23 BUN 40 H Creatinine 2.59 H Glucose 119 H Calcium 8.7 Magnesium 2.2 Total Bilirubin 0.4 AST 10 L ALT 17 Alkaline Phosphatase 59 Troponin I 0.04 H* 0.05 H* 01/31/19 01/31/19 03:24 03:24 WBC 6.2 Hgb 9.7 L Hct 29.4 L Plt Count 181 Sodium 138 Potassium 4.1 Chloride 113 H Carbon Dioxide 21 L BUN 33 H Creatinine 1.90 H Glucose 114 H Calcium 7.2 L Magnesium Total Bilirubin AST ALT Alkaline Phosphatase Troponin I
[2019-01-31] MEDS ORDERED: Gadolinium Contrast Agent (WT Based) IV PRN ×2 (09:43→15:01)
--- NOTE | 2019-01-31 09:50 | Neurology - Consult Note ---
<Thang Buckner J - Last Filed: 01/31/19 13:33> Date of Encounter: 01/31/19 Time of Encounter: 09:47 Assessment and Plan (1) Syncope and collapse Current Visit: No Status: Acute Neuro consulted to eval for cause of syncope and collapse Patient having recurrent syncopal events since 08/2018. Has been worked up outpatient at [facility] and dx with orthostatic hypotension secondary to peripheral and autonomic neuropathy. 01/29 he experienced episodes of syncope with unresponsiveness and urinary incontinence; denies any tonic-clonic activity. Had prior CVA 10/2017 with residual deficits and overall weakness requiring a walker for ambulation; has a decreased activity tolerance Reporting functional decline since 08/2018 when syncope began; notes decreased activity and a functional decline with fear of recurrent syncope ECHO-LVEF 50% Mild LVH, Moderate LVDD, No PHTN, no valvular dysfunction. Carotid US 09/2018 with minimal plaque B/L EKG on admission was NSR without ST changes concerning for ischemia CT head unremarkable Positive for SIRS criteria on admission with hypotension and CT dissection w/u multifocal PNA; most likely healthcare aquired with recent hospitalization Sepsis 2/2 healthcare aquired PNA. Neuro exam reveals B/L leg weakness Rt greater than left otherwise no focal deficits. He is a poor historian and it is unclear if this is an acute or a residual deficit from prior infarct. None the less given these findings and recurrent syncope we will obtain a neuro workup including MRI brain, MRA head/neck, MR C-spine, and EEG. Weakness is likely multifactorial with ALESSANDRO, sepsis 2/2 PNA, and deconditioning since CVA 10/2017. Recommend PT/OT evaluation. In regards to the syncope and collapse cardiology is following. As mentioned previously [facility] hypotension secondary to peripheral and autonomic neuropathy; this coupled with a Dx of sepsis likely led to the syncopal event. Continue medical and supportive care and treat underlying illnesses. Recommend PT/OT evaluation. Further treatment will depend on neuro imaging and EEG results. Neurology will continue to follow. (2) Weakness Current Visit: Yes Status: Acute History of Present Illness Chief complaint: syncope HPI: Mr. Fernandes is a 49 year old male with a PMH of CVA in Oct 2017 with residual deficits, HTN, orthostatic hypotension, DM, HI S/P PTCI 2, BPH who presented to the ED after multiple episodes of syncope. The patient is somewhat of a poor hi storian so the history was obtained from patient, family (spouse, POA) and medical records. It is reported that on Monday 01/29 the patient comes up from bed and experienced a syncopal event with confirm loss of consciousness. It is unclear how long the episode of syncope lasted. His reports that she was able to arouse him after some period of time and was able to get him back to bed. Later that afternoon the patient again attempt to get out of bed and had yet another syncopal event prompting evaluation in the ED. Neurology has been consulted to evaluation for a cause of syncope and the patient is also reporting new Rt sided weakness and bilateral leg weakness. The patient notes that in October 2017 he had a CVA for which she was treated at [facility]. He reports that from a functional perspective he was improving after rehabilitation up until roughly August 2018. He denies any inciting events reports that in August 2018 began to have a functional decline and syncope. He denies experiencing any strokelike symptoms during this time. He notes that he is now walker dependent since August 2018. He states that since Thursday his bilateral legs feel weaker and he is no longer able to ambulate even with the assistance of a walker. She denies any acute visual changes, headaches, dizziness, dysphagia, dysarthria, head/neck stiffness or pain, facial asymmetry, chest pain, palpitations, shortness of breath, edema. He does note that with the loss of consciousness he did experience urinary incontinence but denies any tongue bite or tonic-clonic activity. CT of the cervical spine obtained in the ED and negative for acute abnormality, CT of head also obtained and negative for acute intracranial abnormality, lumbar spine CT also unremarkable, thoracic spine CT unremarkable and there is no evidence of CT dissection on imaging. Of note he was positive for SIRS criteria on admission and did appear to have a suspected community-acquired pneumonia. Otherwise he has no additional complaints at this time. Neurology will continue to follow workup for cause of syncope and bilateral lower extremity weakness. Past Med Surg Social Fam HX - Past Medical History Medical history: coronary artery disease, CVA, diabetes, hyperlipidemia, hypertension, myocardial infarction, syncope, other Additional medical history: neuropathy Psychiatric history: depression, PTSD - Past Surgical History Surgical History: tonsilectomy Additional surgical history: left hand surgery, left knee - Social History Smoking Status: Current some day smoker Smokeless Tobacco Status: No Alcohol use: none Drug use: none - Family History Mother Hx Family Cancer: Yes Hx Family Endocrine Disorder: Yes (Diabetes) Father Hx Family Cardiac Disorders: Yes (2 heart attacks) Hx Family Neurologic Disorders: Yes (stroke) Medications and Allergies HYDROcodone/Acet 5/325 mg [Squire 5-325 mg] 1 tab PO Q4H PRN 03/08/18 [History] Insulin ASPART [NovoLOG] 7 unit SQ TIDWM 03/08/18 [History] Insulin Glargine,Hum.rec.anlog [Lantus Solostar] 60 unit SQ HS 03/08/18 [History] Melatonin [Melatin] 3 mg PO HS 03/08/18 [History] Tamsulosin [Flomax] 0.4 mg PO DAILY 03/08/18 [History] Ammonium Lactate [Salina-Hydrolac] 1 applic TP BID 08/08/18 [History] Bupropion HCl [Wellbutrin Xl] 300 mg PO DAILY 08/08/18 [History] Pyridostigmine Br [Mestinon] 60 mg PO TID 08/08/18 [History] Sennosides/Docusate Sodium [Docusate Sodium-Senna Tablet] 1 each PO BID PRN 08/08/18 [History] Aspirin [Adult Aspirin] 81 mg PO DAILY 09/15/18 [History] Nitroglycerin [Nitrostat] 0.4 mg SL Q5M PRN 09/15/18 [History] Bacitracin OINT [Ak-Tracin] 1 appl TP DAILY 01/30/19 [History] Carboxymethylcellulose Sodium [Refresh Liquigel] 1 drop OP QID 01/30/19 [H istory] Clopidogrel [Plavix] 75 mg PO DAILY 01/30/19 [History] Gemfibrozil [Lopid] 600 mg PO QPM 01/30/19 [History] Lisinopril [Zestril] 10 mg PO DAILY 01/30/19 [History] Magnesium Hydroxide [Milk of Magnesia] 30 ml PO TID PRN 01/30/19 [History] Mirtazapine [Remeron] 7.5 mg PO HS 01/30/19 [History] Mupirocin [Bactroban Oint] 1 appl TP BID 01/30/19 [History] Pantoprazole Sodium [Protonix] 40 mg PO DAILY 01/30/19 [History] Pregabalin [Lyrica] 300 mg PO BID 01/30/19 [History] Topiramate [Topamax] 50 mg PO BID 01/30/19 [History] Allergy/AdvReac Type Severity Reaction Status Date / Time No Known Allergies Allergy Verified 09/15/18 09:42 All Systems: The remainder of the systems were reviewed and are negative Review of Systems: REVIEW OF SYSTEMS GENERAL: + decreased activity tolerance NEUROLOGIC: Negative for any blurry vision, blind spots, double vision, facial asymmetry, dysphagia, dysarthria, hemiparesis, seizures, numbness, unilateral weakness or numbness/tingling + falls, syncope, b/l leg weakness, chronic loss of visual acuity, chronic neuropathy B/L legs below the knees, disequilibrium HEENT: Negative for any head trauma, neck trauma, neck stiffness, photophobia, phonophobia CARDIAC: Negative for any chest pain, dyspnea, peripheral edema. GENITOURINARY: + urinary incontinence. MUSCULOSKELETAL: + loss of strength of b/l legs, limitations to ROM Physical Examination - Vital Signs Vital Signs: Initial Vital Signs Temp Pulse Resp BP Pulse Ox 0 F L 102 16 86/70 100 01/30/19 20:44 01/30/19 20:44 01/30/19 20:44 01/30/19 20:44 01/30/19 20:44 - Exam Exam: Examination: General Examination: *CONSTITUTIONAL: Alert and oriented x3, no acute distress, *GENERAL APPEARANCE OF PATIENT overall is generally ill-appearing, who appears older than stated age *EYES: pupils equal, round, reactive to light and accommodation, conjunc tiva clear *CARDIOVASCULAR no peripheral edema, distal temperature normal, dorsalis pedis pulses normal. Musculoskeletal: *GAIT AND STATION not assess *ASSESSMENT OF MUSCLE STRENGTH IN THE UPPER AND LOWER EXTREMITIES right deltoid, bicep, tricep, medicare nurse strength 3/5, hip flexors ,anterior tibialis, dorsoflexion of the foot 3/5. Left deltoid, bicep, tricep, medicare nurse strength 4/5, left hip flexors, anterior tibialis, dorsiflexion of left foot/5 *MUSCLE TONE IN THE UPPER AND LOWER EXTREMITIES normal. No abnormal movements, fasciculations or atrophy identified. Neurological: *ORIENTATION to person, situation, time and place *RECURRENT AND REMOTE MEMORY intact *ATTENTION AND CONCENTRATION are abnormal, needs redirection, appears to be lethargic *LANGUAGE FUNCTION no significant aphasia or dysarthia was noted. *FUND OF KNOWLEDGE aware of current events, past history, vocabulary *MENTAL attention span and concentration abnormal; needing redirection. *CN II optic fundi were normal, no papilledema noted. *CN III,IV, PERRLA extraocular eye movements were full, no nystagmus and no ptosis noted. *CN V shows normal sensation and jaw opens symmetrically. *CN VII shows normal facial movement symmetrically, upper and lower bilaterally with passive observation. *CN VIII shows no significant hearing loss on exam *CN IX,,X palate elevated symmetrically *CN XI normal strength in the sternocleidomastoid muscles, symmetrical shoulder shrugging; moves head through full ROM with passive observation. *CN XII tongue protruded in the midline, with normal strength and movement . *SENSORY EXAMINATION light touch intact *REFLEXES: DTR bilateral biceps, brachioradialis and triceps were 1/4 symmetrically, patellar reflexes absent bilaterally, present Achilles reflexes 1/4 symmetrically *CEREBELLAR TESTING dysmetria present with finger to nose *PAIN LEVEL 0 Results - Laboratory Findings CBC and BMP: 01/31/19 03:24 01/31/19 03:24 Abnormal lab findings: Abnormal lab results RBC 3.36 M/mcL (4.19-5.50) L 01/31/19 03:24 Hgb 9.7 g/dL (12.9-16.9) L 01/31/19 03:24 Hct 29.4 % (37.5-50.1) L 01/31/19 03:24 ABG pO2 131 mmHg (85-104) H 01/31/19 05:16 ABG O2 Saturation 99 % (95-98) H 01/31/19 05:16 ABG Base Excess -3 mEq/L (-2 to 3) L 01/31/19 05:16 Chloride 113 mEq/L (98-107) H 01/31/19 03:24 Carbon Dioxide 21 mEq/L (23-29) L 01/31/19 03:24 BUN 33 mg/dL (6-20) H 01/31/19 03:24 1.90 mg/dL (0.70-1.30) H 01/31/19 03:24 Est GFR ( Amer) 46 (> 60) L 01/31/19 03:24 Est GFR (Non-Af Amer) 38 (> 60) L 01/31/19 03:24 Glucose 114 mg/dL (70-105) H 01/31/19 03:24 Lactic Acid 2.8 mmol/L (0.5-2.2) H 01/30/19 20:55 Calcium 7.2 mg/dL (8.6-10.3) L 01/31/19 03:24 AST 10 Units/L (13-39) L 01/30/19 20:55 0.05 ng/mL (< 0.04) H* 01/31/19 03:24 6.1 g/dL (6.4-8.9) L 01/30/19 20:55 2.3 g/dL (2.4-3.5) L 01/30/19 20:55 Ur Specific Willards > 1.030 (1.010-1.025) H 01/30/19 21:38 >=1000 mg/dL (Normal) H 01/30/19 21:38 Salicylates < 2.5 mg/dL (15.0-30.0) L 01/30/19 20:55 Positive ng/mL (Umbbvr=776) H 01/30/19 21:38 Acetaminophen < 10 mcg/mL (10-20) L 01/30/19 20:55 - Diagnostic Findings Additional findings: CT/CT cervical spine wo con IMPRESSION: No acute abnormality of the cervical spine. CT/CT head/brain wo con IMPRESSION: No acute intracranial abnormality CT/CT lumbar spine wo con IMPRESSION: Unremarkable non-contrast CT of the lumbar spine. CT/CT thoracic spine wo con IMPRESSION: Negative for acute fracture or traumatic malalignment involving thoracic spine Consult Discharge Plan - Plan [facility] - <Stacey Baron I - Last Filed: 01/31/19 15:24> Date of Encounter: 01/31/19 Assessment and Plan (1) Syncope and collapse Current Visit: No Status: Acute I have personally performed a face to face diagnostic evaluation, including HPI, EXAM, which is included in the Assesment and plan, which was discussed with Thang Buckner CNP, I agree with the above outlined documentation. On neurological examination he is alert awake and oriented able to have a con versation but is a very poor historian, he noted to have some weakness in his right lower extremity, with his history of previous a stroke is not sure that it is new or not, though he did not have much weakness in his upper extremity considering his overall symptoms and multiple passing out spells I would suggest getting a MRI of the brain and if that is negative perhaps he may need to do an MRI of his lumbar spine, with his history of multiple passing out spells we will get an EEG to make sure he is not having any seizures at this time would not recommend any new medication, continue other medication and continue to monitor We will follow the patient with you Stacey Baron MD. Neurology (2) Weakness Current Visit: Yes Status: Acute History of Present Illness HPI: Mr. Fernandes is a 49 year old male All Systems: The remainder of the systems were reviewed and are negative Physical Examination - Vital Signs Vital Signs: Initial Vital Signs Temp Pulse Resp BP Pulse Ox 0 F L 102 16 86/70 100 01/30/19 20:44 01/30/19 20:44 01/30/19 20:44 01/30/19 20:44 01/30/19 20:44 Results - Laboratory Findings CBC and BMP: 01/31/19 03:24 01/31/19 03:24 Abnormal lab findings: Abnormal lab results RBC 3.36 M/mcL (4.19-5.50) L 01/31/19 03:24 Hgb 9.7 g/dL (12.9-16.9) L 01/31/19 03:24 Hct 29.4 % (37.5-50.1) L 01/31/19 03:24 ABG pO2 131 mmHg (85-104) H 01/31/19 05:16 ABG O2 Saturation 99 % (95-98) H 01/31/19 05:16 ABG Base Excess -3 mEq/L (-2 to 3) L 01/31/19 05:16 Chloride 113 mEq/L (98-107) H 01/31/19 03:24 Carbon Dioxide 21 mEq/L (23-29) L 01/31/19 03:24 BUN 33 mg/dL (6-20) H 01/31/19 03:24 1.90 mg/dL (0.70-1.30) H 01/31/19 03:24 Est GFR ( Amer) 46 (> 60) L 01/31/19 03:24 Est GFR (Non-Af Amer) 38 (> 60) L 01/31/19 03:24 Glucose 114 mg/dL (70-105) H 01/31/19 03:24 Lactic Acid 2.8 mmol/L (0.5-2.2) H 01/30/19 20:55 Calcium 7.2 mg/dL (8.6-10.3) L 01/31/19 03:24 AST 10 Units/L (13-39) L 01/30/19 20:55 0.05 ng/mL (< 0.04) H* 01/31/19 03:24 6.1 g/dL (6.4-8.9) L 01/30/19 20:55 2.3 g/dL (2.4-3.5) L 01/30/19 20:55 Ur Specific Willards > 1.030 (1.010-1.025) H 01/30/19 21:38 >=1000 mg/dL (Normal) H 01/30/19 21:38 Salicylates < 2.5 mg/dL (15.0-30.0) L 01/30/19 20:55 Positive ng/mL (Eigpvr=[id number]) H 01/30/19 21:38 Acetaminophen < 10 mcg/mL (10-20) L 01/30/19 20:55
--- NOTE | 2019-01-31 09:57 | Pulmonology Consult Note ---
<Marvin Lopez - Last Filed: 01/31/19 19:05> Date of Encounter: 01/31/19 Time of Encounter: 09:57 Assessment and Plan (1) Orthostatic hypotension Current Visit: Yes Status: Acute Patient has history of orthostatic hypotension and falls Falls prior to admission could be secondary to orthostatic hypotension, and or polypharmacy, and/or sepsis encephalopathy Currently patient is alert and oriented, stable vitals, no longer meeting sepsis criteria Patient to be transferred to the floor with continued evaluation by neurology and cardiology (2) Diabetes mellitus, type 2 Current Visit: No Status: Chronic Diabetic diet and sliding scale insulin Patient is requesting regular diet, nutrition has educated him that he needs diabetic diet He will likely attempt to request regular diet again 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: 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 insulin use status Diabetes mellitus complication status: with hyperglycemia Qualified Code(s): E11.65 - Type 2 diabetes mellitus with hyperglycemia (3) ALESSANDRO (acute kidney injury) Current Visit: Yes Status: Acute Patient presented with acute kidney injury Likely prerenal secondary to sepsis hypotension Creatinine improving, baseline appears to be 1 Continue to monitor (4) Pneumonia Current Visit: Yes Status: Acute Multifocal consolidation seen on imaging on presentation Aspiration is a consideration given agents repeated loss of consciousness Continue vancomycin and Zosyn Qualifiers: Pneumonia type: due to unspecified organism Laterality: unspecified laterality Lung location: unspecified part of lung Qualified Code(s): J18.9 - Pneumonia, unspecified organism (5) Elevated troponin Current Visit: Yes Status: Acute Troponin elevated on admission, trended without large increase Cardiology evaluated, not concern for ACS Recommend continued medical management (aspirin, Plavix, statin, beta ashwin ) History of Present Illness Consult date: 01/31/19 Requesting physician: Elvi Carvajal Reason for consult: other (Intubation) Chief complaint: Syncopal event History of present illness: Patient is a 49-year-old male past medical history of CVA, hypertension, orthostatic hypotension, diabetes mellitus, GA status post PCI, BPH who presented to the emergency department via EMS after a fall with loss of consciousness. He was apparently intubated on arrival. He apparently has been worked up in the past for orthostatic hypotension with positive tilt table test. According to the he recently has had several falls with loss of consciousness, loss of bowel function, unresponsiveness. Imaging on arrival did not reveal any traumatic deformities, however multifocal airspace opacification was identified. He was admitted to the ICU with sepsis secondary to pneumonia, acute encephalopathy, acute kidney injury, elevated troponin. Past Med Surg Social Fam HX - Past Medical History Medical history: coronary artery disease, CVA, diabetes, hyperlipidemia, hypertension, myocardial infarction, syncope, other Additional medical history: neuropathy Psychiatric history: depression, PTSD - Past Surgical History Surgical History: tonsilectomy Additional surgical history: left hand surgery, left knee - Social History Smoking Status: Current some day smoker Smokeless Tobacco Status: No Alcohol use: none Drug use: none - Family History Mother Hx Family Cancer: Yes Hx Family Endocrine Disorder: Yes (Diabetes) Father Hx Family Cardiac Disorders: Yes (2 heart attacks) Hx Family Neurologic Disorders: Yes (stroke) Medications and Allergies HYDROcodone/Acet 5/325 mg [[place] 5-325 mg] 1 tab PO Q4H PRN 03/08/18 [History] Insulin ASPART [NovoLOG] 7 unit SQ TIDWM 03/08/18 [History] Insulin Glargine,Hum.rec.anlog [Lantus Solostar] 60 unit SQ HS 03/08/18 [History] Melatonin [Melatin] 3 mg PO HS 03/08/18 [History] Tamsulosin [Flomax] 0.4 mg PO DAILY 03/08/18 [History] Ammonium Lactate [[place]-Hydrolac] 1 applic TP BID 08/08/18 [History] Bupropion HCl [Wellbutrin Xl] 300 mg PO DAILY 08/08/18 [History] Pyridostigmine Br [Mestinon] 60 mg PO TID 08/08/18 [History] Sennosides/Docusate Sodium [Docusate Sodium-Senna Tablet] 1 each PO BID PRN 08/08/18 [History] Aspirin [Adult Aspirin] 81 mg PO DAILY 09/15/18 [History] Nitroglycerin [Nitrostat] 0.4 mg SL Q5M PRN 09/15/18 [History] Bacitracin OINT [Ak-Tracin] 1 appl TP DAILY 01/30/19 [History] Carboxymethylcellulose Sodium [Refresh Liquigel] 1 drop OP QID 01/30/19 [History] Clopidogrel [Plavix] 75 mg PO DAILY 01/30/19 [History] Gemfibrozil [Lopid] 600 mg PO QPM 01/30/19 [History] Lisinopril [Zestril] 10 mg PO DAILY 01/30/19 [History] Magnesium Hydroxide [Milk of Magnesia] 30 ml PO TID PRN 01/30/19 [History] Mirtazapine [Remeron] 7.5 mg PO HS 01/30/19 [History] Mupirocin [Bactroban Oint] 1 appl TP BID 01/30/19 [History] Pantoprazole Sodium [Protonix] 40 mg PO DAILY 01/30/19 [History] Pregabalin [Lyrica] 300 mg PO BID 01/30/19 [History] Topiramate [Topamax] 50 mg PO BID 01/30/19 [History] Allergy/AdvReac Type Severity Reaction Status Date / Time No Known Allergies Allergy Verified 09/15/18 09:42 ROS unobtainable: due to endotracheal tube All Systems: The remainder of the systems were reviewed and are negative Physical Examination Vital Signs: Vital Signs, Last 4 Hours Temp Pulse Resp BP Pulse Ox 01/31/19 09:00 96 17 176/102 100 01/31/19 08:43 13 193/100 97 01/31/19 08:40 96.9 F L 01/31/19 08:00 97 14 200/97 100 01/31/19 07:37 15 188/97 99 01/31/19 07:00 74 14 133/83 99 01/31/19 06:00 70 14 107/76 99 General appearance: no acute distress Effort: normal Inspection: normal Auscultation: bilateral: clear Cardiovascular: other (Tachycardic rate and irregularly irregular rhythm) Gastrointestinal: normoactive bowel sounds, soft, non-tender, non-distended Integumentary: normal Extremities: no cyanosis, edema Musculoskeletal: no deformities normal mental status, non-focal exam (Patient was reexamined in the afternoon after extubation) Ventilator Settings Ventilator Settings: Ventilator Settings, Last 8 Hours Ventilator Tidal Volume 500 Setting Ventilator Tidal Volume 500 Setting Ventilator Tidal Volume 500 Setting Ventilator Tidal Volume 500 Setting Ventilator Tidal Volume 500 Setting Ventilator Tidal Volume 500 Setting Ventilator Tidal Volume 500 Setting Ventilator Tidal Volume 500 Setting Ventilator Tidal Volume 500 Setting Ventilator Respiratory Rate 14 Setting Ventilator Respiratory Rate 14 Setting Ventilator Respiratory Rate 14 Setting Ventilator Respiratory Rate 14 Setting Ventilator Respiratory Rate 14 Setting Ventilator Respiratory Rate 14 Setting Ventilator Respiratory Rate 14 Setting Ventilator Respiratory Rate 14 Setting Ventilator Respiratory Rate 14 Setting Actual Respiratory Rate 14 Actual Respiratory Rate 14 Actual Respiratory Rate 14 Actual Respiratory Rate 14 Actual Respiratory Rate 25 Actual Respiratory Rate 21 Actual Respiratory Rate 14 Actual Respiratory Rate 14 Actual Respiratory Rate 14 Positive End Expiratory 5 Pressure Positive End Expiratory 5 Pressure Positive End Expiratory 5 Pressure Positive End Expiratory 5 Pressure Positive End Expiratory 5 Pressure Positive End Expiratory 5 Pressure Positive End Expiratory 5 Pressure Positive End Expiratory 5 Pressure Positive End Expiratory 5 Pressure Positive End Expiratory 5 Pressure Positive End Expiratory 5 Pressure Peak Inspiratory Airway 18 Pressure Peak Inspiratory Airway 15 Pressure Peak Inspiratory Airway 24 Pressure Peak Inspiratory Airway 24 Pressure Peak Inspiratory Airway 24 Pressure Peak Inspiratory Airway 8 Pressure Peak Inspiratory Airway 25 Pressure Peak Inspiratory Airway 23 Pressure Peak Inspiratory Airway 23 Pressure Peak Inspiratory Airway 25 Pressure Results - Laboratory Findings CBC and BMP: 01/31/19 03:24 01/31/19 03:24 ABG ABG pH 7.33 pH Units (7.32-7.45) 01/31/19 05:16 ABG pCO2 45 mmHg (35-45) 01/31/19 05:16 ABG pO2 131 mmHg (85-104) H 01/31/19 05:16 ABG O2 Saturation 99 % (95-98) H 01/31/19 05:16 Abnormal lab findings: Abnormal lab results RBC 3.36 M/mcL (4.19-5.50) L 01/31/19 03:24 Hgb 9.7 g/dL (12.9-16.9) L 01/31/19 03:24 Hct 29.4 % (37.5-50.1) L 01/31/19 03:24 ABG pO2 131 mmHg (85-104) H 01/31/19 05:16 ABG O2 Saturation 99 % (95-98) H 01/31/19 05:16 ABG Base Excess -3 mEq/L (-2 to 3) L 01/31/19 05:16 Chloride 113 mEq/L (98-107) H 01/31/19 03:24 Carbon Dioxide 21 mEq/L (23-29) L 01/31/19 03:24 BUN 33 mg/dL (6-20) H 01/31/19 03:24 1.90 mg/dL (0.70-1.30) H 01/31/19 03:24 Est GFR ( Amer) 46 (> 60) L 01/31/19 03:24 Est GFR (Non-Af Amer) 38 (> 60) L 01/31/19 03:24 Glucose 114 mg/dL (70-105) H 01/31/19 03:24 Lactic Acid 2.8 mmol/L (0.5-2.2) H 01/30/19 20:55 Calcium 7.2 mg/dL (8.6-10.3) L 01/31/19 03:24 AST 10 Units/L (13-39) L 01/30/19 20:55 0.05 ng/mL (< 0.04) H* 01/31/19 03:24 6.1 g/dL (6.4-8.9) L 01/30/19 20:55 2.3 g/dL (2.4-3.5) L 01/30/19 20:55 Ur Specific [place] > 1.030 (1.010-1.025) H 01/30/19 21:38 >=1000 mg/dL (Normal) H 01/30/19 21:38 Salicylates < 2.5 mg/dL (15.0-30.0) L 01/30/19 20:55 Positive ng/mL (Vafpxv=184) H 01/30/19 21:38 Acetaminophen < 10 mcg/mL (10-20) L 01/30/19 20:55 - Microbiology Findings Microbiology Findings: Microbiology, Last 48 Hours 01/31/19 02:40 Legionella Antigen - Final Urine,Clean Catch Streptococcus pneumoniae Antigen (M - Final 01/30/19 22:58 Blood Culture - Preliminary Peripheral Venipuncture Culture is incubating and being continuously monitored for growth. Final report to follow. 01/30/19 22:58 Blood Culture - Preliminary Peripheral Venipuncture Culture is incubating and being continuously monitored for growth. Final report to follow. - Clinical Findings Intake & Output: Intake & Output 01/30/19 01/31/19 01/31/19 23:59 07:59 15:59 Intake Total 2026.2026. 1627 / 1627 Output Total 350 / 620 270 / 620 Balance 2026. / 2026. 1277 / 1007 -270 / 1007 Weight 108.998 kg 100 kg Consult Discharge Plan - Plan [facility] Care Provider[facility] - <Sade Guardado M - Last Filed: 01/31/19 20:28> Date of Encounter: 01/31/19 All Systems: The remainder of the systems were reviewed and are negative Physical Examination Vital Signs: Vital Signs, Last 4 Hours Temp Pulse Resp BP Pulse Ox 01/31/19 10:00 90 20 172/95 99 01/31/19 09:00 96 17 176/102 100 01/31/19 08:43 13 193/100 97 01/31/19 08:40 96.9 F L 01/31/19 08:00 97 14 200/97 100 01/31/19 07:37 15 188/97 99 01/31/19 07:00 74 14 133/83 99 Ventilator Settings Ventilator Settings: Ventilator Settings, Last 8 Hours Ventilator Tidal Volume 500 Setting Ventilator Tidal Volume 500 Setting Ventilator Tidal Volume 500 Setting Ventilator Tidal Volume 500 Setting Ventilator Tidal Volume 500 Setting Ventilator Tidal Volume 500 Setting Ventilator Tidal Volume 500 Setting Ventilator Tidal Volume 500 Setting Ventilator Respiratory Rate 14 Setting Ventilator Respiratory Rate 14 Setting Ventilator Respiratory Rate 14 Setting Ventilator Respiratory Rate 14 Setting Ventilator Respiratory Rate 14 Setting Ventilator Respiratory Rate 14 Setting Ventilator Respiratory Rate 14 Setting Ventilator Respiratory Rate 14 Setting Actual Respiratory Rate 14 Actual Respiratory Rate 14 Actual Respiratory Rate 14 Actual Respiratory Rate 14 Actual Respiratory Rate 25 Actual Respiratory Rate 21 Actual Respiratory Rate 14 Actual Respiratory Rate 14 Positive End Expiratory 5 Pressure Positive End Expiratory 5 Pressure Positive End Expiratory 5 Pressure Positive End Expiratory 5 Pressure Positive End Expiratory 5 Pressure Positive End Expiratory 5 Pressure Positive End Expiratory 5 Pressure Positive End Expiratory 5 Pressure Positive End Expiratory 5 Pressure Positive End Expiratory 5 Pressure Peak Inspiratory Airway 18 Pressure Peak Inspiratory Airway 15 Pressure Peak Inspiratory Airway 24 Pressure Peak Inspiratory Airway 24 Pressure Peak Inspiratory Airway 24 Pressure Peak Inspiratory Airway 8 Pressure Peak Inspiratory Airway 25 Pressure Peak Inspiratory Airway 23 Pressure Peak Inspiratory Airway 23 Pressure Results - Laboratory Findings CBC and BMP: 01/31/19 03:24 01/31/19 03:24 ABG ABG pH 7.33 pH Units (7.32-7.45) 01/31/19 05:16 ABG pCO2 45 mmHg (35-45) 01/31/19 05:16 ABG pO2 131 mmHg (85-104) H 01/31/19 05:16 ABG O2 Saturation 99 % (95-98) H 01/31/19 05:16 Abnormal lab findings: Abnormal lab results RBC 3.36 M/mcL (4.19-5.50) L 01/31/19 03:24 Hgb 9.7 g/dL (12.9-16.9) L 01/31/19 03:24 Hct 29.4 % (37.5-50.1) L 01/31/19 03:24 ABG pO2 131 mmHg (85-104) H 01/31/19 05:16 ABG O2 Saturation 99 % (95-98) H 01/31/19 05:16 ABG Base Excess -3 mEq/L (-2 to 3) L 01/31/19 05:16 Chloride 113 mEq/L (98-107) H 01/31/19 03:24 Carbon Dioxide 21 mEq/L (23-29) L 01/31/19 03:24 BUN 33 mg/dL (6-20) H 01/31/19 03:24 1.90 mg/dL (0.70-1.30) H 01/31/19 03:24 Est GFR ( Amer) 46 (> 60) L 01/31/19 03:24 Est GFR (Non-Af Amer) 38 (> 60) L 01/31/19 03:24 Glucose 114 mg/dL (70-105) H 01/31/19 03:24 Lactic Acid 2.8 mmol/L (0.5-2.2) H 01/30/19 20:55 Calcium 7.2 mg/dL (8.6-10.3) L 01/31/19 03:24 AST 10 Units/L (13-39) L 01/30/19 20:55 0.05 ng/mL (< 0.04) H* 01/31/19 03:24 6.1 g/dL (6.4-8.9) L 01/30/19 20:55 2.3 g/dL (2.4-3.5) L 01/30/19 20:55 Ur Specific Vera > 1.030 (1.010-1.025) H 01/30/19 21:38 >=1000 mg/dL (Normal) H 01/30/19 21:38 Salicylates < 2.5 mg/dL (15.0-30.0) L 01/30/19 20:55 Positive ng/mL (Asiwru=435) H 01/30/19 21:38 Acetaminophen < 10 mcg/mL (10-20) L 01/30/19 20:55 - Microbiology Findings Microbiology Findings: Microbiology, Last 48 Hours 01/31/19 02:40 Legionella Antigen - Final Urine,Clean Catch Streptococcus pneumoniae Antigen (M - Final 01/30/19 22:58 Blood Culture - Preliminary Peripheral Venipuncture Culture is incubating and being continuously david tored for growth. Final report to follow. 01/30/19 22:58 Blood Culture - Preliminary Peripheral Venipuncture Culture is incubating and being continuously monitored for growth. Final report to follow. - Clinical Findings Intake & Output: Intake & Output 01/30/19 01/31/19 01/31/19 23:59 07:59 15:59 Intake Total 2026. / 2026. 1627 / 1627 Output Total 350 / 620 270 / 620 Balance 2026. / 2026. 1277 / 1007 -270 / 1007 Weight 108.998 kg 100 kg - Attending Attestation I examined this patient and my medical decision-making was reviewed with the Resident Physician. I agree with the documented findings, disposition and treatment plan as described except to the extent set forth below. Patient seen and examined. Labs, radiology, chart personally reviewed. 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 ALESSANDRO and hold ACEI Endorcine: blood glucose is monitored Lines: all lines checked and no evidence of infections Skin: skin care to prevent pressure ulcers per nursing routine care. Resume his home medication Possible transfer to floor
[2019-01-31] MEDS ORDERED: *HR* Metoprolol 5 MG/5 ML VIAL IVP ONE (11:22)
[2019-01-31] MEDS ORDERED: *HR* HYDROcodone/Acet 5/325 mg TABLET PO PRN (11:23)
[2019-01-31] MEDS ORDERED: Dextrose Gel 15 GM/37.5 ML TUBE PO PRN ×4 (11:25→15:01)
[2019-01-31] MEDS ORDERED: D5% in Water 1,000 ML IVC PRN ×2 (11:25→15:01)
[2019-01-31] MEDS ORDERED: *HR* Dextrose 50 % in Water (Syg) 50 ML SYRINGE IVP PRN ×2 (11:25→15:01)
[2019-01-31] MEDS ORDERED: amLODIPine 5 MG TABLET PO SCH (11:30)
[2019-01-31] MEDS ORDERED: Topiramate 25 MG TABLET PO SCH (11:45)
[2019-01-31] MEDS ORDERED: BuPROPion XL (24 HR) 150 MG TABLET PO SCH (11:45)
--- NOTE | 2019-01-31 15:27 | EEG/EMG/Oth Biometrics Report ---
EEG Procedure Report EEG Procedure: Routine EEG Procedure Note: This is a routine 21 channel digital EEG performed utilizing 10- 20 international electrode placement system. FINDINGS: Patient has a predominant waking background frequency that is average voltage 8 to 10 Hertz alpha activity in the posterior region, normal amplitude symmetrical over the both hemispheres reactive to eyes opening and closing record continued to show alpha activity intermixed with some theta off and on, no abnormal activity recorded, predominantly no evidence of any spike wave discharges or any lateralizing abnormalities, Photic stimulation and hyperventilation did not produce any convulsive response. Intermittent EMG artifacts were noted. Stage II sleep was not achieved. Impression: Normal awake drowsy low amplitude electroencephalogram. No epileptiform discharges or any other paroxysmal activities noted. ( Please note that normal EEG does not exclude the diagnosis of seizures or epilepsy, clinical correlation is suggested)
[2019-01-31] MEDS: Insulin LISPRO 300 UNITS/3 ML VIAL SQ SCH ×2 (16:33→20:38)
[2019-01-31] MEDS: *HR* HYDROcodone/Acet 5/325 mg TABLET PO PRN (17:46)
[2019-01-31] MEDS: Mirtazapine 15 MG TABLET PO SCH (20:31)
[2019-01-31] MEDS: Pregabalin 75 MG CAPSULE PO SCH (20:32)
[2019-01-31] MEDS: Topiramate 25 MG TABLET PO SCH (20:33)
[2019-01-31] MEDS: Piperacillin/Tazobactam 3.375 GM in 0.9 % Sodium Chloride Mini Bag 100 ML IVPB SCH (20:34)
[2019-01-31] MEDS: *HR* Heparin 5,000 UNIT/ML VIAL SQ SCH (20:36)
[2019-01-31] MEDS ORDERED: Pregabalin 75 MG CAPSULE PO SCH (21:00)
[2019-01-31] MEDS ORDERED: Mirtazapine 15 MG TABLET PO SCH (21:00)
[2019-01-31] MEDS ORDERED: Vancomycin 1,750 MG in 0.9 % Sodium Chloride 250 ML IVPB SCH (22:00)
[2019-02-01 02:50] LABS: Basophils % 0.2 %; Eosinophils # 0.1 K/mcL (0.0-0.6); Eosinophils % 1.8 %; Hematocrit 31.9 % (37.5-50.1); Hemoglobin 10.4 g/dL (12.9-16.9); Immature Granulocytes % 0.4 % (0-4); Lymphocytes % 38.6 %; Mean Corpuscular HGB Conc 32.6 g/dL (31.6-35.5); Mean Corpuscular Hemoglobin 28.6 pg (28.0-33.3); Mean Corpuscular Volume 87.6 fL (83.0-100.0); Mean Platelet Volume 11.8 fL (9.4-12.4); Monocytes # 0.3 K/mcL (0.0-1.3); Monocytes % 5.3 %; Neutrophils # 2.7 K/mcL (1.6-8.9); Platelet Count 205 K/mcL (140-400); Red Blood Count 3.64 M/mcL (4.19-5.50); Red Cell Distribution Width 13.1 % (11.5-14.5); Segmented Neutrophils % 53.7 %
[2019-02-01 03:09] LABS: BUN/Creatinine Ratio 20 (6-26); Blood Urea Nitrogen 24 mg/dL (6-20); Calcium 8.1 mg/dL (8.6-10.3); Carbon Dioxide 24 mEq/L (23-29); Chloride 109 mEq/L (98-107); Glucose 249 mg/dL (70-105); Osmolality,Calculated 298 (280-300); Potassium 3.9 mEq/L (3.5-5.1); Sodium 138 mEq/L (136-145); eGFR For Non-African Americans > 60 (> 60)
[2019-02-01] MEDS: Piperacillin/Tazobactam 3.375 GM in 0.9 % Sodium Chloride Mini Bag 100 ML IVPB SCH ×3 (05:33→22:15)
[2019-02-01] MEDS: *HR* Heparin 5,000 UNIT/ML VIAL SQ SCH ×3 (05:33→22:19)
[2019-02-01 06:44] LABS: Estimated Average Glucose 252 mg/dl; Hemoglobin A1C 10.4 %
[2019-02-01] MEDS: Topiramate 25 MG TABLET PO SCH ×2 (08:52→22:35)
[2019-02-01] MEDS: BuPROPion XL (24 HR) 150 MG TABLET PO SCH (08:52)
[2019-02-01] MEDS: amLODIPine 5 MG TABLET PO SCH (08:52)
[2019-02-01] MEDS: Aspirin Enteric Coated 81 MG Tablet PO SCH (08:52)
--- NOTE | 2019-02-01 08:52 | Neurology Progress Note ---
<Thang Buckner - Last Filed: 02/01/19 10:41> Date of Encounter: 02/01/19 Time of Encounter: 08:52 Assessment and Plan (1) Syncope and collapse Current Visit: No Status: Acute Neuro consulted for evaluation of syncope and collapse. CT imaging of the head, MRI of brain both unremarkable. Carotid ultrasound 09/2018 with minimal plaque bilaterally, TTE-LVEF 50% Mild LVH, Moderate LVDD, No PHTN, no valvular dysfunction. Has had workup at [facility] with a positive tilt table test; DX with orthostatic hypotension secondary to peripheral and autonomic neuropathy. The patient reports that he is to have an evaluation at [facility] to further determine treatment options for his syncope. I discussed them today that he should continue with the [facility] evaluation. Neuro exam today does not reveal any new focal deficits. No further neurological workup recommended. Neurology will sign off. Please reconsult should any further need arise. Discharge at the discretion of the internal medicine team. (2) Weakness Current Visit: Yes Status: Acute Patient reports that the right sided weakness as a residual deficit S/P CVA 10/2017 MR spine and brain imaging negative for acute cause contributing to weakness. There is likely also a component of deconditioning as the patient reports a functional decline since syncopal episodes began. Recommend PT/OT evaluation; patient may benefit from rehabilitation Subjective Principal diagnosis: Syncope and collapse Interval history: Patient seen in follow-up for syncope and collapse. Denies any return of syncopal events since admission. Has known history of orthostatic hypotension secondary to peripheral and autonomic neuropathy. In regards to right arm and leg weakness the patient reports that these are residual deficits from prior infarct in October 2017. Of note his mental status has improved significantly today. Discussed neuroimaging findings with the patient he denies any further questions regarding his care at this time. Objective - Constitutional Vitals: Temp Pulse Resp BP Pulse Ox 97.7 F 85 16 157/90 96 02/01/19 07:59 02/01/19 07:59 02/01/19 07:59 02/01/19 07:59 02/01/19 07:59 Exam: Examination: General Examination: *CONSTITUTIONAL: Alert and oriented x3, no acute distress, *GENERAL APPEARANCE OF PATIENT overall is generally ill-appearing, who appears older than stated age *EYES: pupils equal, round, reactive to light and accommodation, conjunctiva clear *CARDIOVASCULAR RRR, S1, S2, no peripheral edema, distal temperature normal, dorsalis pedis pulses normal. Musculoskeletal: *GAIT AND STATION deferred *ASSESSMENT OF MUSCLE STRENGTH IN THE UPPER AND LOWER EXTREMITIES right deltoid, bicep, tricep, pulp beater strength 3/5, hip flexors ,anterior tibialis, dorsoflexion of the foot 3/5; chronic deficits S/P CVA 10/2017. Left deltoid, bicep, tricep, pulp beater strength 4/5, left hip flexors, anterior tibialis, dorsiflexion of left foot 4/5 *MUSCLE TONE IN THE UPPER AND LOWER EXTREMITIES normal. No abnormal movements, fasciculations or atrophy identified. Neurological: *ORIENTATION to person, situation, time and place *RECURRENT AND REMOTE MEMORY intact *ATTENTION AND CONCENTRATION are abnormal, needs redirection, appears to be lethargic *LANGUAGE FUNCTION no significant aphasia or dysarthia was noted. *FUND OF KNOWLEDGE aware of current events, past history, vocabulary *MENTAL attention span and concentration abnormal; needing redirection. *CN II optic fundi were normal, no papilledema noted. *CN III,IV, PERRLA extraocular eye movements were full, no nystagmus and no ptosis noted. *CN V shows normal sensation and jaw opens symmetrically. *CN VII shows normal facial movement symmetrically, upper and lower bilaterally with passive observation. *CN VIII shows no significant hearing loss on exam *CN IX,,X palate elevated symmetrically *CN XI normal strength in the sternocleidomastoid muscles, symmetrical shoulder shrugging; moves head through full ROM with passive observation. *CN XII tongue protruded in the midline, with normal strength and movement. *SENSORY EXAMINATION light touch intact *REFLEXES: DTR bilateral biceps, brachioradialis and triceps were 1/4 symmetrically, patellar reflexes absent bilaterally, present Achilles reflexes 1/4 symmetrically *CEREBELLAR TESTING dysmetria present with finger to nose, most notably on the right *PAIN LEVEL 0 Results - Laboratory Findings CBC and BMP: 02/01/19 02:17 02/01/19 02:17 Abnormal lab findings: Abnormal lab results RBC 3.64 M/mcL (4.19-5.50) L 02/01/19 02:17 Hgb 10.4 g/dL (12.9-16.9) L 02/01/19 02:17 Hct 31.9 % (37.5-50.1) L 02/01/19 02:17 ABG pO2 131 mmHg (85-104) H 01/31/19 05:16 ABG O2 Saturation 99 % (95-98) H 01/31/19 05:16 ABG Base Excess -3 mEq/L (-2 to 3) L 01/31/19 05:16 Chloride 109 mEq/L (98-107) H 02/01/19 02:17 Carbon Dioxide 21 mEq/L (23-29) L 01/31/19 03:24 BUN 24 mg/dL (6-20) H 02/01/19 02:17 1.90 mg/dL (0.70-1.30) H 01/31/19 03:24 Est GFR ( Amer) 46 (> 60) L 01/31/19 03:24 Est GFR (Non-Af Amer) 38 (> 60) L 01/31/19 03:24 Glucose 249 mg/dL (70-105) H 02/01/19 02:17 POC Glucose 210 mg/dL (70-99) H 01/31/19 23:23 10.4 % (-5.6) H 02/01/19 02:17 Lactic Acid 2.8 mmol/L (0.5-2.2) H 01/30/19 20:55 Calcium 8.1 mg/dL (8.6-10.3) L 02/01/19 02:17 AST 10 Units/L (13-39) L 01/30/19 20:55 0.05 ng/mL (< 0.04) H* 01/31/19 03:24 6.1 g/dL (6.4-8.9) L 01/30/19 20:55 2.3 g/dL (2.4-3.5) L 01/30/19 20:55 Ur Specific [place] > 1.030 (1.010-1.025) H 01/30/19 21:38 >=1000 mg/dL (Normal) H 01/30/19 21:38 Salicylates < 2.5 mg/dL (15.0-30.0) L 01/30/19 20:55 Positive ng/mL (Zfvhrz=144) H 01/30/19 21:38 Acetaminophen < 10 mcg/mL (10-20) L 01/30/19 20:55 Consult Discharge Plan - Plan [facility]errals: [facility] [Primary Care Provider[facility] - <Stacey Baron I - Last Filed: 02/01/19 15:01> Date of Encounter: 02/01/19 Assessment and Plan (1) Syncope and collapse Current Visit: No Status: Acute I have personally performed a face to face diagnostic evaluation, including HPI, EXAM, which is included in the Assesment and plan, which was discussed with Thang Buckner CNP, I agree with the above outlined documentation. Stacey Baron MD. NeurologyI (2) Weakness Current Visit: Yes Status: Acute Objective - Constitutional Vitals: Temp Pulse Resp BP Pulse Ox 98.1 F 80 16 154/103 97 02/01/19 11:42 02/01/19 11:42 02/01/19 11:42 02/01/19 11:42 02/01/19 11:42 Results - Laboratory Findings CBC and BMP: 02/01/19 02:17 02/01/19 02:17 Abnormal lab findings: Abnormal lab results RBC 3.64 M/mcL (4.19-5.50) L 02/01/19 02:17 Hgb 10.4 g/dL (12.9-16.9) L 02/01/19 02:17 Hct 31.9 % (37.5-50.1) L 02/01/19 02:17 ABG pO2 131 mmHg (85-104) H 01/31/19 05:16 ABG O2 Saturation 99 % (95-98) H 01/31/19 05:16 ABG Base Excess -3 mEq/L (-2 to 3) L 01/31/19 05:16 Chloride 109 mEq/L (98-107) H 02/01/19 02:17 Carbon Dioxide 21 mEq/L (23-29) L 01/31/19 03:24 BUN 24 mg/dL (6-20) H 02/01/19 02:17 1.90 mg/dL (0.70-1.30) H 01/31/19 03:24 Est GFR ( Amer) 46 (> 60) L 01/31/19 03:24 Est GFR (Non-Af Amer) 38 (> 60) L 01/31/19 03:24 Glucose 249 mg/dL (70-105) H 02/01/19 02:17 POC Glucose 210 mg/dL (70-99) H 01/31/19 23:23 10.4 % (-5.6) H 02/01/19 02:17 Lactic Acid 2.8 mmol/L (0.5-2.2) H 01/30/19 20:55 Calcium 8.1 mg/dL (8.6-10.3) L 02/01/19 02:17 AST 10 Units/L (13-39) L 01/30/19 20:55 0.05 ng/mL (< 0.04) H* 01/31/19 03:24 6.1 g/dL (6.4-8.9) L 01/30/19 20:55 2.3 g/dL (2.4-3.5) L 01/30/19 20:55 Ur Specific [place] > 1.030 (1.010-1.025) H 01/30/19 21:38 >=1000 mg/dL (Normal) H 01/30/19 21:38 Salicylates < 2.5 mg/dL (15.0-30.0) L 01/30/19 20:55 Positive ng/mL (Xpzhwd=552) H 01/30/19 21:38 Acetaminophen < 10 mcg/mL (10-20) L 01/30/19 20:55
[2019-02-01] MEDS: Pregabalin 75 MG CAPSULE PO SCH ×2 (08:53→22:36)
[2019-02-01] MEDS: Insulin LISPRO 300 UNITS/3 ML VIAL SQ SCH ×5 (08:53→22:18)
[2019-02-01] MEDS ORDERED: Aspirin Enteric Coated 81 MG Tablet PO SCH (09:00)
--- NOTE | 2019-02-01 11:33 | Event Note ---
Date of Encounter: 02/01/19 Time of Encounter: 11:29 - Cardiology Event Note Records that cardiology ordered from [place] reviewed, cardiology signed off yesterday. Pt received PTCA and GIOVANNA to the LAD 11/19/18. No significant disease otherwise. Noted pt was not compliant with plavix initially and he was re-admitted two days later with chest pain. No re-peat intervention. Out-pt f/u with cardiology recommended. No further cardiac testing. Continue hydration, slow position change as needed for vasodepressor syncope. Call with questions.
[2019-02-01] MEDS: *HR* HYDROcodone/Acet 5/325 mg TABLET PO PRN (12:01)
--- NOTE | 2019-02-01 15:13 | Electrocardiograph Report ---
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
--- NOTE | 2019-02-01 15:20 | Electrocardiograph Report ---
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
[2019-02-01] MEDS ORDERED: Insulin DETEMIR 100 UNIT/ML X5UNITS SQ ONE ×2 (16:25→21:00)
[2019-02-01] MEDS: Cholestyramine 4 GM POWD.PACK PO SCH ×2 (19:37→22:30)
[2019-02-01] MEDS: Mirtazapine 15 MG TABLET PO SCH (22:34)
--- NOTE | 2019-02-02 00:01 | Internal Med Progress Note ---
Hospitalist Progress Note - Encounter Date of Encounter: 02/01/19 Time of Encounter: 19:00 - Subjective Interval History: SUBJECTIVE: The patient is a 49-year-old male. He has experienced are a few falls recently. We found him to have acute kidney injury. We suspect him to have pneumonia. Cardiology and neurology are helping. He feels better. He tells me that the weakness in his legs subsided. Denies chest pain and difficulty breathing. Complains of loose bowel movements, likely secondary to Zosyn. OBJECTIVE: Skin: Free of rash and discoloration. ENMT: Oral/pharyngeal mucosa is normal in appearance. Eyes: Sclera is white. There is no discharge from eyes. Respiratory: Normal breath sounds. I cannot hear any rhonchi or wheezes. CV: Heart is regular, with no gallop or murmur. GI: Abdomen is soft and not tender. There is no palpable mass or visceromegaly. Neuro: There is no focal deficits. ADDITIONAL DATA: CBC is normal. BMP shows normal electrolytes. Creatinine is 1.23; 1.90 yesterday. Imaging studies of brain/carotid arteries are unremarkable. ASSESSMENT AND PLAN: Recurrent falls. Possible postural hypotension. Likely due to peripheral and autonomic neuropathy. See notes from neurology. Feels better after getting IV fluids; basically recovered from acute kidney injury. His telemetry does not show any abnormalities. The patient had cardiac catheterization and insertion of a stent into LAD in November. See notes from cardiology. There is no evidence for pneumonia. I am going to stop his antibiotics (includi ng Zosyn). Type 2 diabetes mellitus. Continue Levemir and when necessary Humalog Disposition: I requested physical therapy and occupational therapy. We will proceed depending on evaluation from them. - Exam Vitals: Temp Pulse Resp BP Pulse Ox 97.8 F 88 100 180/111 97 02/01/19 19:47 02/01/19 19:47 02/01/19 19:47 02/01/19 19:47 02/01/19 16:39 Exam: xx - Assessment and Plan (1) Syncope and collapse Current Visit: No Status: Acute (2) ALESSANDRO (acute kidney injury) Current Visit: Yes Status: Acute (3) Diabetes mellitus, type 2 Current Visit: No Status: Chronic (4) Hypertension Current Visit: Yes Status: Chronic (5) Pneumonia Current Visit: Yes Status: Ruled-out (6) Acute encephalopathy Current Visit: No Status: Resolved (7) History of CVA (cerebrovascular accident) Current Visit: No Status: Chronic - Time Spent with Patient Total time spent is greater than 50% in coordination of care (as documented) at patient's floor/unit and/or counseling patient: 25 - 35 minutes Plan of Care Discussed with: patient Internal Medicine: Result - Labs CBC & Chem 7: 02/01/19 02:17 02/01/19 02:17 Labs: Short CBC 02/01/19 Range/Units 02:17 WBC 5.1 (4.3-11.1) K/mcL Hgb 10.4 L (12.9-16.9) g/dL Hct 31.9 L (37.5-50.1) % Plt Count 205 (140-400) K/mcL Neutrophils # 2.7 (1.6-8.9) K/mcL BMP 02/01/19 02:17 Sodium 138 Potassium 3.9 Chloride 109 H Carbon Dioxide 24 BUN 24 H Creatinine 1.23 Glucose 249 H Calcium 8.1 L - ABG Interpretation ABG results: ABG ABG pH 7.33 pH Units (7.32-7.45) 01/31/19 05:16 ABG pCO2 45 mmHg (35-45) 01/31/19 05:16 ABG pO2 131 mmHg (85-104) H 01/31/19 05:16 ABG O2 Saturation 99 % (95-98) H 01/31/19 05:16 Consult Discharge Plan - Plan [facility]errals: [facility] [Primary Care Provider] - (3) Diabetes mellitus, type 2 Qualifiers: Diabetes mellitus cancer spec insulin use: unspecified residential insulin use status Diabetes mellitus complication status: with neurologic complications Diabetes mellitus complication detail: with autonomic neuropathy Qualified Code(s): E11.43 - Type 2 diabetes mellitus with diabetic autonomic (poly)neuropathy (4) Hypertension Qualifiers: Hypertension type: essential hypertension Qualified Code(s): I10 - Essential (primary) hypertension (5) Pneumonia Qualifiers: Pneumonia type: due to unspecified organism Laterality: unspecified laterality Lung location: unspecified part of lung Qualified Code(s): J18.9 - Pneumonia, unspecified organism
[2019-02-02] MEDS: Piperacillin/Tazobactam 3.375 GM in 0.9 % Sodium Chloride Mini Bag 100 ML IVPB SCH ×3 (05:53→20:36)
[2019-02-02] MEDS: *HR* Heparin 5,000 UNIT/ML VIAL SQ SCH ×3 (05:55→20:40)
[2019-02-02] MEDS: Insulin LISPRO 300 UNITS/3 ML VIAL SQ SCH ×7 (07:49→22:03)
[2019-02-02] MEDS: Pregabalin 75 MG CAPSULE PO SCH ×2 (07:54→20:36)
[2019-02-02] MEDS: Aspirin Enteric Coated 81 MG Tablet PO SCH (07:54)
[2019-02-02] MEDS: BuPROPion XL (24 HR) 150 MG TABLET PO SCH (07:54)
[2019-02-02] MEDS: Topiramate 25 MG TABLET PO SCH ×2 (07:54→20:35)
[2019-02-02] MEDS: amLODIPine 5 MG TABLET PO SCH (07:54)
[2019-02-02] MEDS: Cholestyramine 4 GM POWD.PACK PO SCH ×4 (07:55→20:36)
[2019-02-02] MEDS: Insulin DETEMIR 100 UNIT/ML X5UNITS SQ SCH ×2 (07:58→20:37)
--- NOTE | 2019-02-02 13:13 | Discharge Summary ---
- NOTES TO OUTPATIENT PROVIDER Notes to Outpatient Provider: when go from supine to sitting up, to stanindg up must dangle legs and coutn to ten, do not get up suddenlty, use walker at all times, use fall precuation at all times, apply abd binders and adenike wraps each AM Orders not resulted at time of discharge: Pending orders 01/30/19 22:58 Culture,Blood [BC] Stat Date of Encounter: 02/02/19 Time of Encounter: 13:11 - Discharge Diagnosis (1) Orthostatic hypotension dysautonomic syndrome Priority: Primary Status: Acute Hospital course: Mr. Fernandes is a 49 year old male with past medical history of CVA, hypertension, orthostatic hypotension, diabetes mellitus, MO with two stents, BPH who was presented to the ED via EMS after falls and loss of consciousness. Patient was intubated therefore history was obtained from the . Per on 01/29/19 he got up from bed and had a fall, he was not very responsive but she reports his consciousness returned and he went back to bed. He does have history of numerous falls in the past and has been evaluated at [facility] for the falls in the past, the is unsure of the workup but reports he is told to have orthostatic hypotension. He had another fall on on 01/29/19 and the reports she helped him back to bed and the patient did not want to go to the ED at that time. He did have loss of bowel function in bed. She reports during the day he was more awake and alert but later in he evening he had another fall and was not very arousable. He also complained of chest pain and asked for nitroglycerin which reports she gave him. Subsequently EMS was called and he was brought to the ED. Prior to these falls the reports he was not complaining of any symptoms but she also notes he tends to not complain much. He had returned home 27 days ago from [place] [facility] facility after a recent stroke in and was admitted to [facility] for hardy. Pt was ketp in the hospital and apparenlty pt had a positive tild table test and neurolgoy and cardiolgoy saw the pt and both signed off. I recommened ab d binder for the pt and no fruther in pt work up or treatment is needed. time: 35 min Discharge discussed with: patient - Time Spent with Patient Total time spent providing and/or coordinating discharge services: - Discharge Medications Prescriptions: Continued Tamsulosin [Flomax] 0.4 mg PO DAILY Melatonin [Melatin] 3 mg PO HS Insulin Glargine,Hum.rec.anlog [Lantus Solostar] 60 unit SQ HS Insulin ASPART [NovoLOG] 7 unit SQ TIDWM HYDROcodone/Acet 5/325 mg [[place] 5-325 mg] 1 tab PO Q4H PRN PRN Reason: Pain Ammonium Lactate [[place]-Hydrolac] 1 applic TP BID Bupropion HCl [Wellbutrin Xl] 300 mg PO DAILY Pyridostigmine Br [Mestinon] 60 mg PO TID Sennosides/Docusate Sodium [Docusate Sodium-Senna Tablet] 1 each PO BID PRN PRN Reason: Constipation Aspirin [Adult Aspirin] 81 mg PO DAILY Nitroglycerin [Nitrostat] 0.4 mg SL Q5M PRN PRN Reason: Chest Pain Bacitracin OINT [Ak-Tracin] 1 appl TP DAILY Carboxymethylcellulose Sodium [Refresh Liquigel] 1 drop OP QID Clopidogrel [Plavix] 75 mg PO DAILY Gemfibrozil [Lopid] 600 mg PO QPM Lisinopril [Zestril] 10 mg PO DAILY Magnesium Hydroxide [Milk of Magnesia] 30 ml PO TID PRN PRN Reason: Constipation Mirtazapine [Remeron] 7.5 mg PO HS Mupirocin [Bactroban Oint] 1 appl TP BID Pantoprazole Sodium [Protonix] 40 mg PO DAILY Pregabalin [Lyrica] 300 mg PO BID Topiramate [Topamax] 50 mg PO BID Home Medications: HYDROcodone/Acet 5/325 mg [[place] 5-325 mg] 1 tab PO Q4H PRN 03/08/18 [History] Insulin ASPART [NovoLOG] 7 unit SQ TIDWM 03/08/18 [History] Insulin Glargine,Hum.rec.anlog [Lantus Solostar] 60 unit SQ HS 03/08/18 [History] Melatonin [Melatin] 3 mg PO HS 03/08/18 [History] Tamsulosin [Flomax] 0.4 mg PO DAILY 03/08/18 [History] Ammonium Lactate [[place]-Hydrolac] 1 applic TP BID 08/08/18 [History] Bupropion HCl [Wellbutrin Xl] 300 mg PO DAILY 08/08/18 [History] Pyridostigmine Br [Mestinon] 60 mg PO TID 08/08/18 [History] Sennosides/Docusate Sodium [Docusate Sodium-Senna Tablet] 1 each PO BID PRN 08/08/18 [History] Aspirin [Adult Aspirin] 81 mg PO DAILY 09/15/18 [History] Nitroglycerin [Nitrostat] 0.4 mg SL Q5M PRN 09/15/18 [History] Bacitracin OINT [Ak-Tracin] 1 appl TP DAILY 01/30/19 [History] Carboxymethylcellulose Sodium [Refresh Liquigel] 1 drop OP QID 01/30/19 [History] Clopidogrel [Plavix] 75 mg PO DAILY 01/30/19 [History] Gemfibrozil [Lopid] 600 mg PO QPM 01/30/19 [History] Lisinopril [Zestril] 10 mg PO DAILY 01/30/19 [History] Magnesium Hydroxide [Milk of Magnesia] 30 ml PO TID PRN 01/30/19 [History] Mirtazapine [Remeron] 7.5 mg PO HS 01/30/19 [History] Mupirocin [Bactroban Oint] 1 appl TP BID 01/30/19 [History] Pantoprazole Sodium [Protonix] 40 mg PO DAILY 01/30/19 [History] Pregabalin [Lyrica] 300 mg PO BID 01/30/19 [History] Topiramate [Topamax] 50 mg PO BID 01/30/19 [History] Allergies/Adverse Reactions: Allergy/AdvReac Type Severity Reaction Status Date / Time No Known Allergies Allergy Verified 09/15/18 09:42 Date of admission: 01/30/19 23:32 [facility] care physician: [facility] Consults: 01/31/19 04:19 Consult to Cardiology [CONS] Routine Comment: Consulting Provider: Cardiology Tamra Reason for Consult: elevated troponin, recent MO with two stents and stent thrombosis, complained fo chest pain Call Completed: No Consult to Neurology [CONS] Routine Consulting Provider: [facility] Reason for Consult: recent cva, continues to have falls with syncopal episodes. Recent loss of bowel function in bed and syncopal episode at home Call Completed: No 01/31/19 04:22 Consult to Critical Care [CONS] Routine Consulting Provider: [facility] [place] Reason for Consult: intubated for airway protection due to acute encephalopathy Call Completed: No 01/31/19 12:27 Consult to Interpret Exam [CONS] Routine Consulting Provider: Stacey Baron I Consult to Interpret Exam: Interpret EEG 02/01/19 15:52 Consult to Occupational Therapy [CONS] Routine Comment: Evaluate, develop and implement POC Reason for Consult: Assess for possible rehab at discharge. [facility] Does patient have active BEDREST order?: No Is patient medically & hemodynamically stable?: Yes Consult to Physical Therapy [CONS] Routine Comment: Evaluate, develop and implement POC Reason for Consult: Assess for possible rehab at discharge. [facility] be [facility] Does patient have active BEDREST order?: No Is patient medically & hemodynamically stable?: Yes - Constitutional Vitals: Temp Pulse Resp BP Pulse Ox 98.2 F 75 16 103/42 98 02/02/19 11:45 02/02/19 11:45 02/02/19 11:45 02/02/19 11:45 02/02/19 04:50 Exam: Gen: A+OO x 3 NAD Heart: S1, S2, RRR lungs: CATB, no w/c/r abd: soft, NT/ND LE: no edema - Patient Status Disposition: Home, Self-Care Condition: Critical - Ambulatory Orders Ambulatory Orders: Misc. Order2 Time Frame: 1 Week, Facility: [facility], Location: [facility] - Discharge Instructions Instructions: Acute Kidney Injury (DC), Pneumonia (DC) Follow Up With: [facility] [Primary Care Provider] - Additional Instructions: Please use abdominal binder to abdomen, and ADENIKE wraps to BLE before and during getting up out of bed or chair. This will help decrease your feelings of dizziness.
[2019-02-02] MEDS: *HR* HYDROcodone/Acet 5/325 mg TABLET PO PRN (16:54)
[2019-02-02] MEDS: Mirtazapine 15 MG TABLET PO SCH (20:36)
[2019-02-02] MEDS ORDERED: Insulin DETEMIR 100 UNIT/ML X5UNITS SQ SCH (21:00)
[2019-02-03] MEDS: Piperacillin/Tazobactam 3.375 GM in 0.9 % Sodium Chloride Mini Bag 100 ML IVPB SCH ×3 (05:14→21:15)
[2019-02-03] MEDS: *HR* Heparin 5,000 UNIT/ML VIAL SQ SCH ×3 (05:15→21:17)
[2019-02-03] MEDS: Aspirin Enteric Coated 81 MG Tablet PO SCH (08:11)
[2019-02-03] MEDS: BuPROPion XL (24 HR) 150 MG TABLET PO SCH (08:11)
[2019-02-03] MEDS: Pregabalin 75 MG CAPSULE PO SCH ×2 (08:11→21:16)
[2019-02-03] MEDS: Insulin LISPRO 300 UNITS/3 ML VIAL SQ SCH ×7 (08:12→22:12)
[2019-02-03] MEDS: Cholestyramine 4 GM POWD.PACK PO SCH ×4 (08:12→21:16)
[2019-02-03] MEDS: amLODIPine 5 MG TABLET PO SCH (08:12)
[2019-02-03] MEDS: Topiramate 25 MG TABLET PO SCH ×2 (08:12→21:16)
[2019-02-03] MEDS: Insulin DETEMIR 100 UNIT/ML X5UNITS SQ SCH ×2 (08:34→21:17)
[2019-02-03] MEDS ORDERED: Acetaminophen/Butalbital/CaffeineTABLET PO PRN (11:04)
--- NOTE | 2019-02-03 11:42 | Internal Med Progress Note ---
Hospitalist Progress Note - Encounter Date of Encounter: 02/03/19 Time of Encounter: 11:39 - Subjective Interval History: Pt state that pt has worsenign neuropathy, also a headahce today, bifrontal, no migraine in the past. - Exam Vitals: Temp Pulse Resp BP Pulse Ox 98.2 F 75 12 135/83 96 02/03/19 10:54 02/03/19 10:54 02/03/19 04:48 02/03/19 10:54 02/03/19 04:48 Exam: Gen: A+OO x 3 NAD Heart: S1, S2, RRR lungs: CATB, no w/c/r abd: soft, NT/ND LE: no edema - Assessment and Plan (1) Orthostatic hypotension dysautonomic syndrome Current Visit: Yes Status: Acute Assessment and Plan: (1) Syncope and collapse + tild table test will give pt abd binding and adenike wraps as well Pt will need reahb, PT/OT is seeing the pt (2) ALESSANDRO (acute kidney injury) deffered to neprholgoy (3) Diabetes mellitus, type 2 cont slidign scale, glucose is adeqautely controlled (4) headahce: will start pt on fiorocet 5)DM neuropahty: will increase the brad to TID dosage 6)dispo: [facility], last time pt refused it. time: 35 min - Time Spent with Patient Total time spent is greater than 50% in coordination of care (as documented) at patient's floor/unit and/or counseling patient: Internal Medicine: Result - Labs CBC & Chem 7: 02/01/19 02:17 02/01/19 02:17 - ABG Interpretation ABG results: ABG ABG pH 7.33 pH Units (7.32-7.45) 01/31/19 05:16 ABG pCO2 45 mmHg (35-45) 01/31/19 05:16 ABG pO2 131 mmHg (85-104) H 01/31/19 05:16 ABG O2 Saturation 99 % (95-98) H 01/31/19 05:16 Consult Discharge Plan - Plan Instructions: Acute Kidney Injury (DC), Pneumonia (DC) Additional Instructions: Please use abdominal binder to abdomen, and ADENIKE wraps to BLE before and during getting up out of bed or chair. This will help decrease your feelings of dizziness. Referrals: [facility] [Primary Care Provider] -
[2019-02-03] MEDS: *HR* HYDROcodone/Acet 5/325 mg TABLET PO PRN (11:59)
--- NOTE | 2019-02-03 12:57 | Electrocardiograph Report ---
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
[2019-02-03] MEDS: Mirtazapine 15 MG TABLET PO SCH (21:16)
[2019-02-04] MEDS: Piperacillin/Tazobactam 3.375 GM in 0.9 % Sodium Chloride Mini Bag 100 ML IVPB SCH ×3 (05:09→22:30)
[2019-02-04] MEDS: *HR* Heparin 5,000 UNIT/ML VIAL SQ SCH ×3 (05:09→22:27)
[2019-02-04] MEDS: Cholestyramine 4 GM POWD.PACK PO SCH ×5 (08:04→22:29)
[2019-02-04] MEDS: Insulin LISPRO 300 UNITS/3 ML VIAL SQ SCH ×7 (08:04→22:25)
[2019-02-04] MEDS: BuPROPion XL (24 HR) 150 MG TABLET PO SCH (10:06)
[2019-02-04] MEDS: Aspirin Enteric Coated 81 MG Tablet PO SCH (10:06)
[2019-02-04] MEDS: amLODIPine 5 MG TABLET PO SCH (10:07)
[2019-02-04] MEDS: Pregabalin 75 MG CAPSULE PO SCH ×2 (10:07→22:22)
[2019-02-04] MEDS: Topiramate 25 MG TABLET PO SCH ×2 (10:07→22:22)
[2019-02-04] MEDS: Insulin DETEMIR 100 UNIT/ML X5UNITS SQ SCH ×2 (10:08→22:26)
[2019-02-04] MEDS: *HR* HYDROcodone/Acet 5/325 mg TABLET PO PRN ×2 (10:11→22:38)
--- NOTE | 2019-02-04 11:16 | Internal Med Progress Note ---
Hospitalist Progress Note - Encounter Date of Encounter: 02/04/19 Time of Encounter: 11:15 - Subjective Interval History: Pt wants to leave, I told him that leaving would be not advised as he falls so much. He then agreed to stay. - Exam Vitals: Temp Pulse Resp BP Pulse Ox 98 F 80 15 129/88 96 02/04/19 07:56 02/04/19 07:56 02/04/19 07:56 02/04/19 07:56 02/03/19 04:48 Exam: Gen: A+OO x 3 NAD Heart: S1, S2, RRR lungs: CATB, no w/c/r abd: soft, NT/ND LE: no edema - Assessment and Plan (1) Orthostatic hypotension dysautonomic syndrome Current Visit: Yes Status: Acute - Summary of Assessment and Plan Summary of Assessment and Plan: (1) Orthostatic hypotension dysautonomic syndrome Current Visit: Yes Status: Acute Assessment and Plan: (1) Syncope and collapse + tild table test will give pt abd binding and adenike wraps as well Pt will need reahb, PT/OT is seeing the pt (2) ALESSANDRO (acute kidney injury) deffered to neprholgoy (3) Diabetes mellitus, type 2 cont slidign scale, glucose is adeqautely controlled (4) headahce: will start pt on fiorocet 5)DM neuropahty: will increase the brad to TID dosage 6)dispo: [facility], last time pt refused it. time: 35 min - Time Spent with Patient Total time spent is greater than 50% in coordination of care (as documented) at patient's floor/unit and/or counseling patient: Internal Medicine: Result - Labs CBC & Chem 7: 02/01/19 02:17 02/01/19 02:17 - ABG Interpretation ABG results: ABG ABG pH 7.33 pH Units (7.32-7.45) 01/31/19 05:16 ABG pCO2 45 mmHg (35-45) 01/31/19 05:16 ABG pO2 131 mmHg (85-104) H 01/31/19 05:16 ABG O2 Saturation 99 % (95-98) H 01/31/19 05:16 Consult Discharge Plan - Plan Instructions: Acute Kidney Injury (DC), Pneumonia (DC) Additional Instructions: Please use abdominal binder to abdomen, and ADENIKE wraps to BLE before and during getting up out of bed or chair. This will help decrease your feelings of dizziness. Referrals: [facility] [Primary Care Provider] -
[2019-02-04] MEDS: Mirtazapine 15 MG TABLET PO SCH (22:23)
[2019-02-05] MEDS: Melatonin 3 MG TABLET PO PRN ×2 (00:01→22:13)
[2019-02-05] MEDS: *HR* Heparin 5,000 UNIT/ML VIAL SQ SCH ×3 (05:55→22:11)
[2019-02-05] MEDS: Piperacillin/Tazobactam 3.375 GM in 0.9 % Sodium Chloride Mini Bag 100 ML IVPB SCH ×2 (05:55→14:20)
[2019-02-05] MEDS: Insulin DETEMIR 100 UNIT/ML X5UNITS SQ SCH ×2 (10:20→22:00)
[2019-02-05] MEDS: Cholestyramine 4 GM POWD.PACK PO SCH ×5 (10:20→22:10)
[2019-02-05] MEDS: Topiramate 25 MG TABLET PO SCH ×2 (10:21→20:17)
[2019-02-05] MEDS: BuPROPion XL (24 HR) 150 MG TABLET PO SCH (10:23)
[2019-02-05] MEDS: Pregabalin 75 MG CAPSULE PO SCH ×2 (10:23→20:16)
[2019-02-05] MEDS: amLODIPine 5 MG TABLET PO SCH (10:23)
[2019-02-05] MEDS: Insulin LISPRO 300 UNITS/3 ML VIAL SQ SCH ×7 (10:25→22:00)
[2019-02-05] MEDS: Aspirin Enteric Coated 81 MG Tablet PO SCH (10:25)
--- NOTE | 2019-02-05 11:08 | Internal Med Progress Note ---
Hospitalist Progress Note - Encounter Date of Encounter: 02/05/19 Time of Encounter: 11:08 - Subjective Interval History: Pt feels well no new issues. - Exam Vitals: Temp Pulse Resp BP Pulse Ox 97.4 F L 68 16 118/83 96 02/05/19 07:28 02/05/19 07:28 02/05/19 07:28 02/05/19 07:28 02/05/19 04:10 Exam: Gen: A+OO x 3 NAD Heart: S1, S2, RRR lungs: CATB, no w/c/r abd: soft, NT/ND LE: no edema - Assessment and Plan (1) Orthostatic hypotension dysautonomic syndrome Current Visit: Yes Status: Acute - Summary of Assessment and Plan Summary of Assessment and Plan: (1) Orthostatic hypotension dysautonomic syndrome Current Visit: Yes Status: Acute Assessment and Plan: (1) Syncope and collapse + tild table test will give pt abd binding and adenike wraps as well Pt will need reahb, PT/OT is seeing the pt (2) ALESSANDRO (acute kidney injury) deffered to neprholgoy (3) Diabetes mellitus, type 2 cont slidign scale, glucose is adeqautely controlled (4) headahce: will start pt on fiorocet 5)DM neuropahty: will increase the brad to TID dosage 6)dispo: [facility], last time pt refused it. time: 35 min - Time Spent with Patient Total time spent is greater than 50% in coordination of care (as documented) at patient's floor/unit and/or counseling patient: Internal Medicine: Result - Labs CBC & Chem 7: 02/01/19 02:17 02/01/19 02:17 - ABG Interpretation ABG results: ABG ABG pH 7.33 pH Units (7.32-7.45) 01/31/19 05:16 ABG pCO2 45 mmHg (35-45) 01/31/19 05:16 ABG pO2 131 mmHg (85-104) H 01/31/19 05:16 ABG O2 Saturation 99 % (95-98) H 01/31/19 05:16 Consult Discharge Plan - Plan Instructions: Acute Kidney Injury (DC), Pneumonia (DC) Additional Instructions: Please use abdominal binder to abdomen, and ADENIKE wraps to BLE before and during getting up out of bed or chair. This will help decrease your feelings of dizziness. Referrals: [facility] [Primary Care Provider] -
[2019-02-05] MEDS: *HR* HYDROcodone/Acet 5/325 mg TABLET PO PRN (12:19)
[2019-02-05] MEDS: Mirtazapine 15 MG TABLET PO SCH (20:17)
[2019-02-06] MEDS: *HR* Heparin 5,000 UNIT/ML VIAL SQ SCH ×3 (06:41→23:01)
[2019-02-06] MEDS: Insulin LISPRO 300 UNITS/3 ML VIAL SQ SCH ×7 (09:09→23:02)
[2019-02-06] MEDS: Topiramate 25 MG TABLET PO SCH ×2 (09:11→19:59)
[2019-02-06] MEDS: BuPROPion XL (24 HR) 150 MG TABLET PO SCH (09:11)
[2019-02-06] MEDS: Cholestyramine 4 GM POWD.PACK PO SCH ×4 (09:11→23:02)
[2019-02-06] MEDS: Aspirin Enteric Coated 81 MG Tablet PO SCH (09:11)
[2019-02-06] MEDS: amLODIPine 5 MG TABLET PO SCH (09:11)
[2019-02-06] MEDS: Pregabalin 75 MG CAPSULE PO SCH ×2 (09:17→19:58)
[2019-02-06] MEDS: *HR* HYDROcodone/Acet 5/325 mg TABLET PO PRN ×2 (09:24→19:58)
--- NOTE | 2019-02-06 11:22 | Internal Med Progress Note ---
Hospitalist Progress Note - Encounter Date of Encounter: 02/06/19 Time of Encounter: 11:21 - Subjective Interval History: pt feels well, no new issues. - Exam Vitals: Temp Pulse Resp BP Pulse Ox 97.7 F 74 16 122/90 98 02/06/19 07:09 02/06/19 07:09 02/06/19 07:09 02/06/19 07:09 02/06/19 05:15 Exam: Gen: A+OO x 3 NAD Heart: S1, S2, RRR lungs: CATB, no w/c/r abd: soft, NT/ND LE: no edema - Assessment and Plan (1) Orthostatic hypotension dysautonomic syndrome Current Visit: Yes Status: Acute - Summary of Assessment and Plan Summary of Assessment and Plan: (1) Orthostatic hypotension dysautonomic syndrome Current Visit: Yes Status: Acute Assessment and Plan: (1) Syncope and collapse + tild table test will give pt abd binding and adenike wraps as well Pt will need reahb, PT/OT is seeing the pt (2) ALESSANDRO (acute kidney injury) deffered to neprholgoy (3) Diabetes mellitus, type 2 cont slidign scale, glucose is adeqautely controlled (4) headahce: will start pt on fiorocet 5)DM neuropahty: will increase the brad to TID dosage 6)dispo: await [facility], then to rehab time: 35 min - Time Spent with Patient Total time spent is greater than 50% in coordination of care (as documented) at patient's floor/unit and/or counseling patient: Internal Medicine: Result - Labs CBC & Chem 7: 02/01/19 02:17 02/01/19 02:17 - ABG Interpretation ABG results: ABG ABG pH 7.33 pH Units (7.32-7.45) 01/31/19 05:16 ABG pCO2 45 mmHg (35-45) 01/31/19 05:16 ABG pO2 131 mmHg (85-104) H 01/31/19 05:16 ABG O2 Saturation 99 % (95-98) H 01/31/19 05:16 Consult Discharge Plan - Plan Instructions: Acute Kidney Injury (DC), Pneumonia (DC) Additional Instructions: Please use abdominal binder to abdomen, and ADENIKE wraps to BLE before and during getting up out of bed or chair. This will help decrease your feelings of dizziness. Referrals: [facility] [Primary Care Provider] -
[2019-02-06] MEDS: Insulin DETEMIR 100 UNIT/ML X5UNITS SQ SCH ×2 (12:26→23:15)
[2019-02-06] MEDS: Mirtazapine 15 MG TABLET PO SCH (19:59)
[2019-02-06] MEDS: Melatonin 3 MG TABLET PO PRN (23:01)
[2019-02-07] MEDS: *HR* Heparin 5,000 UNIT/ML VIAL SQ SCH (05:41)
[2019-02-07 07:55] VITALS: BP 115/90
[2019-02-07] MEDS: Pregabalin 75 MG CAPSULE PO SCH (08:41)
[2019-02-07] MEDS: Topiramate 25 MG TABLET PO SCH (08:41)
[2019-02-07] MEDS: amLODIPine 5 MG TABLET PO SCH (08:41)
[2019-02-07] MEDS: BuPROPion XL (24 HR) 150 MG TABLET PO SCH (08:41)
[2019-02-07] MEDS: Aspirin Enteric Coated 81 MG Tablet PO SCH (08:42)
[2019-02-07] MEDS: Insulin DETEMIR 100 UNIT/ML X5UNITS SQ SCH (08:42)
[2019-02-07] MEDS: Insulin LISPRO 300 UNITS/3 ML VIAL SQ SCH ×4 (08:43→12:30)
[2019-02-07] MEDS: Cholestyramine 4 GM POWD.PACK PO SCH ×2 (08:43→12:36)
--- NOTE | 2019-02-07 12:39 | Internal Med Progress Note ---
Hospitalist Progress Note - Encounter Date of Encounter: 02/07/19 Time of Encounter: 12:37 - Subjective Interval History: Pt denies chest pain or SOB. She denies fever chills, N/V or diarrhea. He denies abdominal pain. - Exam Vitals: Temp Pulse Resp BP Pulse Ox 98.2 F 72 17 115/90 94 02/07/19 07:51 02/07/19 07:51 02/07/19 07:51 02/07/19 07:51 02/07/19 07:51 Exam: General appearance: Alert and oriented x 3, not in acute distress Head exam: atraumatic, normocephalic Eye exam: Present: EOMI, PERRLA ENT exam: normal exam (edentulous), mucous membranes moist Neck exam: Present: normal inspection, trachea midline Chest inspection: Present: normal inspection, symmetric chest wall rise Respiratory exam: Present: normal lung sounds bilaterally. Absent: respiratory distress, wheezes, stridor Cardiovascular exam: Present: regular rate, normal rhythm Abdominal exam: Present: soft. Absent: distention, rigidity exam: Present: normal inspection Extremities exam: Present: normal inspection, normal capillary refill. Absent: pedal edema - Assessment and Plan (1) Multifocal pneumonia Current Visit: Yes Status: Acute Assessment and Plan: Pt was intubated 01/29/19 and successfully extubated. Aspiration vs community acquired pneumonia History of syncopal episodes which can increase his risk for aspiration pneumonia -MRSA swab negative. Pt did get one time dose of vancomycin. -Urine legionella and urine streptococcus antigen negative -Completed 7 days of Zosyn. CTA chest CT/CT CTA Dissection Study IMPRESSION: Within the chest there is multifocal consolidation seen throughout the lungs, suggestive of pneumonia. No dissection noted. Normal caliber abdominal aorta. No dissection noted. (2) Syncope and collapse Current Visit: No Status: Acute Assessment and Plan: History of frequent falls recently fell on 01/29 Zosyn and had underwent fall on 01/30/19 causing loss of consciousness. -Previous history of CVA in early December was treated at [facility] -CT of the head and neck as well as thoracic lumbar spine were done in the ED and shows no intracranial hemorrhage or bony defects -The fall could be related to his history of orthostatic hypotension superimposed on dehydration from pneumonia. -MRI of the brain showed no acute infarct. MRA head and neck also showed no acute infarct. -Consulted neurology due to frequent episodes of the fall. Pt reported to neurology that he has evaluation pending at [facility] to further determine treatment options for syncope. Follow up out pt at [facility] as planned. Pt offered rehab at [place] and he declined. 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 Pt refusing to go to [place] and states he wants to go instead. (3) Diabetes mellitus, type 2 Current Visit: No Status: Chronic Assessment and Plan: Resume home medications and SSI (4) History of CVA (cerebrovascular accident) Current Visit: No Status: Chronic Assessment and Plan: History of CVA. Presented to the ED on 12/08/18 due to focal weakness and received TPA. He was subsequently transferred to [facility] for further stroke management. Continue with home dose ASA and plavix. Pt also on Lopid (5) ALESSANDRO (acute kidney injury) Current Visit: Yes Status: Acute Assessment and Plan: Creatinine noted to be 2.59 on admission and baseline is 1.0. Likely secondary to sepsis as the GFR also decreased to 26. Last BMP 02/01/19. Repeat BMP 02/07/19 Cr 1.18. (6) Acute encephalopathy Current Visit: No Status: Resolved Assessment and Plan: Resolved Presented to the ED after a recent fall at home with loss of consciousness CT of the head does not show any intracranial hemorrhage or acute abnormalities Possibly secondary to home medications such as norco, remeron and lyrica which can decrease mental alertness Brain MRI negative for acute CVA (7) Hypertension Current Visit: Yes Status: Chronic Assessment and Plan: History of hypertension. Lisinopril held due to ALESSANDRO. Started on Norvasc 5 mg PO QD. Renal function repeated and Cr 1.18. May resume home dose Lisinopril and will DC norvasc DVT Prophylaxis: Heparin - Summary of Assessment and Plan Summary of Assessment and Plan: History of present illness: Dr. Hdz/ Wei Boles Mr. Fernandes is a 49 year old male with past medical history of CVA, hypertension, orthostatic hypotension, diabetes mellitus, AK with two stents, BPH who was pre sented to the ED via EMS after falls and loss of consciousness. Patient was intubated therefore history was obtained from the . Per on 01/29/19 he got up from bed and had a fall, he was not very responsive but she reports his consciousness returned and he went back to bed. He does have history of numerous falls in the past and has been evaluated at [facility] for the falls in the past, the is unsure of the workup but reports he is told to have orthostatic hypotension. He had another fall on on 01/29/19 and the reports she helped him back to bed and the patient did not want to go to the ED at that time. He did have loss of bowel function in bed. She reports during the day he was more awake and alert but later in he evening he had another fall and was not very arousable. He also complained of chest pain and asked for nitroglycerin which reports she gave him. Subsequently EMS was called and he was brought to the ED. Prior to these falls the reports he was not complaining of any symptoms but she also notes he tends to not complain much. He had returned home 27 days ago from [place] [facility] after a recent stroke in and was admitted to [facility] for that. In the ED he had CT of the head, neck and lumbar spine which did not show any acute abnormalities. His chest xray and CT of the thoracic spine showed multifocal airspace opacification involving the lungs. - Time Spent with Patient Total time spent is greater than 50% in coordination of care (as documented) at patient's floor/unit and/or counseling patient: less than 15 minutes Plan of Care Discussed with: patient Internal Medicine: Result - Labs CBC & Chem 7: 02/01/19 02:17 02/07/19 13:01 - ABG Interpretation ABG results: ABG ABG pH 7.33 pH Units (7.32-7.45) 01/31/19 05:16 ABG pCO2 45 mmHg (35-45) 01/31/19 05:16 ABG pO2 131 mmHg (85-104) H 01/31/19 05:16 ABG O2 Saturation 99 % (95-98) H 01/31/19 05:16 Consult Discharge Plan - Plan Instructions: Acute Kidney Injury (DC), Diabetes Mellitus Type 2 in Adults ( DC), Fall Prevention for Older Adults (GEN), Chronic Hypertension (DC), Pneumonia (DC) Additional Instructions: Please use abdominal binder to abdomen, and ADENIKE wraps to BLE before and during getting up out of bed or chair. This will help decrease your feelings of dizziness. [facility]: [facility] [Primary Care Provider] - (3) Diabetes mellitus, type 2 Qualifiers: Diabetes mellitus alf insulin use: unspecified exterminator insulin use status Diabetes mellitus complication status: with neurologic complications Diabetes mellitus complication detail: with autonomic neuropathy Qualified Code(s): E11.43 - Type 2 diabetes mellitus with diabetic autonomic (poly)neuropathy (7) Hypertension Qualifiers: Hypertension type: essential hypertension Qualified Code(s): I10 - Essential (primary) hypertension
[2019-02-07] MEDS: *HR* HYDROcodone/Acet 5/325 mg TABLET PO PRN (13:19)
[2019-02-07 13:33] LABS: BUN/Creatinine Ratio 31 (6-26); Blood Urea Nitrogen 36 mg/dL (6-20); Calcium 9.2 mg/dL (8.6-10.3); Carbon Dioxide 24 mEq/L (23-29); Chloride 109 mEq/L (98-107); Glucose 150 mg/dL (70-105); Osmolality,Calculated 299 (280-300); Potassium 4.4 mEq/L (3.5-5.1); Sodium 139 mEq/L (136-145); eGFR For Non-African Americans > 60 (> 60)
--- NOTE | 2019-02-07 14:59 | Discharge Summary ---
- NOTES TO OUTPATIENT PROVIDER Notes to Outpatient Provider: PCP in 5 to 7 days Date of Encounter: 02/07/19 Time of Encounter: 14:56 - Discharge Diagnosis (1) Multifocal pneumonia Priority: Primary Status: Acute Assessment and Plan: Pt was intubated 01/29/19 and successfully extubated. Aspiration vs community acquired pneumonia History of syncopal episodes which can increase his risk for aspiration pneumonia -MRSA swab negative. Pt did get one time dose of vancomycin. -Urine legionella and urine streptococcus antigen negative -Completed 7 days of Zosyn. CTA chest CT/CT CTA Dissection Study IMPRESSION: Within the chest there is multifocal consolidation seen throughout the lungs, suggestive of pneumonia. No dissection noted. Normal caliber abdominal aorta. No dissection noted. (2) Syncope and collapse Priority: Primary Status: Acute Assessment and Plan: History of frequent falls recently fell on 01/29 Zosyn 19 and had underwent fall on 01/30/19 causing loss of consciousness. -Previous history of CVA in early December was treated at [facility] -CT of the head and neck as well as thoracic lumbar spine were done in the ED and shows no intracranial hemorrhage or bony defects -The fall could be related to his history of orthostatic hypotension superimposed on dehydration from pneumonia. -MRI of the brain showed no acute infarct. MRA head and neck also showed no acute infarct. -Consulted neurology due to frequent episodes of the fall. Pt reported to neurology that he has evaluation pending at [facility] to further determine treatment options for syncope. Follow up out pt at [facility] as planned. Pt offered rehab at [place] and he declined. 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 Pt refusing to go to [place] and states he wants to go instead. (3) Diabetes mellitus, type 2 Priority: Primary Status: Chronic Assessment and Plan: Resume home medications and SSI Qualifiers: Diabetes mellitus longterm insulin use: unspecified longterm insulin use status Diabetes mellitus complication status: with neurologic complications Diabetes mellitus complication detail: with autonomic neuropathy Qualified Code(s): E11.43 - Type 2 diabetes mellitus with diabetic autonomic (poly)neuropathy (4) History of CVA (cerebrovascular accident) Priority: Secondary Status: Chronic Assessment and Plan: History of CVA. Presented to the ED on 12/08/18 due to focal weakness and received TPA. He was subsequently transferred to [facility] for further stroke management. Continue with home dose ASA and plavix. Pt also on Lopid (5) ALESSANDRO (acute kidney injury) Priority: Secondary Status: Acute Assessment and Plan: Creatinine noted to be 2.59 on admission and baseline is 1.0. Likely secondary to sepsis as the GFR also decreased to 26. Last BMP 02/01/19. Repeat BMP 02/07/19 Cr 1.18, resolved. (6) Acute encephalopathy Priority: Secondary Status: Resolved Assessment and Plan: Resolved Presented to the ED after a recent fall at home with loss of consciousness CT of the head does not show any intracranial hemorrhage or acute abnormalities Possibly secondary to home medications such as norco, remeron and lyrica which can decrease mental alertness Brain MRI negative for acute CVA (7) Hypertension Priority: Secondary Status: Chronic Assessment and Plan: History of hypertension. Lisinopril held due to ALESSANDRO. Started on Norvasc 5 mg PO QD. Renal function repeated and Cr 1.18. May resume home dose Lisinopril and will DC norvasc Qualifiers: Hypertension type: essential hypertension Qualified Code(s): I10 - Essential (primary) hypertension Hospital course: History of present illness: Dr. Hdz/ Wei Boles Mr. Fernandes is a 49 year old male with past medical history of CVA, hypertension, orthostatic hypotension, diabetes mellitus, SD with two stents, BPH who was presented to the ED via EMS after falls and loss of consciousness. Patient was intubated therefore history was obtained from the . Per on 01/29/19 he got up from bed and had a fall, he was not very responsive but she reports his consciousness returned and he went back to bed. He does have history of numerous falls in the past and has been evaluated at [facility] for the falls in the past, the is unsure of the workup but reports he is told to have orthostatic hypotension. He had another fall on on 01/29/19 and the reports she helped him back to bed and the patient did not want to go to the ED at that time. He did have loss of bowel function in bed. She reports during the day he was more awake and alert but later in he evening he had another fall and was not very arousable. He also complained of chest pain and asked for nitroglycerin which reports she gave him. Subsequently EMS was called and he was brought to the ED. Prior to these falls the reports he was not complaining of any symptoms but she also notes he tends to not complain much. He had returned home 27 days ago from [place] [facility] facility after a recent stroke in and was admitted to [facility] for that. In the ED he had CT of the head, neck and lumbar spine which did not show any acute abnormalities. His chest xray and CT of the thoracic spine showed multifocal airspace opacification involving the lungs. Discharge discussed with: patient - Time Spent with Patient Total time spent providing and/or coordinating discharge services: Time spent: Greater than 30 minutes - Discharge Medications Prescriptions: Continued Tamsulosin [Flomax] 0.4 mg PO DAILY Melatonin [Melatin] 3 mg PO HS Insulin Glargine,Hum.rec.anlog [Lantus Solostar] 60 unit SQ HS Insulin ASPART [NovoLOG] 7 unit SQ TIDWM HYDROcodone/Acet 5/325 mg [[place] 5-325 mg] 1 tab PO Q4H PRN PRN Reason: Pain Ammonium Lactate [[place]-Hydrolac] 1 applic TP BID Bupropion HCl [Wellbutrin Xl] 300 mg PO DAILY Pyridostigmine Br [Mestinon] 60 mg PO TID Sennosides/Docusate Sodium [Docusate Sodium-Senna Tablet] 1 each PO BID PRN PRN Reason: Constipation Aspirin [Adult Aspirin] 81 mg PO DAILY Nitroglycerin [Nitrostat] 0.4 mg SL Q5M PRN PRN Reason: Chest Pain Bacitracin OINT [Ak-Tracin] 1 appl TP DAILY Carboxymethylcellulose Sodium [Refresh Liquigel] 1 drop OP QID Clopidogrel [Plavix] 75 mg PO DAILY Gemfibrozil [Lopid] 600 mg PO QPM Lisinopril [Zestril] 10 mg PO DAILY Magnesium Hydroxide [Milk of Magnesia] 30 ml PO TID PRN PRN Reason: Constipation Mirtazapine [Remeron] 7.5 mg PO HS Mupirocin [Bactroban Oint] 1 appl TP BID Pantoprazole Sodium [Protonix] 40 mg PO DAILY Pregabalin [Lyrica] 300 mg PO BID Topiramate [Topamax] 50 mg PO BID Home Medications: HYDROcodone/Acet 5/325 mg [[place] 5-325 mg] 1 tab PO Q4H PRN 03/08/18 [History] Insulin ASPART [NovoLOG] 7 unit SQ TIDWM 03/08/18 [History] Insulin Glargine,Hum.rec.anlog [Lantus Solostar] 60 unit SQ HS 03/08/18 [History] Melatonin [Melatin] 3 mg PO HS 03/08/18 [History] Tamsulosin [Flomax] 0.4 mg PO DAILY 03/08/18 [History] Ammonium Lactate [[place]-Hydrolac] 1 applic TP BID 08/08/18 [History] Bupropion HCl [Wellbutrin Xl] 300 mg PO DAILY 08/08/18 [History] Pyridostigmine Br [Mestinon] 60 mg PO TID 08/08/18 [History] Sennosides/Docusate Sodium [Docusate Sodium-Senna Tablet] 1 each PO BID PRN 08/08/18 [History] Aspirin [Adult Aspirin] 81 mg PO DAILY 09/15/18 [History] Nitroglycerin [Nitrostat] 0.4 mg SL Q5M PRN 09/15/18 [History] Bacitracin OINT [Ak-Tracin] 1 appl TP DAILY 01/30/19 [History] Carboxymethylcellulose Sodium [Refresh Liquigel] 1 drop OP QID 01/30/19 [History] Clopidogrel [Plavix] 75 mg PO DAILY 01/30/19 [History] Gemfibrozil [Lopid] 600 mg PO QPM 01/30/19 [History] Lisinopril [Zestril] 10 mg PO DAILY 01/30/19 [History] Magnesium Hydroxide [Milk of Magnesia] 30 ml PO TID PRN 01/30/19 [History] Mirtazapine [Remeron] 7.5 mg PO HS 01/30/19 [History] Mupirocin [Bactroban Oint] 1 appl TP BID 01/30/19 [History] Pantoprazole Sodium [Protonix] 40 mg PO DAILY 01/30/19 [History] Pregabalin [Lyrica] 300 mg PO BID 01/30/19 [History] Topiramate [Topamax] 50 mg PO BID 01/30/19 [History] Allergies/Adverse Reactions: Allergy/AdvReac Type Severity Reaction Status Date / Time No Known Allergies Allergy Verified 09/15/18 09:42 Date of admission: 01/30/19 23:32 [facility] care physician: [facility] Consults: 01/31/19 04:19 Consult to Cardiology [CONS] Routine Comment: Consulting Provider: [facility] [place] Reason for Consult: elevated troponin, recent SD with two stents and stent thrombosis, complained fo chest pain Call Completed: No Consult to Neurology [CONS] Routine Consulting Provider: [facility] Reason for Consult: recent cva, continues to have falls with syncopal episodes. Recent loss of bowel function in bed and syncopal episode at home Call Completed: No 01/31/19 04:22 Consult to Critical Care [CONS] Routine Consulting Provider: [facility] [place] Reason for Consult: intubated for airway protection due to acute encephalopathy Call Completed: No 01/31/19 12:27 Consult to Interpret Exam [CONS] Routine Consulting Provider: Stacey Baron I Consult to Interpret Exam: Interpret EEG 02/01/19 15:52 Consult to Occupational Therapy [CONS] Routine Comment: Evaluate, develop and implement POC Reason for Consult: Assess for possible rehab at discharge. Will be [place] rehab Does patient have active BEDREST order?: No Is patient medically & hemodynamically stable?: Yes Consult to Physical Therapy [CONS] Routine Comment: Evaluate, develop and implement POC Reason for Consult: Assess for possible rehab at discharge. Will be [place] rehab Does patient have active BEDREST order?: No Is patient medically & hemodynamically stable?: Yes Discharging clinician: Magnolia Harrell Anticipated date of discharge: 02/07/19 - Constitutional Vitals: Temp Pulse Resp BP Pulse Ox 98.2 F 72 17 115/90 94 02/07/19 07:51 02/07/19 07:51 02/07/19 07:51 02/07/19 07:51 02/07/19 07:51 Exam: General appearance: Alert and oriented x 3, not in acute distress Head exam: atraumatic, normocephalic Eye exam: Present: EOMI, PERRLA ENT exam: normal exam (edentulous), mucous membranes moist Neck exam: Present: normal inspection, trachea midline Chest inspection: Present: normal inspection, symmetric chest wall rise Respiratory exam: Present: normal lung sounds bilaterally. Absent: respiratory distress, wheezes, stridor Cardiovascular exam: Present: regular rate, normal rhythm Abdominal exam: Present: soft. Absent: distention, rigidity exam: Present: normal inspection Extremities exam: Present: normal inspection, normal capillary refill. Absent: pedal edema - Patient Status Disposition: Home Health Service Condition: Good Overall status at discharge: patient is progressing back to baseline - Ambulatory Orders Ambulatory Orders: Misc. Order2 Time Frame: 1 Week, Facility: [facility], Location: Cath Lab Technologist - Discharge Instructions Instructions: Acute Kidney Injury (DC), Diabetes Mellitus Type 2 in Adults (DC), Fall Prevention for Older Adults (GEN), Chronic Hypertension (DC), Pneumonia (DC) [facility] With: [facility] [Primary Care Provider] - Additional Instructions: Please use abdominal binder to abdomen, and ADENIKE wraps to BLE before and during getting up out of bed or chair. This will help decrease your feelings of dizziness. - Diet and Activity Activity: increase activity as tolerated Diet: diabetic diet
--- NOTE | 2019-02-07 15:31 | Physician Discharge Referral ---
Home Health/Hosp Referral Info Transfer to: Home Health Provider in Charge Post Discharge: PCP - Diagnosis (1) Multifocal pneumonia Priority: Primary Status: Acute (2) Syncope and collapse Priority: Primary Status: Acute (3) Diabetes mellitus, type 2 Priority: Secondary Status: Chronic (4) History of CVA (cerebrovascular accident) Priority: Secondary Status: Chronic (5) ALESSANDRO (acute kidney injury) Priority: Secondary Status: Acute (6) Acute encephalopathy Status: Resolved (7) Hypertension Status: Chronic - Respiratory Orders Smoking Cessation: Smoking cessation has been advised. For more information, call the [place] Tobacco Quit Line at 4-386-ORXA-NOW. - Diet/Nutrition Diet/Nutrition Orders: No Concentrated Sweets - Services Needed Following services are medically necessary services: Nursing, Home Health Aide, Physical Therapy, Occupational Therapy - Transfer Medications Home Medications: HYDROcodone/Acet 5/325 mg [[place] 5-325 mg] 1 tab PO Q4H PRN 03/08/18 [History] Insulin ASPART [NovoLOG] 7 unit SQ TIDWM 03/08/18 [History] Insulin Glargine,Hum.rec.anlog [Lantus Solostar] 60 unit SQ HS 03/08/18 [His tory] Melatonin [Melatin] 3 mg PO HS 03/08/18 [History] Tamsulosin [Flomax] 0.4 mg PO DAILY 03/08/18 [History] Ammonium Lactate [[place]-Hydrolac] 1 applic TP BID 08/08/18 [History] Bupropion HCl [Wellbutrin Xl] 300 mg PO DAILY 08/08/18 [History] Pyridostigmine Br [Mestinon] 60 mg PO TID 08/08/18 [History] Sennosides/Docusate Sodium [Docusate Sodium-Senna Tablet] 1 each PO BID PRN 08/08/18 [History] Aspirin [Adult Aspirin] 81 mg PO DAILY 09/15/18 [History] Nitroglycerin [Nitrostat] 0.4 mg SL Q5M PRN 09/15/18 [History] Bacitracin OINT [Ak-Tracin] 1 appl TP DAILY 01/30/19 [History] Carboxymethylcellulose Sodium [Refresh Liquigel] 1 drop OP QID 01/30/19 [History] Clopidogrel [Plavix] 75 mg PO DAILY 01/30/19 [History] Gemfibrozil [Lopid] 600 mg PO QPM 01/30/19 [History] Lisinopril [Zestril] 10 mg PO DAILY 01/30/19 [History] Magnesium Hydroxide [Milk of Magnesia] 30 ml PO TID PRN 01/30/19 [History] Mirtazapine [Remeron] 7.5 mg PO HS 01/30/19 [History] Mupirocin [Bactroban Oint] 1 appl TP BID 01/30/19 [History] Pantoprazole Sodium [Protonix] 40 mg PO DAILY 01/30/19 [History] Pregabalin [Lyrica] 300 mg PO BID 01/30/19 [History] Topiramate [Topamax] 50 mg PO BID 01/30/19 [History] Allergies/Adverse Reactions: Allergy/AdvReac Type Severity Reaction Status Date / Time No Known Allergies Allergy Verified 09/15/18 09:42 Certification: Further, I certify that my clinical findings support that this patient is homebound (i.e. absences from home require considerable and taxing effort and are for medical reasons or [employer] services or infrequently or short duration when for other reasons) because: Homebound Reason: Patient requires assistance of a person or device to safely leave home Attestation: My signature below is to certify that this patient is under my care and that I, or nurse practitioner, or a physician's hotel assistant general manager working with me, has a [id number] encounter with this patient.
== END 2019-02-07 17:31 | disposition home health service (06) | DRG 871 ==
LOC: EMEROOARM 20:41 → ICNU 23:32 → SUATTDRO 23:32 → ICNU 01-31 00:40 → 2NENU 01-31 23:10
PROVIDERS: ADMIT Internal Medicine; ATTEND Internal Medicine

== ENCOUNTER 2019-08-10 15:43 | Observation (INO) ==
[2019-08-10] MEDS ORDERED: 0.9 % Sodium Chloride 1,000 ML IVC ONE (16:01)
[2019-08-10 16:45] LABS: Bilirubin,Urine Negative (Negative); Blood,Urine Negative (Negative); Clarity,Urine Clear (Clear); Color,Urine Yellow (Yellow); Glucose,Urine (UA) >=1000 mg/dL (Normal); Ketones,Urine Trace mg/dL (Negative); Leukocyte Esterase,Urine Negative (Negative); Nitrite,Urine Negative (Negative); PH,Urine 6.5 pH Units (5.0-8.0); Protein,Urine Trace mg/dL (Neg-Trace); Urobilinogen,Urine Normal (Normal)
[2019-08-10 17:06] LABS: Basophils % 0.5 %; Eosinophils % 0.7 %; Hemoglobin 12.8 g/dL (12.9-16.9); Immature Granulocytes % 0.2 % (0-4); Lymphocytes # 1.8 K/mcL (0.6-4.6); Lymphocytes % 31.9 %; Mean Corpuscular HGB Conc 32.8 g/dL (31.6-35.5); Mean Corpuscular Hemoglobin 28.8 pg (28.0-33.3); Mean Corpuscular Volume 87.6 fL (83.0-100.0); Mean Platelet Volume 11.2 fL (9.4-12.4); Monocytes # 0.3 K/mcL (0.0-1.3); Monocytes % 4.6 %; Neutrophils # 3.5 K/mcL (1.6-8.9); Platelet Count 222 K/mcL (140-400); Red Blood Count 4.45 M/mcL (4.19-5.50); Red Cell Distribution Width 13.1 % (11.5-14.5); Segmented Neutrophils % 62.1 %; White Blood Count 5.6 K/mcL (4.3-11.1)
[2019-08-10 17:27] LABS: BUN/Creatinine Ratio 25 (6-26); Blood Urea Nitrogen 24 mg/dL (6-20); Calcium 8.7 mg/dL (8.6-10.3); Carbon Dioxide 29 mEq/L (23-29); Chloride 100 mEq/L (98-107); Glucose 302 mg/dL (70-105); Osmolality,Calculated 297 (280-300); Potassium 4.3 mEq/L (3.5-5.1); Sodium 136 mEq/L (136-145); Troponin I < 0.03 ng/mL (< 0.04); eGFR For African Americans > 60 (> 60); eGFR For Non-African Americans > 60 (> 60)
[2019-08-10] MEDS ORDERED: Aspirin 325 MG TABLET PO ONE (18:06)
[2019-08-10] MEDS ORDERED: Naloxone 0.4 MG/ML INJ IVP PRN (18:10)
[2019-08-10] MEDS ORDERED: Sennosides/Docusate Sodium TABLET PO PRN (18:12)
[2019-08-10] MEDS ORDERED: MOM Conc 10 ML UD.LIQ PO PRN (18:12)
[2019-08-10] MEDS ORDERED: Nitroglycerin 0.4 MG TAB.SUBL SL PRN (18:12)
[2019-08-10] MEDS ORDERED: *HR* Dextrose 50 % in Water (Syg) 50 ML SYRINGE IVP PRN (18:14)
[2019-08-10] MEDS ORDERED: D5% in Water 1,000 ML IVC PRN (18:14)
[2019-08-10] MEDS ORDERED: Dextrose Gel 15 GM/37.5 ML TUBE PO PRN ×2 (18:14)
[2019-08-10 18:26] LABS: INR 0.9; Prothrombin Time 10.7 Seconds (9.4-12.1)
[2019-08-10 18:28] LABS: Activated Partial Thrombo Time 29.9 Seconds (26.0-36.0)
[2019-08-10 19:32] LABS: Estimated Average Glucose 364 mg/dl
[2019-08-10] MEDS ORDERED: *HR* Metoprolol 5 MG/5 ML VIAL IVP ONE (20:43)
[2019-08-10] MEDS: Topiramate 25 MG TABLET PO SCH (21:02)
[2019-08-10] MEDS: Mirtazapine 15 MG TABLET PO SCH (21:03)
[2019-08-10] MEDS: Melatonin 3 MG TABLET PO SCH (21:03)
[2019-08-10] MEDS: Pregabalin 75 MG CAPSULE PO SCH (21:03)
[2019-08-10] MEDS: Insulin LISPRO 300 UNITS/3 ML VIAL SQ SCH (21:10)
[2019-08-10] MEDS: Ammonium Lactate 30 APPL/225 GM BOTTLE TP SCH (22:02)
[2019-08-10] MEDS: Artificial Tears SOLN 15 ML BOTTLE OP SCH (22:04)
[2019-08-10] MEDS: Insulin DETEMIR 100 UNIT/ML X5UNITS SQ SCH (22:23)
[2019-08-11 05:09] LABS: Basophils % 0.4 %; Eosinophils # 0.1 K/mcL (0.0-0.6); Eosinophils % 1.3 %; Hematocrit 36.6 % (37.5-50.1); Immature Granulocytes % 0.4 % (0-4); Lymphocytes # 2.4 K/mcL (0.6-4.6); Lymphocytes % 51.5 %; Mean Corpuscular HGB Conc 32.8 g/dL (31.6-35.5); Mean Corpuscular Hemoglobin 28.6 pg (28.0-33.3); Mean Corpuscular Volume 87.4 fL (83.0-100.0); Mean Platelet Volume 11.6 fL (9.4-12.4); Monocytes # 0.3 K/mcL (0.0-1.3); Monocytes % 5.5 %; Neutrophils # 1.9 K/mcL (1.6-8.9); Platelet Count 211 K/mcL (140-400); Red Blood Count 4.19 M/mcL (4.19-5.50); Red Cell Distribution Width 13.2 % (11.5-14.5); Segmented Neutrophils % 40.9 %; White Blood Count 4.6 K/mcL (4.3-11.1)
[2019-08-11 05:28] LABS: BUN/Creatinine Ratio 27 (6-26); Blood Urea Nitrogen 28 mg/dL (6-20); Calcium 8.5 mg/dL (8.6-10.3); Carbon Dioxide 26 mEq/L (23-29); Chloride 102 mEq/L (98-107); Glucose 196 mg/dL (70-105); Magnesium 2.2 mg/dL (1.6-2.6); Osmolality,Calculated 295 (280-300); Phosphorous 3.8 mg/dL (2.7-4.5); Potassium 3.8 mEq/L (3.5-5.1); Sodium 137 mEq/L (136-145); eGFR For African Americans > 60 (> 60); eGFR For Non-African Americans > 60 (> 60)
[2019-08-11] MEDS: Topiramate 25 MG TABLET PO SCH ×2 (08:21→20:17)
[2019-08-11] MEDS: Aspirin Enteric Coated 81 MG Tablet PO SCH (08:22)
[2019-08-11] MEDS: BuPROPion XL (24 HR) 150 MG TABLET PO SCH (08:22)
[2019-08-11] MEDS: Pregabalin 75 MG CAPSULE PO SCH ×2 (08:22→20:15)
[2019-08-11] MEDS: Insulin LISPRO 300 UNITS/3 ML VIAL SQ SCH ×6 (08:23→17:42)
[2019-08-11] MEDS: Artificial Tears SOLN 15 ML BOTTLE OP SCH ×4 (08:31→20:15)
[2019-08-11] MEDS: Ammonium Lactate 30 APPL/225 GM BOTTLE TP SCH ×2 (08:32→20:22)
[2019-08-11] MEDS: Pyridostigmine Br 60 MG TABLET PO SCH ×4 (08:46→20:17)
[2019-08-11] MEDS ORDERED: Perflutren Lipid Microsphere 1.3 ML in 0.9 % Sodium Chloride 8.7 ML IVP ONE (10:09)
[2019-08-11] MEDS: *HR* HYDROcodone/Acet 5/325 mg TABLET PO PRN ×3 (13:12→22:29)
[2019-08-11] MEDS: Insulin DETEMIR 100 UNIT/ML X5UNITS SQ SCH (20:15)
[2019-08-11] MEDS: Mirtazapine 15 MG TABLET PO SCH (20:17)
[2019-08-11] MEDS: Melatonin 3 MG TABLET PO SCH (20:20)
[2019-08-11 21:53] LABS: Amphetamine Screen,Urine Negative ng/mL (Cutoff=1000); Barbiturate Screen,Urine Negative ng/mL (Cutoff=200); Benzodiazepines Screen,Urine Negative ng/mL (Cutoff=200); Cannabinoid Screen,Urine Negative ng/mL (Cutoff = 50); Cocaine Screen,Urine Negative ng/mL (Cutoff= 300); Opiate Screen,Urine Positive ng/mL (Cutoff=300); Phencyclidine Screen,Urine Negative ng/mL (Cutoff=25)
[2019-08-12] MEDS: *HR* HYDROcodone/Acet 5/325 mg TABLET PO PRN ×2 (05:22→12:38)
[2019-08-12] MEDS: Artificial Tears SOLN 15 ML BOTTLE OP SCH (08:45)
[2019-08-12] MEDS: Pregabalin 75 MG CAPSULE PO SCH (08:46)
[2019-08-12] MEDS: Topiramate 25 MG TABLET PO SCH (08:46)
[2019-08-12] MEDS: BuPROPion XL (24 HR) 150 MG TABLET PO SCH (08:46)
[2019-08-12] MEDS: Ammonium Lactate 30 APPL/225 GM BOTTLE TP SCH (08:46)
[2019-08-12] MEDS: Aspirin Enteric Coated 81 MG Tablet PO SCH (08:46)
[2019-08-12] MEDS: Pyridostigmine Br 60 MG TABLET PO SCH (08:46)
[2019-08-12] MEDS: Insulin LISPRO 300 UNITS/3 ML VIAL SQ SCH ×4 (08:47→12:41)
[2019-08-12 11:48] VITALS: BP 100/65
== END 2019-08-12 15:27 | disposition home or self-care (01) ==
LOC: EMEROOARM 15:43 → 3BNU 15:43 → SUATTDRO 18:41 → 3BNU 19:39
PROVIDERS: ADMIT Student in an Organized Health Care Education/Training Program; ATTEND Family Medicine

== ENCOUNTER 2022-02-18 15:14 | Inpatient (IN) ==
[2022-02-18] MEDS ORDERED: Piperacillin/Tazobactam 3.375 GM in 0.9 % Sodium Chloride Mini Bag 100 ML IVPB ONE (15:55)
[2022-02-18] MEDS ORDERED: Vancomycin 1,500 MG/265 ML IV.SOLN IVPB ONE (16:00)
[2022-02-18 16:09] LABS: Basophils % 0.5 %; Eosinophils # 0.1 K/mcL (0.0-0.6); Eosinophils % 1.1 %; Hematocrit 38.1 % (37.5-50.1); Hemoglobin 12.8 g/dL (12.9-16.9); Immature Granulocytes % 0.6 % (0-4); Lymphocytes # 1.5 K/mcL (0.6-4.6); Lymphocytes % 23.4 %; Mean Corpuscular HGB Conc 33.6 g/dL (31.6-35.5); Mean Corpuscular Hemoglobin 28.4 pg (28.0-33.3); Mean Corpuscular Volume 84.5 fL (83.0-100.0); Mean Platelet Volume 11.2 fL (9.4-12.4); Monocytes # 0.3 K/mcL (0.0-1.3); Monocytes % 5.2 %; Neutrophils # 4.6 K/mcL (1.6-8.9); Platelet Count 274 K/mcL (140-400); Red Blood Count 4.51 M/mcL (4.19-5.50); Red Cell Distribution Width 12.5 % (11.5-14.5); Segmented Neutrophils % 69.2 %; White Blood Count 6.6 K/mcL (4.3-11.1)
[2022-02-18 16:26] LABS: BUN/Creatinine Ratio 19 (6-26); Blood Urea Nitrogen 26 mg/dL (6-20); C-Reactive Protein 15 mg/L (Less than 10); Calcium 9.1 mg/dL (8.6-10.3); Carbon Dioxide 30 mEq/L (23-29); Chloride 101 mEq/L (98-107); Glucose 352 mg/dL (70-105); Osmolality,Calculated 299 (280-300); Potassium 6.2 mEq/L (3.5-5.1); Sodium 135 mEq/L (136-145); eGFR For African Americans > 60 (> 60); eGFR For Non-African Americans 53 (> 60)
[2022-02-18] MEDS ORDERED: Albuterol 2.5 MG/3 ML NEBULIZER IH ONE (17:25)
[2022-02-18] MEDS ORDERED: Albuterol Neb 1.25 MG/3 ML VIAL IH ONE (17:25)
[2022-02-18] MEDS ORDERED: 0.9 % Sodium Chloride 1,000 ML IV ONE (17:27)
[2022-02-18] MEDS ORDERED: SODIUM ZIRCONIUM CYCLOSILICATE 5 GM POWD.PACK PO SCH (17:30)
[2022-02-18] MEDS ORDERED: Calcium Gluconate 1gm/50mL 1 GM/50 ML BAG IVPB SCH (17:30)
[2022-02-18 18:17] LABS: BUN/Creatinine Ratio 19 (6-26); Blood Urea Nitrogen 26 mg/dL (6-20); Calcium 8.4 mg/dL (8.6-10.3); Carbon Dioxide 29 mEq/L (23-29); Chloride 103 mEq/L (98-107); Glucose 318 mg/dL (70-105); Osmolality,Calculated 297 (280-300); Potassium 5.3 mEq/L (3.5-5.1); Sodium 135 mEq/L (136-145); eGFR For African Americans > 60 (> 60); eGFR For Non-African Americans 53 (> 60)
[2022-02-18] MEDS ORDERED: Naloxone 0.4 MG/ML INJ IVP PRN (18:20)
[2022-02-18] MEDS ORDERED: Melatonin 3 MG TABLET PO PRN (19:52)
[2022-02-18] MEDS ORDERED: Ondansetron ODT 4 MG TAB.RAPDIS SL PRN (19:52)
[2022-02-18 20:35] LABS: Magnesium 1.9 mg/dL (1.6-2.6)
[2022-02-18] MEDS ORDERED: Acetaminophen 325 MG TABLET PO PRN (21:02)
[2022-02-18 21:34] LABS: Estimated Average Glucose 240 mg/dl
[2022-02-18] MEDS: *HR* HYDROcodone/Acet 5/325 mg TABLET PO PRN (21:46)
[2022-02-18] MEDS: carvediloL 6.25 MG TABLET PO SCH (23:49)
[2022-02-18] MEDS: Insulin LISPRO 300 UNITS/3 ML VIAL SUBQ SCH (23:49)
[2022-02-18] MEDS: Pregabalin 75 MG CAPSULE PO SCH (23:49)
[2022-02-18] MEDS: Insulin DETEMIR 100 UNIT/ML X5UNITS SUBQ SCH (23:50)
[2022-02-19 00:47] LABS: BUN/Creatinine Ratio 20 (6-26); Blood Urea Nitrogen 25 mg/dL (6-20); Calcium 8.3 mg/dL (8.6-10.3); Carbon Dioxide 28 mEq/L (23-29); Chloride 102 mEq/L (98-107); Glucose 365 mg/dL (70-105); Osmolality,Calculated 301 (280-300); Potassium 4.3 mEq/L (3.5-5.1); Sodium 136 mEq/L (136-145); eGFR For African Americans > 60 (> 60); eGFR For Non-African Americans 59 (> 60)
[2022-02-19] MEDS: Piperacillin/Tazobactam 3.375 GM in 0.9 % Sodium Chloride Mini Bag 100 ML IVPB SCH ×4 (01:07→23:49)
[2022-02-19 05:13] LABS: Basophils % 0.5 %; Eosinophils # 0.1 K/mcL (0.0-0.6); Eosinophils % 1.7 %; Hematocrit 32.1 % (37.5-50.1); Immature Granulocytes % 0.3 % (0-4); Lymphocytes # 2.5 K/mcL (0.6-4.6); Lymphocytes % 43.2 %; Mean Corpuscular HGB Conc 32.1 g/dL (31.6-35.5); Mean Corpuscular Hemoglobin 27.9 pg (28.0-33.3); Mean Platelet Volume 11.3 fL (9.4-12.4); Monocytes # 0.4 K/mcL (0.0-1.3); Neutrophils # 2.8 K/mcL (1.6-8.9); Platelet Count 229 K/mcL (140-400); Red Blood Count 3.69 M/mcL (4.19-5.50); Red Cell Distribution Width 12.6 % (11.5-14.5); Segmented Neutrophils % 48.3 %; White Blood Count 5.8 K/mcL (4.3-11.1)
[2022-02-19 05:14] LABS: Hemoglobin 10.3 g/dL (12.9-16.9)
[2022-02-19] MEDS: Vancomycin 1,500 MG/265 ML IV.SOLN IVPB SCH ×2 (05:28→15:24)
[2022-02-19 05:31] LABS: BUN/Creatinine Ratio 19 (6-26); Blood Urea Nitrogen 27 mg/dL (6-20); Calcium 8.6 mg/dL (8.6-10.3); Carbon Dioxide 30 mEq/L (23-29); Chloride 105 mEq/L (98-107); Glucose 201 mg/dL (70-105); Osmolality,Calculated 299 (280-300); Phosphorous 4.2 mg/dL (2.7-4.5); Potassium 4.2 mEq/L (3.5-5.1); Sodium 139 mEq/L (136-145); eGFR For African Americans > 60 (> 60); eGFR For Non-African Americans 53 (> 60)
[2022-02-19] MEDS ORDERED: Piperacillin/Tazobactam 3.375 GM in 0.9 % Sodium Chloride Mini Bag 100 ML IVPB SCH (06:00)
[2022-02-19] MEDS: Aspirin Enteric Coated 81 MG Tablet PO SCH (08:51)
[2022-02-19] MEDS: Pregabalin 75 MG CAPSULE PO SCH ×2 (08:51→21:43)
[2022-02-19] MEDS: carvediloL 6.25 MG TABLET PO SCH ×2 (08:51→17:27)
[2022-02-19] MEDS: Insulin DETEMIR 100 UNIT/ML X5UNITS SUBQ SCH ×2 (08:52→21:43)
[2022-02-19] MEDS: Insulin LISPRO 300 UNITS/3 ML VIAL SUBQ SCH ×4 (09:48→21:43)
[2022-02-19] MEDS: *HR* HYDROcodone/Acet 5/325 mg TABLET PO PRN ×2 (11:43→19:45)
[2022-02-19] MEDS: *HR* OxyCODONE/APAP 10/325 TABLET PO PRN ×2 (17:27→23:48)
[2022-02-19] MEDS: *HR* Heparin 5,000 UNIT/ML VIAL SQ SCH (21:43)
[2022-02-20 04:27] LABS: Basophils % 0.6 %; Eosinophils # 0.1 K/mcL (0.0-0.6); Eosinophils % 2.2 %; Hematocrit 32.3 % (37.5-50.1); Hemoglobin 10.3 g/dL (12.9-16.9); Immature Granulocytes % 0.8 % (0-4); Lymphocytes # 2.4 K/mcL (0.6-4.6); Mean Corpuscular HGB Conc 31.9 g/dL (31.6-35.5); Mean Corpuscular Hemoglobin 28.4 pg (28.0-33.3); Mean Platelet Volume 11.1 fL (9.4-12.4); Monocytes # 0.3 K/mcL (0.0-1.3); Monocytes % 5.3 %; Neutrophils # 2.1 K/mcL (1.6-8.9); Platelet Count 207 K/mcL (140-400); Red Blood Count 3.63 M/mcL (4.19-5.50); Red Cell Distribution Width 12.6 % (11.5-14.5); Segmented Neutrophils % 42.1 %; White Blood Count 4.9 K/mcL (4.3-11.1)
[2022-02-20 04:48] LABS: BUN/Creatinine Ratio 22 (6-26); Blood Urea Nitrogen 32 mg/dL (6-20); Calcium 8.7 mg/dL (8.6-10.3); Carbon Dioxide 31 mEq/L (23-29); Chloride 104 mEq/L (98-107); Glucose 210 mg/dL (70-105); Osmolality,Calculated 299 (280-300); Potassium 4.6 mEq/L (3.5-5.1); Sodium 138 mEq/L (136-145); eGFR For African Americans > 60 (> 60); eGFR For Non-African Americans 51 (> 60)
[2022-02-20] MEDS ORDERED: Vancomycin 1,250 MG/262.5 ML IV.SOLN IVPB SCH (05:00)
[2022-02-20] MEDS: *HR* Heparin 5,000 UNIT/ML VIAL SQ SCH ×3 (05:49→20:36)
[2022-02-20] MEDS: carvediloL 6.25 MG TABLET PO SCH ×2 (08:04→18:35)
[2022-02-20] MEDS: Pregabalin 75 MG CAPSULE PO SCH ×2 (08:05→20:36)
[2022-02-20] MEDS: Piperacillin/Tazobactam 3.375 GM in 0.9 % Sodium Chloride Mini Bag 100 ML IVPB SCH (08:07)
[2022-02-20] MEDS: Aspirin Enteric Coated 81 MG Tablet PO SCH (08:13)
[2022-02-20] MEDS: Insulin DETEMIR 100 UNIT/ML X5UNITS SUBQ SCH ×2 (08:13→20:45)
[2022-02-20] MEDS: Insulin LISPRO 300 UNITS/3 ML VIAL SUBQ SCH ×4 (09:43→20:41)
[2022-02-20] MEDS: *HR* OxyCODONE/APAP 10/325 TABLET PO PRN ×2 (11:00→20:36)
[2022-02-21] MEDS: *HR* HYDROcodone/Acet 5/325 mg TABLET PO PRN ×2 (00:03→22:19)
[2022-02-21 04:19] LABS: Calcium 8.5 mg/dL (8.6-10.3); Potassium 4.5 mEq/L (3.5-5.1)
[2022-02-21] MEDS: *HR* OxyCODONE/APAP 10/325 TABLET PO PRN ×3 (06:03→19:57)
[2022-02-21] MEDS: *HR* Heparin 5,000 UNIT/ML VIAL SQ SCH ×4 (06:04→22:20)
[2022-02-21] MEDS ORDERED: Ringers Solution, Lactated 1,000 ML IVC ONE (08:17)
[2022-02-21] MEDS: Insulin DETEMIR 100 UNIT/ML X5UNITS SUBQ SCH ×2 (09:04→20:03)
[2022-02-21] MEDS: Pregabalin 75 MG CAPSULE PO SCH ×2 (09:04→19:57)
[2022-02-21] MEDS: Aspirin Enteric Coated 81 MG Tablet PO SCH (09:04)
[2022-02-21] MEDS: carvediloL 6.25 MG TABLET PO SCH ×2 (09:05→18:34)
[2022-02-21] MEDS: Insulin LISPRO 300 UNITS/3 ML VIAL SUBQ SCH ×4 (09:05→22:06)
[2022-02-22] MEDS: *HR* OxyCODONE/APAP 10/325 TABLET PO PRN ×2 (04:45→10:47)
[2022-02-22] MEDS: *HR* Heparin 5,000 UNIT/ML VIAL SQ SCH (05:24)
[2022-02-22] MEDS: *HR* HYDROcodone/Acet 5/325 mg TABLET PO PRN ×2 (05:24→12:44)
[2022-02-22 05:44] LABS: Basophils % 0.7 %; Eosinophils # 0.1 K/mcL (0.0-0.6); Eosinophils % 2.7 %; Hemoglobin 10.6 g/dL (12.9-16.9); Immature Granulocytes % 1.5 % (0-4); Lymphocytes # 1.9 K/mcL (0.6-4.6); Lymphocytes % 47.1 %; Mean Corpuscular HGB Conc 33.1 g/dL (31.6-35.5); Mean Corpuscular Hemoglobin 28.9 pg (28.0-33.3); Mean Corpuscular Volume 87.2 fL (83.0-100.0); Mean Platelet Volume 11.5 fL (9.4-12.4); Monocytes # 0.3 K/mcL (0.0-1.3); Monocytes % 6.8 %; Neutrophils # 1.7 K/mcL (1.6-8.9); Platelet Count 211 K/mcL (140-400); Red Blood Count 3.67 M/mcL (4.19-5.50); Red Cell Distribution Width 12.7 % (11.5-14.5); Segmented Neutrophils % 41.2 %; White Blood Count 4.1 K/mcL (4.3-11.1)
[2022-02-22 06:03] LABS: BUN/Creatinine Ratio 27 (6-26); Blood Urea Nitrogen 34 mg/dL (6-20); Calcium 8.7 mg/dL (8.6-10.3); Carbon Dioxide 29 mEq/L (23-29); Chloride 101 mEq/L (98-107); Glucose 247 mg/dL (70-105); Osmolality,Calculated 294 (280-300); Potassium 4.2 mEq/L (3.5-5.1); Sodium 134 mEq/L (136-145); eGFR For African Americans > 60 (> 60); eGFR For Non-African Americans 59 (> 60)
[2022-02-22] MEDS: carvediloL 6.25 MG TABLET PO SCH (08:11)
[2022-02-22] MEDS: Aspirin Enteric Coated 81 MG Tablet PO SCH (08:11)
[2022-02-22] MEDS: Pregabalin 75 MG CAPSULE PO SCH (08:11)
[2022-02-22] MEDS: Insulin DETEMIR 100 UNIT/ML X5UNITS SUBQ SCH (08:12)
[2022-02-22] MEDS: Insulin LISPRO 300 UNITS/3 ML VIAL SUBQ SCH ×2 (08:14→12:44)
[2022-02-22 10:43] VITALS: BP 163/92; PULSE 71; TEMP 98; O2SAT 99
== END 2022-02-22 13:30 | disposition home or self-care (01) | DRG 639 ==
LOC: 4WAOSI 15:14 → EMEROOARM 15:14 → 4WAOSI 20:12
PROVIDERS: ADMIT Student in an Organized Health Care Education/Training Program; ATTEND Student in an Organized Health Care Education/Training Program